=== PATIENT | male | born 1950 | race Caucasian/White ===

== ENCOUNTER 2016-11-08 12:43 | Day surgery (SDC) | payer MEDICARE, MEDICAID ==
[~2016-11-08 12:43] MED LIST: Buffered Lidocaine 0.9% SYRIN* 5 ML/SYR SYRINGE ONE; Dexamethasone IV* 4 MG/ML 1 ML (4 MG) IV SLOW PU ONE; Dexamethasone IV* 4 MG/ML 1 ML (4 MG) ONE; Famotidine IV* 10 MG/ML 2 ML (20 mg) IV ONE; Famotidine IV* 10 MG/ML 2 ML (20 mg) ONE; ceFAZolin 2 GM PREMIX(*) 2 GM/50 ML BAG IVPB ONE
[2016-11-08] MEDS ORDERED: fentaNYL* 50 MCG/ML 2 ML VIAL (100 MCG VIAL) ONE (13:43)
[2016-11-08] MEDS ORDERED: Ketorolac INJ* 30 MG/ML 1 ML VIAL ONE (13:44)
[2016-11-08] MEDS ORDERED: Ondansetron INJ* 2 MG/ML VIAL ONE (13:44)
[2016-11-08] MEDS ORDERED: Propofol* 10 MG/ML 20 ML BTL IV PUSH ONE (13:44)
[2016-11-08] MEDS ORDERED: Midazolam* 1 MG/ML 5 ML VIAL (5 MG) ONE (13:44)
[2016-11-08] MEDS ORDERED: oxyCODONE/Acetamin 5/325 MG* TAB PO PRN (14:05)
[2016-11-08] MEDS ORDERED: Ondansetron INJ* 2 MG/ML VIAL IV PRN (14:05)
[2016-11-08] MEDS ORDERED: Bupivacaine 0.25% W/EPI* 50 ML VIAL ONE (14:10)
[2016-11-08] MEDS ORDERED: Methylene Blue 1% (ANTIDOTE)* 10 MG/ML 1 ML SDV VIAL IVPB ONE (14:18)
[2016-11-08] MEDS ORDERED: Bupivacaine 0.25% EPI 200,000* 30 ML SDV ONE (14:19)
[2016-11-08] MEDS ORDERED: Mineral Oil Sterile, TOPICAL* 25 ML BTL ONE (14:19)
[2016-11-08 16:31] VITALS: BP 127/81
== END 2016-11-08 17:10 | disposition home or self-care (01) ==
LOC: OR 12:43
PROVIDERS: ATTEND Plastic Surgery
DX: D04.4 Carcinoma in situ of skin of scalp and neck (principal); C44.41 Basal cell carcinoma of skin of scalp and neck; F25.9 Schizoaffective disorder, unspecified; E11.22 Type 2 diabetes mellitus with diabetic chronic kidney disease; I12.9 Hypertensive chronic kidney disease with stage 1 through stage 4 chronic kidney disease, or unspecified chronic kidney disease; N18.3 Chronic kidney disease, stage 3 (moderate); Z79.84 Long term (current) use of oral hypoglycemic drugs
CPT/HCPCS: 88305; 88331; 88332; A9270-GY; J0690; J1100; J1885; J2250; J2405; J2704; J3010

== ENCOUNTER 2017-07-16 22:41 | Emergency (ER) | payer MEDICARE, MEDICAID ==
[2017-07-16] MEDS ORDERED: Ondansetron INJ* 2 MG/ML VIAL IV ONE (23:14)
[2017-07-16] MEDS ORDERED: Morphine INJ* 4 MG/ML 1 ML CARPUJECT IV ONE (23:14)
[2017-07-16] MEDS ORDERED: Morphine INJ* 4 MG/ML 1 ML SYRINGE (NEW SYRINGE VERSION) ONE (23:19)
[2017-07-16 23:59] LABS: INR 0.78 (0.77-1.02)
[2017-07-17] LABS: ABS Basophils 0 10^3/ul (0-0.2); ABS Eosinophils 0.3 10^3/ul (0-0.6); ABS Lymphocytes 1.8 10^3/ul (1.0-4.8); ABS Monocytes 0.8 10^3/ul (0-0.8); ABS Neutrophils 3.9 10^3/ul (1.5-7.7); ABS Nucleated RBC 0 10^3/ul; Eosinophil % 3.9 % (0-6); Hematocrit 34 % (42-52); Hemoglobin 11.4 g/dl (14.0-18.0); Lymphocyte % 26.8 % (25-47); Mean Corpuscular HGB Conc 33 g/dl (31-36); Mean Corpuscular Hemoglobin 30 pg (27-31); Mean Corpuscular Volume 91 fL (80-94); Mean Platelet Volume 9 um3 (7.4-10.4); Nucleated Red Blood Cells % 0; Platelet Count 200 10^3/ul (150-450); Red Blood Count 3.78 10^6/ul (4.0-5.4); Red Cell Distribution Width 15 % (10.5-15); White Blood Count 6.9 10^3/ul (3.5-10.8)
[2017-07-17 00:14] LABS: EGFR Non-African American 46.9 (>60)
[2017-07-17] MEDS ORDERED: Pregabalin CAP(*) 50 MG PO ONE (01:03)
[2017-07-17 01:25] VITALS: BP 162/85
--- NOTE | 2017-07-17 07:56 | RAD ---
HISTORY: Bilateral lower extremity pain and edema COMPARISONS: None relevant TECHNIQUE: Multiple transverse and longitudinal ultrasound images were obtained of the bilateral lower extremities from the level of the common femoral vein inferiorly through to the infrapopliteal veins using grayscale, color Doppler, and spectral Doppler imaging with and without compression and with augmentation. FINDINGS: VEINS: The venous system of the bilateral lower extremities is compressible throughout its course, with normal flow on color Doppler imaging and normal response to augmentation on spectral Doppler imaging. SOFT TISSUES: Unremarkable. OTHER FINDINGS: None. IMPRESSION: NO RIGHT LOWER EXTREMITY DEEP VEIN THROMBOSIS. NO LEFT LOWER EXTREMITY DEEP VEIN THROMBOSIS
--- NOTE | 2017-07-19 04:41 | ED ---
Nba Fisher Abhishek, scribed for Shukri Nassar MD on 07/17/17 at 0124 . Lower Extremity - HPI Summary HPI Summary: This patient is a 66 year old M presenting to [facility] with a chief complaint of feet pain since 4 months ago. Pertinent PMHx includes DM type 2. Pt states he has fallen multiple times and that he has no prior incidents of neuropathy apart from this chief complaint. However, pt also reports visiting an orthopedist recently and states that she diagnosed him with neuropathy. The patient rates the pain 8/10 in severity. Symptoms aggravated by palpation. Symptoms alleviated by nothing. Patient reports back pain, edema of lower extremity (bilaterally) and leg pain. Patient denies fever. Pt also states he does not use cane or a walker as well as reporting one leg being shorter and fatter than the other. - History of Current Complaint Chief Complaint: EDExtremityLower Stated Complaint: FEET SWELLING/PAIN Time Seen by Provider: 07/16/17 23:01 Hx Obtained From: Patient Onset/Duration: Still Present Severity Initially: Severe Severity Currently: Severe Pain Intensity: 8 Pain Scale Used: 0-10 Numeric Timing: Constant Associated Signs And Symptoms: Positive: Swelling Aggravating Factor(s): Other - palpation Alleviating Factor(s): Nothing - Allergies/Home Medications Allergies/Adverse Reactions: Allergies Allergy/AdvReac Type Severity Reaction Status Date / Time No Known Allergies Allergy Verified 11/08/16 12:58 PMH/Surg Hx/FS Hx/Imm Hx Endocrine/Hematology History: Reports: Hx Anticoagulant Therapy - aspirin 81mg, Hx Diabetes - DX 1999 TYPE 2 Denies: Hx Thyroid Disease Cardiovascular History: Reports: Hx Hypotension - HX OF X 1, Hx Hypertension Denies: Hx Pacemaker/ICD Respiratory History: Reports: Hx Pulmonary Edema - RLL Denies: Hx Asthma, Hx Chronic Obstructive Pulmonary Disease (COPD) GI History: Denies: Hx Ulcer History: Reports: Hx Chronic Renal Failure Denies: Hx Dialysis, Hx Renal Disease Musculoskeletal History: Denies: Hx Back Problems, Other Musculoskeletal History Sensory History: Reports: Hx Cataracts, Hx Contacts or Glasses - GLASSES, Hx Glaucoma Denies: Hx Hearing Aid Opthamlomology History: Reports: Hx Cataracts, Hx Contacts or Glasses - GLASSES , Hx Glaucoma Neurological History: Reports: Other Neuro Impairments/Disorders - SCHIZO AFFECTIVE DISORDER Denies: Hx Dementia, Hx Seizures Psychiatric History: Reports: Hx Anxiety, Hx Depression, Hx Schizophrenia, Hx Bipolar Disorder, Other Psychiatric Issues/Disorders - HX EXTRAPYRADAL S/S AFTER TAKING GEODON Denies: Hx Substance Abuse - Surgical History Surgery Procedure, Year, and Place: LEFT EYE SURGERY- LAZY EYE 1966 [facility] Anesthesia Reactions: Yes - N/V - Immunization History Date of Influenza Vaccine: 2006 Infectious Disease History: No Infectious Disease History: Denies: Hx Clostridium Difficile, Hx Hepatitis, Hx Human Immunodeficiency Virus (HIV), Hx Shingles, Hx Tuberculosis, Traveled Outside the [place] in Last 30 Days - Family History Known Family History: Positive: Cardiac Disease - PR, Other - Skin Cancer - Social History Alcohol Use: None Substance Use Type: Reports: None Smoking Status (MU): Never Smoked Tobacco Have You Smoked in the Last Year: No Review of Systems Negative: Fever Eyes: Negative ENT: Negative Cardiovascular: Negative Respiratory: Negative Gastrointestinal: Negative Genitourinary: Negative Musculoskeletal: Other - leg pain, back pain Positive: Edema - bilaterally LE Skin: Negative Neurological: Negative Psychological: Normal All Other Systems Reviewed And Are Negative: Yes Physical Exam - Summary Physical Exam Summary: VITAL SIGNS: Reviewed. GENERAL: ~Patient is a well-developed and nourished (MALE) who is lying comfortable in the stretcher. Patient is not in any acute respiratory distress. HEAD AND FACE: No signs of trauma. No ecchymosis, hematomas or skull depressions. No sinus tenderness. EYES: PERRLA, EOMI x 2, No injected conjunctiva, no nystagmus. EARS: Hearing grossly intact. Ear canals and tympanic membranes are within normal limits. MOUTH: Oropharynx within normal limits. NECK: Supple, trachea is midline, no adenopathy, no JVD, no carotid bruit, no c- spine tenderness, neck with full ROM. CHEST: Symmetric, no tenderness at palpation LUNGS: Clear to auscultation bilaterally. No wheezing or crackles. CVS: Regular rate and rhythm, S1 and S2 present, no murmurs or gallops appreciated. ABDOMEN: Soft, non-tender. No signs of distention. No rebound no guarding, and no masses palpated. Bowel sounds are normal. EXTREMITIES: Bilateral lower extremity edema left more than right Tenderness over his both feet. Redness of over the left lower extremity NEURO: Alert and oriented x 3. No acute neurological deficits. Speech is normal and follows commands. SKIN: Dry and warm Triage Information Reviewed: Yes Vital Signs On Initial Exam: Initial Vitals Temp Pulse Resp BP Pulse Ox 98.8 F 105 17 155/81 98 07/16/17 22:42 07/16/17 22:42 07/16/17 22:42 07/16/17 22:42 07/16/17 22:42 Vital Signs Reviewed: Yes Diagnostics - Vital Signs Vital Signs Temp Pulse Resp BP Pulse Ox 07/16/17 23:37 16 07/16/17 22:42 98.8 F 105 17 155/81 98 - Laboratory Lab Results: Lab Results 07/16/17 07/16/17 07/16/17 Range/Units 23:26 23:26 23:26 WBC 6.9 (3.5-10.8) 10^3/ul RBC 3.78 L (4.0-5.4) 10^6/ul Hgb 11.4 L (14.0-18.0) g/dl Hct 34 L (42-52) % MCV 91 (80-94) fL MCH 30 (27-31) pg MCHC 33 (31-36) g/dl RDW 15 (10.5-15) % Plt Count 200 (150-450) 10^3/ul MPV 9 (7.4-10.4) um3 Neut % (Auto) 57.4 (38-83) % Lymph % (Auto) 26.8 (25-47) % [place] % (Auto) 11.5 H (1-9) % Eos % (Auto) 3.9 (0-6) % Baso % (Auto) 0.4 (0-2) % Absolute Neuts (auto) 3.9 (1.5-7.7) 10^3/ul Absolute Lymphs (auto) 1.8 (1.0-4.8) 10^3/ul Absolute Monos (auto) 0.8 (0-0.8) 10^3/ul Absolute Eos (auto) 0.3 (0-0.6) 10^3/ul Absolute Basos (auto) 0 (0-0.2) 10^3/ul Absolute Nucleated RBC 0 10^3/ul Nucleated RBC % 0 INR (Anticoag Therapy) 0.78 (0.77-1.02) APTT 31.0 (26.0-36.3) seconds Sodium 138 (133-145) mmol/L Potassium 3.9 (3.5-5.0) mmol/L Chloride 102 (101-111) mmol/L Carbon Dioxide 29 (22-32) mmol/L Anion Gap 7 (2-11) mmol/L BUN 34 H (6-24) mg/dL Creatinine 1.49 H (0.67-1.17) mg/dL Est GFR ( Amer) 60.3 (>60) Est GFR (Non-Af Amer) 46.9 (>60) BUN/Creatinine Ratio 22.8 H (8-20) Glucose 159 H (70-100) mg/dL Calcium 9.4 (8.6-10.3) mg/dL Total Bilirubin 0.30 (0.2-1.0) mg/dL AST 26 (13-39) U/L ALT 18 (7-52) U/L Alkaline Phosphatase 30 L (34-104) U/L C-Reactive Protein 6.44 H (< 5.00) mg/L Total Protein 7.1 (6.4-8.9) g/dL Albumin 4.3 (3.2-5.2) g/dL Globulin 2.8 (2-4) g/dL Albumin/Globulin Ratio 1.5 (1-3) Result Diagrams: 07/16/17 23:26 07/16/17 23:26 Lab Statement: Any lab studies that have been ordered have been reviewed, and results considered in the medical decision making process. - Ultrasound No standard instances Ultrasound Interpretation Completed By: Radiologist - US lower extremity Venous Doppler reveals no evidence for DVT bilateral lower extremities as per radiology report. ED physician has reviewed this radiology report and agrees. Lower Extremity Course/Dx - Course Course Of Treatment: The pt is a 66 M with a CC of feet pain. The pt reports that the pain has been ongoing since 4 months and that he has PMHx of DM type 2 for 23 years. According to the pt, he visited an orthopedist and states the orthopedist diagnosed him with neuropathy. Upon evaluation and recieving a US venous dopplar of LE, pt will be diagnosed with bilateral feet pain, and diabetic neuropathy. The pt will be discharged home. - Diagnoses Provider Diagnoses: Bilateral foot pain, Diabetic neuropathy Discharge - Discharge Plan Condition: Stable Disposition: HOME Prescriptions: Pregabalin CAP(*) [Lyrica CAP(*)] 50 mg PO BID #30 cap MDD 2 Patient Education Materials: Diabetic Peripheral Neuropathy (ED), Leg Pain (ED) Referrals: Dayo Harkins MD [Primary Care Provider] - (Follow up with PCP within 2 to 3 days.) Additional Instructions: RETURN TO THE EMERGENCY DEPARTMENT FOR CHANGING OR WORSENING SYMPTOMS. The documentation as recorded by the Nba hess Abhishek accurately reflects the service I personally performed and the decisions made by Cesario guevara Abdul, MD.
== END 2017-07-17 01:20 | disposition home or self-care (01) ==
LOC: ED 22:41
DX: M79.672 Pain in left foot (principal); M79.671 Pain in right foot; R60.0 Localized edema; E11.40 Type 2 diabetes mellitus with diabetic neuropathy, unspecified; I95.9 Hypotension, unspecified; E11.22 Type 2 diabetes mellitus with diabetic chronic kidney disease; I12.9 Hypertensive chronic kidney disease with stage 1 through stage 4 chronic kidney disease, or unspecified chronic kidney disease; N18.9 Chronic kidney disease, unspecified; F25.9 Schizoaffective disorder, unspecified; Z79.82 Long term (current) use of aspirin
CPT/HCPCS: 36415; 80053; 85025; 85610; 85730; 86140; 87040; 93970; 96374; 96375; 99283; A9270-GY; J2270; J2405

== ENCOUNTER 2017-07-19 04:39 | Emergency (ER) | payer MEDICARE, MEDICAID ==
[2017-07-19] MEDS ORDERED: Pregabalin CAP(*) 50 MG PO ONE (04:54)
--- NOTE | 2017-07-19 05:37 | ED ---
Meryl Fisher Thomas, scribed for Shukri Nassar MD on 07/19/17 at 0502 . Lower Extremity - HPI Summary HPI Summary: The patient is a 66 year old male presenting with bilateral feet pain for the last four months. PMHx includes DM. I saw him two days ago in the ED, when he had a negative venous Doppler ultrasound and was discharged with Lyrica. However , he reports that he lost his prescription and is still in pain. He has an appointment with his primary care physician today at 11:00. - History of Current Complaint Chief Complaint: EDDizziness Stated Complaint: Feet pain Time Seen by Provider: 07/19/17 04:43 Hx Obtained From: Patient Onset of Pain: Days - months ago Onset/Duration: Still Present Severity Currently: Severe Pain Intensity: 8 Pain Scale Used: 0-10 Numeric Timing: Constant Location: Is Discrete @ - bilateral feet Associated Signs And Symptoms: Positive: Negative. Negative: Fever Aggravating Factor(s): Nothing - Allergies/Home Medications Allergies/Adverse Reactions: Allergies Allergy/AdvReac Type Severity Reaction Status Date / Time No Known Allergies Allergy Verified 11/08/16 12:58 PMH/Surg Hx/FS Hx/Imm Hx Endocrine/Hematology History: Reports: Hx Anticoagulant Therapy - aspirin 81mg, Hx Diabetes - DX 1999 TYPE 2 Denies: Hx Thyroid Disease Cardiovascular History: Reports: Hx Hypotension - HX OF X 1, Hx Hypertension Denies: Hx Pacemaker/ICD Respiratory History: Reports: Hx Pulmonary Edema - RLL Denies: Hx Asthma, Hx Chronic Obstructive Pulmonary Disease (COPD) GI History: Denies: Hx Ulcer History: Reports: Hx Chronic Renal Failure Denies: Hx Dialysis, Hx Renal Disease Musculoskeletal History: Denies: Hx Back Problems, Other Musculoskeletal History Sensory History: Reports: Hx Cataracts, Hx Contacts or Glasses - GLASSES, Hx Glaucoma Denies: Hx Hearing Aid Opthamlomology History: Reports: Hx Cataracts, Hx Contacts or Glasses - GLASSES , Hx Glaucoma Neurological History: Reports: Other Neuro Impairments/Disorders - SCHIZO AFFECTIVE DISORDER Denies: Hx Dementia, Hx Seizures Psychiatric History: Reports: Hx Anxiety, Hx Depression, Hx Schizophrenia, Hx Bipolar Disorder, Other Psychiatric Issues/Disorders - HX EXTRAPYRADAL S/S AFTER TAKING GEODON Denies: Hx Substance Abuse - Surgical History Surgery Procedure, Year, and Place: LEFT EYE SURGERY- [facility] Hx Anesthesia Reactions: Yes - N/V - Immunization History Date of Influenza Vaccine: 2006 Infectious Disease History: No Infectious Disease History: Denies: Hx Clostridium Difficile, Hx Hepatitis, Hx Human Immunodeficiency Virus (HIV), Hx Shingles, Hx Tuberculosis, Traveled Outside the in Last 30 Days - Family History Known Family History: Positive: Other - Patient denies relevant FHx - Social History Alcohol Use: None Substance Use Type: Reports: None Smoking Status (MU): Never Smoked Tobacco Have You Smoked in the Last Year: No Review of Systems Negative: Fever Positive: Other - Bilateral feet pain All Other Systems Reviewed And Are Negative: Yes Physical Exam - Summary Physical Exam Summary: VITAL SIGNS: Reviewed. GENERAL: Patient is a well-developed and nourished MALE who is lying comfortable in the stretcher. Patient is not in any acute respiratory distress. HEAD AND FACE: No signs of trauma. No ecchymosis, hematomas or skull depressions. No sinus tenderness. EYES: PERRLA, EOMI x 2, No injected conjunctiva, no nystagmus. EARS: Hearing grossly intact. Ear canals and tympanic membranes are within normal limits. MOUTH: Oropharynx within normal limits. NECK: Supple, trachea is midline, no adenopathy, no JVD, no carotid bruit, no c- spine tenderness, neck with full ROM. CHEST: Symmetric, no tenderness at palpation LUNGS: Clear to auscultation bilaterally. No wheezing or crackles. CVS: Regular rate and rhythm, S1 and S2 present, no murmurs or gallops appreciated. ABDOMEN: Soft, non-tender. No signs of distention. No rebound no guarding, and no masses palpated. Bowel sounds are normal. EXTREMITIES: He has bilateral lower extremity edema that is old. FROM in all major joints, no cyanosis or clubbing. NEURO: Alert and oriented x 3. No acute neurological deficits. Speech is normal and follows commands. SKIN: Dry and warm Triage Information Reviewed: Yes Vital Signs On Initial Exam: Initial Vitals Temp Pulse Resp BP Pulse Ox 98.4 F 90 20 149/80 98 07/19/17 04:40 07/19/17 04:40 07/19/17 04:40 07/19/17 04:40 07/19/17 04:40 Vital Signs Reviewed: Yes Diagnostics - Vital Signs Vital Signs Temp Pulse Resp BP Pulse Ox 02/14/18 04:40 98.4 F 90 20 149/80 98 - Laboratory Lab Statement: Any lab studies that have been ordered have been reviewed, and results considered in the medical decision making process. Lower Extremity Course/Dx - Course Assessment/Plan: The patient is a 66 year old male presenting with bilateral feet pain for the last four months. PMHx includes DM. I saw him two days ago in the ED, when he had a negative venous Doppler ultrasound and was discharged with Lyrica. However, he reports that he lost his prescription and is still in pain. He has an appointment with his primary care physician today at 11:00. In the ED course the patient was given Lyrica. The patient will be discharged home to follow up at his appointment later today with his primary care provider. - Diagnoses Provider Diagnoses: Diabetic neuropathy Discharge - Discharge Plan Condition: Stable Disposition: HOME Prescriptions: Pregabalin CAP(*) [Lyrica CAP(*)] 50 mg PO BID #10 cap MDD 2 Patient Education Materials: Diabetic Peripheral Neuropathy (ED) Referrals: Dayo Harikns MD [Primary Care Provider] - 07/19/17 Additional Instructions: Follow up at your appointment later today (11:00) with Dr. Harkins. Return to the emergency department for any new or worsening symptoms. The documentation as recorded by the Meryl hess Thomas accurately reflects the service I personally performed and the decisions made by me, Shukri Nassar MD.
[2017-07-19 05:38] VITALS: BP 136/74
== END 2017-07-19 05:37 | disposition home or self-care (01) ==
LOC: ED 04:39
DX: E11.40 Type 2 diabetes mellitus with diabetic neuropathy, unspecified (principal); Z79.82 Long term (current) use of aspirin
CPT/HCPCS: 99282; A9270-GY

== ENCOUNTER 2017-07-25 22:16 | Emergency (ER) | payer MEDICARE, MEDICAID ==
[2017-07-25] MEDS ORDERED: Furosemide TAB* 20 MG PO ONE (22:36)
[2017-07-25] MEDS ORDERED: traMADol TAB* 50 MG PO ONE (22:38)
[2017-07-25 23:31] VITALS: BP 150/78
--- NOTE | 2017-08-01 15:16 | ED ---
Minor Fisher Jennifer, scribed for Og Greenwood MD on 07/25/17 at 2233 . Lower Extremity - HPI Summary HPI Summary: The patient is a 66 year old male who presents to the ED with swollen feet that began a few months ago in April. The patient has a history of Type I Diabetes. He hasnt checked his glucose in one week. He reports that he has fallen a bunch of times in the past few months. The patient additionally complains of trouble breathing because of the pain in his legs, coughing, and weight gain of 13 pounds in the last four months. - History of Current Complaint Stated Complaint: SWOLLN FEET Time Seen by Provider: 07/25/17 22:27 Hx Obtained From: Patient Onset/Duration: Still Present Severity Initially: Moderate Severity Currently: Moderate Timing: Constant Associated Signs And Symptoms: Positive: Other - Trouble breathing, leg pain, weight gain, falling Aggravating Factor(s): Other - Lying down Alleviating Factor(s): Elevation - Allergies/Home Medications Allergies/Adverse Reactions: Allergies Allergy/AdvReac Type Severity Reaction Status Date / Time No Known Allergies Allergy Verified 11/08/16 12:58 PMH/Surg Hx/FS Hx/Imm Hx Endocrine/Hematology History: Reports: Hx Anticoagulant Therapy - aspirin 81mg, Hx Diabetes - DX 1999 TYPE 2 Denies: Hx Thyroid Disease Cardiovascular History: Reports: Hx Hypotension - HX OF X 1, Hx Hypertension Denies: Hx Pacemaker/ICD Respiratory History: Reports: Hx Pulmonary Edema - RLL Denies: Hx Asthma, Hx Chronic Obstructive Pulmonary Disease (COPD) GI History: Denies: Hx Ulcer History: Reports: Hx Chronic Renal Failure Denies: Hx Dialysis, Hx Renal Disease Musculoskeletal History: Denies: Hx Back Problems, Other Musculoskeletal History Sensory History: Reports: Hx Cataracts, Hx Contacts or Glasses - GLASSES, Hx Glaucoma Denies: Hx Hearing Aid Opthamlomology History: Reports: Hx Cataracts, Hx Contacts or Glasses - GLASSES , Hx Glaucoma Neurological History: Reports: Other Neuro Impairments/Disorders - SCHIZO AFFECTIVE DISORDER Denies: Hx Dementia, Hx Seizures Psychiatric History: Reports: Hx Anxiety, Hx Depression, Hx Schizophrenia, Hx Bipolar Disorder, Other Psychiatric Issues/Disorders - HX EXTRAPYRADAL S/S AFTER TAKING GEODON Denies: Hx Substance Abuse - Surgical History Surgery Procedure, Year, and Place: [facility] Reactions: Yes - N/V - Immunization History Date of Influenza Vaccine: 2006 Infectious Disease History: Denies: Hx Clostridium Difficile, Hx Hepatitis, Hx Human Immunodeficiency Virus (HIV), Hx Shingles, Hx Tuberculosis - Family History Known Family History: Positive: Other - Patient denies relevant FHx - Social History Alcohol Use: None Substance Use Type: Reports: None Smoking Status (MU): Never Smoked Tobacco Have You Smoked in the Last Year: No Review of Systems Negative: Fever, Chills Negative: Erythema Negative: Sore Throat Negative: Chest Pain Positive: Other - Trouble breathing. Negative: Shortness Of Breath, Cough Negative: Abdominal Pain, Vomiting, Nausea Negative: dysuria, hematuria Positive: Myalgia - Pain in legs, Edema - Swollen feet Negative: Rash Neurological: Negative - Dizziness All Other Systems Reviewed And Are Negative: Yes Physical Exam - Summary Physical Exam Summary: Constitutional: Well-developed, Well-nourished, Alert. (-) Distressed Skin: Warm, Dry HENT: Normocephalic; Atraumatic Eyes: Conjunctiva normal Neck: Musculoskeletal ROM normal neck. (-) JVD, (-) Stridor, (-) Tracheal deviation Cardio: Rhythm regular, rate normal, Heart sounds normal; Intact distal pulses; The pedal pulses are 2+ and symmetric. Radial pulses are 2+ and symmetric. (-) Murmur. No evidence for Congestive Heart Failure or pulmonary edema. Pulmonary/Chest wall: Effort normal. (-) Respiratory distress, (-) Wheezes, (-) Rales Abd: Soft, (-) Tenderness, (-) Distension, (-) Guarding, (-) Rebound Musculoskeletal: (-) Edema Lymph: (-) Cervical adenopathy Neuro: Alert, Oriented x3 Psych: Mood and affect Normal Triage Information Reviewed: Yes Vital Signs Reviewed: Yes Lower Extremity Course/Dx - Course Assessment/Plan: The patient is a 66 year old male who presents to the ED with swollen feet that began a few months ago in April. The patient has a history of Type I Diabetes. In the ED course the patient was given Lasix and Ultram. His glucose level was 186 mg/dl. There was no evidence of CHF or pulmonary edema. The patient is diagnosed with peripheral edema. The patient is instructed to follow up with Dr. Harkins in 48 hours. He is to return to the ED for shortness of breath, chest pain, or fatigue. - Diagnoses Provider Diagnoses: Peripheral edema Discharge - Discharge Plan Condition: Stable Disposition: HOME Patient Education Materials: Edema (ED) Referrals: Dayo Harkins MD [Primary Care Provider] - 2 Days Additional Instructions: Follow up with your primary care physician, Dr. Harkins, in 48 hours. Return to the ED for shortness of breath, chest pain, or fatigue. The documentation as recorded by the Minor hess Jennifer accurately reflects the service I personally performed and the decisions made by , Og Greenwood MD.
== END 2017-07-25 23:33 | disposition home or self-care (01) ==
LOC: ED 22:16
DX: R60.9 Edema, unspecified (principal)
CPT/HCPCS: 99283; A9270-GY

== ENCOUNTER 2019-05-05 04:14 | Emergency (ER) | payer MEDICAID, MEDICARE ==
--- NOTE | 2019-05-05 04:32 | ED ---
GI/ HPI - HPI Summary HPI Summary: Patient is a 68 y/o diabetic male who presents to [facility] via EMS with complaints of increased frequency and volume of urination. He claims that he urinated a constant stream of urine for 40 straight minutes tonight. He states that he was urinating every two hours before this episode. He states that these urinary issues have been occurring since he was diagnosed with diabetes. Patient states that he feels well currently. He notes some right lower back pain which he attributes to injury from years ago. FMHx of diabetes is noted as well. On triage, pain is rated 8/10. Nothing is noted to aggravate/alleviate Sx. Home medications and allergies are reviewed. - History of Current Complaint Chief Complaint: EDGeneral Time Seen by Provider: 05/05/19 04:21 Stated Complaint: L BACK PAIN PER EMS Hx Obtained From: Patient Onset/Duration: Resolved Timing: Intermittent, Lasting Minutes Severity: Severe Current Severity: Severe Pain Intensity: 8 Location of Pain: Other - right lower back Associated Signs and Symptoms: Positive: Back Pain, Other: - increased frequency of urination Aggravating Factor(s): Nothing Alleviating Factor(s): Nothing - Allergy/Home Medications Allergies/Adverse Reactions: Allergies Allergy/AdvReac Type Severity Reaction Status Date / Time No Known Allergies Allergy Verified 11/08/16 12:58 PMH/Surg Hx/FS Hx/Imm Hx Endocrine/Hematology History: Reports: Hx Anticoagulant Therapy - aspirin 81mg, Hx Diabetes - DX 1999 TYPE 2 Denies: Hx Thyroid Disease Cardiovascular History: Reports: Hx Hypotension - HX OF X 1, Hx Hypertension Denies: Hx Pacemaker/ICD Respiratory History: Reports: Hx Pulmonary Edema - RLL Denies: Hx Asthma, Hx Chronic Obstructive Pulmonary Disease (COPD) GI History: Denies: Hx Ulcer History: Reports: Hx Chronic Renal Failure Denies: Hx Dialysis, Hx Renal Disease Musculoskeletal History: Denies: Hx Back Problems, Other Musculoskeletal History Sensory History: Reports: Hx Cataracts, Hx Contacts or Glasses - GLASSES, Hx Glaucoma Denies: Hx Hearing Aid Opthamlomology History: Reports: Hx Cataracts, Hx Contacts or Glasses - GLASSES , Hx Glaucoma Neurological History: Reports: Other Neuro Impairments/Disorders - SCHIZO AFFECTIVE DISORDER Denies: Hx Dementia, Hx Seizures Psychiatric History: Reports: Hx Anxiety, Hx Depression, Hx Schizophrenia, Hx Bipolar Disorder, Other Psychiatric Issues/Disorders - HX EXTRAPYRADAL S/S AFTER TAKING GEODON Denies: Hx Substance Abuse - Surgical History Surgery Procedure, Year, and Place: LEFT EYE SURGERY- [facility] Anesthesia Reactions: Yes - N/V - Immunization History Date of Influenza Vaccine: 2006 Infectious Disease History: No Infectious Disease History: Denies: Hx Clostridium Difficile, Hx Hepatitis, Hx Human Immunodeficiency Virus (HIV), Hx Shingles, Hx Tuberculosis, Traveled Outside the [place] in Last 30 Days - Family History Known Family History: Positive: Other - Patient denies relevant FHx - Social History Alcohol Use: None Substance Use Type: Reports: None Smoking Status (MU): Never Smoked Tobacco Have You Smoked in the Last Year: No Review of Systems Positive: frequency - increased frequency and volume of urination Musculoskeletal: Other - positive - back pain All Other Systems Reviewed And Are Negative: Yes Physical Exam - Summary Physical Exam Summary: Appearance: Well-appearing, Well-nourished, lying in bed comfortably Skin: Warm, dry, no obvious rash Eyes: sclera anicteric, no conjunctival pallor ENT: mucous membranes moist, pharynx appears normal Neck: Supple, nontender Respiratory: Clear to auscultation, no signs of respiratory distress Cardiovascular: Normal S1, S2. No murmurs. Normal distal pulses in tibial and radial bilaterally. Abdomen: Soft, nontender, normal active bowel sounds present Musculoskeletal: Normal, Strength/ROM Intact Neurological: A&Ox3, awake and alert, mentation is normal, speech is fluent and appropriate Psychiatric: affect is normal, does not appear anxious or depressed Triage Information Reviewed: Yes Vital Signs On Initial Exam: Initial Vitals Temp Pulse Resp BP Pulse Ox 97.9 F 93 20 156/101 99 05/05/19 04:16 05/05/19 04:16 05/05/19 04:16 05/05/19 04:16 05/05/19 04:16 Vital Signs Reviewed: Yes Procedures - Sedation Patient Received Moderate/Deep Sedation with Procedure: No Diagnostics - Vital Signs Vital Signs Temp Pulse Resp BP Pulse Ox 05/05/19 04:16 97.9 F 93 20 156/101 99 - Laboratory Result Diagrams: 05/05/19 04:56 Lab Statement: Any lab studies that have been ordered have been reviewed, and results considered in the medical decision making process. Re-Evaluation - Re-Evaluation First Eval Re-Evaluation Time: 04:55 Comment: Patient voided 150 mL urine, bladder scan showed 0 mL. GIGU Course/Dx - Course Course Of Treatment: Patient is a 68 y/o diabetic male who presents to [facility] via EMS with complaints of increased frequency and volume of urination. He claims that he urinated a constant stream of urine for 40 straight minutes tonight. He states that he was urinating every two hours before this episode. He states that these urinary issues have been occurring since he was diagnosed with diabetes. Patient states that he feels well currently. He notes some right lower back pain which he attributes to injury from years ago. Physical exam is unremarkable. Patient voided 150 mL urine, bladder scan showed 0 mL. UA showed trace ketones and 1+ blood. Bloodwork was obtained. Patient was discharged to home and will follow up with PCP as needed. - Diagnoses Provider Diagnoses: Dysuria Discharge ED - Sign-Out/Discharge Documenting (check all that apply): Patient Departure - discharge - Discharge Plan Condition: Good Disposition: HOME Patient Education Materials: Dysuria (ED) Referrals: Dayo Harkins MD [Primary Care Provider] - If Needed - Attestation Statements Document Initiated by Scribe: Yes Documenting Scribe: SAM VALERO Provider For Whom Mundo is Documenting (Include Credential): OLRANDO KUMAR MD Scribe Attestation: SAM Fisher, scribed for ORLANDO KUMAR MD on 05/05/19 at 0644. Status of Scribe Document: Ready
[2019-05-05 05:07] LABS: ABS Eosinophils 0.3 10^3/ul (0-0.6); ABS Lymphocytes 2.9 10^3/ul (1.0-4.8); ABS Monocytes 0.7 10^3/ul (0-0.8); ABS Neutrophils 2.9 10^3/ul (1.5-7.7); Eosinophil % 3.9 %; Hematocrit 39 % (42-52); Lymphocyte % 42.8 %; Mean Corpuscular HGB Conc 34 g/dL (31-36); Mean Corpuscular Hemoglobin 31 pg (27-31); Mean Corpuscular Volume 91 fL (80-94); Nucleated Red Blood Cells % 0.1; Platelet Count 172 10^3/uL (150-450); Red Blood Count 4.27 10^6 /uL (4.18-5.48); Red Cell Distribution Width 14 % (10-15); White Blood Count 6.8 10^3/uL (3.5-10.8)
[2019-05-05 05:11] LABS: Urine Appearance Clear; Urine Bilirubin Negative (Negative); Urine Blood 1+ (Negative); Urine Color Straw; Urine Glucose Negative (Negative); Urine Ketones Trace (Negative); Urine Nitrite Negative (Negative); Urine Protein Negative (Negative); Urine Urobilinogen Negative (Negative)
[2019-05-05 05:15] LABS: Urine Bacteria Absent (Absent); Urine Red Blood Cell Trace(0-2/hpf) (Absent); Urine White Blood Cell Absent (Absent)
[2019-05-05 07:28] VITALS: BP 180/78
[2019-05-05 08:13] LABS: Albumin 4.5 g/dL (3.2-5.2); Calcium 9.6 mg/dL (8.6-10.3); Potassium 4.3 mmol/L (3.5-5.0); Total Bilirubin 0.6 mg/dL (0.2-1.0)
[2019-05-05 08:19] LABS: Albumin/Globulin Ratio 2.1 (1-3); BUN/Creatinine Ratio 22.4 (8-20); EGFR African American 59.2 (>60); EGFR Non-African American 48.9 (>60); Globulin 2.1 g/dL (2-4); Total Protein 6.6 g/dL (6.4-8.9)
--- OUTSIDE RECORDS SUMMARY | 2019-05-07 15:54 | XMS REPORT | Continuity of Care Document ---
:1950 External Reference #:[id number] Author Name Flavio Duran, OD Address [address] [place] [address] Care Team Providers Name Role Phone Dayo Harkins MD - Internal Care Team Information Property Officer [phone] Medicine Problems Active Problems Provider Date Bilateral primary open angle glaucoma Chidi Frankel M.D. Onset: 05/09/2016 Primary open-angle glaucoma, mild stage Chidi Frankel M.D. Onset: 2015 Nuclear senile cataract Chidi Frankel M.D. Onset: 11/25/2013 Open-angle glaucoma Chidi Frankel M.D. Onset: 08/22/2013 Type 2 diabetes mellitus Chidi Frankel M.D. Onset: 08/22/2013 Social History Type Date Description Comments Sex Unknown ETOH Use Denies alcohol use Tobacco Use Start: Unknown Patient has never smoked Smoking Status Reviewed: 04/03/19 Patient has never smoked Allergies, Adverse Reactions, Alerts Description No Known Drug Allergies Medications Active Medications SIG Qnty Indications Ordering Provider Date Latanoprost 1 drops both 7.5ml Flavio Duran, OD 06/22/2018 0.005% Solution eyes every night Timolol Maleate one drop twice 15ml Flavio Duran, OD 06/20/2018 0.5% Solution a day both eyes Finasteride Unknown 5mg Tablets Estradiol Unknown 0.5mg Tablets Januvia Unknown 25mg Tablets Amlodipine Besylate Unknown 5mg Tablets Onetouch Ultra Blue Test Twice A Unknown Strips Day Docqlace Unknown 100mg Capsules Divalproex Sodium ER Unknown 500mg Tablets ER 24HR Benztropine Mesylate Unknown 0.5mg Tablets Lisinopril-Hydrochloroth Shahana HAIRSTON, iazide Dayo 20-12.5mg Tablets Hydrocortisone Unknown 2.5% Lotion Benzatropine Unknown Norvasc Unknown Tablets Depakote Unknown Tablets DR Ji Unknown Tablets Aspir-81 once per day po Unknown 81mg Tablets Lisinopril Unknown Tablets Actos Unknown Tablets Glipizide Unknown Tablets Abilify Unknown Tablets Immunizations Description No Information Available Vital Signs Date Vital Result Comment 01/01/2019 10:10am Intraocular Pressure Right Eye 18 mmHg Intraocular Pressure Left Eye 19 mmHg 08/23/2018 10:27am Intraocular Pressure Right Eye 18 mmHg Intraocular Pressure Left Eye 19 mmHg Results Description No Information Available Procedures Date Code Description Status 04/03/2019 84319 Visual Field Exam Extended, Unilateral Or Bilateral Completed 04/03/2019 20362 Eye Exam Est Intermediate Completed 01/01/2019 29942 Oct, Optic Nerve Completed 01/01/2019 15929 Eye Exam Est Intermediate Completed Medical Devices Description No Information Available Encounters Description No Information Available Assessments Date Code Description Provider 04/03/2019 H40.1131 Primary open-angle glaucoma, bilateral, mild Flavio Duran, OD stage 04/03/2019 H25.13 Age-related nuclear cataract, bilateral Flavio Duran, OD 01/01/2019 H40.1131 Primary open-angle glaucoma, bilateral, mild Flavio Duran, OD stage Plan of Treatment 04/03/2019 - Flavio Duran, ODH40.1131 Primary open-angle glaucoma, bilateral, mild [id number] Age-related nuclear cataract, bilateralFollow up:3 mos full, sooner PRN Functional Status Description No Information Available Mental Status Description No Information Available Referrals Description No Information Available
--- OUTSIDE RECORDS SUMMARY | 2019-05-07 15:54 | XMS REPORT | Continuity of Care Document ---
:1950 External Reference #:[id number] Author Name Flavio Duran, OD Address [address] [place] [address] Care Team Providers Name Role Phone Dayo Harkins MD - Internal Care Team Information Seed Trucker [phone] Medicine Problems Active Problems Provider Date Bilateral [...] Medications SIG Qnty Indications Ordering Provider Date Combigan one drop twice 15ml Flavio Duran, OD 04/03/2019 0.2-0.5% Solution a day both eyes Latanoprost 1 drops both 7.5ml Flavio Duran, OD 04/03/2019 0.005% Solution eyes every night Januvia Unknown 100mg Tablets Finasteride Unknown 5mg Tablets Estradiol Unknown 0.5mg Tablets Onetouch Ultra Blue Test Twice A Unknown Strips Day Docqlace Unknown 100mg Capsules Divalproex Sodium ER Unknown 500mg Tablets ER 24HR Benztropine Mesylate Unknown 0.5mg Tablets Lisinopril-Hydrochloroth Shahana HAIRSTON, iazide Dayo 20-12.5mg Tablets Hydrocortisone Unknown 2.5% Lotion Benzatropine Unknown Norvasc Unknown Tablets Depakote Unknown Tablets DR Ji Unknown Tablets Aspir-81 once per day po Unknown 81mg Tablets DR Kesslerinopril Unknown Tablets Actos Unknown Tablets Glipizide Unknown Tablets Abilify Unknown Tablets Immunizations Description No Information Available Vital Signs Date Vital Result Comment 04/03/2019 11:01am Intraocular Pressure Right Eye 19 mmHg Intraocular Pressure Left Eye 19 mmHg 01/01/2019 10:10am Intraocular Pressure Right Eye 18 mmHg Intraocular Pressure Left Eye 19 mmHg Results Description No Information Available Procedures Date Code Description Status 04/03/2019 42603 Visual Field Exam Extended, Unilateral Or Bilateral Completed 04/03/2019 64570 Eye Exam Est Intermediate Completed 01/01/2019 62831 Oct, Optic Nerve Completed 01/01/2019 26208 Eye Exam Est Intermediate Completed Medical Devices Description No Information Available Encounters Description No Information Available Assessments Date Code Description Provider 04/03/2019 H40.1131 Primary open-angle glaucoma, bilateral, mild Flavio Duran, OD stage 04/03/2019 H25.13 Age-related nuclear cataract, bilateral Flavio Duran, OD 01/01/2019 H40.1131 Primary open-angle glaucoma, bilateral, mild Flavio Duran, OD stage Plan of Treatment Future Appointment(s):07/04/2019 10:00 am - Flavio Duran, OD at [id number] - Flavio Duran ODH40.1131 Primary open-angle glaucoma, bilateral, mild [id number] Age-related nuclear cataract, bilateralFollow up:3 mos full, sooner PRN Functional Status Description No Information Available Mental Status Description No Information Available Referrals Description No Information Available
--- OUTSIDE RECORDS SUMMARY | 2019-05-07 15:54 | XMS REPORT | Summary of Care ---
:1950 Author Organization [facility] Address [address] [address] Care Team Providers Name Role Phone Dayo Harkins Primary Care Provider Reason for Visit Reason Comments Diabetes Last A1C was 7.4 on 12/12/2018. Labs are pended. 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 1. 2 Brand: 2. Dx:250.02 3. non-Insulin dependentNO 4. Test Blood Glucose 2QAM time(s) A DAY clotrimazole Apply to 1 Tube 3 Active (LOTRIMIN) 1 % affected areas 4 Apply externally of feet twice a Cream day. Hydrocortisone 2.5 APPLY TO 59 mL 2 Active % Apply externally AFFECTED AREA 4 Lotion TWO TIMES DAILY NEEDED FOR RASH Glucose Blood In 1 Strip by In 100 Each 11 Active Vitro Strip Vitro route 6 TWICE DAILY. One Touch Ultra, Dx:E11.9, bid & PRN azelastine [place] 2 Sprays 1 Bottle 4 Active (ASTELIN) 0.1 % in nose TWICE 7 Nasal DAILY. SolutionIndications : Chronic vasomotor rhinitis Blood Glucose 1 Each by Does 1 Device 0 Active Monitor Software not apply route 8 Does not apply DIRECTED. Device Brand: One Touch, Dx: E11.65, test bid and prn pregabalin (LYRICA) Take 1 Cap by 60 Cap 5 Active 50 MG Oral Cap mouth TWICE 8 DAILY. Max Daily Amount: 100 mg. finasteride TAKE ONE TABLET 90 Tab 3 Active (PROSCAR) 5 MG Oral BY MOUTH ONCE 8 Tab DAILY ASPIR-LOW 81 MG TAKE ONE TABLET 100 Tab 5 Active Oral Tab EC BY MOUTH ONCE 9 DAILY DOCQLACE 100 MG TAKE ONE 60 Cap 5 Active Oral Cap CAPSULE BY 9 MOUTH TWO TIMES DAILY simvastatin (ZOCOR) TAKE 1 TABLET 90 Tab 3 Active 40 MG Oral Tab BY MOUTH AT 9 BEDTIME glipiZIDE TAKE ONE TABLET 90 Tab 3 Active (GLUCOTROL XL) 5 MG BY MOUTH ONCE 9 Oral TABLET SR 24 DAILY HR Glucose Blood (ONE 1 Each by In 100 Strip 5 Active TOUCH ULTRA TEST Vitro route TWO 9 STRIPS) In Vitro TIMES DAILY StripIndications: NEEDED Diabetes mellitus (DIABETES). One without touch ultra 2. complication (HCC) Test bid. Dx: E11,9 lurasidone HCl Take 2 Tabs by 60 Tab 5 Active (LATUDA) 40 MG Oral mouth DAILY. 9 Tab divalproex Take 3 Tabs by 90 Tab 0 Active (DEPAKOTE ER) 250 mouth EVERY 9 MG Oral TABLET SR TWENTY-FOUR 24 HR HOURS. sitagliptin Take 1 Tab by 90 Tab 3 Active (JANUVIA) 100 MG mouth DAILY. 9 Oral Tab clonazePAM Take 2 mg by 120 Tab 0 03/26/20 Discontinued (KLONOPIN) 0.5 MG mouth EVERY 1 19 (Provider Oral BEDTIME. Discontinued) TabIndications: Schizoaffective disorder (HCC) divalproex Take 1,500 mg 0 03/26/20 Discontinued (DEPAKOTE ER) 500 by mouth EVERY 2 19 (Provider MG Oral TABLET SR TWENTY-FOUR Discontinued) 24 HRIndications: HOURS. Schizoaffective disorder (HCC) cephalexin (KEFLEX) Take 1 Cap by 21 Cap 0 03/26/20 Discontinued 500 MG Oral Cap mouth THREE 8 19 (Provider TIMES DAILY. Discontinued) DOCQLACE 100 MG TAKE ONE 60 Cap 5 03/26/20 Discontinued Oral Cap CAPSULE BY 8 19 (Provider MOUTH TWO TIMES Discontinued) DAILY amLodipine TAKE 1 TABLET 90 Tab 0 03/26/20 Discontinued (NORVASC) 10 MG BY MOUTH DAILY. 8 19 (Provider Oral PATIENT NEEDS Discontinued) TabIndications: TO MAKE Essential APPOINTMENT FOR hypertension, FUTURE benign REFILLS LYRICA 50 MG Oral TAKE ONE 60 Cap 5 03/26/20 Discontinued Cap CAPSULE BY 9 19 (Provider MOUTH TWO TIMES Discontinued) DAILY MAXIMUM OF TWO CAPSULES DAILY JANUVIA 50 MG Oral TAKE ONE TABLET 90 Tab 3 03/26/20 Discontinued Tab BY MOUTH ONCE 9 19 (Provider DAILY Discontinued) documented as of this encounter (statuses as of 03/26/2019) Active Problems Problem Noted Date Chronic kidney disease, stage III (moderate) 01/27/2011 Overview: Seeing Dr. Ritchie. Last seen 12/09/13. Next apt 03/18. Gastric polyp 04/24/2009 Overview: [facility] 04/13 Schizoaffective disorder 03/27/2007 Mixed hyperlipidemia 03/27/2007 Well controlled type 2 diabetes mellitus with peripheral neuropathy 03/23/2006 Overview: Last eye exam 10/02/[address] Frankel [address]. Correa for foot care. Seen 12/24/13 A1C 6.9% 11/16 Essential hypertension, benign 03/23/2006 documented as of this encounter (statuses as of 03/26/2019) Resolved Problems Problem Noted Date Resolved Date Acute right ankle pain 06/06/2017 03/26/2019 Resides in intermediate [facility] care facility 11/26/2015 07/19/2017 Back pain, lumbosacral 01/13/2015 06/13/2017 Explosive personality disorder 07/07/2006 09/05/2007 Unspecified psychosis 03/23/2006 09/05/2007 documented as of this encounter (statuses as of 03/26/2019) Immunizations Name Administration Dates Next Due Adacel TdaP 10/10/2006 Influenza (IM) Preservative Free 02/17/2017, 03/18/2010, 03/18/2008 Influenza Vaccine 65 Yrs + 03/26/2019 Influenza Vaccine High Dose 04/18/2016, 04/07/2015, 03/18/2014 Influenza Vaccine Whole 03/18/2009, 04/20/2006, 05/25/2005, 04/09/2004 Influenza Virus Vaccine Pres Free 6-35 02/25/2011 Months PNEUMOCOCCAL POLYSACCHARIDE VACCINE 03/18/2014, 05/25/2005 Pneumococcal Conjugate(13 Valent) 04/18/2016 TDAP Vaccine 10/23/2017 ZOSTER (ZOSTAVAX) VACCINE 04/03/2014 documented as of this encounter Social History Tobacco Use Types Packs/Day Years Used Date Never Smoker Smokeless Tobacco: Never Used Alcohol Use Drinks/Week oz/Week Comments No 0 Standard drinks or equivalent 0.0 Sex Assigned at Date Recorded Not on file Job Start Date Occupation Industry Not on file Not on file Not on file Travel History Travel Start Travel End No recent travel history available. documented as of this encounter Last Filed Vital Signs Vital Sign Reading Time Taken Comments Blood Pressure 132/80 03/26/2019 2:19 PM EDT Pulse - - Temperature - - Respiratory Rate - - Oxygen Saturation - - Inhaled Oxygen Concentration - - Weight 68.5 kg (151 lb) 03/26/2019 1:52 PM EDT Height 180.3 cm (5' 11") 03/26/2019 1:52 PM EDT Body Mass Index 21.06 03/26/2019 1:52 PM EDT documented in this encounter Patient Instructions Patient InstructionsDayo Harkins MD - 03/26/2019 1:40 PM EDTBlood pressure is fine no amlodipine needed Increase dose januvia 100 mg once daily Diabetes mellitus blood test today and in 3 months Diabetes mellitus follow up Leonor CAMPO or Lashonda Aguirre NP 3.5 months documented in this encounter Progress Notes Dayo Harkins MD - 03/26/2019 1:40 PM EDT PATIENT: Gurjit Isidro : 1950 DATE OF SERVICE: 03/26/2019 CHIEF COMPLAINT: Chief Complaint Patient presents with Diabetes Last A1C was 7.4 on 12/12/2018. Labs are pended. Subjective HISTORY OF PRESENT ILLNESS: Gurjit Isidro is a 68-y.o. male. HPI Here with sister follow up diabetes mellitus Lab Results Component Value Date GLYCO 7.4 (H) 12/12/2018 no side effects From januvia he is compliant with medications and low carbohydrate diet He had dizzy and lightheadedness from amlodipine and low blood pressure in the systolic 90-100 and so he stopped it No other cardiovascular symptoms Patient Active Problem List Diagnosis Well controlled type 2 diabetes mellitus with peripheral neuropathy (HCC) Essential hypertension, benign Schizoaffective disorder (HCC) Mixed hyperlipidemia Gastric polyp Chronic kidney disease, stage III (moderate) (HCC) Family History Problem Relation Age of Onset Hypertension Mother Diabetes Father Heart Failure Father Diabetes Brother Current Outpatient Medications Medication Sig ASPIR-LOW 81 MG Oral Tab EC TAKE ONE TABLET BY MOUTH ONCE DAILY azelastine (ASTELIN) 0.1 % Nasal Solution [place] 2 Sprays in nose TWICE DAILY. Blood Glucose Monitor Software Does not apply Device 1 Each by Does not apply route DIRECTED. Brand: One Touch, Dx: E11.65, test bid and prn clotrimazole (LOTRIMIN) 1 % Apply externally Cream Apply to affected areas of feet twice a day. divalproex (DEPAKOTE ER) 250 MG Oral TABLET SR 24 HR Take 3 Tabs by mouth EVERY TWENTY-FOUR HOURS. DOCQLACE 100 MG Oral Cap TAKE ONE CAPSULE BY MOUTH TWO TIMES DAILY finasteride (PROSCAR) 5 MG Oral Tab TAKE ONE TABLET BY MOUTH ONCE DAILY glipiZIDE (GLUCOTROL XL) 5 MG Oral TABLET SR 24 HR TAKE ONE TABLET BY MOUTH ONCE DAILY Glucose Blood (ONE TOUCH ULTRA TEST STRIPS) In Vitro Strip 1 Each by In Vitro route TWO TIMESDAILY NEEDED (DIABETES). One touch ultra 2. Test bid. Dx: E11,9 Glucose Blood In Vitro Strip 1 Strip by In Vitro route TWICE DAILY. One Touch Ultra, Dx:E11.9, bid & PRN Hydrocortisone 2.5 % Apply externally Lotion APPLY TO AFFECTED AREA TWO TIMES DAILY NEEDEDFOR RASH Lancets Does not apply Misc 1 Stick TWICE DAILY. 1. Brand: 2. Dx:250.02 3. non-Insulin dependentNO 4. Test Blood Glucose 2QAM time(s) A DAY lurasidone HCl (LATUDA) 40 MG Oral Tab Take 2 Tabs by mouth DAILY. pregabalin (LYRICA) 50 MG Oral Cap Take 1 Cap by mouth TWICE DAILY. Max Daily Amount: 100 mg. simvastatin (ZOCOR) 40 MG Oral Tab TAKE 1 TABLET BY MOUTH AT BEDTIME sitagliptin (JANUVIA) 100 MG Oral Tab Take 1 Tab by mouth DAILY. No current facility-administered medications for this visit. No Known Allergies Social History Socioeconomic History Marital status: Spouse name: Not on file Number of children: Not on file Years of education: Not on file Highest education level: Not on file Occupational History Not on file Social Needs Financial resource strain: Not on file Food insecurity: Worry: Not on file Inability: Not on file Transportation needs: Medical: Not on file Non-medical: Not on file Tobacco Use Smoking status: Never Smoker Smokeless tobacco: Never Used Substance and Sexual Activity Alcohol use: No Alcohol/week: 0.0 standard drinks Drug use: No Sexual activity: Never Lifestyle Physical activity: Days per week: Not on file Minutes per session: Not on file Stress: Not on file Relationships Social connections: Talks on phone: Not on file Gets together: Not on file Attends anabaptism service: Not on file Active member of club or organization: Not on file Attends meetings of clubs or organizations: Not on file Relationship status: Not on file Intimate partner violence: Fear of current or ex partner: Not on file Emotionally abused: Not on file Physically abused: Not on file Forced sexual activity: Not on file Other Topics Concern Back Care Not Asked Bike Helmet Not Asked Blood Transfusions Not Asked Caffeine Concern Not Asked Exercise Yes Comment: walks daily Hobby Hazards Not Asked International Travel Not Asked Service Not Asked Occupational Exposure Not Asked Seat Belt Not Asked Self-Exams Not Asked Sleep Concern Not Asked Special Diet Yes Comment: low carbo Stress Concern Not Asked Weight Concern No Social History Narrative Lives in [place], [place] Not employed-disability due to chronic mental illness Over the last 2 weeks, have you been feeling down, depressed, anxious, or hopeless?: 0 Over the past 2 weeks, have you felt little interest or pleasure in doing things ?: 0 ROS no neuropathy Or eye symptoms Objective PHYSICAL EXAM: VITALS: BP 132/80 | Ht 5' 11" (1.803 m) | Wt 151 lb (68.5 kg) | BMI 21.06 kg /m Body mass index is 21.06 kg/m. Physical Exam S1 and S2 normal, no murmurs, clicks, gallops or rubs. Regular rate and rhythm. Chest is clear; nowheezes or rales. No edema or JVD. Left foot diabetic exam: Visual exam. Foot appears normal without wounds or signs of infection: yes Sensory exam. Patient can feel the monofilament on the foot: yes Pulse exam. A pulse is palpable at either the foot or ankle: yes Right foot diabetic exam: Visual exam. Foot appears normal without wounds or signs of infection: yes Sensory exam. Patient can feel the monofilament on the foot: yes Pulse exam. A pulse is palpable at either the foot or ankle: yes ASSESSMENT / IMPRESSION: ICD-9-CM ICD-10-CM 1. 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 Essential hypertension, benign at goal no meds for now 401.1 I10 3. Mixed hyperlipidemia continue statin 272.2 E78.2 4. Adverse effect of drug, initial encounter hypotension due to amlodipine stay off this E947.9 [id number] Patient Instructions Blood pressure is fine no amlodipine needed Increase dose januvia 100 mg once daily Diabetes mellitus blood test today and in 3 months Diabetes mellitus follow up Leonor CAMPO or Lashonda Aguirre NP 3.5 months Dayo Harkins MD 03/26/2019 17:21 documented in this encounter Plan of Treatment Date Type Specialty Care Team Description 07/02/2019 Lab Internal Medicine 07/16/2019 Office Visit Internal Medicine Dayo Harkins MD [address] [place] [address] [phone] Name Type Priority Associated Diagnoses Date/Time GLYCOHEMOGLOBIN A1C Lab Routine 03/26/2019 2:34 PM EDT LIPID PROFILE Lab Routine 03/26/2019 2:34 PM EDT COMPREHENSIVE METABOLIC Lab Routine 03/26/2019 2:34 PM PANEL EDT Health Maintenance Due Date Last Done Comments MEDICARE ANNUAL WELLNESS 1950 VISIT FALL RISK ASSESSMENT 2013 ZOSTER IMMUNIZATION SERIES 05/29/2014 04/03/2014 (2 of 3) Diabetic Eye Exam 02/22/2018 02/22/2017, 02/03/2016, 02/24/2015 (Previously completed), Additional history exists FOOT EXAM 07/19/2018 07/19/2017, 07/19/2017, 07/19/2017, Additional history exists HEMOGLOBIN A1C 03/14/2019 12/12/2018, 06/12/2018, 01/26/2018, Additional history exists LIPID DISORDER SCREENING 12/13/2019 12/12/2018, 12/11/2018, 06/12/2018, Additional history exists URINE MICROALBUMIN 12/13/2019 12/12/2018, 07/19/2017, 04/18/2016, Additional history exists DEPRESSION SCREENING 03/26/2020 03/26/2019 COLONOSCOPY SCREENING 11/30/2026 11/30/2016, 02/21/2005 PNEUMOCOCCAL 65+YRS Completed 04/18/2016, 03/18/2014, 05/25/2005 INFLUENZA VACCINE Completed 03/26/2019, 02/17/2017, 04/18/2016, Additional history exists HPV IMMUNIZATION SERIES Aged Out No longer eligible based on patient's age to complete this topic MENINGOCOCCAL VACCINE IMM Aged Out No longer eligible based on patient's age to complete this topic documented as of this encounter Goals Goal Patient Goal Associated Recent Patient-Stated? Author Type Problems Progress Blood Pressure Blood Pressure 132/80 No Carla, < 140/90 (03/26/2019 HERMINIO Gallego 2:19 PM EDT) Note: This is an individualized treatment (blood pressure) goal for Gurjit Isidro: Displayed above (on the left) is your goal for blood pressure control. Your most recent blood pressure is also shown above, on the right. You should try to achieve blood pressures that are lower than your goal listed above (on the left). Diabetes < 7.0 Diabetes Well controlled type 7.4 (12/12/2018 1:55 Dayo Carrion 2 diabetes mellitus PM EDTJeferson Haro MD with peripheral neuropathy Note: Diabetes Care Plan According to current 2014 ADA guidelines the patient A1C goal is less than 7. The patient's last A1C was Lab Results Component Value Date GLYCOHEMOGLOBIN A1C 9.2* 11/10/2014 The patient is:above goal . As your provider, it is important that I advise you regarding: your current medications and help you with any challenges you may face taking your medications as directed (ex. instructions, cost, side effects, and interactions). Important lifestyle changes:exercise, diet and glucose monitoring your clinical goals and how you can achieve success:exercise plan, diet management and glucose monitoring medication management: adjusted medications as appropriate patient education/self-management tools provided: Current self-management tools adequate To successfully manage my Diabetes I will: have lab work every six months if my previous A1c was 7 or less. If my results were greater than 7, I will have lab work every three months. My goal is to control my diabetes by keeping A1c below 7.0 take medications every day as prescribed by my healthcare provider and if unable to take them I will discuss with my provider. exercise/walk 30 minutes 7 day(s) per week. If I experience chest pain, chest tightness, or shortness of breath, I will seek medical attention immediately. check feet daily. If sores or irritation are noticed, will seek medical attention. follow a low carbohydrate and low fat diet. My goal is an LDL (bad cholesterol) number less than 100 when I have my routine lab work. check blood sugar as instructed and will call my healthcare provider if the results are consistently below 70 or above 300. I will monitor for symptoms of low blood sugar (feeling faint, dizzy, lig htheaded, jittery, sweaty, or hungry), if symptoms are noticed, I will eat or drink something (glucose tabs, orange juice, candy) to help raise sugar. record my blood sugar results (including dextrose sticks). [facility] is safe and secure way for you to do this in your medical record online. try to obtain an ideal body weight. My recent weight was Weight: 141 lb ( 63.957 kg). My weight loss goal for my next office visit is 140. to prevent kidney problems common to people with diabetes I will complete a yearly Microalbumin to check for protein in urine. I will talk with my healthcare provider about medications to prevent diabetic renal disease. to prevent diabetic retinopathy I will see an eye doctor yearly. A yearly dilated eye exam helps prevent blindness. if currently smoking, will discuss how to quit smoking with my healthcare provider and work towards quitting. Glycohemoglobin A1c < 7.0 Diabetes 7.4 (12/12/2018 1:55 No Lashonda Aguirre FNP PM EDT) Note: This is an individualized treatment (diabetes control, HgbA1C) goal for Gurjit Isidro: Displayed above is your progress towards your HgbA1C goal. Your goal is shown above (on the left); your most recent HgbA1C is shown on the right. Note that lower numbers are better. Keep immunizations current Lifestyle No Lashonda Aguirre FNP Note: This is an individualized lifestyle goal for Gurjit Isidro: Please be sure to keep up-to-date on recommended immunizations. For example, this would include a yearly influenza vaccine. Immunization status can be seen by looking at the Health Maintenance sections of your [facility], Plan of Care, and any After Visit Summaries. Take all prescribed medications as Self-management No Lashonda Aguirre FNP directed Note: This is an individualized self-management goal for Gurjit Isidro: Please take all prescribed medications as directed. 1. Do not skip doses. If you cannot afford your medications, talk with your doctor. 2. Use a pill reminder system such as a pill box if needed. Your pharmacist can help you with this. 3. Contact your Pharmacy 5 days before your medication runs out. If you cannot take your medications for any reasons, talk with your doctor. 4. Please bring all of your medication bottles and inhalers (or a list of all your medications/inhalers) with you to every visit. Potential barriers to meeting all of your care plan goals will continue to be addressed on an ongoing basis. 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
--- OUTSIDE RECORDS SUMMARY | 2019-05-07 15:54 | XMS REPORT | Summary of Care ---
:1950 Author Organization [facility] Address [address] [facility] [place] [address] Care Team Providers Name Role Phone Dayo Harkins Primary Care Provider Reason for Visit Reason Comments Back Pain DOS 07-04-2018, part Encounter Details Date Type Department Care Team Description 04/17/2019 Office Visit [place] [facility] Cesar Aguilar, Nonallopathic lesion of lumbar region (Primary Dx); [address] [facility] Sprain of lumbar [place] [address] [address] [facility] [phone] [place] [address] Allergies No Known Allergiesdocumented as of this encounter (statuses as of 04/17/2019) Medications Medication Sig Dispensed Refills Start Date End Date Status Lancets Does not apply 1 Stick TWICE 100 Each 5 07/13/2011 Active Misc DAILY. 1. Brand: 2. Dx:250.02 3. non-Insulin dependentNO 4. Test Blood Glucose 2QAM time(s) A DAY clotrimazole Apply to affected 1 Tube 3 04/03/2014 Active (LOTRIMIN) 1 % Apply areas of feet externally Cream twice a day. Hydrocortisone 2.5 % APPLY TO AFFECTED 59 mL 2 04/09/2014 Active Apply externally AREA TWO TIMES Lotion DAILY NEEDED FOR RASH Glucose Blood In Vitro 1 Strip by In 100 Each 11 05/11/2016 Active Strip Vitro route TWICE DAILY. One Touch Ultra, Dx:E11.9, bid & PRN azelastine (ASTELIN) Fitzpatrick 2 Sprays in 1 Bottle 4 05/23/2017 Active 0.1 % Nasal nose TWICE DAILY. SolutionIndications: Chronic vasomotor rhinitis Blood Glucose Monitor 1 Each by Does not 1 Device 0 07/21/2017 Active Software Does not apply route apply Device DIRECTED. Brand: One Touch, Dx: E11.65, test bid and prn pregabalin (LYRICA) 50 Take 1 Cap by 60 Cap 5 02/08/2018 Active MG Oral Cap mouth TWICE DAILY. Max Daily Amount: 100 mg. finasteride (PROSCAR) TAKE ONE TABLET BY 90 Tab 3 05/09/2018 Active 5 MG Oral Tab MOUTH ONCE DAILY ASPIR-LOW 81 MG Oral TAKE ONE TABLET BY 100 Tab 5 12/04/2018 Active Tab EC MOUTH ONCE DAILY DOCQLACE 100 MG Oral TAKE ONE CAPSULE 60 Cap 5 12/04/2018 Active Cap BY MOUTH TWO TIMES DAILY simvastatin (ZOCOR) 40 TAKE 1 TABLET BY 90 Tab 3 12/11/2018 Active MG Oral Tab MOUTH AT BEDTIME glipiZIDE (GLUCOTROL TAKE ONE TABLET BY 90 Tab 3 12/17/2018 Active XL) 5 MG Oral TABLET MOUTH ONCE DAILY SR 24 HR Glucose Blood (ONE 1 Each by In Vitro 100 Strip 5 02/01/2019 Active TOUCH ULTRA TEST route TWO TIMES STRIPS) In Vitro DAILY NEEDED StripIndications: (DIABETES). One Diabetes mellitus touch ultra 2. without complication Test bid. Dx: (HCC) E11,9 lurasidone HCl Take 2 Tabs by 60 Tab 5 02/14/2019 Active (LATUDA) 40 MG Oral mouth DAILY. Tab divalproex (DEPAKOTE Take 3 Tabs by 90 Tab 0 03/26/2019 Active ER) 250 MG Oral TABLET mouth EVERY SR 24 HR TWENTY-FOUR HOURS. sitagliptin (JANUVIA) Take 1 Tab by 90 Tab 3 03/26/2019 Active 100 MG Oral Tab mouth DAILY. documented as of this encounter (statuses as of 04/17/2019) Active Problems Problem Noted Date Chronic kidney disease, stage III (moderate) 01/27/2011 Overview: Seeing Dr. Ritchie. Last seen 12/09/13. Next apt 03/18. 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 Correa for foot care. Seen 12/24/13 A1C 6.9% 11/16 Essential hypertension, benign 03/23/2006 documented as of this encounter (statuses as of 04/17/2019) Resolved Problems Problem Noted Date Resolved Date Acute right ankle pain 06/06/2017 03/26/2019 [facility]ides in [facility] facility 11/26/2015 07/19/2017 Back pain, lumbosacral 01/13/2015 06/13/2017 Explosive personality disorder 07/07/2006 09/05/2007 Unspecified psychosis 03/23/2006 09/05/2007 documented as of this encounter (statuses as of 04/17/2019) Immunizations Name Administration Dates Next Due Adacel [...] of this encounter Last Filed Vital Signs Not on filedocumented in this encounter Progress Notes Cesar Aguilar DC - 04/17/2019 2:00 PM EST PATIENT: Gurjit Isidro : 1950 DATE OF SERVICE: 04/17/2019 REFERRING PRACTITIONER: Self PRIMARY CARE PROVIDER: Dayo Harkins Chief Complaint Patient presents with Back Pain DOS 07-04-2018, part HISTORY OF PRESENT ILLNESS: Gurjit Isidro is a 68-y.o. male who presents for a follow-up visit. He reports low back pain. Since last office visit symptoms have been improving. Response to previous treatment session: tolerated well Overall, the symptoms have been improving. Additional comments: Lumbosacral junction stiffness Estimated percentage improved: Exacerbation of the patients condition Analog Pain Scale result: 07/15 NDI score: Oswestry score: Home exercise fulfillment: compliance with the home exercises was reported Current Outpatient Medications Medication Sig ASPIR-LOW 81 MG Oral Tab EC TAKE ONE TABLET BY MOUTH ONCE DAILY azelastine (ASTELIN) 0.1 % Nasal Solution Fitzpatrick 2 Sprays in nose TWICE DAILY. Blood [...] medications for this visit. No Known Allergies PHYSICAL EXAMINATION: There were no vitals filed for this visit. There is no height or weight on file to calculate BMI. Regions of muscle spasm: bilateral thoracolumbar paraspinal Regions of trigger points: none Regions of tenderness: Lumbar paraspinal musculature Intersegmental Motion Evaluation Spinal joint dysfunction/chiropractic subluxation Acute: Lumbar: R-L4/5, L-L4/5, R-L5/S1, L-L5/S1 Posture Seated slumped posture is noted and a faulty sit to stand transition pattern is evidenced. Orthopedics Tests Meeks's test was + for pain in low back pain . Thoracic spine extension reproduced the patient's complaints of lumbosacral junction pain. IMPRESSION: ICD-9-CM ICD-10-CM 1. Nonallopathic lesion of lumbar region 739.3 M99.9 2. Sprain of lumbar region, initial encounter 847.2 S33.5XXA Response to care: Exacerbation of chronic condition Plan: History, Exam, Report of Findings, Manipulate areas of inter-segmental dysfunction as noted inthe section titled intersegmental motion evaluation above , instruct in exercisesfor the purpose of neuromuscular reeducation to improve strength and range of motion. . Manipulation: Spinal level(s): Seated lumbar Follow up: Schedule follow-up here in 6 week(s). Author: Cesar Aguilar DC, 04/17/2019, 13:35 documented in this encounter Plan of Treatment Date Type Specialty Care Team Description 07/02/2019 Lab Internal Medicine 07/16/2019 Office Visit Internal Medicine Dayo Harkins MD [address] [place] [address] [phone] Health Maintenance Due Date Last Done Comments MEDICARE ANNUAL WELLNESS 1950 VISIT FALL RISK ASSESSMENT 2013 ZOSTER IMMUNIZATION SERIES 05/29/2014 04/03/2014 (2 of 3) Diabetic Eye Exam 02/22/2018 02/22/2017, 02/03/2016, 02/24/2015 (Previously completed), Additional history exists FOOT EXAM 07/19/2018 07/19/2017, 07/19/2017, 07/19/2017, Additional history exists HEMOGLOBIN A1C 06/26/2019 03/26/2019, 12/12/2018, 06/12/2018, Additional history exists URINE MICROALBUMIN 12/13/2019 12/12/2018, 07/19/2017, 04/18/2016, Additional history exists DEPRESSION SCREENING 03/26/2020 03/26/2019 LIPID DISORDER SCREENING 03/26/2020 03/26/2019, 12/12/2018, 12/11/2018, Additional history exists COLONOSCOPY SCREENING 11/30/2026 11/30/2016, 02/21/2005 PNEUMOCOCCAL 65+YRS [...] Diabetes < 7.0 Diabetes Well controlled type 7.6 (03/26/2019 2:34 Dayo Carrion 2 diabetes mellitus PM EDT) MD Estrellita with peripheral neuropathy Note: Diabetes Care Plan [...] towards quitting. Glycohemoglobin A1c < 7.0 Diabetes 7.6 (03/26/2019 2:34 No Lashonda Aguirre FNP PM EDT) Note: [...] filedocumented in this encounter Visit Diagnoses Diagnosis Nonallopathic lesion of lumbar region - Primary Nonallopathic lesion of lumbar region, not elsewhere classified Sprain of lumbar region, initial encounter documented in this encounter Insurance Payer Benefit Plan / Subscriber ID Effective Dates Phone Address Type Group MEDICARE MEDICARE PART A & B xxxxxxxxxxx Effective for all Medicare dates (Home) [facility] [phone] 1 (Work) [place] [address] documented as of this encounter
== END 2019-05-05 07:20 | disposition home or self-care (01) ==
LOC: ED 04:14
DX: R30.0 Dysuria (principal); R35.0 Frequency of micturition; M54.5 Low back pain; E11.22 Type 2 diabetes mellitus with diabetic chronic kidney disease; I12.9 Hypertensive chronic kidney disease with stage 1 through stage 4 chronic kidney disease, or unspecified chronic kidney disease; N18.9 Chronic kidney disease, unspecified; Z79.82 Long term (current) use of aspirin
CPT/HCPCS: 36415; 80053; 81003; 81015; 85025; 99282

== ENCOUNTER 2019-05-16 09:29 | Emergency (ER) | payer MEDICARE ==
--- OUTSIDE RECORDS SUMMARY | 2019-05-16 09:58 | XMS REPORT | Summary of Care ---
:1950 Author Organization [facility] Address [address] [place] [address] Care Team Providers Name Role Phone Dayo Harkins Primary Care Provider Reason for Visit Reason Comments Angioedema in both hands, Since approx. January Blood Pressure 168/76 = R arm - 142/72 = L arm Diabetes A1C 7.6 03/26 Urinary Frequency went to [facility] 05/05 rule out kidney stones Encounter Details Date Type Department Care Team Description 05/08/2019 Office Visit [place] [facility] Vince Silverman, Diabetes mellitus without complication (HCC) (Primary Dx); [place] Essential hypertension; [address] Seborrheic keratosis; [place] [address] [place] [address] Boil, neck; [phone] Dysuria; Neuropathy of both feet Allergies No Known Allergiesdocumented as of this encounter (statuses as of 05/08/2019) Medications Medication Sig Dispensed Refills Start End [...] Lotion TWO TIMES DAILY NEEDED FOR RASH azelastine [place] 2 Sprays 1 Bottle 4 Active (ASTELIN) 0.1 % in nose TWICE 7 Nasal DAILY. SolutionIndications : Chronic vasomotor rhinitis Blood Glucose 1 Each by Does 1 Device 0 Active Monitor Software not apply route 8 Does not apply DIRECTED. Device Brand: One Touch, Dx: E11.65, test bid and prn finasteride TAKE ONE TABLET 90 Tab 3 [...] 9 Oral TABLET SR 24 DAILY HR lurasidone HCl Take 2 Tabs by 60 Tab 5 Active (LATUDA) 40 MG Oral mouth DAILY. 9 Tab divalproex Take 3 Tabs by 90 Tab 0 Active (DEPAKOTE ER) 250 mouth EVERY 9 MG Oral TABLET SR TWENTY-FOUR 24 HR HOURS. sitagliptin Take 1 Tab by 90 Tab 3 Active (JANUVIA) 100 MG mouth DAILY. 9 Oral Tab Glucose Blood (ONE 1 Each by In 100 Strip 5 Active TOUCH ULTRA TEST Vitro route TWO 9 STRIPS) In Vitro TIMES DAILY StripIndications: NEEDED Diabetes mellitus (DIABETES). One without touch ultra 2. complication (HCC) Test bid. Dx: E11,9 Glucose Blood In 1 Strip by In 100 Each 11 05/08/20 Discontinued Vitro Strip Vitro route 6 19 TWICE DAILY. One Touch Ultra, Dx:E11.9, bid & PRN pregabalin (LYRICA) Take 1 Cap by 60 Cap 5 05/08/20 Discontinued 50 MG Oral Cap mouth TWICE 8 19 (Patient stopped DAILY. Max the medication) Daily Amount: 100 mg. Glucose Blood (ONE 1 Each by In 100 Strip 5 05/08/20 Discontinued TOUCH ULTRA TEST Vitro route TWO 9 19 STRIPS) In Vitro TIMES DAILY StripIndications: NEEDED Diabetes mellitus (DIABETES). One without touch ultra 2. complication (HCC) Test bid. Dx: E11,9 documented as of this encounter (statuses as of 05/08/2019) Active Problems Problem Noted Date Chronic kidney disease, stage III (moderate) 01/27/2011 Overview: Seeing Dr. Ritchie. Last seen 12/09/13. Next apt 03/18. 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 Correa for foot care. Seen 12/24/13 A1C 6.9% 11/16 Essential hypertension, benign 03/23/2006 documented as of this encounter (statuses as of 05/08/2019) Resolved Problems Problem Noted Date Resolved Date Acute right ankle pain 06/06/2017 03/26/2019 Resides in alf care facility 11/26/2015 07/19/2017 Back pain, lumbosacral 01/13/2015 06/13/2017 Explosive personality disorder 07/07/2006 09/05/2007 Unspecified psychosis 03/23/2006 09/05/2007 documented as of this encounter (statuses as of 05/08/2019) Immunizations Name Administration Dates Next Due Adacel [...] Sign Reading Time Taken Comments Blood Pressure 142/72 05/08/2019 1:13 PM EST Pulse 97 05/08/2019 1:06 PM EST Temperature 36.4 05/08/2019 1:06 PM EST C (97.6 F) Respiratory Rate - - Oxygen Saturation 97% 05/08/2019 1:06 PM EST Inhaled Oxygen Concentration - - Weight 70.3 kg (155 lb) 05/08/2019 1:06 PM EST Height 180.3 cm (5' 11") 05/08/2019 1:06 PM EST Body Mass Index 21.62 05/08/2019 1:06 PM EST documented in this encounter Patient Instructions Patient InstructionsVince Silverman PA - 05/08/2019 1:00 PM EST documented in this encounter Progress Notes Vince Silverman PA - 05/08/2019 1:00 PM EST PATIENT: Gurjit Isidro : 1950 DATE OF SERVICE: 05/08/2019 CHIEF COMPLAINT: Chief Complaint Patient presents with Angioedema in both hands, Since approx. January Blood Pressure 168/76 = R arm - 142/72 = L arm Diabetes A1C 7.6 03/26 Urinary Frequency went to [facility] 05/05 rule out kidney stones Subjective HISTORY OF PRESENT ILLNESS: Gurjit Isidro is a 68-y.o. male. Source of information: Patient Reliability: Somewhat unreliable. Gurjit is a pleasant 68 years old male with a medical history of schizoaffective disorder who presents to the office today for suggested swelling in his hands, blood pressure reading, a diabetic education discussion, and urinary frequency. Swelling: Patient suggests he has been experiencing swelling since January. He noticed the swelling when one ofhis friends stated that "you have angioedema," so he decided to schedule an appointment with us. Since then he has not experienced any swelling, edema, dyspnea, orthopnea, chest pain, or other symptomsthat may be associated with angioedema. Blood pressure: Gurjit does not take his blood pressure regularly, and stopped taking his medication after last visitdue to dizziness. Today he has uncontrolled blood pressure readings. He does not have any red flag symptoms such as dizziness, chest pain, nausea, vomiting, and diarrhea. We also had educational discussion about how to use diet and avoid sodium to reduce blood pressure readings. Diabetes: Patient had a few questions about his diabetes. We spent time discussing how he should take his medications and what diet modifications he can make to improve his blood sugars. Urinary Frequency: He also had a visit on May 05 in the emergency room for dysuria, in which he suggest that he had experienced difficulty urinating and saw a stone in the toilet, but has no complaints today. Lesions: Gurjit pointed out multiple "scabs" on his elbows, as well as a red blister on the back of his neck that has been there for quite some time. He wondered what he could do about these lesions. 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 Blood [...] file Gets together: Not on file Attends yarsani service: Not on file Active member of [...] Concern No Social History Narrative Lives in [place], [place] Not employed-disability due to chronic mental illness REVIEW OF SYSTEMS: Review of Systems Constitutional: Negative for chills, fever, malaise/fatigue and weight loss. Respiratory: Negative for cough, sputum production and shortness of breath. Cardiovascular: Negative for chest pain, palpitations, orthopnea and leg swelling. Gastrointestinal: Negative for diarrhea, heartburn, nausea and vomiting. Genitourinary: Negative for dysuria, hematuria and urgency. Musculoskeletal: Negative for joint pain and myalgias. Neurological: Negative for dizziness, sensory change and headaches. Endo/Heme/Allergies: Negative for polydipsia. Psychiatric/Behavioral: Negative for depression and suicidal ideas. Objective PHYSICAL EXAM: VITALS: BP 142/72 (BP Location: Left arm, Patient Position: Sitting) | Pulse 97 | Temp 97.6 F(36.4 C) (Tympanic) | Ht 5' 11" (1.803 m) | Wt 155 lb (70.3 kg) | SpO2 97% | BMI 21.62 kg/m Body mass index is 21.62 kg/m . Physical Exam Vitals signs reviewed. Constitutional: General: He is not in acute distress. HENT: Head: Normocephalic and atraumatic. Comments: Male pattern baldness noted. Seborrheic keratosis noted on his scalp. Mouth/Throat: Mouth: Mucous membranes are moist. Pharynx: Oropharynx is clear. Eyes: Pupils: Pupils are equal, round, and reactive to light. Cardiovascular: Rate and Rhythm: Normal rate and regular rhythm. Pulses: Dorsalis pedis pulses are 2+ on the right side and 2+ on the left side. Heart sounds: No murmur. No friction rub. No gallop. Pulmonary: Effort: No respiratory distress. Breath sounds: No wheezing, rhonchi or rales. Abdominal: General: Abdomen is flat. Bowel sounds are normal. Palpations: Abdomen is soft. Tenderness: There is no right CVA tenderness or left CVA tenderness. Feet: Right foot: Protective Sensation: 3 sites tested. 3 sites sensed. Left foot: Protective Sensation: 3 sites tested. 3 sites sensed. Skin: General: Skin is warm and dry. Comments: Small abrasion noted on the left elbow with keratized tissue superficial to wound. Necklesion is a 10mm, round, well demarcated raised red lesions that is not painful to the touch. No signs of discharge at site. I see no sign of angioedema or any sort of swelling in the hands. Edema is also not present in the lower extremities bilaterally. Neurological: Mental Status: He is alert and oriented to person, place, and time. Comments: Patient has a fine tremor in both hands bilaterally and moves slowly. However, his coordination is intact in the hands and is able to walk appropriately and functionally. Psychiatric: Comments: Thought content and judgement impaired. Verbal comments do not always make full sense. Assessment and Plan ASSESSMENT / IMPRESSION: ICD-9-CM ICD-10-CM 1. Diabetes mellitus without complication (HCC) 250.00 E11.9 Glucose Blood (ONE TOUCH ULTRA TEST STRIPS) In Vitro Strip 2. Essential hypertension 401.9 I10 3. Seborrheic keratosis 702.19 L82.1 4. Boil, neck 680.1 L02.12 5. Dysuria 788.1 R30.0 I spent 40 minutes with the patient, greater than half of this time in direct face to face counseling regarding the condition and the plan of care. 1. Diabetes control, foot examinations, and importance of medication compliance were discussed today. Patient understood that he should be checking his feet daily and will get his blood work done routinely. Glucose test strips ordered so he can continue to monitor his blood glucose 2. Essential hypertension can be controlled with a rigorous diet. Because patient was unsure of whatmedications he is taking, medication reconciliation should be performed in June. Once medication list is appropriately examined and updated, we can prescribe an appropriate medication for him. He has been thoroughly educated on the importance of a low sodium, low fat diet to adhere to. 3. Dysuria most likely a result of a small renal stone he may have passed. If this recurs, contact us and we will get you in to be seen. 4. Skin lesions all appear to be chronic and of benign origin. You should be performing regular skinexaminations of your body and apply lotion to make sure the skin stays strong. I discontinued his Lyrica because he clearly stated that he had been using it for left leg pain and has not "taken it in weeks." To reduce medication load, I have decided not to refill this medication,in which the patient agreed to and was content with. Author: [place] 05/08/2019 13:29 documented in this encounter Plan of Treatment Date Type Specialty Care Team Description 05/22/2019 Office Visit Neurology Cesar Aguilar, [place] [address] [place] [address] [phone] 07/02/2019 Lab Internal Medicine 07/16/2019 Office Visit Internal Medicine Dayo Harkins MD [address] [place] [address] [phone] Health Maintenance Due Date Last Done Comments MEDICARE ANNUAL WELLNESS 1950 VISIT ZOSTER IMMUNIZATION SERIES 05/29/2014 04/03/2014 (1 of 2) Diabetic Eye Exam 02/22/2018 02/22/2017, 02/03/2016, 02/24/2015 (Previously completed), Additional history exists FOOT EXAM 07/19/2018 07/19/2017, 07/19/2017, 07/19/2017, Additional history exists HEMOGLOBIN A1C 06/26/2019 03/26/2019, 12/12/2018, 06/12/2018, Additional history exists URINE MICROALBUMIN 12/13/2019 12/12/2018, 07/19/2017, 04/18/2016, Additional history exists DEPRESSION SCREENING 03/26/2020 03/26/2019 LIPID DISORDER SCREENING 03/26/2020 03/26/2019, 12/12/2018, 12/11/2018, Additional history exists FALL RISK ASSESSMENT 05/08/2020 05/08/2019, 05/08/2019 Colonoscopy 11/30/2026 11/30/2016, 02/21/2005 PNEUMOCOCCAL 65+YRS Completed 04/18/2016, [...] Type Problems Progress Blood Pressure Blood Pressure 142/72 No Carla, < 140/90 (05/08/2019 HERMINIO Gallego 1:13 PM EST) Note: This is an individualized treatment (blood [...] Diabetes Well controlled type 7.6 (03/26/2019 2:34 No Dayo Harkins 2 diabetes mellitus PM EDT) MD Estrellita [...] my blood sugar results (including dextrose sticks). [place] is safe and secure way for you [...] filedocumented in this encounter Visit Diagnoses Diagnosis Diabetes mellitus without complication (HCC) - Primary Type II or unspecified type diabetes mellitus without mention of complication, not stated as uncontrolled Essential hypertension Unspecified essential hypertension Seborrheic keratosis Other seborrheic keratosis Boil, neck Carbuncle and furuncle of neck Dysuria Neuropathy of both feet Mononeuritis of lower limb, unspecified documented in this encounter Insurance Payer Benefit Plan / Subscriber ID Effective Dates Phone Address Type Group MEDICARE MEDICARE PART A & B xxxxxxxxxxx Effective for all Medicare dates (Home) [facility] [phone] 1 (Work) [place] [address] documented as of this encounter
--- NOTE | 2019-05-16 10:16 | ED ---
Syncope/Near Syncope - HPI Summary HPI Summary: This patient is a 68 year old M with a history of schizoaffective disorder brought by EMS to ED with a chief complaint of near-syncopal episode at 0900 this morning. Patient was he walking to the dentist and got lost for an hour. Patient stated he felt dizzy like he was going to faint out and thought his blood sugar was low. He denies chest pain, shortness of breath, nausea, vomiting , diarrhea, and headaches. Blood sugar is noted to be 135. In the ED room, patient does not feel dizzy. Patient reports he is compliant with his Latuda and Depakote. He also took Clonazepam last night. However, he did not take his diabetes medications as he wanted to go to the dentist first. The patient rates the pain 0/10 in severity. Symptoms aggravated by nothing. Symptoms alleviated by nothing. - History Of Current Complaint Chief Complaint: EDGeneral Time Seen by Provider: 05/16/19 09:53 Hx Obtained From: Patient, EMS Onset/Duration: Sudden Onset, Resolved Activity At Onset: Exertion - Walking to dentist Associated Head Trauma: No Aggravating Factor(s): Nothing Alleviating Factor(s): Nothing Associated Signs And Symptoms: Negative - chest pain, shortness of breath, nausea, vomiting, diarrhea, and headaches, Dizzy - Allergies/Home Medications Allergies/Adverse Reactions: Allergies Allergy/AdvReac Type Severity Reaction Status Date / Time No Known Allergies Allergy Verified 11/08/16 12:58 Home Medications: Home Medications Azelastine 0.1% Nasal (NF) [Astepro 0.1% Nasal (NF)] 2 spray BOTH NARES BID 05/23 [History Confirmed 05/16/19] Clotrimazole 1% CREAM* [Clotrimazole 1%*] 1 applic TOPICAL BID 05/16/19 [ History Confirmed 05/16/19] Hydrocortisone 2.5% CREAM(NF) 1 applic TOPICAL BID PRN 05/16/19 [History Confirmed 05/16/19] PMH/Surg Hx/FS Hx/Imm Hx Endocrine/Hematology History: Reports: Hx Anticoagulant Therapy - aspirin 81mg, Hx Diabetes - DX 1999 TYPE 2 Denies: Hx Thyroid Disease Cardiovascular History: Reports: Hx Hypotension - HX OF X 1, Hx Hypertension Denies: Hx Pacemaker/ICD Respiratory History: Reports: Hx Pulmonary Edema - RLL Denies: Hx Asthma, Hx Chronic Obstructive Pulmonary Disease (COPD) GI History: Denies: Hx Ulcer History: Reports: Hx Chronic Renal Failure Denies: Hx Dialysis, Hx Renal Disease Musculoskeletal History: Denies: Hx Back Problems, Other Musculoskeletal History Sensory History: Reports: Hx Cataracts, Hx Contacts or Glasses - GLASSES, Hx Glaucoma Denies: Hx Hearing Aid Opthamlomology History: Reports: Hx Cataracts, Hx Contacts or Glasses - GLASSES , Hx Glaucoma Neurological History: Reports: Other Neuro Impairments/Disorders - SCHIZO AFFECTIVE DISORDER Denies: Hx Dementia, Hx Seizures Psychiatric History: Reports: Hx Anxiety, Hx Depression, Hx Schizophrenia, Hx Bipolar Disorder, Other Psychiatric Issues/Disorders - HX EXTRAPYRADAL S/S AFTER TAKING GEODON Denies: Hx Substance Abuse - Surgical History Surgery Procedure, Year, and Place: LEFT EYE SURGERY- LAZY EYE [facility] ([facility] Anesthesia Reactions: Yes - N/V - Immunization History Date of Influenza Vaccine: 2006 Infectious Disease History: No Infectious Disease History: Denies: Hx Clostridium Difficile, Hx Hepatitis, Hx Human Immunodeficiency Virus (HIV), Hx Shingles, Hx Tuberculosis, Traveled Outside the in Last 30 Days - Family History Known Family History: Negative: Cardiac Disease, Hypertension - Social History Alcohol Use: None Hx Substance Use: No Substance Use Type: Reports: None Hx Tobacco Use: No Smoking Status (MU): Never Smoked Tobacco Have You Smoked in the Last Year: No Review of Systems Negative: Chest Pain Negative: Shortness Of Breath Negative: Vomiting, Diarrhea, Nausea Neurological: Other - Dizziness Negative: Headache All Other Systems Reviewed And Are Negative: Yes Physical Exam - Summary Physical Exam Summary: Constitutional: Well-developed, Well-nourished, Alert. (-) Distressed Skin: Warm, Dry HENT: Normocephalic; Atraumatic Eyes: Conjunctiva normal Neck: Musculoskeletal ROM normal neck. (-) JVD, (-) Stridor, (-) Tracheal deviation Cardio: Borderline heart rate in the high 90s, heart otherwise sounds normal; Intact distal pulses; The pedal pulses are 2+ and symmetric. Radial pulses are 2 + and symmetric. Pulmonary/Chest wall: Effort normal. (-) Respiratory distress, (-) Wheezes, (-) Rales Abd: Soft, (-) tenderness, (-) Distension, (-) Guarding, (-) Rebound Musculoskeletal: (-) Edema Neuro: Alert, Oriented x3. Visual turcios normal, coordination is normal, no cranial nerve deficits, motor and sensory function are normal throughout. Psych: Mood and affect Normal Triage Information Reviewed: Yes Vital Signs On Initial Exam: Initial Vitals Pulse Pulse Ox 102 97 05/16/19 09:38 05/16/19 09:38 Vital Signs Reviewed: Yes Procedures - Sedation Patient Received Moderate/Deep Sedation with Procedure: No Diagnostics - Vital Signs Vital Signs Temp Pulse Resp BP Pulse Ox 05/16/19 10:00 101 19 96 05/16/19 09:39 98.2 F 100 18 173/116 95 05/16/19 09:38 102 97 - Laboratory Result Diagrams: 05/16/19 10:30 05/16/19 10:30 Lab Statement: Any lab studies that have been ordered have been reviewed, and results considered in the medical decision making process. - Radiology CXR Radiology Interpretation Completed By: Radiologist Summary of Radiographic Findings: No active cardiopulmonary disease is noted. Dr. Dugan has reviewed this radiology report. - EKG 1030 Cardiac Rate: Tachycardia - 103 BPM EKG Rhythm: Sinus Tachycardia Summary of EKG Findings: An EKG at 1030 revealed sinus tachycardia at 103 BPM, minimal right axis deviation, no STEMI. Dr. Dugan has reviewed and interpreted this EKG. Re-Evaluation - Re-Evaluation First Eval Re-Evaluation Time: 12:19 Comment: I will have social science professor come and talk to the patient as I am not sure if he can manage his own medical conditions. Second Eval Re-Evaluation Time: 14:07 Comment: Patient reports feeling much better. Will touch base with social science professor. Course/Dx Course Of Treatment: This patient is a 68 year old M with a history of schizoaffective disorder brought by EMS to ED with a chief complaint of near- syncopal episode at 0900 this morning. An EKG at 1030 revealed sinus tachycardia at 103 BPM, minimal right axis deviation, no STEMI. Dr. Dugan has reviewed and interpreted this EKG. In the ED course, patient received lactated ringers. CXR revealed: No active cardiopulmonary disease is noted. Blood work revealed RBC 4.09, Hgb 12.5, Hct 38, chloride 100, BUN 25, creatinine 1.29, glucose 143, magnesium 1.8. TSH and valproic acid within normal limits. I will have social science professor come and talk to the patient as I am not sure if he can manage his own medical conditions. I gave the patient Amlodipine. Per social science professor, VNS services are reinstated. Nurse is coming tomorrow, who will coordinate with his primary care physician whether or not to continue Amlodipine long-term. Discussed this with patient. Patient understands and agrees with this plan. Patient will be discharged home with dx of dizziness. - Diagnoses Provider Diagnoses: Dizziness Discharge ED - Sign-Out/Discharge Documenting (check all that apply): Patient Departure - Discharge - Discharge Plan Condition: Stable Disposition: HOME Patient Education Materials: Dizziness (ED) Referrals: [facility] [Outside] - 1 Day Dayo Harkins MD [Primary Care Provider] - 2 Days Additional Instructions: Please follow up with your primary care provider in 2-3 days regarding whether to continue your Amlodipine. PLEASE RETURN TO THE ER FOR WORSENING OR CHANGING SYMPTOMS. - Billing Disposition and Condition Condition: STABLE Disposition: Home - Attestation Statements Document Initiated by Mundo: Yes Documenting Scribe: Dayo Montenegro Provider For Whom Mundo is Documenting (Include Credential): Tony Dugan MD Scribe Attestation: I, Dayo Montenegro, scribed for Tony Dugan MD on 05/16/19 at 1858. Scribe Documentation Reviewed: Yes Provider Attestation: The documentation as recorded by the Dayo hess accurately reflects the service I personally performed and the decisions made by me, Tony Dugan MD Status of Scribe Document: Viewed
[2019-05-16] MEDS ORDERED: Lactated Ringers 1000 ML Bag* 1,000 ML IV ONE (10:20)
[2019-05-16 10:36] LABS: ABS Eosinophils 0.2 10^3/ul (0-0.6); ABS Lymphocytes 1.9 10^3/ul (1.0-4.8); ABS Monocytes 0.5 10^3/ul (0-0.8); ABS Neutrophils 3.5 10^3/ul (1.5-7.7); Eosinophil % 2.6 %; Hematocrit 38 % (42-52); Hemoglobin 12.5 g/dL (14.0-18.0); Lymphocyte % 31.1 %; Mean Corpuscular HGB Conc 33 g/dL (31-36); Mean Corpuscular Hemoglobin 31 pg (27-31); Mean Corpuscular Volume 92 fL (80-94); Mean Platelet Volume 8.7 fL (7.4-10.4); Platelet Count 177 10^3/uL (150-450); Red Blood Count 4.09 10^6 /uL (4.18-5.48); Red Cell Distribution Width 15 % (10-15)
[2019-05-16 10:52] LABS: BUN/Creatinine Ratio 19.4 (8-20); Calcium 9.7 mg/dL (8.6-10.3); EGFR African American 66.6 (>60); EGFR Non-African American 55.1 (>60); Magnesium 1.8 mg/dL (1.9-2.7); Potassium 4.7 mmol/L (3.5-5.0)
[2019-05-16 10:54] LABS: Activated Partial Thrombo Time 30.3 seconds (26.0-38.0); INR 0.89 (0.82-1.09)
[2019-05-16 11:13] LABS: Troponin I 0.02 ng/mL (<0.03)
[2019-05-16 11:29] LABS: TSH (Thyroid Stimulating Horm) 2.2 mcIU/mL (0.34-5.60)
[2019-05-16] MEDS ORDERED: amLODIPine TAB* 5 MG PO ONE (12:28)
[2019-05-16 16:37] VITALS: BP 149/92
== END 2019-05-16 15:53 | disposition home or self-care (01) ==
LOC: ED 09:29
DX: R42 Dizziness and giddiness (principal); E11.9 Type 2 diabetes mellitus without complications; I10 Essential (primary) hypertension; F41.9 Anxiety disorder, unspecified; F31.9 Bipolar disorder, unspecified; F25.9 Schizoaffective disorder, unspecified; Z79.82 Long term (current) use of aspirin; Z79.899 Other long term (current) drug therapy
CPT/HCPCS: 36415; 71046; 80048; 80164; 83735; 84443; 84484; 85025; 85610; 85730; 93005; 96360; 96361; 99283; A9270-GY

== ENCOUNTER 2019-06-04 14:56 | Emergency (ER) | payer MEDICARE, MEDICAID ==
--- OUTSIDE RECORDS SUMMARY | 2019-06-04 15:57 | XMS REPORT ---
:1950 Author Organization [facility] Care Team Providers Name Role Phone Unavailable Unavailable Unavailable Problems Condition Condition Condition Status Onset Resolution Last Treating Comments Name Details Category Date Date Treatment Clinician Date Type 2 Type 2 Diagnosis Active 2018-06 Lesvia diabetes diabetes 2- Malnoske mellitus mellitus RN without without complicatio complicatio ns ns Pain frequent Pain Mgmt Active 2018-06 [place] pain 07-24 [place] 09:05: [id number] Respiratory dyspnea Respirator Active 2018-06 [place] present y 07-24 [place] 09:05: [id number] Endo/Philipp anti-coagul Endo/Philipp Active 2018-06 [place] ation 07-24 [place] therapy 09:05: [id number] 00 Endo/Philipp diabetic Endo/Philipp Active 2018-06 [place] foot care 07-24 [place] 09:05: [id number] 00 Sensory impaired Sensory Active 2018-06 [place] hearing 07-24 [place] 09:05: [id number] Nutrition nutritional Nutrition Active 2018-06 [place] restriction 07-24 [place] s 09:05: [id number] 00 Elimination urinary Eliminatio Active 2018-06 [place] incontinenc n 07-24 [place] e 09:05: [id number] 00 Neuro confusion Neuro/Emot Active 2018-06 [place] present ion 07-24 [place] 09:05: [id number] 00 Neuro anxiety Neuro/Emot Active 2018-06 [place] present ion 07-24 [place] 09:05: [id number] 00 Neuro impaired Neuro/Emot Active 2018-06 [place] decision-ma ion 07-24 [place] sophia 09:05: [id number] 00 Neuro psychiatric Neuro/Emot Active 2018-06 [place] problems ion 07-24 [place] 09:05: [id number] 00 Neuro memory Neuro/Emot Active 2018-06 [place] deficit ion 07-24 [place] needing 09:05: [id number] supervision 00 Activity ADL Activity Active 2018-06 [place] assistance 07-24 [place] required 09:05: [id number] 00 Activity self-care Activity Active 2018-06 [place] deficit 07-24 [place] 09:05: [id number] 00 Safety structural Safety Active 2018-06 [place] barriers 07-24 [place] present 09:05: [id number] 00 Safety knowledge/s Safety Active 2018-06 [place] kill 07-24 [place] deficit: pt 09:05: [id number] 00 Safety fall risk Safety Active 2018-06 [place] factor 07-24 [place] present 09:05: [id number] 00 Safety risk for Safety Active 2018-06 [place] hospitaliza 07-24 [place] tion 09:05: [id number] 00 Medication oral med Meds Active 2018-06 [place] assistance 07-24 [place] required 09:05: [id number] 00 Medication knowledge/s Meds Active 2018-06 [place] nation 07-24 [place] deficit: pt 09:05: [id number] 00 Medication potential Meds Active 2018-06 [place] clinically 07-24 [place] significant 09:05: [id number] medication 00 issue Musculoskel transfer Musculoske Active 2018-06 [place] etal assistance letal 07-24 [place] required 09:05: [id number] 00 Allergies, Adverse Reactions, Alerts Allergy Allergy Status Severity Reaction(s) Onset Inactive Treating Comments Name Type Date Date Clinician Unknown None Active Unknown None Unknown No Known Allergies For This Patient Medications Ordered Filled Start Stop Current Ordering Indication Dosage Frequency Signature Comments Components Medication Medication Date Date Medication? Clinician (SIG) Name Name azelastine azelastine 2018-06 Yes [place] Unknown Unknown 0.15 % 0.15 % 07-24 Dayo HAIRSTON (205.5 mcg) (205.5 mcg) nasal spray nasal spray Lotrimin Lotrimin 2018-06 Yes [place] Unknown Unknown Ultra 1 % Ultra 1 % 07-24 Dayo HAIRSTON topical topical cream cream hydrocortis hydrocortis 2018-06 Yes [place] Unknown Unknown one 2.5 % one 2.5 % 07-24 Dayo HAIRSTON topical topical cream cream amLODIPine amLODIPine 2018-06 Yes [place] Unknown Unknown 10 mg 10 mg 07-24 Dayo HAIRSTON tablet tablet Aspirin Low Aspirin Low 2018-06 Yes [place] Unknown Unknown Dose 81 mg Dose 81 mg 07-24 Dayo HAIRSTON tablet,venice tablet,venice yed release yed release Colace 100 Colace 100 2018-06 Yes [place] Unknown Unknown mg capsule mg capsule 07-24 Dayo HAIRSTON finasteride finasteride 2018-06 Yes [place] Unknown Unknown 5 mg tablet 5 mg tablet 07-24 Dayo HAIRSTON glipiZIDE glipiZIDE 2018-06 Yes [place] Unknown Unknown ER 5 mg ER 5 mg 07-24 Dayo HAIRSTON tablet, tablet, extended extended release 24 release 24 hr hr Januvia 50 Januvia 50 No [place] 1 tab Unknown mg tablet mg tablet Dayo HAIRSTON Lyrica 50 Lyrica 50 No [place] 1 cap Unknown mg capsule mg capsule Dayo HAIRSTON simvastatin simvastatin 2018-06 Yes [place] Unknown Unknown 40 mg 40 mg 07-24 Dayo HAIRSTON tablet tablet Depakote ER Depakote ER No Emani 3 tabs Unknown 500 mg 500 mg MDMaycol tablet,exte tablet,exte nded nded release release Latuda 80 Latuda 80 2018-06 Yes [place] Unknown Unknown mg tablet mg tablet 07-24 Dayo HAIRSTON latanoprost latanoprost No Duran Unknown Unknown 0.005 % eye 0.005 % eye O.D.,Alan drops drops w timolol 0.5 timolol 0.5 No [place] Unknown Unknown % eye drops % eye drops Dayo HAIRSTON Depakote Depakote 2018-06 Yes [place] Unknown Unknown 250 mg 250 mg 07-24 Dayo HAIRSTON tablet,venice tablet,venice yed release yed release Januvia 100 Januvia 100 2018-06 Yes [place] Unknown Unknown mg tablet mg tablet 07-24 Dayo HAIRSTON Acetaminoph Acetaminoph 2018-06 Yes [place] Unknown Unknown en Pain en Pain 07-24 Dayo HAIRSTON Relief 500 Relief 500 mg tablet mg tablet clonazePAM clonazePAM 2018-06 Yes [place] Unknown Unknown 0.5 mg 0.5 mg 07-24 Dayo HAIRSTON tablet tablet Vital Signs Vital Name Observation Time Observation Value Comments SYSTOLIC mm[Hg] 2019-05-28 18:09:31 128 mm[Hg] mm[Hg] Method: Sit SYSTOLIC mm[Hg] 2019-05-23 18:09:26 118 mm[Hg] mm[Hg] Method: Stand DIASTOLIC mm[Hg] 2019-05-28 18:09:31 82 mm[Hg] mm[Hg] Method: Sit DIASTOLIC mm[Hg] 2019-05-23 18:09:26 70 mm[Hg] mm[Hg] Method: Stand PULSE 2019-05-28 18:09:31 94 /min /min RESP RATE 2019-05-28 18:09:31 16 /min /min TEMP 2019-05-28 18:09:31 98.6 [degF] Procedures This patient has no known procedures. Results This patient has no known results.
--- OUTSIDE RECORDS SUMMARY | 2019-06-04 15:57 | XMS REPORT | Summary of Care ---
:1950 Author Organization [facility] Address [address] [facility] [place] [address] Care Team Providers Name Role Phone Dayo Harkins Primary Care Provider Reason for Visit Reason Comments Back Pain DOS 07-04-2018, part Encounter Details Date Type Department Care Team Description 05/22/2019 Office Visit [facility] Cesar Aguilar, Nonallopathic lesion of lumbar region (Primary Dx); [address] [facility] Sprain of lumbar [place], [place] [address] [address] [facility] [phone] [place] [address] Allergies No Known Allergiesdocumented as of this encounter (statuses as of 05/22/2019) Medications Medication Sig Dispensed Refills Start Date End Date Status Lancets Does not 1 Stick TWICE 100 Each 5 07/13/2011 Active apply Misc DAILY. 1. Brand: 2. Dx:250.02 3. non-Insulin dependentNO 4. Test Blood Glucose 2QAM time(s) A DAY clotrimazole Apply to affected 1 Tube 3 04/03/2014 Active (LOTRIMIN) 1 % Apply areas of feet externally Cream twice a day. Hydrocortisone 2.5 % APPLY TO AFFECTED 59 mL 2 04/09/2014 Active Apply externally AREA TWO TIMES Lotion DAILY NEEDED FOR RASH azelastine (ASTELIN) [place] 2 Sprays in 1 Bottle 4 05/23/2017 Active 0.1 % Nasal nose TWICE DAILY. SolutionIndications: Chronic vasomotor rhinitis Blood Glucose Monitor 1 Each by Does not 1 Device 0 07/21/2017 Active Software Does not apply route apply Device DIRECTED. Brand: One Touch, Dx: E11.65, test bid and prn finasteride (PROSCAR) TAKE ONE TABLET BY 90 Tab 3 05/09/2018 Active 5 MG Oral Tab MOUTH ONCE DAILY ASPIR-LOW 81 MG Oral TAKE ONE TABLET BY 100 Tab 5 12/04/2018 Active Tab EC MOUTH ONCE DAILY DOCQLACE 100 MG Oral TAKE ONE CAPSULE 60 Cap 5 12/04/2018 Active Cap BY MOUTH TWO TIMES DAILY simvastatin (ZOCOR) TAKE 1 TABLET BY 90 Tab 3 12/11/2018 Active 40 MG Oral Tab MOUTH AT BEDTIME glipiZIDE (GLUCOTROL TAKE ONE TABLET BY 90 Tab 3 12/17/2018 Active XL) 5 MG Oral TABLET MOUTH ONCE DAILY SR 24 HR lurasidone HCl Take 2 Tabs by 60 Tab 5 02/14/2019 Active (LATUDA) 40 MG Oral mouth DAILY. Tab sitagliptin (JANUVIA) Take 1 Tab by 90 Tab 3 03/26/2019 Active 100 MG Oral Tab mouth DAILY. amLodipine (NORVASC) Take 1 Tab by 30 Tab 5 05/17/2019 05/16/2020 Active 10 MG Oral Tab mouth DAILY. divalproex (DEPAKOTE Take 2 Tabs by 60 Tab 4 05/17/2019 Active ER) 250 MG Oral mouth EVERY TABLET SR 24 HR TWENTY-FOUR HOURS. ONE TOUCH ULTRA TEST TEST TWICE A DAY 100 Strip 5 05/22/2019 Active STRIPS In Vitro NEEDED StripIndications: Diabetes mellitus without complication (HCC) Glucose Blood (ONE 1 Each by In Vitro 100 Strip 5 05/20/2019 Active TOUCH ULTRA TEST route TWO TIMES STRIPS) In Vitro DAILY NEEDED StripIndications: (DIABETES). One Diabetes mellitus touch ultra 2. without complication Test bid. Dx: (HCC) E11,9 LYRICA 50 MG Oral Cap TAKE ONE CAPSULE 60 Cap 5 05/20/2019 Active BY MOUTH TWO TIMES DAILY MAXIMUM OF TWO CAPSULES DAILY documented as of this encounter (statuses as of 05/22/2019) Active Problems Problem Noted Date Chronic kidney disease, stage III (moderate) 01/27/2011 Overview: Seeing Dr. Ritchie. Last seen 12/09/13. Next apt 03/18. Gastric polyp 04/24/2009 Overview: [facility] 04/13 Schizoaffective disorder 03/27/2007 Mixed hyperlipidemia 03/27/2007 Well controlled type 2 diabetes mellitus with peripheral neuropathy 03/23/2006 Overview: Last eye exam 10/02/[address] Frank[address] Correa for foot care. 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 11/26/2015 07/19/2017 Back pain, lumbosacral 01/13/2015 06/13/2017 Explosive personality disorder 07/07/2006 09/05/2007 Unspecified psychosis 03/23/2006 09/05/2007 documented as of this encounter (statuses as of 05/22/2019) Immunizations Name Administration Dates Next Due Adacel [...] encounter Progress Notes Cesar Aguilar DC - 05/22/2019 1:00 PM EST PATIENT: Gurjit Isidro : 1950 DATE OF SERVICE: 05/22/2019 REFERRING PRACTITIONER: Cesar Aguilar PRIMARY CARE PROVIDER: Dayo Harkins Chief Complaint Patient presents with Back Pain DOS 07-04-2018, part HISTORY OF PRESENT ILLNESS: Gurjit Isidro is a 68-y.o. male who presents for a follow-up visit. He reports low back pain. Since last office visit symptoms have been controlled. Response to previous treatment session: tolerated well Overall, the symptoms have been controlled. Additional comments: Exacerbation of the patients condition, missed bus stop walked for an hour, hypothermia Estimated percentage improved: Exacerbation of the patients condition Analog Pain Scale result: 08/12 NDI score: Oswestry score: Home exercise fulfillment: compliance with the home exercises was reported Current Outpatient Medications Medication Sig amLodipine (NORVASC) 10 MG Oral Tab Take 1 Tab by mouth DAILY. ASPIR-LOW 81 MG Oral Tab EC TAKE [...] MG Oral TABLET SR 24 HR Take 2 Tabs by mouth EVERY TWENTY-FOUR HOURS. DOCQLACE [...] touch ultra 2. Test bid. Dx: E11,9 Hydrocortisone 2.5 % Apply externally Lotion APPLY TO AFFECTED AREA TWO TIMES DAILY NEEDEDFOR RASH Lancets Does not apply Misc 1 Stick TWICE DAILY. 1. Brand: 2. Dx:250.02 3. non-Insulin dependentNO 4. Test Blood Glucose 2QAM time(s) A DAY lurasidone HCl (LATUDA) 40 MG Oral Tab Take 2 Tabs by mouth DAILY. LYRICA 50 MG Oral Cap TAKE ONE CAPSULE BY MOUTH TWO TIMES DAILY MAXIMUM OF TWO CAPSULES DAILY ONE TOUCH ULTRA TEST STRIPS In Vitro Strip TEST TWICE A DAY NEEDED simvastatin (ZOCOR) 40 MG Oral Tab TAKE [...] none Regions of tenderness: Lumbar paraspinal musculature , thoracic paraspinal musculature Intersegmental Motion Evaluation Spinal joint dysfunction/chiropractic subluxation Acute: Thoracic: R-T10/11, L-T10/11, R-T11/12, L-T11/12 Lumbar: R-L4/5, L-L4/5, R-L5/S1, L-L5/S1 Posture Seated slumped posture is noted and a faulty sit to stand transition pattern is evidenced. Orthopedics Tests Meeks's test was + for pain in lumbar paraspinal musculature . Thoracic spine extension reproduced the patient's complaints of thoracolumbar junction . IMPRESSION: ICD-9-CM ICD-10-CM 1. Nonallopathic lesion of [...] motion. . Manipulation: Spinal level(s): Seated lumbar , thoracolumbar junction Follow up: Schedule follow-up here in 6 week(s). Author: Cesar Aguilar DC, 05/22/2019, 12:53 documented in this encounter Plan of Treatment Date Type Specialty Care Team Description 05/31/2019 Office Visit Internal Medicine Vince Silverman, PA [address] [place] [address] [phone] 06/20/2019 Office Visit Endocrinology Monique Garcia, RICHARD [address] [place] [address] [phone] 07/02/2019 Lab Internal Medicine 07/16/2019 Office Visit Internal Medicine Dayo Harkins MD [address] [place] [address] [phone] Health Maintenance Due Date Last Done Comments [...] 05/08/2020 05/08/2019, 05/08/2019 Colonoscopy 11/30/2026 11/30/2016, 02/21/2005 DTaP/Tdap/Td Vaccines (2 - 10/24/2027 10/23/2017 Tdap) PNEUMOCOCCAL 65+YRS Completed 04/18/2016, 03/18/2014, 05/25/2005 INFLUENZA VACCINE Completed 03/26/2019, 02/17/2017, 04/18/2016, Additional history exists HEPATITIS A IMMUNIZATION Aged Out No longer eligible SERIES based on patient's age to complete this topic HPV IMMUNIZATION SERIES Aged Out No longer eligible based on patient's age to complete this topic MENINGOCOCCAL VACCINE IMM Aged Out No longer eligible based on patient's age to complete this topic documented as of this encounter Goals Goal Patient Goal Associated Recent Patient-Stated? Author Type Problems Progress Blood Pressure Blood Pressure 150/84 No Carla, < 140/90 (05/17/2019 Lashonda, POSTDOCTORAL RESEARCH FELLOW 10:39 AM EST) Note: This is an individualized treatment [...] my blood sugar results (including dextrose sticks). [facility] is safe and secure way for you [...] Diagnoses Diagnosis Nonallopathic lesion of lumbar region Nonallopathic lesion of lumbar region, not elsewhere classified Sprain of lumbar region, initial encounter documented in this encounter Insurance Payer Benefit Plan / Subscriber ID Effective Dates Phone Address Type Group MEDICARE MEDICARE PART A & B xxxxxxxxxxx Effective for all Medicare dates (Home) [facility] [phone] 1 ([place]) [place] [address] documented as of this encounter
--- OUTSIDE RECORDS SUMMARY | 2019-06-04 15:57 | XMS REPORT ---
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 2- [place] mellitus mellitus RN without without complicatio complicatio ns ns Pain frequent Pain Mgmt Active 2018-06 [place] pain 07-24 [place] 09:05: [id number] Respiratory dyspnea Respirator Active 2018-06 [place] present y 07-24 [place] 09:05: [id number] 00 Endo/Philipp anti-coagul Endo/Philipp Active 2018-06 [place] ation 07-24 [place] therapy 09:05: [id number] 00 Endo/Philipp diabetic Endo/Philipp Active 2018-06 [place] foot care 07-24 [place] 09:05: [id number] 00 Sensory impaired Sensory Active 2018-06 [place] hearing 07-24 [place] 09:05: [id number] 00 Nutrition nutritional Nutrition Active 2018-06 [place] restriction 07-24 [place] s 09:05: [id number] 00 Elimination urinary Eliminatio Active 2018-06 [place] incontinenc n 07-24 [place] e 09:05: [id number] 00 Neuro confusion Neuro/Emot Active 2018-06 [place] present ion 07-24 [place] 09:05: [id number] 00 Neuro anxiety Neuro/Emot Active 2018-06 [place] present ion 07-24 [place] 09:05: [id number] 00 Neuro impaired Neuro/Emot Active 2018-06 [place] decision-ma ion 07-24 [place] sophia 09:05: [id number] 00 Neuro psychiatric Neuro/Emot Active 2018-06 [place] problems ion 07-24 [place] 09:05: [id number] 00 Neuro memory Neuro/Emot Active 2018-06 [place] deficit ion 07-24 [place] needing 09:05: [id number] supervision 00 Activity ADL Activity Active 2018-06 [place] assistance 07-24 [place] required 09:05: [id number] 00 Activity self-care Activity Active 2018-06 [place] deficit 07-24 [place] 09:05: [id number] 00 Safety structural Safety Active 2018-06 [place] barriers 07-24 [place] present 09:05: [id number] 00 Safety knowledge/s Safety Active 2018-06 [place] kill 07-24 [place] deficit: pt 09:05: [id number] 00 Safety fall risk Safety Active 2018-06 [place] factor 07-24 [place] present 09:05: [id number] 00 Safety risk for Safety Active 2018-06 [place] hospitaliza 07-24 [place] tion 09:05: [id number] 00 Medication oral med Meds Active 2018-06 [place] assistance 07-24 [place] required 09:05: [id number] 00 Medication knowledge/s Meds Active 2018-06 [place] nation 07-24 [place] deficit: pt 09:05: [id number] 00 Medication potential Meds Active 2018-06 [place] clinically 07-24 [place] significant 09:05: [id number] medication 00 issue Musculoskel transfer Musculoske Active 2018-06 [place] etal assistance letal 07-24 [place] required 09:05: [id number] 00 Allergies, Adverse Reactions, Alerts Allergy Allergy Status Severity Reaction(s) Onset Inactive Treating Comments Name Type Date Date Clinician Unknown None Active Unknown None Unknown No Known Allergies For This Patient Medications Ordered Filled Start Stop Current Ordering Indication Dosage Frequency Signature Comments Components Medication Medication Date Date Medication? Clinician (SIG) Name Name azelastine azelastine 2018-06 Yes [place] Unknown Unknown 0.15 % 0.15 % 07-24 Dayo HAIRSTON (205.5 mcg) (205.5 mcg) nasal spray nasal spray Lotrimin Lotrimin 2018-06 Yes [place] Unknown Unknown Ultra 1 % Ultra 1 % 07-24 Dayo HAIRSTON topical topical cream cream hydrocortis hydrocortis 2018-06 Yes [place] Unknown Unknown one 2.5 % one 2.5 % 07-24 Dayo HAIRSTON topical topical cream cream amLODIPine amLODIPine 2018-06 Yes [place] Unknown Unknown 10 mg 10 mg 07-24 Dayo HAIRSTON tablet tablet Aspirin Low Aspirin Low 2018-06 Yes [place] Unknown Unknown Dose 81 mg Dose 81 mg 07-24 Dayo HAIRSTON tablet,venice tablet,venice yed release yed release Colace 100 Colace 100 2018-06 Yes [place] Unknown Unknown mg capsule mg capsule 07-24 Dayo HAIRSTON finasteride finasteride 2018-06 Yes [place] Unknown Unknown 5 mg tablet 5 mg tablet 07-24 Dayo HAIRSTON glipiZIDE glipiZIDE 2018-06 Yes [place] Unknown Unknown ER 5 mg ER 5 mg 07-24 Dayo HAIRSTON tablet, tablet, extended extended release 24 release 24 hr hr Januvia 50 Januvia 50 No [place] 1 tab Unknown mg tablet mg tablet Dayo HAIRSTON Lyrica 50 Lyrica 50 No [place] 1 cap Unknown mg capsule mg capsule Dayo HAIRSTON simvastatin simvastatin 2018-06 Yes [place] Unknown Unknown 40 mg 40 mg 07-24 Dayo HAIRSTON tablet tablet Depakote ER Depakote ER No [place] 3 tabs Unknown 500 mg 500 mg MDMaycol tablet,exte tablet,exte nded nded release release Latuda 80 Latuda 80 2018-06 Yes [place] Unknown Unknown mg tablet mg tablet 07-24 Dayo HAIRSTON latanoprost latanoprost No [place] Unknown Unknown 0.005 % eye 0.005 % eye O.D.,Alan drops drops w timolol 0.5 timolol 0.5 No [place] Unknown Unknown % eye drops % eye drops Dayo HAIRSTON Depakote Depakote 2018-06 Yes [place] Unknown Unknown 250 mg 250 mg 07-24 Dayo HAIRSTON tablet,venice tablet,venice yed release yed release Januvia 100 Januvia 100 2018-06 Yes [place] Unknown Unknown mg tablet mg tablet 07-24 Dayo HAIRSTON Acetaminoph Acetaminoph 2018-06 Yes [place] Unknown Unknown en Pain en Pain 07-24 Dayo HAIRSTON Relief 500 Relief 500 mg tablet mg tablet clonazePAM clonazePAM 2018-06 Yes [place] Unknown Unknown 0.5 mg 0.5 mg 07-24 Dayo HAIRSTON tablet tablet Vital Signs Vital Name Observation Time Observation Value Comments SYSTOLIC mm[Hg] 2019-05-23 18:09:26 120 mm[Hg] mm[Hg] Method: Sit SYSTOLIC mm[Hg] 2019-05-23 18:09:26 118 mm[Hg] mm[Hg] Method: Stand DIASTOLIC mm[Hg] 2019-05-23 18:09:26 68 mm[Hg] mm[Hg] Method: Sit DIASTOLIC mm[Hg] 2019-05-23 18:09:26 70 mm[Hg] mm[Hg] Method: Stand PULSE 2019-05-23 18:09:26 86 /min /min RESP RATE 2019-05-23 18:09:26 14 /min /min TEMP 2019-05-23 18:09:26 98.2 [degF] Procedures This patient has no known procedures. Results This patient has no known results.
--- OUTSIDE RECORDS SUMMARY | 2019-06-04 15:57 | XMS REPORT ---
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 2- [place] mellitus mellitus RN without without complicatio complicatio ns ns Pain frequent Pain Mgmt Active 2018-06 [place] pain 07-24 [place] 09:05: [id number] 00 Respiratory dyspnea Respirator Active 2018-06 [place] present y 07-24 [place] 09:05: [id number] 00 Endo/Philipp anti-coagul Endo/Philipp Active 2018-06 [place] ation 07-24 [place] therapy 09:05: [id number] 00 Endo/Philipp diabetic Endo/Philipp Active 2018-06 [place] foot care 07-24 [place] 09:05: [id number] 00 Sensory impaired Sensory Active 2018-06 [place] hearing 07-24 [place] 09:05: [id number] 00 Nutrition nutritional Nutrition Active 2018-06 [place] restriction 07-24 [place] s 09:05: [id number] 00 Elimination urinary Eliminatio Active 2018-06 [place] incontinenc n 07-24 [place] e 09:05: [id number] 00 Neuro confusion Neuro/Emot Active 2018-06 [place] present ion 07-24 [place] 09:05: [id number] 00 Neuro anxiety Neuro/Emot Active 2018-06 [place] present ion 07-24 [place] 09:05: [id number] 00 Neuro impaired Neuro/Emot Active 2018-06 [place] decision-ma ion 07-24 [place] sophia 09:05: [id number] 00 Neuro psychiatric Neuro/Emot Active 2018-06 [place] problems ion 07-24 [place] 09:05: [id number] 00 Neuro memory Neuro/Emot Active 2018-06 [place] deficit ion 07-24 [place] needing 09:05: [id number] supervision 00 Activity ADL Activity Active 2018-06 [place] assistance 07-24 [place] required 09:05: [id number] 00 Activity self-care Activity Active 2018-06 [place] deficit 07-24 [place] 09:05: [id number] 00 Safety structural Safety Active 2018-06 [place] barriers 07-24 [place] present 09:05: [id number] 00 Safety knowledge/s Safety Active 2018-06 [place] kill 07-24 [place] deficit: pt 09:05: [id number] 00 Safety fall risk Safety Active 2018-06 [place] factor 07-24 [place] present 09:05: [id number] 00 Safety risk for Safety Active 2018-06 [place] hospitaliza 07-24 [place] tion 09:05: [id number] 00 Medication oral med Meds Active 2018-06 [place] assistance 07-24 [place] required 09:05: [id number] 00 Medication knowledge/s Meds Active 2018-06 [place] nation 07-24 [place] deficit: pt 09:05: [id number] 00 Medication potential Meds Active 2018-06 [place] clinically 07-24 [place] significant 09:05: [id number] medication 00 issue Musculoskel transfer Musculoske Active 2018-06 [place] etal assistance letal 07-24 [place] required 09:05: [id number] 00 Allergies, Adverse Reactions, Alerts Allergy Allergy Status Severity Reaction(s) Onset Inactive Treating Comments Name Type Date Date Clinician Unknown None Active Unknown None Unknown No Known Allergies For This Patient Medications Ordered Filled Start Stop Current Ordering Indication Dosage Frequency Signature Comments Components Medication Medication Date Date Medication? Clinician (SIG) Name Name azelastine azelastine 2018-06 Yes [place] Unknown Unknown 0.15 % 0.15 % 07-24 Dayo HAIRSTON (205.5 mcg) (205.5 mcg) nasal spray nasal spray Lotrimin Lotrimin 2018-06 Yes [place] Unknown Unknown Ultra 1 % Ultra 1 % 07-24 Dayo HAIRSTON topical topical cream cream hydrocortis hydrocortis 2018-06 Yes [place] Unknown Unknown one 2.5 % one 2.5 % 07-24 Dayo HAIRSTON topical topical cream cream amLODIPine amLODIPine 2018-06 Yes [place] Unknown Unknown 10 mg 10 mg 07-24 Dayo HAIRSTON tablet tablet Aspirin Low Aspirin Low 2018-06 Yes [place] Unknown Unknown Dose 81 mg Dose 81 mg 07-24 Dayo HAIRSTON tablet,venice tablet,venice yed release yed release Colace 100 Colace 100 2018-06 Yes [place] Unknown Unknown mg capsule mg capsule 07-24 Dayo HAIRSTON finasteride finasteride 2018-06 Yes [place] Unknown Unknown 5 mg tablet 5 mg tablet 07-24 Dayo HAIRSTON glipiZIDE glipiZIDE 2018-06 Yes [place] Unknown Unknown ER 5 mg ER 5 mg 07-24 Dayo HAIRSTON tablet, tablet, extended extended release 24 release 24 hr hr Januvia 50 Januvia 50 No [place] 1 tab Unknown mg tablet mg tablet Dayo HAIRSTON Lyrica 50 Lyrica 50 No [place] 1 cap Unknown mg capsule mg capsule Dayo HAIRSTON simvastatin simvastatin 2018-06 Yes [place] Unknown Unknown 40 mg 40 mg 07-24 Dayo HAIRSTON tablet tablet Depakote ER Depakote ER No [place] 3 tabs Unknown 500 mg 500 mg MDMaycol tablet,exte tablet,exte nded nded release release Latuda 80 Latuda 80 2018-06 Yes [place] Unknown Unknown mg tablet mg tablet 07-24 Dayo HAIRSTON latanoprost latanoprost No [place] Unknown Unknown 0.005 % eye 0.005 % eye O.D.,Alan drops drops w timolol 0.5 timolol 0.5 No [place] Unknown Unknown % eye drops % eye drops Dayo HAIRSTON Depakote Depakote 2018-06 Yes [place] Unknown Unknown 250 mg 250 mg 07-24 Dayo HAIRSTON tablet,venice tablet,venice yed release yed release Januvia 100 Januvia 100 2018-06 Yes [place] Unknown Unknown mg tablet mg tablet 07-24 Dayo HAIRSTON Acetaminoph Acetaminoph 2018-06 Yes [place] Unknown Unknown en Pain en Pain 07-24 Dayo HAIRSTON Relief 500 Relief 500 mg tablet mg tablet clonazePAM clonazePAM 2018-06 Yes [place] Unknown Unknown 0.5 mg 0.5 mg 07-24 Dayo HAIRSTON tablet tablet Lyrica 50 Lyrica 50 2018-06 Yes [place] Unknown Unknown mg capsule mg capsule 08-01 Dayo HAIRSTON Vital Signs Vital Name Observation Time Observation [...]
--- OUTSIDE RECORDS SUMMARY | 2019-06-04 15:57 | XMS REPORT ---
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 Lesvia diabetes diabetes 2- Malnos[place] mellitus mellitus RN without without complicatio complicatio ns ns Pain frequent Pain Mgmt Active 2018-06 [place] pain 07-24 [place] 09:05: [id number] 00 Respiratory dyspnea Respirator Active 2018-06 [place] present y 07-24 [place] 09:05: [id number] 00 Endo/Philipp anti-coagul Endo/Philipp Active 2018-06 [place] ation 07-24 [place] therapy 09:05: [id number] 00 Endo/Philipp diabetic Endo/Philipp Active 2018-06 [place] foot care 07-24 [place] 09:05: [id number] 00 Sensory impaired Sensory Active 2018-06 [place] hearing 07-24 [place] 09:05: [id number] 00 Nutrition nutritional Nutrition Active 2018-06 [place] restriction 07-24 [place] s 09:05: [id number] 00 Elimination urinary Eliminatio Active 2018-06 [place] incontinenc n 07-24 [place] e 09:05: [id number] 00 Neuro confusion Neuro/Emot Active 2018-06 [place] present ion 07-24 [place] 09:05: [id number] 00 Neuro anxiety Neuro/Emot Active 2018-06 [place] present ion 07-24 [place] 09:05: [id number] 00 Neuro impaired Neuro/Emot Active 2018-06 [place] decision-ma ion 07-24 [place] sophia 09:05: [id number] 00 Neuro psychiatric Neuro/Emot Active 2018-06 [place] problems ion 07-24 [place] 09:05: [id number] 00 Neuro memory Neuro/Emot Active 2018-06 [place] deficit ion 07-24 [place] needing 09:05: [id number] supervision 00 Activity ADL Activity Active 2018-06 [place] assistance 07-24 [place] required 09:05: [id number] 00 Activity self-care Activity Active 2018-06 [place] deficit 07-24 [place] 09:05: [id number] 00 Safety structural Safety Active 2018-06 [place] barriers 07-24 [place] present 09:05: [id number] 00 Safety knowledge/s Safety Active 2018-06 [place] kill 07-24 [place] deficit: pt 09:05: [id number] 00 Safety fall risk Safety Active 2018-06 [place] factor 07-24 [place] present 09:05: [id number] 00 Safety risk for Safety Active 2018-06 [place] hospitaliza 07-24 [place] tion 09:05: [id number] 00 Medication oral med Meds Active 2018-06 [place] assistance 07-24 [place] required 09:05: [id number] 00 Medication knowledge/s Meds Active 2018-06 [place] nation 07-24 [place] deficit: pt 09:05: [id number] 00 Medication potential Meds Active 2018-06 [place] clinically 07-24 [place] significant 09:05: [id number] medication 00 issue Musculoskel transfer Musculoske Active 2018-06 [place] etal assistance letal 07-24 [place] required 09:05: [id number] 00 Allergies, Adverse Reactions, Alerts Allergy Allergy Status Severity Reaction(s) Onset Inactive Treating Comments Name Type Date Date Clinician Unknown None Active Unknown None Unknown No Known Allergies For This Patient Medications Ordered Filled Start Stop Current Ordering Indication Dosage Frequency Signature Comments Components Medication Medication Date Date Medication? Clinician (SIG) Name Name azelastine azelastine 2018-06 Yes [place] Unknown Unknown 0.15 % 0.15 % 07-24 Dayo HAIRSTON (205.5 mcg) (205.5 mcg) nasal spray nasal spray Lotrimin Lotrimin 2018-06 Yes [place] Unknown Unknown Ultra 1 % Ultra 1 % 07-24 Dayo HAIRSTON topical topical cream cream hydrocortis hydrocortis 2018-06 Yes [place] Unknown Unknown one 2.5 % one 2.5 % 07-24 Dayo HAIRSTON topical topical cream cream amLODIPine amLODIPine 2018-06 Yes [place] Unknown Unknown 10 mg 10 mg 07-24 Dayo HAIRSTON tablet tablet Aspirin Low Aspirin Low 2018-06 Yes [place] Unknown Unknown Dose 81 mg Dose 81 mg 07-24 Dayo HAIRSTON tablet,venice tablet,venice yed release yed release Colace 100 Colace 100 2018-06 Yes [place] Unknown Unknown mg capsule mg capsule 07-24 Dayo HAIRSTON finasteride finasteride 2018-06 Yes [place] Unknown Unknown 5 mg tablet 5 mg tablet 07-24 Dayo HAIRSTON glipiZIDE glipiZIDE 2018-06 Yes [place] Unknown Unknown ER 5 mg ER 5 mg 07-24 Dayo HAIRSTON tablet, tablet, extended extended release 24 release 24 hr hr Januvia 50 Januvia 50 No [place] 1 tab Unknown mg tablet mg tablet Dayo HAIRSTON Lyrica 50 Lyrica 50 No [place] 1 cap Unknown mg capsule mg capsule Dayo HAIRSTON simvastatin simvastatin 2018-06 Yes [place] Unknown Unknown 40 mg 40 mg 07-24 Dayo HAIRSTON tablet tablet Depakote ER Depakote ER No [place] 3 tabs Unknown 500 mg 500 mg MDMaycol tablet,exte tablet,exte nded nded release release Latuda 80 Latuda 80 2018-06 Yes [place] Unknown Unknown mg tablet mg tablet 07-24 Dayo HAIRSTON latanoprost latanoprost No [place] Unknown Unknown 0.005 % eye 0.005 % eye O.D.,Alan drops drops w timolol 0.5 timolol 0.5 No [place] Unknown Unknown % eye drops % eye drops Dayo HAIRSTON Depakote Depakote 2018-06 Yes [place] Unknown Unknown 250 mg 250 mg 07-24 Dayo HAIRSTON tablet,venice tablet,venice yed release yed release Januvia 100 Januvia 100 2018-06 Yes [place] Unknown Unknown mg tablet mg tablet 07-24 Dayo HAIRSTON Acetaminoph Acetaminoph 2018-06 Yes [place] Unknown Unknown en Pain en Pain 07-24 Dayo HAIRSTON Relief 500 Relief 500 mg tablet mg tablet clonazePAM clonazePAM 2018-06 Yes [place] Unknown Unknown 0.5 mg 0.5 mg 07-24 [...]
--- OUTSIDE RECORDS SUMMARY | 2019-06-04 15:57 | XMS REPORT ---
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 2- [place] mellitus mellitus RN without without complicatio complicatio ns ns Pain frequent Pain Mgmt Active 2018-06 [place] pain 07-24 [place] 09:05: [id number] 00 Respiratory dyspnea Respirator Active 2018-06 [place] present y 07-24 [place] 09:05: [id number] 00 Endo/Philipp anti-coagul Endo/Philipp Active 2018-06 [place] ation 07-24 [place] therapy 09:05: [id number] 00 Endo/Philipp diabetic Endo/Philipp Active 2018-06 [place] foot care 07-24 [place] 09:05: [id number] 00 Sensory impaired Sensory Active 2018-06 [place] hearing 07-24 [place] 09:05: [id number] 00 Nutrition nutritional Nutrition Active 2018-06 [place] restriction 07-24 [place] s 09:05: [id number] 00 Elimination urinary Eliminatio Active 2018-06 [place] incontinenc n 07-24 [place] e 09:05: [id number] 00 Neuro confusion Neuro/Emot Active 2018-06 [place] present ion 07-24 [place] 09:05: [id number] 00 Neuro anxiety Neuro/Emot Active 2018-06 [place] present ion 07-24 [place] 09:05: [id number] 00 Neuro impaired Neuro/Emot Active 2018-06 [place] decision-ma ion 07-24 [place] sophia 09:05: [id number] 00 Neuro psychiatric Neuro/Emot Active 2018-06 [place] problems ion 07-24 [place] 09:05: [id number] 00 Neuro memory Neuro/Emot Active 2018-06 [place] deficit ion 07-24 [place] needing 09:05: [id number] supervision 00 Activity ADL Activity Active 2018-06 [place] assistance 07-24 [place] required 09:05: [id number] 00 Activity self-care Activity Active 2018-06 [place] deficit 07-24 [place] 09:05: [id number] 00 Safety structural Safety Active 2018-06 [place] barriers 07-24 [place] present 09:05: [id number] 00 Safety knowledge/s Safety Active 2018-06 [place] kill 07-24 [place] deficit: pt 09:05: [id number] 00 Safety fall risk Safety Active 2018-06 [place] factor 07-24 [place] present 09:05: [id number] 00 Safety risk for Safety Active 2018-06 [place] hospitaliza 07-24 [place] tion 09:05: [id number] 00 Medication oral med Meds Active 2018-06 [place] assistance 07-24 [place] required 09:05: [id number] 00 Medication knowledge/s Meds Active 2018-06 [place] nation 07-24 [place] deficit: pt 09:05: [id number] 00 Medication potential Meds Active 2018-06 [place] clinically 07-24 [place] significant 09:05: [id number] medication 00 issue Musculoskel transfer Musculoske Active 2018-06 [place] etal assistance letal 07-24 [place] required 09:05: [id number] 00 Allergies, Adverse Reactions, Alerts Allergy Allergy Status Severity Reaction(s) Onset Inactive Treating Comments Name Type Date Date Clinician Unknown None Active Unknown None Unknown No Known Allergies For This Patient Medications Ordered Filled Start Stop Current Ordering Indication Dosage Frequency Signature Comments Components Medication Medication Date Date Medication? Clinician (SIG) Name Name azelastine azelastine 2018-06 Yes [place] Unknown Unknown 0.15 % 0.15 % 07-24 Dayo HAIRSTON (205.5 mcg) (205.5 mcg) nasal spray nasal spray Lotrimin Lotrimin 2018-06 Yes [place] Unknown Unknown Ultra 1 % Ultra 1 % 07-24 Dayo HAIRSTON topical topical cream cream hydrocortis hydrocortis 2018-06 Yes [place] Unknown Unknown one 2.5 % one 2.5 % 07-24 Dayo HAIRSTON topical topical cream cream amLODIPine amLODIPine 2018-06 Yes [place] Unknown Unknown 10 mg 10 mg 07-24 Dayo HAIRSTON tablet tablet Aspirin Low Aspirin Low 2018-06 Yes [place] Unknown Unknown Dose 81 mg Dose 81 mg 07-24 Dayo HAIRSTON tablet,venice tablet,venice yed release yed release Colace 100 Colace 100 2018-06 Yes [place] Unknown Unknown mg capsule mg capsule 07-24 Dayo HAIRSTON finasteride finasteride 2018-06 Yes [place] Unknown Unknown 5 mg tablet 5 mg tablet 07-24 Dayo HAIRSTON glipiZIDE glipiZIDE 2018-06 Yes [place] Unknown Unknown ER 5 mg ER 5 mg 07-24 Dayo HAIRSTON tablet, tablet, extended extended release 24 release 24 hr hr Januvia 50 Januvia 50 No [place] 1 tab Unknown mg tablet mg tablet Dayo HAIRSTON Lyrica 50 Lyrica 50 No [place] 1 cap Unknown mg capsule mg capsule Dayo HAIRSTON simvastatin simvastatin 2018-06 Yes [place] Unknown Unknown 40 mg 40 mg 07-24 Dayo HAIRSTON tablet tablet Depakote ER Depakote ER No [place] 3 tabs Unknown 500 mg 500 mg MDMaycol tablet,exte tablet,exte nded nded release release Latuda 80 Latuda 80 2018-06 Yes [place] Unknown Unknown mg tablet mg tablet 07-24 Dayo HAIRSTON latanoprost latanoprost No [place] Unknown Unknown 0.005 % eye 0.005 % eye O.D.,Alan drops drops w timolol 0.5 timolol 0.5 No [place] Unknown Unknown % eye drops % eye drops Dayo HAIRSTON Depakote Depakote 2018-06 Yes [place] Unknown Unknown 250 mg 250 mg 07-24 Dayo HAIRSTON tablet,venice tablet,venice yed release yed release Januvia 100 Januvia 100 2018-06 Yes [place] Unknown Unknown mg tablet mg tablet 07-24 Dayo HAIRSTON Acetaminoph Acetaminoph 2018-06 Yes [place] Unknown Unknown en Pain en Pain 07-24 Dayo HAIRSTON Relief 500 Relief 500 mg tablet mg tablet clonazePAM clonazePAM 2018-06 Yes [place] Unknown Unknown 0.5 mg 0.5 mg 07-24 [...]
--- OUTSIDE RECORDS SUMMARY | 2019-06-04 15:57 | XMS REPORT | Summary of Care ---
:1950 Author Organization [facility] Address [address] [address] Care Team Providers Name Role Phone Dayo Harkins Primary Care Provider Reason for Visit Reason Comments Blood Pressure 150/89 Fall fell on 05/29/2019 Diabetes A1C 7.6 03/26/2019 Encounter Details Date Type Department Care Team Description 05/31/2019 Office Visit [facility] Vince Silverman, Essential hypertension Medicine PA (Primary Dx) [address] [place] [address] [place] [address] [phone] Allergies No Known Allergiesdocumented as of this encounter (statuses as of 05/31/2019) Medications Medication Sig Dispensed Refills Start Date [...] Lotion DAILY NEEDED FOR RASH azelastine (ASTELIN) [place] 2 Sprays in 1 Bottle 4 05/23/2017 Active 0.1 % Nasal nose TWICE DAILY. SolutionIndications: Chronic vasomotor rhinitis Blood Glucose Monitor 1 Each by Does not 1 Device 0 07/21/2017 Active Software Does not apply route apply Device DIRECTED. Brand: One Touch, Dx: E11.65, test bid and prn ASPIR-LOW 81 MG Oral TAKE ONE TABLET [...] TIMES DAILY MAXIMUM OF TWO CAPSULES DAILY finasteride (PROSCAR) TAKE ONE TABLET BY 90 Tab 3 05/24/2019 Active 5 MG Oral Tab MOUTH ONCE DAILY documented as of this encounter (statuses as of 05/31/2019) Active Problems Problem Noted Date Chronic kidney disease, stage III (moderate) 01/27/2011 Overview: Seeing Dr. Ritchie. Last seen 12/09/13. Next apt 03/18. 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 Frankel [address]. Correa for foot care. 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 11/26/2015 07/19/2017 Back pain, lumbosacral 01/13/2015 06/13/2017 Explosive personality disorder 07/07/2006 09/05/2007 Unspecified psychosis 03/23/2006 09/05/2007 documented as of this encounter (statuses as of 05/31/2019) Immunizations Name Administration Dates Next Due Adacel [...] Sign Reading Time Taken Comments Blood Pressure 132/88 05/31/2019 1:38 PM EST Pulse 67 05/31/2019 1:08 PM EST Temperature 37 05/31/2019 1:08 PM EST C (98.6 F) Respiratory Rate - - Oxygen Saturation 93% 05/31/2019 1:08 PM EST Inhaled Oxygen Concentration - - Weight 69.9 kg (154 lb) 05/31/2019 1:08 PM EST Height 180.3 cm (5' 11") 05/31/2019 1:08 PM EST Body Mass Index 21.48 05/31/2019 1:08 PM EST documented in this encounter Progress Notes Vince Silverman PA - 05/31/2019 1:00 PM EST PATIENT: Gurjit Isidro : 1950 DATE OF SERVICE: 05/31/2019 Subjective SUBJECTIVE: Gurjit Isidro is a 68-y.o. male with hypertension. He indicates that he is feeling well and denies any symptoms referable to his elevated blood pressure. Specifically denies chest pain, palpitation, orthopnea. Current medication regimen is as listed below. Cardiovascular risk factors: diabetes mellitus, male gender, hypertension, age Use of agents associated with hypertension: none History of renal disease: present History of flank trauma: Negative He also had a recent fall without hitting his head after tripping on the floor. He states that he landed on the left side of his body without any injury to the knee, hip, or shoulder. He does not complain of any pain today. He denies chest pain, palpitations, nausea, vomiting, and diarrhea, dizziness or headache. Past Medical History: Diagnosis Date Anemia DIABETES MELLITUS TYPE II-UNCOMPL 03/23/2006 EXPLOSIVE PERSONALITY 07/07/2006 HYPERTENSION NOS 03/23/2006 Other and unspecified hyperlipidemia 03/27/2007 PSYCHOSIS NOS 03/23/2006 Schizoaffective disorder (HCC) 03/27/2007 Family History Problem Relation Age of Onset Hypertension Mother Diabetes Father Heart Failure Father Diabetes Brother Current Outpatient Medications Medication Sig amLodipine (NORVASC) 10 MG Oral Tab Take 1 Tab by mouth DAILY. ASPIR-LOW 81 MG Oral Tab EC TAKE ONE TABLET BY MOUTH ONCE DAILY azelastine (ASTELIN) 0.1 % Nasal Solution [place] 2 Sprays in nose TWICE DAILY. Blood [...] Financial resource strain: Not on file Food insecurity Worry: Not on file Inability: Not on file Transportation needs Medical: Not on file Non-medical: Not on file Tobacco Use Smoking status: Never Smoker Smokeless tobacco: Never Used Substance and Sexual Activity Alcohol use: No Alcohol/week: 0.0 standard drinks Drug use: No Sexual activity: Never Lifestyle Physical activity Days per week: Not on file Minutes per session: Not on file Stress: Not on file Relationships Social connections Talks on phone: Not on file Gets together: Not on file Attends evangelical service: Not on file Active member of club or organization: Not on file Attends meetings of clubs or organizations: Not on file Relationship status: Not on file Intimate partner violence Fear of current or ex partner: Not [...] Concern No Social History Narrative Lives in [place], [place] Not employed-disability due to chronic mental illness REVIEW OF SYSTEMS: Review of Systems Constitutional: Negative for chills, fever and weight loss. HENT: Negative for tinnitus. Eyes: Negative for blurred vision and double vision. Respiratory: Negative for cough, shortness of breath and wheezing. Cardiovascular: Negative for chest pain, palpitations, orthopnea and leg swelling. Gastrointestinal: Negative for diarrhea, heartburn, nausea and vomiting. Genitourinary: Negative for flank pain and hematuria. Musculoskeletal: Negative for joint pain and myalgias. Neurological: Negative for dizziness, speech change, seizures, loss of consciousness and headaches. Objective OBJECTIVE: BP 132/88 (BP Location: Right arm, Patient Position: Sitting) | Pulse 67 | Temp 98.6 F (37 C) (Tympanic) | Ht 5' 11" (1.803 m) | Wt 154 lb (69.9 kg) | SpO2 93% | BMI 21.48 kg/m GENERAL: alert, cooperative, no distress. EYES: conjunctivae/corneas clear. Pupils equal, round, reactive to light. NECK: nontender. LUNG: clear to auscultation bilaterally. HEART: regular rate and rhythm, S1, S2 normal, no murmur, click, rub or gallop. ABDOMEN: soft, non-tender. Bowel sounds normal. No masses, no organomegaly. EXTREMITIES: extremities normal, atraumatic, no cyanosis or edema. PULSES: +2 in the pedal pulses bilaterally. SKIN: Warm and dry. No hyperpigmentation, vitiligo, or suspicious lesions. NEUROLOGICAL: normal without focal findings. Assessment and Plan: ICD-9-CM ICD-10-CM 1. Essential hypertension 401.9 I10 Continue current treatment plan. Come in next month to have your blood work completed for our followup on your diabetes mellitus type 2. If you have any questions or concerns please feel free to contact us or schedule an appointment. Author: ALBER Grover 05/31/2019 13:38 documented in this encounter Plan of Treatment Date Type Specialty Care Team Description 06/20/2019 Office Visit Endocrinology Monique Garcia, RICHARD [address] [address] 07/02/2019 Lab Internal Medicine 07/03/2019 Office Visit Neurology Cesar Aguilar DC [address] [address] 07/16/2019 Office Visit Internal Medicine Dayo Harkins MD [address] [place] [address] [phone] Health Maintenance Due Date Last Done Comments [...] Type Problems Progress Blood Pressure Blood Pressure 132/88 No Carla, < 140/90 (05/31/2019 HERMINIO Gallego 1:38 PM EST) Note: This is an individualized [...] my blood sugar results (including dextrose sticks). [facility]ac[facility] is safe and secure way for you [...] filedocumented in this encounter Visit Diagnoses Diagnosis Essential hypertension Unspecified essential hypertension documented in this encounter Insurance Payer Benefit Plan / Subscriber ID Effective Dates Phone Address Type Group MEDICARE MEDICARE PART A & B xxxxxxxxxxx Effective for all Medicare dates (Home) [facility] [phone] 1 ([place]) [place] [address] documented as of this encounter
--- OUTSIDE RECORDS SUMMARY | 2019-06-04 15:57 | XMS REPORT ---
:1950 Author Organization [facility] Care Team Providers Name Role Phone Unavailable Unavailable Unavailable Problems Condition Condition Condition Status Onset Resolution Last Treating Comments Name Details Category Date Date Treatment Clinician Date Type 2 Type 2 Diagnosis Active 2018- Lesvia diabetes diabetes 2-13 Mal[place] mellitus mellitus RN without without complicatio complicatio ns ns Allergies, Adverse Reactions, Alerts Allergy Allergy Status Severity Reaction(s) Onset Inactive Treating Comments Name Type Date Date Clinician Unknown None Active Unknown None Unknown No Known Allergies For This Patient Medications Ordered Filled Start Stop Current Ordering Indication Dosage Frequency Signature Comments Components Medication Medication Date Date Medication? Clinician (SIG) Name Name No Known No Known No None None None Medications Medications For This For This Patient Patient Procedures This patient has no known procedures. Results This patient has no known results.
--- OUTSIDE RECORDS SUMMARY | 2019-06-04 15:57 | XMS REPORT ---
:1950 Author Organization [facility] Care Team Providers Name Role Phone Unavailable Unavailable Unavailable Problems Condition Condition Condition Status Onset Resolution Last Treating Comments Name Details Category Date Date Treatment Clinician Date Type 2 Type 2 Diagnosis Active 2018-06 Lesvia diabetes diabetes 2- [place] mellitus mellitus RN without without complicatio complicatio ns ns Pain frequent Pain Mgmt Active 2018-06 [place] pain 07-24 [place] 09:05: [id number] Respiratory dyspnea Respirator Active 2018-06 [place] present y 07-24 [place] 09:05: [id number] 00 Endo/Philipp anti-coagul Endo/Philipp Active 2018-06 [place] ation 07-24 [place] therapy 09:05: [id number] 00 Endo/Philipp diabetic Endo/Philipp Active 2018-06 [place] foot care 07-24 [place] 09:05: [id number] 00 Sensory impaired Sensory Active 2018-06 [place] hearing 07-24 [place] 09:05: [id number] Nutrition nutritional Nutrition Active 2018-06 [place] restriction 07-24 [place] s 09:05: [id number] 00 Elimination urinary Eliminatio Active 2018-06 [place] incontinenc n 07-24 [place] e 09:05: [id number] 00 Neuro confusion Neuro/Emot Active 2018-06 [place] present ion 07-24 [place] 09:05: [id number] 00 Neuro anxiety Neuro/Emot Active 2018-06 [place] present ion 07-24 [place] 09:05: [id number] 00 Neuro impaired Neuro/Emot Active 2018-06 [place] decision-ma ion 07-24 [place] sophia 09:05: [id number] 00 Neuro psychiatric Neuro/Emot Active 2018-06 [place] problems ion 07-24 [place] 09:05: [id number] 00 Neuro memory Neuro/Emot Active 2018-06 [place] deficit ion 07-24 [place] needing 09:05: [id number] supervision 00 Activity ADL Activity Active 2018-06 [place] assistance 07-24 [place] required 09:05: [id number] 00 Activity self-care Activity Active 2018-06 [place] deficit 07-24 [place] 09:05: [id number] 00 Safety structural Safety Active 2018-06 [place] barriers 07-24 [place] present 09:05: [id number] 00 Safety knowledge/s Safety Active 2018-06 [place] kill 07-24 [place] deficit: pt 09:05: [id number] 00 Safety fall risk Safety Active 2018-06 [place] factor 07-24 [place] present 09:05: [id number] 00 Safety risk for Safety Active 2018-06 [place] hospitaliza 07-24 [place] tion 09:05: [id number] 00 Medication oral med Meds Active 2018-06 [place] assistance 07-24 [place] required 09:05: [id number] 00 Medication knowledge/s Meds Active 2018-06 [place] nation 07-24 [place] deficit: pt 09:05: [id number] 00 Medication potential Meds Active 2018-06 [place] clinically 07-24 [place] significant 09:05: [id number] medication 00 issue Musculoskel transfer Musculoske Active 2018-06 [place] etal assistance letal 07-24 [place] required 09:05: [id number] 00 Allergies, Adverse Reactions, Alerts Allergy Allergy Status Severity Reaction(s) Onset Inactive Treating Comments Name Type Date Date Clinician Unknown None Active Unknown None Unknown No Known Allergies For This Patient Medications Ordered Filled Start Stop Current Ordering Indication Dosage Frequency Signature Comments Components Medication Medication Date Date Medication? Clinician (SIG) Name Name azelastine azelastine 2018-06 Yes [place] Unknown Unknown 0.15 % 0.15 % 07-24 Dayo HAIRSTON (205.5 mcg) (205.5 mcg) nasal spray nasal spray Lotrimin Lotrimin 2018-06 Yes [place] Unknown Unknown Ultra 1 % Ultra 1 % 07-24 Dayo HAIRSTON topical topical cream cream hydrocortis hydrocortis 2018-06 Yes [place] Unknown Unknown one 2.5 % one 2.5 % 07-24 Dayo HAIRSTON topical topical cream cream amLODIPine amLODIPine 2018-06 Yes [place] Unknown Unknown 10 mg 10 mg 07-24 Dayo HAIRSTON tablet tablet Aspirin Low Aspirin Low 2018-06 Yes [place] Unknown Unknown Dose 81 mg Dose 81 mg 07-24 Dayo HAIRSTON tablet,venice tablet,venice yed release yed release Colace 100 Colace 100 2018-06 Yes [place] Unknown Unknown mg capsule mg capsule 07-24 Dayo HAIRSTON finasteride finasteride 2018-06 Yes [place] Unknown Unknown 5 mg tablet 5 mg tablet 07-24 Dayo HAIRSTON glipiZIDE glipiZIDE 2018-06 Yes [place] Unknown Unknown ER 5 mg ER 5 mg 07-24 Dayo HAIRSTON tablet, tablet, extended extended release 24 release 24 hr hr Januvia 50 Januvia 50 No [place] 1 tab Unknown mg tablet mg tablet Dayo HAIRSTON Lyrica 50 Lyrica 50 No [place] 1 cap Unknown mg capsule mg capsule Dayo HAIRSTON simvastatin simvastatin 2018-06 Yes [place] Unknown Unknown 40 mg 40 mg 07-24 Dayo HAIRSTON tablet tablet Depakote ER Depakote ER No [place] 3 tabs Unknown 500 mg 500 mg MDMaycol tablet,exte tablet,exte nded nded release release Latuda 80 Latuda 80 2018-06 Yes [place] Unknown Unknown mg tablet mg tablet 07-24 Dayo HAIRSTON latanoprost latanoprost No [place] Unknown Unknown 0.005 % eye 0.005 % eye O.D.,Alan drops drops w timolol 0.5 timolol 0.5 No [place] Unknown Unknown % eye drops % eye drops Dayo HAIRSTON Depakote Depakote 2018-06 Yes [place] Unknown Unknown 250 mg 250 mg 07-24 Dayo HAIRSTON tablet,venice tablet,venice yed release yed release Januvia 100 Januvia 100 2018-06 Yes [place] Unknown Unknown mg tablet mg tablet 07-24 Dayo HAIRSTON Acetaminoph Acetaminoph 2018-06 Yes [place] Unknown Unknown en Pain en Pain 07-24 Dayo HAIRSTON Relief 500 Relief 500 mg tablet mg tablet clonazePAM clonazePAM 2018-06 Yes [place] Unknown Unknown 0.5 mg 0.5 mg 07-24 [...]
--- OUTSIDE RECORDS SUMMARY | 2019-06-04 15:57 | XMS REPORT ---
:1950 Author Organization [facility] Care Team Providers Name Role Phone Unavailable Unavailable Unavailable Problems Condition Condition Condition Status Onset Resolution Last Treating Comments Name Details Category Date Date Treatment Clinician Date Type 2 Type 2 Diagnosis Active 2018-06 Lesvia diabetes diabetes 2- Malnoske mellitus mellitus RN without without complicatio complicatio ns ns Pain frequent Pain Mgmt Active 2018-06 [place] pain 07-24 [place] 09:05: [id number] Respiratory dyspnea Respirator Active 2018-06 [place] present y 07-24 [place] 09:05: [id number] 00 Endo/Philipp anti-coagul Endo/Philipp Active 2018-06 [place] ation 07-24 [place] therapy 09:05: [id number] 00 Endo/Philipp diabetic Endo/Philipp Active 2018-06 [place] foot care 07-24 [place] 09:05: [id number] 00 Sensory impaired Sensory Active 2018-06 [place] hearing 07-24 [place] 09:05: [id number] 00 Nutrition nutritional Nutrition Active 2018-06 [place] restriction 07-24 [place] s 09:05: [id number] 00 Elimination urinary Eliminatio Active 2018-06 [place] incontinenc n 07-24 [place] e 09:05: [id number] 00 Neuro confusion Neuro/Emot Active 2018-06 [place] present ion 07-24 [place] 09:05: [id number] 00 Neuro anxiety Neuro/Emot Active 2018-06 [place] present ion 07-24 [place] 09:05: [id number] 00 Neuro impaired Neuro/Emot Active 2018-06 [place] decision-ma ion 07-24 [place] sophia 09:05: [id number] 00 Neuro psychiatric Neuro/Emot Active 2018-06 [place] problems ion 07-24 [place] 09:05: [id number] 00 Neuro memory Neuro/Emot Active 2018-06 [place] deficit ion 07-24 [place] needing 09:05: [id number] supervision 00 Activity ADL Activity Active 2018-06 [place] assistance 07-24 [place] required 09:05: [id number] 00 Activity self-care Activity Active 2018-06 [place] deficit 07-24 [place] 09:05: [id number] 00 Safety structural Safety Active 2018-06 [place] barriers 07-24 [place] present 09:05: [id number] 00 Safety knowledge/s Safety Active 2018-06 [place] kill 07-24 [place] deficit: pt 09:05: [id number] 00 Safety fall risk Safety Active 2018-06 [place] factor 07-24 [place] present 09:05: [id number] 00 Safety risk for Safety Active 2018-06 [place] hospitaliza 07-24 [place] tion 09:05: [id number] 00 Medication oral med Meds Active 2018-06 [place] assistance 07-24 [place] required 09:05: [id number] 00 Medication knowledge/s Meds Active 2018-06 [place] nation 07-24 [place] deficit: pt 09:05: [id number] 00 Medication potential Meds Active 2018-06 [place] clinically 07-24 [place] significant 09:05: [id number] medication 00 issue Musculoskel transfer Musculoske Active 2018-06 [place] etal assistance letal 07-24 [place] required 09:05: [id number] 00 Allergies, Adverse Reactions, Alerts Allergy Allergy Status Severity Reaction(s) Onset Inactive Treating Comments Name Type Date Date Clinician Unknown None Active Unknown None Unknown No Known Allergies For This Patient Medications Ordered Filled Start Stop Current Ordering Indication Dosage Frequency Signature Comments Components Medication Medication Date Date Medication? Clinician (SIG) Name Name azelastine azelastine 2018-06 Yes [place] Unknown Unknown 0.15 % 0.15 % 07-24 Dayo HAIRSTON (205.5 mcg) (205.5 mcg) nasal spray nasal spray Lotrimin Lotrimin 2018-06 Yes [place] Unknown Unknown Ultra 1 % Ultra 1 % 07-24 Dayo HAIRSTON topical topical cream cream hydrocortis hydrocortis 2018-06 Yes [place] Unknown Unknown one 2.5 % one 2.5 % 07-24 Dayo HAIRSTON topical topical cream cream amLODIPine amLODIPine 2018-06 Yes [place] Unknown Unknown 10 mg 10 mg 07-24 Dayo HAIRSTON tablet tablet Aspirin Low Aspirin Low 2018-06 Yes [place] Unknown Unknown Dose 81 mg Dose 81 mg 07-24 Dayo HAIRSTON tablet,venice tablet,venice yed release yed release Colace 100 Colace 100 2018-06 Yes [place] Unknown Unknown mg capsule mg capsule 07-24 Dayo HAIRSTON finasteride finasteride 2018-06 Yes [place] Unknown Unknown 5 mg tablet 5 mg tablet 07-24 Dayo HAIRSTON glipiZIDE glipiZIDE 2018-06 Yes [place] Unknown Unknown ER 5 mg ER 5 mg 07-24 Dayo HAIRSTON tablet, tablet, extended extended release 24 release 24 hr hr Januvia 50 Januvia 50 No [place] 1 tab Unknown mg tablet mg tablet Dayo HAIRSTON Lyrica 50 Lyrica 50 No [place] 1 cap Unknown mg capsule mg capsule Dayo HAIRSTON simvastatin simvastatin 2018-06 Yes [place] Unknown Unknown 40 mg 40 mg 07-24 Dayo HAIRSTON tablet tablet Depakote ER Depakote ER No [place] 3 tabs Unknown 500 mg 500 mg MDMaycol tablet,exte tablet,exte nded nded release release Latuda 80 Latuda 80 2018-06 Yes [place] Unknown Unknown mg tablet mg tablet 07-24 Dayo HAIRSTON latanoprost latanoprost No [place] Unknown Unknown 0.005 % eye 0.005 % eye O.D.,Alan drops drops w timolol 0.5 timolol 0.5 No [place] Unknown Unknown % eye drops % eye drops Dayo HAIRSTON Depakote Depakote 2018-06 Yes [place] Unknown Unknown 250 mg 250 mg 07-24 Dayo HAIRSTON tablet,venice tablet,venice yed release yed release Januvia 100 Januvia 100 2018-06 Yes [place] Unknown Unknown mg tablet mg tablet 07-24 aDyo HAIRSTON Acetaminoph Acetaminoph 2018-06 Yes [place] Unknown Unknown en Pain en Pain 07-24 Dayo HAIRSTON Relief 500 Relief 500 mg tablet mg tablet clonazePAM clonazePAM 2018-06 Yes [place] Unknown Unknown 0.5 mg 0.5 mg 07-24 Dayo HAIRSTON tablet tablet Lyrica 50 Lyrica 50 2018-06 Yes [place] Unknown Unknown mg capsule mg capsule 08-01 [...]
--- OUTSIDE RECORDS SUMMARY | 2019-06-04 15:57 | XMS REPORT ---
:1950 Author Organization [facility] Care Team Providers Name Role Phone Unavailable Unavailable Unavailable Problems Condition Condition Condition Status Onset Resolution Last Treating Comments Name Details Category Date Date Treatment Clinician Date Type 2 Type 2 Diagnosis Active 2018-06 Lesvia diabetes diabetes 2- Malnoske mellitus mellitus RN without without complicatio complicatio ns ns Pain frequent Pain Mgmt Active 2018-06 [place] pain 07-24 [place] 09:05: [id number] Respiratory dyspnea Respirator Active 2018-06 [place] present y 07-24 [place] 09:05: [id number] Endo/Philipp anti-coagul Endo/Philipp Active 2018-06 [place] ation 07-24 [place] therapy 09:05: [id number] 00 Endo/Philipp diabetic Endo/Philipp Active 2018-06 [place] foot care 07-24 [place] 09:05: [id number] 00 Sensory impaired Sensory Active 2018-06 [place] hearing 07-24 [place] 09:05: [id number] 00 Nutrition nutritional Nutrition Active 2018-06 [place] restriction 07-24 [place] s 09:05: [id number] 00 Elimination urinary Eliminatio Active 2018-06 [place] incontinenc n 07-24 [place] e 09:05: [id number] 00 Neuro confusion Neuro/Emot Active 2018-06 [place] present ion 07-24 [place] 09:05: [id number] 00 Neuro anxiety Neuro/Emot Active 2018-06 [place] present ion 07-24 [place] 09:05: [id number] Neuro impaired Neuro/Emot Active 2018-06 [place] decision-ma ion 07-24 [place] sophia 09:05: [id number] 00 Neuro psychiatric Neuro/Emot Active 2018-06 [place] problems ion 07-24 [place] 09:05: [id number] 00 Neuro memory Neuro/Emot Active 2018-06 [place] deficit ion 07-24 [place] needing 09:05: [id number] supervision 00 Activity ADL Activity Active 2018-06 [place] assistance 07-24 [place] required 09:05: [id number] 00 Activity self-care Activity Active 2018-06 [place] deficit 07-24 [place] 09:05: [id number] 00 Safety structural Safety Active 2018-06 [place] barriers 07-24 [place] present 09:05: [id number] 00 Safety knowledge/s Safety Active 2018-06 [place] kill 07-24 [place] deficit: pt 09:05: [id number] 00 Safety fall risk Safety Active 2018-06 [place] factor 07-24 [place] present 09:05: [id number] 00 Safety risk for Safety Active 2018-06 [place] hospitaliza 07-24 [place] tion 09:05: [id number] 00 Medication oral med Meds Active 2018-06 [place] assistance 07-24 [place] required 09:05: [id number] 00 Medication knowledge/s Meds Active 2018-06 [place] nation 07-24 [place] deficit: pt 09:05: [id number] 00 Medication potential Meds Active 2018-06 [place] clinically 07-24 [place] significant 09:05: [id number] medication 00 issue Musculoskel transfer Musculoske Active 2018-06 [place] etal assistance letal 07-24 [place] required 09:05: [id number] 00 Allergies, Adverse Reactions, Alerts Allergy Allergy Status Severity Reaction(s) Onset Inactive Treating Comments Name Type Date Date Clinician Unknown None Active Unknown None Unknown No Known Allergies For This Patient Medications Ordered Filled Start Stop Current Ordering Indication Dosage Frequency Signature Comments Components Medication Medication Date Date Medication? Clinician (SIG) Name Name azelastine azelastine 2018-06 Yes Grand Unknown Unknown 0.15 % 0.15 % 07-24 Dayo HAIRSTON (205.5 mcg) (205.5 mcg) nasal spray nasal spray Lotrimin Lotrimin 2018-06 Yes Grand Unknown Unknown Ultra 1 % Ultra 1 % 07-24 Dayo HAIRSTON topical topical cream cream hydrocortis hydrocortis 2018-06 Yes Grand Unknown Unknown one 2.5 % one 2.5 % 07-24 Dayo HAIRSTON topical topical cream cream amLODIPine amLODIPine 2018-06 Yes Grand Unknown Unknown 10 mg 10 mg 07-24 Dayo HAIRSTON tablet tablet Aspirin Low Aspirin Low 2018-06 Yes Grand Unknown Unknown Dose 81 mg Dose 81 mg 07-24 Dayo HAIRSTON tablet,venice tablet,venice yed release yed release Colace 100 Colace 100 2018-06 Yes Grand Unknown Unknown mg capsule mg capsule 07-24 Dayo HAIRSTON finasteride finasteride 2018-06 Yes Grand Unknown Unknown 5 mg tablet 5 mg tablet 07-24 Dayo HAIRSTON glipiZIDE glipiZIDE 2018-06 Yes Grand Unknown Unknown ER 5 mg ER 5 mg 07-24 Dayo HAIRSTON tablet, tablet, extended extended release 24 release 24 hr hr Januvia 50 Januvia 50 No Grand 1 tab Unknown mg tablet mg tablet Dayo HAIRSTON Lyrica 50 Lyrica 50 No Grand 1 cap Unknown mg capsule mg capsule Dayo HAIRSTON simvastatin simvastatin 2018-06 Yes Grand Unknown Unknown 40 mg 40 mg 07-24 Dayo HAIRSTON tablet tablet Depakote ER Depakote ER No Emani 3 tabs Unknown 500 mg 500 mg MDMaycol tablet,exte tablet,exte nded nded release release Latuda 80 Latuda 80 2018-06 Yes Grand Unknown Unknown mg tablet mg tablet 07-24 Dayo HAIRSTON latanoprost latanoprost No Duran Unknown Unknown 0.005 % eye 0.005 % eye O.D.,Alan drops drops w timolol 0.5 timolol 0.5 No Grand Unknown Unknown % eye drops % eye drops Dayo HAIRSTON Depakote Depakote 2018-06 Yes Grand Unknown Unknown 250 mg 250 mg 07-24 Dayo HAIRSTON tablet,venice tablet,venice yed release yed release Januvia 100 Januvia 100 2018-06 Yes Grand Unknown Unknown mg tablet mg tablet 07-24 Dayo HAIRSTON Acetaminoph Acetaminoph 2018-06 Yes Grand Unknown Unknown en Pain en Pain 07-24 Dayo HAIRSTON Relief 500 Relief 500 mg tablet mg tablet clonazePAM clonazePAM 2018-06 Yes Grand Unknown Unknown 0.5 mg 0.5 mg 07-24 [...]
--- OUTSIDE RECORDS SUMMARY | 2019-06-04 15:57 | XMS REPORT ---
:1950 Author Organization [facility] Care Team Providers Name Role Phone Unavailable Unavailable Unavailable Problems This patient has no known problems. Allergies, Adverse Reactions, Alerts Allergy Allergy Status [...]
--- OUTSIDE RECORDS SUMMARY | 2019-06-04 15:57 | XMS REPORT ---
:1950 Author Organization [facility] Care Team Providers Name Role Phone Unavailable Unavailable Unavailable Problems Condition Condition Condition Status Onset Resolution Last Treating Comments Name Details Category Date Date Treatment Clinician Date Type 2 Type 2 Diagnosis Active 2018-06 Lesvia diabetes diabetes 2- Malnoske mellitus mellitus RN without without complicatio complicatio ns ns Pain frequent Pain Mgmt Active 2018-06 [place] pain 07-24 [place] 09:05: [id number] Respiratory dyspnea Respirator Active 2018-06 [place] present y 07-24 [place] 09:05: [id number] 00 Endo/Philipp anti-coagul Endo/Philipp Active 2018-06 [place] ation 07-24 [place] therapy 09:05: [id number] 00 Endo/Philipp diabetic Endo/Philipp Active 2018-06 [place] foot care 07-24 [place] 09:05: [id number] 00 Sensory impaired Sensory Active 2018-06 [place] hearing 07-24 [place] 09:05: [id number] 00 Nutrition nutritional Nutrition Active 2018-06 [place] restriction 07-24 [place] s 09:05: [id number] 00 Elimination urinary Eliminatio Active 2018-06 [place] incontinenc n 07-24 [place] e 09:05: [id number] 00 Neuro confusion Neuro/Emot Active 2018-06 [place] present ion 07-24 [place] 09:05: [id number] 00 Neuro anxiety Neuro/Emot Active 2018-06 [place] present ion 07-24 [place] 09:05: [id number] 00 Neuro impaired Neuro/Emot Active 2018-06 [place] decision-ma ion 07-24 [place] sophia 09:05: [id number] 00 Neuro psychiatric Neuro/Emot Active 2018-06 [place] problems ion 07-24 [place] 09:05: [id number] 00 Neuro memory Neuro/Emot Active 2018-06 [place] deficit ion 07-24 [place] needing 09:05: [id number] supervision 00 Activity ADL Activity Active 2018-06 [place] assistance 07-24 [place] required 09:05: [id number] 00 Activity self-care Activity Active 2018-06 [place] deficit 07-24 [place] 09:05: [id number] 00 Safety structural Safety Active 2018-06 [place] barriers 07-24 [place] present 09:05: [id number] 00 Safety knowledge/s Safety Active 2018-06 [place] kill 07-24 [place] deficit: pt 09:05: [id number] 00 Safety fall risk Safety Active 2018-06 [place] factor 07-24 [place] present 09:05: [id number] 00 Safety risk for Safety Active 2018-06 [place] hospitaliza 07-24 [place] tion 09:05: [id number] 00 Medication oral med Meds Active 2018-06 [place] assistance 07-24 [place] required 09:05: [id number] 00 Medication knowledge/s Meds Active 2018-06 [place] nation 07-24 [place] deficit: pt 09:05: [id number] 00 Medication potential Meds Active 2018-06 [place] clinically 07-24 [place] significant 09:05: [id number] medication 00 issue Musculoskel transfer Musculoske Active 2018-06 [place] etal assistance letal 07-24 [place] required 09:05: [id number] 00 Allergies, Adverse Reactions, Alerts Allergy Allergy Status Severity Reaction(s) Onset Inactive Treating Comments Name Type Date Date Clinician Unknown None Active Unknown None Unknown No Known Allergies For This Patient Medications Ordered Filled Start Stop Current Ordering Indication Dosage Frequency Signature Comments Components Medication Medication Date Date Medication? Clinician (SIG) Name Name azelastine azelastine 2018-06 Yes [place] Unknown Unknown 0.15 % 0.15 % 07-24 Dayo HAIRSTON (205.5 mcg) (205.5 mcg) nasal spray nasal spray Lotrimin Lotrimin 2018-06 Yes [place] Unknown Unknown Ultra 1 % Ultra 1 % 07-24 Dayo HAIRSTON topical topical cream cream hydrocortis hydrocortis 2018-06 Yes [place] Unknown Unknown one 2.5 % one 2.5 % 07-24 Dayo HAIRSTON topical topical cream cream amLODIPine amLODIPine 2018-06 Yes [place] Unknown Unknown 10 mg 10 mg 07-24 Dayo HAIRSOTN tablet tablet Aspirin Low Aspirin Low 2018-06 Yes [place] Unknown Unknown Dose 81 mg Dose 81 mg 07-24 Dayo HAIRSTON tablet,venice tablet,venice yed release yed release Colace 100 Colace 100 2018-06 Yes [place] Unknown Unknown mg capsule mg capsule 07-24 Dayo HAIRSTON finasteride finasteride 2018-06 Yes [place] Unknown Unknown 5 mg tablet 5 mg tablet 07-24 Dayo HAIRSTON glipiZIDE glipiZIDE 2018-06 Yes [place] Unknown Unknown ER 5 mg ER 5 mg 07-24 Dayo HAIRSTON tablet, tablet, extended extended release 24 release 24 hr hr Januvia 50 Januvia 50 No [place] 1 tab Unknown mg tablet mg tablet Dayo HAIRSTON Lyrica 50 Lyrica 50 No [place] 1 cap Unknown mg capsule mg capsule Dayo HAIRSTON simvastatin simvastatin 2018-06 Yes [place] Unknown Unknown 40 mg 40 mg 07-24 Dayo HAIRSTON tablet tablet Depakote ER Depakote ER No Emani 3 tabs Unknown 500 mg 500 mg MDMaycol tablet,exte tablet,exte nded nded release release Latuda 80 Latuda 80 2018-06 Yes [place] Unknown Unknown mg tablet mg tablet 07-24 Dayo HAIRSTON latanoprost latanoprost No Duran Unknown Unknown 0.005 % eye 0.005 % eye O.D.,Alan drops drops w timolol 0.5 timolol 0.5 No [place] Unknown Unknown % eye drops % eye drops Dayo HAIRSTON Depakote Depakote 2018-06 Yes [place] Unknown Unknown 250 mg 250 mg 07-24 Dayo HAIRSTON tablet,venice tablet,venice yed release yed release Januvia 100 Januvia 100 2018-06 Yes [place] Unknown Unknown mg tablet mg tablet 07-24 Dayo HAIRSTON Acetaminoph Acetaminoph 2018-06 Yes [place] Unknown Unknown en Pain en Pain 07-24 Dayo HAIRSTON Relief 500 Relief 500 mg tablet mg tablet clonazePAM clonazePAM 2018-06 Yes [place] Unknown Unknown 0.5 mg 0.5 mg 07-24 [...]
--- OUTSIDE RECORDS SUMMARY | 2019-06-04 15:57 | XMS REPORT | Summary of Care ---
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 (HCC) (Primary Dx); Scarlett Haro MD Essential hypertension, benign; [address] Schizoaffective disorder, unspecified type (HCC); [place] [address] [place] [address] Mixed hyperlipidemia; [phone] Transient alteration of awareness; [phone] Pre-syncope (Fax) Allergies No Known Allergiesdocumented as of this encounter (statuses as of 05/17/2019) Medications Medication Sig Dispensed Refills Start End [...] TWO TIMES DAILY NEEDED FOR RASH azelastine [place] 2 Sprays 1 Bottle 4 Active (ASTELIN) [...] 40 MG Oral mouth DAILY. 9 Tab sitagliptin Take 1 Tab by 90 Tab 3 Active (JANUVIA) 100 MG mouth DAILY. 9 Oral Tab Glucose Blood (ONE 1 Each by In 100 Strip 5 Active TOUCH ULTRA TEST Vitro route TWO 9 STRIPS) In Vitro TIMES DAILY StripIndications: NEEDED Diabetes mellitus (DIABETES). One without touch ultra 2. complication (HCC) Test bid. Dx: E11,9 amLodipine Take 1 Tab by 30 Tab 5 05/16/20 Active (NORVASC) 10 MG mouth DAILY. 9 20 Oral Tab divalproex Take 2 Tabs by 60 Tab 4 Active (DEPAKOTE ER) 250 mouth EVERY 9 MG Oral TABLET SR TWENTY-FOUR 24 HR HOURS. divalproex Take 3 Tabs by 90 Tab 0 05/17/20 Discontinued (DEPAKOTE ER) 250 mouth EVERY 9 19 (Dose MG Oral TABLET SR TWENTY-FOUR Adjustment) 24 HR HOURS. amLodipine EVERY MORNING 0 05/17/20 Discontinued (NORVASC) 5 MG Oral 3 19 (Provider Tab Discontinued) documented as of this encounter (statuses as of 05/17/2019) Active Problems Problem Noted Date Chronic kidney disease, stage III (moderate) 01/27/2011 Overview: Seeing Dr. Ritchie. Last seen 12/09/13. Next apt 03/18. Gastric polyp 04/24/2009 Overview: [facility] 04/13 Schizoaffective disorder 03/27/2007 Mixed hyperlipidemia 03/27/2007 Well controlled type 2 diabetes mellitus with peripheral neuropathy 03/23/2006 Overview: Last eye exam 10/02/[address] Frank[address] Correa for foot care. Seen 12/24/13 A1C 6.9% 11/16 Essential hypertension, benign 03/23/2006 documented as of this encounter (statuses as of 05/17/2019) Resolved Problems Problem Noted Date Resolved Date Acute right ankle pain 06/06/2017 03/26/2019 [facility]ides in [facility] 11/26/2015 07/19/2017 Back pain, lumbosacral 01/13/2015 06/13/2017 Explosive personality disorder 07/07/2006 09/05/2007 Unspecified psychosis 03/23/2006 09/05/2007 documented as of this encounter (statuses as of 05/17/2019) Immunizations Name Administration Dates Next Due Adacel [...] Sign Reading Time Taken Comments Blood Pressure 150/84 05/17/2019 10:39 AM EST Pulse 102 05/17/2019 10:39 AM EST Temperature - - Respiratory Rate - - Oxygen Saturation 98% 05/17/2019 10:39 AM EST Inhaled Oxygen Concentration - - Weight 69.5 kg (153 lb 3.2 oz) 05/17/2019 10:39 AM EST Height 180.3 cm (5' 11") 05/17/2019 10:39 AM EST Body Mass Index 21.37 05/17/2019 10:39 AM EST documented in this encounter Patient Instructions Patient InstructionsDayo Harkins MD - 05/17/2019 11:00 AM ESTReduce depakote 2 per day Use higher dose amlodipine 10 mg in am for hypertension continue current medications Eat three times daily Do finger stick any time you feel dizzy or lightheaded Follow up Blayne CAMPO 1-2 weeks hypertension documented in this encounter Progress Notes Dayo Harkins MD - 05/17/2019 11:00 AM EST PATIENT: Gurjit Isidro : 1950 DATE OF SERVICE: 05/17/2019 CHIEF COMPLAINT: Chief Complaint Patient presents with Follow Up follow from ED visit -1 day ago on 05/17/2019 , patient reports no dizziness within the last 24 hrs Subjective HISTORY OF PRESENT ILLNESS: Gurjit Isidro is a 68-y.o. male. HPI Follow up to transient spell of getting lost yesterday and then pre syncope he was taken to emergency room and noted to have blood pressure 170/115 he had normal ecg chest x-ray and blood work His telemetry in emergency room was normal No new psych medication changes he denies alcohol abuse yesterday no drug use He lives in [place] and lives semi independently he knows al of his medications and does finger sticktesting at home about twice daily Most denies denies hypoglycemia other than this am when it was 95and he ate some carbohydrates to get it up No cardiovascular or focal neuro symptoms His depakote dose had been increased from 1000 mg daily to [address] Joaquin 2 month ago and his mood is unchanged he uses it for mood stabilizer He has diabetes mellitus but denies hypoglycemia and his glucose in ER was 135 He eats three times daily And compliant with diabetes mellitus medications and low carbohydrate diet Lab Results Component Value Date GLYCO 7.6 (H) 03/26/2019 Patient Active Problem List Diagnosis Well controlled type 2 diabetes mellitus with peripheral neuropathy (HCC) Essential hypertension, benign Schizoaffective disorder (HCC) Mixed hyperlipidemia Gastric polyp Chronic kidney disease, stage III (moderate) ([facility]) Family History Problem Relation Age of Onset Hypertension Mother Diabetes Father Heart Failure Father Diabetes Brother Current Outpatient Medications Medication Sig amLodipine (NORVASC) 10 MG Oral Tab Take 1 Tab by mouth DAILY. ASPIR-LOW 81 MG Oral Tab EC TAKE ONE TABLET BY MOUTH ONCE DAILY azelastine (ASTELIN) 0.1 % Nasal Solution [place] 2 Sprays in nose TWICE DAILY. Blood [...] Tab Take 2 Tabs by mouth DAILY. simvastatin (ZOCOR) 40 MG Oral Tab TAKE [...] file Gets together: Not on file Attends jehovah's witness service: Not on file Active member of [...] Concern No Social History Narrative Lives in [place], [place] Not employed-disability due to chronic mental illness REVIEW OF SYSTEMS: ROS no new eye symptoms no cardiovascular or pulmonary symptoms no gastro- intestinal symptoms Objective PHYSICAL EXAM: VITALS: BP (!) 150/84 (BP Location: Left arm, Patient Position: Sitting) | Pulse 102 | Ht 5' 11" (1.803 m) | Wt 153 lb 3.2 oz (69.5 kg) | SpO2 98% | BMI 21.37 kg/m Body mass index is 21.37 kg/m. Physical Exam repeat blood pressure left upper extremity 148/93 S1 and S2 normal, no murmurs, clicks, gallops or rubs. Regular rate and rhythm. Chest is clear; no wheezes or rales. No edema or JVD. Cranial nerves are normal. Fundi are normal with sharp disc margins, no papilledema, hemorrhages or exudates noted. FRANKY. EOM's intact. Neck supple. No cranial or carotid bruits. Good carotid upstroke. DTR's, motor power and sensation normal and symmetric. Babinski sign absent. Mental status normal. Gait and station normal. Cerebellar function is normal. Left foot diabetic exam: Visual exam. Foot [...] at either the foot or ankle: yes I spent 40 minutes with the patient, greater than half of this time in direct face to face counseling regarding the condition and the plan of care. ASSESSMENT / IMPRESSION: ICD-9-CM ICD-10-CM 1. Well controlled type 2 diabetes mellitus with peripheral neuropathy (HCC) spell yesterday was nothypoglycemia finger stick twice daily And do not skip meals continue current medications 250.60 E11.42 357.2 2. Essential hypertension, benign 401.1 I10 3. Schizoaffective disorder, unspecified type (HCC) reduce dose depakote 500 mg once daily continue latuda and follow up Dr Joaquin [facility] 295.70 F25.9 4. Mixed hyperlipidemia continue statin 272.2 E78.2 5. Transient alteration of awareness unclear cause 780.02 R40.4 6. Pre-syncope possibly related to elevated blood pressure increase amlodipine 10 mg daily and follow up closely here 780.2 R55 Patient Instructions Reduce depakote 2 per day Use higher dose amlodipine 10 mg in am for hypertension continue current medications Follow up Blayne CAMPO 1-2 weeks hypertension Dayo Harkins MD 05/17/2019 11:27 documented in this encounter Plan of Treatment Date Type Specialty Care Team Description 05/22/2019 Office Visit Neurology Cesar Aguilar DC [address] [address] [phone] 05/31/2019 Office Visit Internal Medicine Vince Silverman PA [address] [place] [address] [phone] 06/20/2019 Office Visit Endocrinology Monique Garcia, RICHARD [address] [address] 07/02/2019 Lab Internal Medicine 07/16/2019 Office Visit Internal Medicine Dayo Harkins MD [address] [place] [address] [phone] Health Maintenance Due Date Last Done Comments [...] Problems Progress Blood Pressure Blood Pressure 150/84 Deepika Aguirre < 140/90 (05/17/2019 HERMINIO Gallego 10:39 AM EST) Note: This is an [...] 2 diabetes mellitus with peripheral neuropathy (HCC) Type II or unspecified type diabetes mellitus with neurological manifestations , not stated as uncontrolled Essential hypertension, benign Schizoaffective disorder, unspecified type (HCC) Mixed hyperlipidemia Transient alteration of awareness Pre-syncope Syncope and collapse documented in this encounter Insurance Payer Benefit Plan / Subscriber ID Effective Dates Phone Address Type Group MEDICARE MEDICARE PART A & B xxxxxxxxxxx Effective for all Medicare dates (Home) [facility] [phone] 1 (Work) [place] [address] documented as of this encounter
[2019-06-04] MEDS ORDERED: Acetaminophen TAB* 325 MG PO ONE (16:38)
[2019-06-04 17:50] VITALS: BP 143/87
--- NOTE | 2019-06-27 06:27 | ED ---
Back Pain - HPI Summary HPI Summary: This patient is a 68-year-old male with a history of chronic back pain presenting to the ED with new acute on chronic back pain since his fall on . Patient denies any numbness or tingling in the bilateral lower extremities. Denies any urinary symptoms. No bladder or bowel dysfunction. Continues to ambulate, however with pain to the low back. He states after his fall, he has continued to have worsening low back pain, this is been intermittent. It improves with ibuprofen and heat. He states it improves temporarily in the pain returns within 3-4 hours. He states he has degenerative disc disease, but no previous fractures of the spine. No previous surgeries. Pain is rated as 7/10 currently, nonradiating. - History of Current Complaint Chief Complaint: EDBackInjuryPain Stated Complaint: BACK PAIN PER EMS Time Seen by Provider: 06/04/19 15:35 Hx Obtained From: Patient Onset/Duration: Sudden Onset Onset/Duration: Started Hours Ago Timing: Constant Back Pain Location: Is Discrete @ - low back pain Severity Initially: Moderate Severity Currently: Moderate Pain Intensity: 3 Pain Scale Used: 0-10 Numeric Character: Aching Aggravating Symptom(s): Movement, Lifting, Bending Alleviating Symptom(s): Rest, Position Associated Signs And Symptoms: Positive: Negative. Negative: Redness, Bruising , Weakness, Numbness, Tingling, Abdominal Pain, Bladder Incontinence, Bowel Incontinence, Weight Loss, Pain with Weight Bearing - Risk Factors AAA Risk Factors: Negative TAD Risk Factors: Negative Cauda Equina Risk Factors: Negative Epidural Abscess Risk Factors: Negative - Allergies/Home Medications Allergies/Adverse Reactions: Allergies Allergy/AdvReac Type Severity Reaction Status Date / Time No Known Allergies Allergy Verified 06/16/19 12:10 PMH/Surg Hx/FS Hx/Imm Hx Previously Healthy: Yes Endocrine/Hematology History: Reports: Hx Anticoagulant Therapy - aspirin 81mg, Hx Diabetes - DX 2000 TYPE 2 Denies: Hx Thyroid Disease Cardiovascular History: Reports: Hx Hypotension - HX OF X 1, Hx Hypertension Denies: Hx Pacemaker/ICD Respiratory History: Reports: Hx Pulmonary Edema - RLL Denies: Hx Asthma, Hx Chronic Obstructive Pulmonary Disease (COPD) GI History: Denies: Hx Ulcer History: Reports: Hx Chronic Renal Failure Denies: Hx Dialysis, Hx Renal Disease Musculoskeletal History: Denies: Hx Back Problems, Other Musculoskeletal History Sensory History: Reports: Hx Cataracts, Hx Contacts or Glasses - GLASSES, Hx Glaucoma Denies: Hx Hearing Aid Opthamlomology History: Reports: Hx Cataracts, Hx Contacts or Glasses - GLASSES , Hx Glaucoma Neurological History: Reports: Other Neuro Impairments/Disorders - SCHIZO AFFECTIVE DISORDER Denies: Hx Dementia, Hx Seizures Psychiatric History: Reports: Hx Anxiety, Hx Depression, Hx Schizophrenia, Hx Bipolar Disorder, Other Psychiatric Issues/Disorders - HX EXTRAPYRADAL S/S AFTER TAKING GEODON Denies: Hx Substance Abuse - Surgical History Surgery Procedure, Year, and Place: LEFT EYE SURGERY- LAZY EYE 1966 [facility] Hx Anesthesia Reactions: Yes - N/V - Immunization History Date of Influenza Vaccine: 2006 Hx Pertussis Vaccination: No Immunizations Up to Date: Yes Infectious Disease History: No Infectious Disease History: Denies: Hx Clostridium Difficile, Hx Hepatitis, Hx Human Immunodeficiency Virus (HIV), Hx Shingles, Hx Tuberculosis, Traveled Outside the [place] in Last 30 Days - Family History Known Family History: Negative: Cardiac Disease, Hypertension - Social History Occupation: Unemployed Lives: Alone Alcohol Use: None Hx Substance Use: No Substance Use Type: Reports: None Hx Tobacco Use: No Smoking Status (MU): Never Smoked Tobacco Have You Smoked in the Last Year: No Review of Systems Negative: Fever, Chills, Fatigue, Skin Diaphoresis Negative: Shortness Of Breath, Cough Negative: Abdominal Pain, Vomiting, Diarrhea, Nausea Genitourinary: Negative Positive: no symptoms reported, see HPI Positive: Arthralgia - low back pain - nonradiating. Negative: Myalgia Skin: Negative All Other Systems Reviewed And Are Negative: Yes Physical Exam Triage Information Reviewed: Yes Vital Signs On Initial Exam: Initial Vitals Temp Pulse Resp BP Pulse Ox 97.6 F 93 18 133/79 97 06/04/19 15:12 06/04/19 15:12 06/04/19 15:12 06/04/19 15:12 06/04/19 15:12 Vital Signs Reviewed: Yes Appearance: Positive: Well-Appearing, Well-Nourished Skin: Positive: Warm, Skin Color Reflects Adequate Perfusion Head/Face: Positive: Normal Head/Face Inspection Eyes: Positive: CHIQUIS, Conjunctiva Clear Neck: Positive: Supple, Nontender, No Lymphadenopathy Respiratory/Lung Sounds: Positive: Clear to Auscultation, Breath Sounds Present Cardiovascular: Positive: RRR, Pulses are Symmetrical in both Upper and Lower Extremities Musculoskeletal: Positive: Pain @ - low back pain on palpation, no stepoff noted Neurological: Positive: Sensory/Motor Intact, Alert, Oriented to Person Place, Time, Speech Normal Psychiatric: Positive: Affect/Mood Appropriate Procedures - Sedation Patient Received Moderate/Deep Sedation with Procedure: No Diagnostics - Vital Signs Vital Signs Temp Pulse Resp BP Pulse Ox 06/04/19 17:49 96.8 F 87 18 143/87 96 06/04/19 15:12 97.6 F 93 18 133/79 97 - Laboratory Lab Statement: Any lab studies that have been ordered have been reviewed, and results considered in the medical decision making process. Back Pain Course/Dx - Course Course Of Treatment: Physical examination, patient appears well. He is complaining of a 7/10 back pain. He is endorsing back pain to the lower spine without radiation. No CVA tenderness bilaterally. No bladder or bowel dysfunction. Denies any gross hematuria or other urinary symptoms. He denies any numbness or tingling. Patient is able to flex and extend without discomfort on exam. He does have pain with rotation of the hips. No foot drop noted. No signs of trauma noted. No step-off. Patient does have pain directly over L4/L5 on deep palpation. Tylenol with good effect. CT lumbar spine obtained: Degenerative disc disease and facet osteoarthritis most prominent at L4-L5 and L5-S1 levels. There is moderate to severe spinal canal narrowing at the L4-L5 level and at the L5-S1 level there is a disc bulge most prominent posteriorly and laterally toward the right causing compression of the right S1 nerve root in the lateral recess. Discussed findings with the patient. I have advised to follow up with PCP and possibly he will need further imaging. He declines pain medications at this time and states he will continue to take Tylenol and ibuprofen and will follow up with PCP. - Diagnoses Differential Diagnosis/HQI/PQRI: Positive: Strain, Sprain Provider Diagnoses: Compression of lumbar nerve root, Back pain, Fall Discharge ED - Sign-Out/Discharge Documenting (check all that apply): Patient Departure - Discharge Plan Condition: Stable Disposition: HOME Patient Education Materials: Lumbar Spinal Stenosis (ED) Referrals: Dayo Harkins MD [Primary Care Provider] - Additional Instructions: Please follow up with your PCP regarding your chronic back pain - Billing Disposition and Condition Condition: STABLE Disposition: Home
== END 2019-06-04 17:49 | disposition home or self-care (01) ==
LOC: ED 14:56
DX: G54.8 Other nerve root and plexus disorders (principal); M54.9 Dorsalgia, unspecified; W19.XXXA Unspecified fall, initial encounter; Y92.9 Unspecified place or not applicable; E11.22 Type 2 diabetes mellitus with diabetic chronic kidney disease; I12.9 Hypertensive chronic kidney disease with stage 1 through stage 4 chronic kidney disease, or unspecified chronic kidney disease; N18.9 Chronic kidney disease, unspecified; F41.9 Anxiety disorder, unspecified; F20.9 Schizophrenia, unspecified; F31.9 Bipolar disorder, unspecified; Z79.82 Long term (current) use of aspirin
CPT/HCPCS: 72131; 99282; A9270-GY

== ENCOUNTER 2019-06-16 11:56 | Emergency (ER) | payer MEDICARE, MEDICAID ==
--- NOTE | 2019-06-16 12:04 | ED ---
Head Injury - HPI Summary HPI Summary: Pt is a 68 y/o M presenting to the ED brought in by EMS for a head injury. Pt fell this morning trying to get up out of his chair to get some food, and hit his head on a refrigerator. He reports headache, neck pain, shoulder pain, and chronic back pain. Also notes bruising on L upper arm. Denies anticoagulant use , LOC, CP, SOB, and abd pain. - History Of Current Complaint Stated Complaint: FALL PER EMS Time Seen by Provider: 06/16/19 11:58 Hx Obtained From: Patient, EMS Mechanism Of Injury: Fall From A Standing Position Onset/Duration: Started Hours Ago, Still Present Onset of Pain: Immediate, Hours Location of Head Injury: Parietal Location: Diffuse Associated Signs And Symptoms: Neck Pain, Bruising, Headache - Allergies/Home Medications Allergies/Adverse Reactions: Allergies Allergy/AdvReac Type Severity Reaction Status Date / Time No Known Allergies Allergy Verified 06/16/19 12:10 PMH/Surg Hx/FS Hx/Imm Hx Previously Healthy: Yes Endocrine/Hematology History: Reports: Hx Anticoagulant Therapy - aspirin 81mg, Hx Diabetes - DX 1999 TYPE 2 Denies: Hx Thyroid Disease Cardiovascular History: Reports: Hx Hypotension - HX OF X 1, Hx Hypertension Denies: Hx Congestive Heart Failure, Hx Pacemaker/ICD Respiratory History: Reports: Hx Pulmonary Edema - RLL Denies: Hx Asthma, Hx Chronic Obstructive Pulmonary Disease (COPD) GI History: Denies: Hx Ulcer History: Reports: Hx Chronic Renal Failure Denies: Hx Dialysis, Hx Renal Disease Musculoskeletal History: Denies: Hx Back Problems, Other Musculoskeletal History Sensory History: Reports: Hx Cataracts, Hx Contacts or Glasses - GLASSES, Hx Glaucoma Denies: Hx Hearing Aid Opthamlomology History: Reports: Hx Cataracts, Hx Contacts or Glasses - GLASSES , Hx Glaucoma Neurological History: Reports: Other Neuro Impairments/Disorders - SCHIZO AFFECTIVE DISORDER Denies: Hx Dementia, Hx Seizures Psychiatric History: Reports: Hx Anxiety, Hx Depression, Hx Schizophrenia, Hx Bipolar Disorder, Other Psychiatric Issues/Disorders - HX EXTRAPYRADAL S/S AFTER TAKING GEODON Denies: Hx Substance Abuse - Surgical History Surgery Procedure, Year, and Place: LEFT EYE SURGERY- LAZY EYE 1966 [facility] Hx Anesthesia Reactions: Yes - N/V - Immunization History Date of Influenza Vaccine: 2006 Infectious Disease History: Denies: Hx Clostridium Difficile, Hx Hepatitis, Hx Human Immunodeficiency Virus (HIV), Hx Shingles, Hx Tuberculosis - Family History Known Family History: Negative: Cardiac Disease, Hypertension - Social History Lives: Alone Alcohol Use: None Hx Substance Use: No Substance Use Type: Reports: None Hx Tobacco Use: No Smoking Status (MU): Never Smoked Tobacco Have You Smoked in the Last Year: No Review of Systems Negative: Chest Pain Negative: Shortness Of Breath Negative: Abdominal Pain Positive: Arthralgia - shoulder pain, Myalgia - neck pain, back pain Positive: Bruising Positive: Headache All Other Systems Reviewed And Are Negative: Yes Physical Exam - Summary Physical Exam Summary: Constitutional: Well-developed, Well-nourished, Alert. (-) Distressed Skin: Warm, Dry HENT: Normocephalic; Atraumatic. No gross hematoma/abrasion/laceration. Eyes: Conjunctiva normal Neck: Musculoskeletal ROM normal neck. No tenderness to palpation over cervical spine. Reported pain with movement. (-) JVD, (-) Stridor, (-) Tracheal deviation Cardio: Rhythm regular, rate normal, Heart sounds normal; Intact distal pulses; The pedal pulses are 2+ and symmetric. Radial pulses are 2+ and symmetric. (-) Murmur Pulmonary/Chest wall: Effort normal. (-) Respiratory distress, (-) Wheezes, (-) Rales Abd: Soft, (-) tenderness, (-) Distension, (-) Guarding, (-) Rebound Musculoskeletal: (-) Edema. Low back tenderness. No gross extremity deformities. Lymph: (-) Cervical adenopathy Neuro: Alert, Oriented x3 Psych: Mood and affect Normal Triage Information Reviewed: Yes Vital Signs Reviewed: Yes - [place] Coma Scale Best Eye Response: 4 - Spontaneous Best Motor Response: 6 - Obeys Commands Best Verbal Response: 5 - Oriented Coma Scale Total: 15 Procedures - Sedation Patient Received Moderate/Deep Sedation with Procedure: No Diagnostics - Laboratory Result Diagrams: 06/16/19 12:19 06/16/19 12:19 Lab Statement: Any lab studies that have been ordered have been reviewed, and results considered in the medical decision making process. - Radiology L-spine XR Radiology Interpretation Completed By: Radiologist Summary of Radiographic Findings: Negative for fracture. Chronic degenerative spondylosis and facet joint osteoarthritis. ED physician has reviewed this report. - CT Brain CT CT Interpretation Completed By: Radiologist Summary of CT Findings: No evidence for traumatic injury or acute intracranial process evident. Negative exam. ED physician has reviewed this report. CT C-spine CT Interpretation Completed By: Radiologist Summary of CT Findings: 1. No CT evidence for traumatic cervical spine injury. 2. Multilevel advanced degenerative spondylosis and facet joint osteoarthritis. ED physician has reviewed this report. Head Injury Course/Dx Course Of Treatment: Pt is a 68 y/o M presenting to the ED brought in by EMS for a head injury when he fell at his residence. He reports headache, neck pain , shoulder pain, and chronic back pain. Also notes bruise on L upper arm. He denies anticoagulant use, LOC, CP, SOB, and abd pain. Pt lives alone. Hx DM. Denies hx of CHF. On exam, pt's head has no obvious hematoma/abrasion/ laceration, neck has no tenderness to palpation but pt reports pain with movement, and he has some low back tenderness without any gross extremity deformities. CT C-spine shows: 1. No CT evidence for traumatic cervical spine injury. 2. Multilevel advanced degenerative spondylosis and facet joint osteoarthritis. Brain CT shows: No evidence for traumatic injury or acute intracranial process evident. Negative exam. L-spine XR shows: Negative for fracture. Chronic degenerative spondylosis and facet joint osteoarthritis. Dx includes fall, head injury, low back strain. - Diagnoses Provider Diagnoses: Fall, Head injury, Low back strain Discharge ED - Sign-Out/Discharge Documenting (check all that apply): Patient Departure - Discharge Plan Condition: Stable Disposition: HOME Patient Education Materials: Fall Prevention for Older Adults (ED), Head Injury (ED), Low Back Strain (ED) Referrals: Dayo Harkins MD [Primary Care Provider] - Additional Instructions: Please follow up with your primary care provider within the next 1-3 days. Return to the emergency department with any new or worsening symptoms. - Attestation Statements Document Initiated by Mundo: Yes Documenting Scribe: Ingrid Valverde Provider For Whom Mundo is Documenting (Include Credential): DO. Tamie Marlowibmirna Attestation: Ingrid Fisher scribed for Byron Kim DO. on 06/16/19 at 1443. Status of Scribe Document: Ready
[2019-06-16 12:29] LABS: ABS Eosinophils 0.1 10^3/ul (0-0.6); ABS Lymphocytes 1.5 10^3/ul (1.0-4.8); ABS Monocytes 0.7 10^3/ul (0-0.8); ABS Neutrophils 3.2 10^3/ul (1.5-7.7); Eosinophil % 1.5 %; Hematocrit 33 % (42-52); Hemoglobin 10.9 g/dL (14.0-18.0); Mean Corpuscular HGB Conc 33 g/dL (31-36); Mean Corpuscular Hemoglobin 31 pg (27-31); Mean Corpuscular Volume 91 fL (80-94); Mean Platelet Volume 8.2 fL (7.4-10.4); Nucleated Red Blood Cells % 0.1; Platelet Count 257 10^3/uL (150-450); Red Blood Count 3.58 10^6 /uL (4.18-5.48); Red Cell Distribution Width 15 % (10-15); White Blood Count 5.5 10^3/uL (3.5-10.8)
[2019-06-16 12:44] LABS: Albumin/Globulin Ratio 1.7 (1-3); BUN/Creatinine Ratio 19.5 (8-20); Calcium 9.5 mg/dL (8.6-10.3); EGFR African American 67.2 (>60); EGFR Non-African American 55.6 (>60); Globulin 2.4 g/dL (2-4); Total Bilirubin 0.4 mg/dL (0.2-1.0); Total Protein 6.4 g/dL (6.4-8.9)
[2019-06-16 13:57] LABS: Hepatitis C Antibody Negative (Negative)
[2019-06-16 14:57] VITALS: BP 154/93
== END 2019-06-16 14:56 | disposition home or self-care (01) ==
LOC: ED 11:56
DX: S09.90XA Unspecified injury of head, initial encounter (principal); S39.012A Strain of muscle, fascia and tendon of lower back, initial encounter; W22.09XA Striking against other stationary object, initial encounter; Y92.000 Kitchen of unspecified non-institutional (private) residence as the place of occurrence of the external cause; Z79.82 Long term (current) use of aspirin; E11.22 Type 2 diabetes mellitus with diabetic chronic kidney disease; I12.9 Hypertensive chronic kidney disease with stage 1 through stage 4 chronic kidney disease, or unspecified chronic kidney disease; N18.9 Chronic kidney disease, unspecified; F25.9 Schizoaffective disorder, unspecified; F31.9 Bipolar disorder, unspecified; F41.9 Anxiety disorder, unspecified
CPT/HCPCS: 36415; 70450; 72100; 72125; 80053; 83880; 85025; 86803; 99282

== ENCOUNTER 2019-07-21 12:44 | Emergency (ER) | payer MEDICARE, MEDICAID ==
--- NOTE | 2019-07-21 13:18 | ED ---
Complex/Multi-Sys Presentation - HPI Summary HPI Summary: Pt. is a 68 y.o male who presents to the ER with complaints of frequent falls and worsening neck pain. Pt. seen in ED about two weeks ago for similar sxs. Pt. notes chronic neck pain that is becoming worse since recent falls. Pt. lives in an apt. by self. Pt. states he is getting set up with a home health nurse tomorrow. Pt. is not anticoagulated. Pt. denies recent illness, fever, cough, cp, sob, abd. pain, urinary sxs. Pt. notes he uses a cane and walker at home. Sxs are moderate in severity. Moving neck makes sxs worse. Nothing improves sxs. - History Of Current Complaint Chief Complaint: EDFall Time Seen by Provider: 07/21/19 12:47 Hx Obtained From: Patient - Allergies/Home Medications Allergies/Adverse Reactions: Allergies Allergy/AdvReac Type Severity Reaction Status Date / Time No Known Allergies Allergy Verified 06/16/19 12:10 PMH/Surg Hx/FS Hx/Imm Hx Previously Healthy: Yes Endocrine/Hematology History: Reports: Hx Anticoagulant Therapy - aspirin 81mg, Hx Diabetes - DX 1999 TYPE 2 Denies: Hx Thyroid Disease Cardiovascular History: Reports: Hx Hypotension - HX OF X 1, Hx Hypertension Denies: Hx Congestive Heart Failure, Hx Pacemaker/ICD Respiratory History: Reports: Hx Pulmonary Edema - RLL Denies: Hx Asthma, Hx Chronic Obstructive Pulmonary Disease (COPD) GI History: Denies: Hx Ulcer History: Reports: Hx Chronic Renal Failure Denies: Hx Dialysis, Hx Renal Disease Musculoskeletal History: Denies: Hx Back Problems, Other Musculoskeletal History Sensory History: Reports: Hx Cataracts, Hx Contacts or Glasses - GLASSES, Hx Glaucoma Denies: Hx Hearing Aid Opthamlomology History: Reports: Hx Cataracts, Hx Contacts or Glasses - GLASSES , Hx Glaucoma Neurological History: Reports: Other Neuro Impairments/Disorders - SCHIZO AFFECTIVE DISORDER Denies: Hx Dementia, Hx Seizures Psychiatric History: Reports: Hx Anxiety, Hx Depression, Hx Schizophrenia, Hx Bipolar Disorder, Other Psychiatric Issues/Disorders - HX EXTRAPYRADAL S/S AFTER TAKING GEODON Denies: Hx Substance Abuse - Surgical History Surgery Procedure, Year, and Place: LEFT EYE SURGERY- LAZY EYE 1966 [facility] Hx Anesthesia Reactions: Yes - N/V - Immunization History Date of Influenza Vaccine: 2006 Infectious Disease History: No Infectious Disease History: Denies: Hx Clostridium Difficile, Hx Hepatitis, Hx Human Immunodeficiency Virus (HIV), Hx Shingles, Hx Tuberculosis, Traveled Outside the [place] in Last 30 Days - Family History Known Family History: Positive: Non-Contributory Negative: Cardiac Disease, Hypertension - Social History Occupation: Retired Lives: Alone Alcohol Use: None Hx Substance Use: No Substance Use Type: Reports: None Hx Tobacco Use: No Smoking Status (MU): Never Smoked Tobacco Have You Smoked in the Last Year: No Review of Systems - ROS Summary Review of Systems Summary: Aspirin EC TAB* [Aspirin Low Dose EC*] 81 mg PO QAM 11/30/12 [History Confirmed 07/05/19] Divalproex ER TAB(*) [Depakote ER TAB(*)] 750 mg PO Q24H 11/30/12 [History Confirmed 07/05/19] glipiZIDE TAB* [Glucotrol TAB*] 5 mg PO DAILY 11/30/12 [History Confirmed ] Docusate CAP* [Colace Cap*] 100 mg PO BID 03/13/14 [History Confirmed 07/05/19] Lurasidone(*) [Latuda (NF)] 80 mg PO DAILY 03/13/14 [History Confirmed 07/05/19] Finasteride [Proscar] 5 mg PO QAM 11/04/16 [History Confirmed 07/05/19] Simvastatin (NF) [Zocor (NF)] 40 mg PO BEDTIME 11/04/16 [History Confirmed 07/05] Sitagliptin (NF) [Januvia (NF)] 100 mg PO DAILY 11/04/16 [History Confirmed ] Azelastine 0.1% Nasal (NF) [Astepro 0.1% Nasal (NF)] 2 spray BOTH NARES BID 05/23 [History Confirmed 07/05/19] Clotrimazole 1% CREAM* [Clotrimazole 1%*] 1 applic TOPICAL BID 05/16/19 [ History Confirmed 07/05/19] Hydrocortisone 2.5% CREAM(NF) 1 applic TOPICAL BID PRN 05/16/19 [History Confirmed 07/05/19] Hydrochlorothiazide TAB* [Hydrodiuril TAB*] 25 mg PO DAILY 07/05/19 [History Confirmed 07/05/19] Losartan TAB* [Cozaar TAB*] 50 mg PO DAILY 07/05/19 [History Confirmed 07/05/19] Pregabalin 50 mg CAP (*) [Lyrica 50 mg CAP (*)] 50 mg PO BID 07/05/19 [History Confirmed 07/05/19] clonazePAM TAB(*) [KlonoPIN TAB(*)] 0.5 mg PO BEDTIME 07/05/19 [History Confirmed 07/05/19] Constitutional: Negative Negative: Fever ENT: Negative Cardiovascular: Negative Negative: Chest Pain Respiratory: Negative Negative: Shortness Of Breath, Cough Gastrointestinal: Negative Genitourinary: Negative Positive: Other - neck pain Skin: Negative Neurological/Mental Status: Negative All Other Systems Reviewed And Are Negative: Yes Physical Exam Triage Information Reviewed: Yes Vital Signs On Initial Exam: Initial Vitals Temp Pulse Resp BP Pulse Ox 97.4 F 88 16 122/62 99 07/21/19 12:46 07/21/19 12:46 07/21/19 12:46 07/21/19 12:46 07/21/19 12:46 Vital Signs Reviewed: Yes Appearance: Positive: Well-Appearing - Pt. lying in bed in NAD. Head is noted to be leaning towards the right and down. Answers questions appropriately. Skin: Positive: Warm, Dry Head/Face: Positive: Normal Head/Face Inspection Eyes: Positive: Normal, EOMI, CHIQUIS Neck: Positive: Supple, Other: - Tenderness over right lateral neck. Respiratory/Lung Sounds: Positive: Clear to Auscultation, Breath Sounds Present Cardiovascular: Positive: Normal, RRR Musculoskeletal: Positive: Normal, Strength/ROM Intact Neurological: Positive: Normal, Alert, Oriented to Person Place, Time, CN Intact II-III Psychiatric: Positive: Affect/Mood Appropriate Procedures - Sedation Patient Received Moderate/Deep Sedation with Procedure: No Diagnostics - Vital Signs Vital Signs Temp Pulse Resp BP Pulse Ox 07/21/19 12:46 97.4 F 88 16 122/62 99 - Laboratory Result Diagrams: 07/21/19 13:23 07/21/19 13:23 Lab Statement: Any lab studies that have been ordered have been reviewed, and results considered in the medical decision making process. Complex Multi-Symp Course/Dx Course Of Treatment: Pt. with c/o on going falls and neck pain. Afebrile with stable VS. Given worsening neck pain and recent falls, will obtain ct to r/o fx. Basic labs and u/a obtained as well. CT cervical spine shows DDD without acute findings per radiology. Labs show chronic anemia and CKD without significant change. U/A negative for infection. Pt. ambulatory to the restroom with walker without difficulty. Pt. notes home health nurse is coming to his apt. tomorrow. Pt. comfortable with dc home. Tylenol for pain as directed. To f.u with pcp in 2-3 days and return to er if sxs change worsen. - Diagnoses Provider Diagnoses: Neck pain, Frequent falls Discharge ED - Sign-Out/Discharge Documenting (check all that apply): Patient Departure - Discharge Plan Condition: Good Disposition: HOME Patient Education Materials: Neck Pain (ED) Referrals: Dayo Harkins MD [Primary Care Provider] - Additional Instructions: Please call your PCP tomorrow for a close follow up appointment Use your walker at home Tylenol as directed for pain Return to ER if symptoms change or worsen - Billing Disposition and Condition Condition: GOOD Disposition: Home - Attestation Statements Provider Attestation: I was available for consult. This patient was seen by the SAY. The patient was not presented to, seen by, or examined by me. -Ignacio
[2019-07-21 13:30] LABS: ABS Eosinophils 0.1 10^3/ul (0-0.6); ABS Lymphocytes 1.7 10^3/ul (1.0-4.8); ABS Monocytes 0.5 10^3/ul (0-0.8); ABS Neutrophils 4.4 10^3/ul (1.5-7.7); Hematocrit 32 % (42-52); Hemoglobin 10.7 g/dL (14.0-18.0); Lymphocyte % 25.2 %; Mean Corpuscular HGB Conc 33 g/dL (31-36); Mean Corpuscular Hemoglobin 30 pg (27-31); Mean Corpuscular Volume 91 fL (80-94); Nucleated Red Blood Cells % 0.1; Platelet Count 189 10^3/uL (150-450); Red Blood Count 3.56 10^6 /uL (4.18-5.48); Red Cell Distribution Width 14 % (10-15); White Blood Count 6.6 10^3/uL (3.5-10.8)
--- OUTSIDE RECORDS SUMMARY | 2019-07-21 13:36 | XMS REPORT ---
:1950 Author Organization [facility] Care Team Providers Name Role Phone Unavailable Unavailable Unavailable Problems Condition Condition Condition Status Onset Resolution Last Treating Comments Name Details Category Date Date Treatment Clinician Date Type 2 Type 2 Diagnosis Active 2018-06 Lesvia diabetes diabetes 2-13 [place] mellitus mellitus RN without without complicatio complicatio ns ns Pain frequent Pain Mgmt Resolve 2018-062019-07-08 [place] pain d 07-24 09:38:00 Haylee 09:05: [id number] 00 Respiratory dyspnea Respirator Resolve 2018-062019-07-08 [place] present y d 07-24 09:38:00 Haylee 09:05: [id number] 00 Endo/Philipp anti-coagul Endo/Philipp Resolve 2018-062019-06-24 [place] ation d 07-24 13:06:00 Haylee therapy 09:05: [id number] 00 Endo/Philipp diabetic Endo/Philipp Resolve 2018-062019-06-24 [place] foot care d 07-24 13:06:00 Haylee 09:05: [id number] 00 Sensory impaired Sensory Active 2018-06 [place] hearing 07-24 [place] 09:05: [id number] 00 Nutrition nutritional Nutrition Resolve 2018-062019-06-24 [place] restriction d 07-24 13:06:00 Haylee s 09:05: [id number] 00 Elimination urinary Eliminatio Resolve 2018-062019-06-24 [place] incontinenc n d 07-24 13:06:00 Haylee e 09:05: [id number] 00 Neuro confusion Neuro/Emot Active 2018-06 [place] present ion 07-24 [place] 09:05: [id number] 00 Neuro anxiety Neuro/Emot Active 2018-06 [place] present ion 07-24 [place] 09:05: [id number] 00 Neuro impaired Neuro/Emot Active 2018-06 [place] decision-ma ion 2-19 [place] sophia 09:05: [id number] 00 Neuro psychiatric Neuro/Emot Active 2018-06 [place] problems ion 07-24 [place] 09:05: [id number] 00 Neuro memory Neuro/Emot Active 2018-06 [place] deficit ion 07-24 [place] needing 09:05: [id number] supervision 00 Activity ADL Activity Active 2018-06 [place] assistance 07-24 [place] required 09:05: [id number] 00 Activity self-care Activity Active 2018-06 [place] deficit 07-24 [place] 09:05: [id number] 00 Safety structural Safety Active 2018-06 [place] barriers 07-24 [place] present 09:05: [id number] 00 Safety knowledge/s Safety Active 2018-06 [place] kill 07-24 [place] deficit: pt 09:05: [id number] 00 Safety fall risk Safety Active 2018-06 [place] factor 07-24 [place] present 09:05: [id number] 00 Safety risk for Safety Active 2018-06 [place] hospitaliza 07-24 [place] tion 09:05: [id number] 00 Medication oral med Meds Active 2018-06 [place] assistance 07-24 [place] required 09:05: [id number] 00 Medication knowledge/s Meds Active 2018-06 [place] kill 07-24 [place] deficit: pt 09:05: [id number] 00 Medication potential Meds Active 2018-06 [place] clinically 07-24 [place] significant 09:05: [id number] medication 00 issue Musculoskel transfer Musculoske Active 2018-06 [place] etal assistance letal 07-24 [place] required 09:05: [id number] 00 Cardio edema Cardiovasc Resolve 2019-07-08 Lesvia ular d 06-24 09:38:00 [place] 13:06: RN 00 Elimination urinary Eliminatio Resolve 2019-07-08 Hannah sommer n d 07-01 09:38:00 [place] [facility] 08:[facility] [id number] Safety can be left Safety Active Lesvia alone for 07-08 [place] only short 09:38: RN periods 00 Cardio edema Cardiovasc Active Lesvia ular - [place] 11:00: RN 00 Allergies, Adverse Reactions, Alerts Allergy Allergy Status Severity Reaction(s) Onset Inactive Treating Comments Name Type Date Date Clinician Unknown None Active Unknown None Unknown No Known Allergies For This Patient Medications Ordered Filled Start Stop Current Ordering Indication Dosage Frequency Signature Comments Components Medication Medication Date Date Medication? Clinician (SIG) Name Name azelastine azelastine 2018-06 Yes [place] Unknown Unknown 0.15 % 0.15 % 07-24 Dayo HAIRSTON (205.5 mcg) (205.5 mcg) nasal spray nasal spray Lotrimin Lotrimin 2018-06 Yes [place] Unknown Unknown Ultra 1 % Ultra 1 % 07-24 Dayo HAIRSTON topical topical cream cream hydrocortis hydrocortis 2018-06 Yes [place] Unknown Unknown one 2.5 % one 2.5 % 07-24 Dayo HAIRSTON topical topical cream cream amLODIPine amLODIPine 2018-06 Yes [place] Unknown Unknown 10 mg 10 mg 07-24 Dayo HAIRSTON tablet tablet Aspirin Low Aspirin Low 2018-06 Yes [place] Unknown Unknown Dose 81 mg Dose 81 mg 07-24 Dayo HAIRSTON tablet,venice tablet,venice yed release yed release Colace 100 Colace 100 2018-06 Yes [place] Unknown Unknown mg capsule mg capsule 07-24 Dayo HAIRSTON finasteride finasteride 2018-06 Yes [place] Unknown Unknown 5 mg tablet 5 mg tablet 07-24 Dayo HAIRSTON glipiZIDE glipiZIDE 2018-06 Yes [place] Unknown Unknown ER 5 mg ER 5 mg 07-24 Dayo HAIRSTON tablet, tablet, extended extended release 24 release 24 hr hr Januvia 50 Januvia 50 No [place] 1 tab Unknown mg tablet mg tablet Dayo HAIRSTON Lyrica 50 Lyrica 50 No [place] 1 cap Unknown mg capsule mg capsule Dayo HAIRSTON simvastatin simvastatin 2018-06 Yes [place] Unknown Unknown 40 mg 40 mg 07-24 Dayo HAIRSTON tablet tablet Depakote ER Depakote ER No [place] 3 tabs Unknown 500 mg 500 mg MDMaycol tablet,exte tablet,exte nded nded release release Latuda 80 Latuda 80 2018-06 Yes [place] Unknown Unknown mg tablet mg tablet 07-24 Dayo HAIRSTON latanoprost latanoprost No [place] Unknown Unknown 0.005 % eye 0.005 % eye O.D.,Alan drops drops w timolol 0.5 timolol 0.5 No [place] Unknown Unknown % eye drops % eye drops ,Dayo Depakote Depakote 2018-06 2020- Yes [place] Unknown Unknown 250 mg 250 mg 07-24 ,Dayo tablet,venice tablet,venice yed release yed release Junuvia 100 Junuvia 100 2018-06 Yes [place] Unknown Unknown mg tablet mg tablet 07-24 ,Dayo Acetaminoph Acetaminoph 2018-06 Yes [place] Unknown Unknown en Pain en Pain 07-24 ,Dayo Relief 500 Relief 500 mg tablet mg tablet clonazePAM clonazePAM 2018-06- Yes [place] Unknown Unknown 0.5 mg 0.5 mg 07-24 ,Dayo tablet tablet Lyrica 50 Lyrica 50 2018-06 Yes [place] Unknown Unknown mg capsule mg capsule 08-01 ,Dayo clonazePAM clonazePAM Yes [place] Unknown Unknown 0.5 mg 0.5 mg 06-17 ,Maycol tablet tablet losartan 50 losartan 50 Yes [place] Unknown Unknown mg tablet mg tablet 06-24 ,Dayo hydroCHLORO hydroCHLORO Yes [place] Unknown Unknown thiazide 25 thiazide 25 - MD,Dayo mg tablet mg tablet Depakote Depakote Yes [place] Unknown Unknown 250 mg 250 mg - ,Dayo tablet,venice tablet,venice yed release yed release atorvastati atorvastati Yes [place] Unknown Unknown n 20 mg n 20 mg - MD,Dayo tablet tablet Vital Signs Vital Name Observation Time Observation Value Comments SYSTOLIC mm[Hg] 2019-07-18 18:10:22 128 mm[Hg] mm[Hg] Method: Sit SYSTOLIC mm[Hg] 2019-07-18 18:10:22 128 mm[Hg] mm[Hg] Method: Stand DIASTOLIC mm[Hg] 2019-07-18 18:10:22 74 mm[Hg] mm[Hg] Method: Sit DIASTOLIC mm[Hg] 2019-07-18 18:10:22 74 mm[Hg] mm[Hg] Method: Stand PULSE 2019-07-18 18:10:22 93 /min /min RESP RATE 2019-07-18 18:10:22 16 /min /min TEMP 2019-07-18 18:10:22 98.7 [degF] Procedures This patient has no known procedures. Results This patient has no known results.
--- OUTSIDE RECORDS SUMMARY | 2019-07-21 13:36 | XMS REPORT ---
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 2-13 [place] mellitus mellitus RN without without complicatio complicatio ns ns Pain frequent Pain Mgmt Resolve 2018-062019-07-08 [place] pain d 07-24 09:38:00 Haylee 09:05: [id number] 00 Respiratory dyspnea Respirator Resolve 2018-062019-07-08 [place] present y d 07-24 09:38:00 Haylee 09:05: [id number] 00 Endo/Philipp anti-coagul Endo/Philipp Resolve 2018-062019-06-24 [place] ation d 07-24 13:06:00 Haylee therapy 09:05: [id number] 00 Endo/Philipp diabetic Endo/Philipp Resolve 2018-062019-06-24 [place] foot care d 07-24 13:06:00 Haylee 09:05: [id number] 00 Sensory impaired Sensory Active 2018-06 [place] hearing 07-24 [place] 09:05: [id number] 00 Nutrition nutritional Nutrition Resolve 2018-062019-06-24 [place] restriction d 07-24 13:06:00 Haylee s 09:05: [id number] 00 Elimination urinary Eliminatio Resolve 2018-062019-06-24 [place] incontinenc n d 07-24 13:06:00 Haylee e 09:05: [id number] 00 Neuro confusion Neuro/Emot Active 2018-06 [place] present ion 07-24 [place] 09:05: [id number] 00 Neuro anxiety Neuro/Emot Active 2018-06 [place] present ion 07-24 [place] 09:05: [id number] 00 Neuro impaired Neuro/Emot Active 2018-06 [place] decision-ma ion 2-19 [place] sophia 09:05: [id number] 00 Neuro psychiatric Neuro/Emot Active 2018-06 [place] problems ion 07-24 [place] 09:05: [id number] 00 Neuro memory Neuro/Emot Active 2018-06 [place] deficit ion 07-24 [place] needing 09:05: [id number] supervision 00 Activity ADL Activity Active 2018-06 [place] assistance 07-24 [place] required 09:05: [id number] 00 Activity self-care Activity Active 2018-06 [place] deficit 07-24 [place] 09:05: [id number] 00 Safety structural Safety Active 2018-06 [place] barriers 07-24 [place] present 09:05: [id number] 00 Safety knowledge/s Safety Active 2018-06 [place] kill 07-24 [place] deficit: pt 09:05: [id number] 00 Safety fall risk Safety Active 2018-06 [place] factor 07-24 [place] present 09:05: [id number] 00 Safety risk for Safety Active 2018-06 [place] hospitaliza 07-24 [place] tion 09:05: [id number] 00 Medication oral med Meds Active 2018-06 [place] assistance 07-24 [place] required 09:05: [id number] 00 Medication knowledge/s Meds Active 2018-06 [place] kill 07-24 [place] deficit: pt 09:05: [id number] 00 Medication potential Meds Active 2018-06 [place] clinically 07-24 [place] significant 09:05: [id number] medication 00 issue Musculoskel transfer Musculoske Active 2018-06 [place] etal assistance letal 07-24 [place] required 09:05: [id number] 00 Cardio edema Cardiovasc Resolve 2019-07-08 Lesvia ular d - 09:38:00 [place] 13:06: RN 00 Elimination urinary Eliminatio Resolve 2019-07-08 Hannah barriosenc n d 07-01 09:38:00 [place] e 08:[facility] [id number] Safety can be left Safety Active Lesvia alone for 07-08 [place] only short 09:38: RN periods 00 Allergies, Adverse Reactions, Alerts Allergy Allergy Status Severity Reaction(s) Onset Inactive Treating Comments Name Type Date Date Clinician Unknown None Active Unknown None Unknown No Known Allergies For This Patient Medications Ordered Filled Start Stop Current Ordering Indication Dosage Frequency Signature Comments Components Medication Medication Date Date Medication? Clinician (SIG) Name Name azelastine azelastine 2018-06 Yes [place] Unknown Unknown 0.15 % 0.15 % 07-24 Dayo HAIRSTON (205.5 mcg) (205.5 mcg) nasal spray nasal spray Lotrimin Lotrimin 2018-06 Yes [place] Unknown Unknown Ultra 1 % Ultra 1 % 07-24 Dayo HAIRSTON topical topical cream cream hydrocortis hydrocortis 2018-06 Yes [place] Unknown Unknown one 2.5 % one 2.5 % 07-24 Dayo HAIRSTON topical topical cream cream amLODIPine amLODIPine 2018-06 Yes [place] Unknown Unknown 10 mg 10 mg 07-24 Dayo [place] tablet tablet Aspirin Low Aspirin Low 2018-06 Yes [place] Unknown Unknown Dose 81 mg Dose 81 mg 07-24 Dayo HAIRSTON tablet,venice tablet,venice yed release yed release Colace 100 Colace 100 2018-06 Yes [place] Unknown Unknown mg capsule mg capsule 07-24 Dayo HAIRSTON finasteride finasteride 2018-06 Yes [place] Unknown Unknown 5 mg tablet 5 mg tablet 07-24 Dayo HAIRSTON glipiZIDE glipiZIDE 2018-06 Yes [place] Unknown Unknown ER 5 mg ER 5 mg 07-24 Dayo HAIRSTON tablet, tablet, extended extended release 24 release 24 hr hr Januvia 50 Januvia 50 No [place] 1 tab Unknown mg tablet mg tablet Dayo HAIRSTON Lyrica 50 Lyrica 50 No [place] 1 cap Unknown mg capsule mg capsule Dayo HAIRSTON simvastatin simvastatin 2018-06 Yes [place] Unknown Unknown 40 mg 40 mg 07-24 Dayo HAIRSTON tablet tablet Depakote ER Depakote ER No [place] 3 tabs Unknown 500 mg 500 mg MDMaycol tablet,exte tablet,exte nded nded release release Latuda 80 Latuda 80 2018-06 Yes [place] Unknown Unknown mg tablet mg tablet 07-24 Dayo HAIRSTON latanoprost latanoprost No [place] Unknown Unknown 0.005 % eye 0.005 % eye O.D.,Alan drops drops w timolol 0.5 timolol 0.5 No [place] Unknown Unknown % eye drops % eye drops Dayo HAIRSTON Depakote Depakote 2018-06- Yes [place] Unknown Unknown 250 mg 250 mg 07-24 MD,Dayo tablet,venice tablet,venice yed release yed release Januvia 100 Januvia 100 2018-06 Yes [place] Unknown Unknown mg tablet mg tablet 07-24 MD,Dayo Acetaminoph Acetaminoph 2018-06 Yes [place] Unknown Unknown en Pain en Pain 07-24 ,Dayo Relief 500 Relief 500 mg tablet mg tablet clonazePAM clonazePAM 2018-06- Yes [place] Unknown Unknown 0.5 mg 0.5 mg 07-24 ,Dayo tablet tablet Lyrica 50 Lyrica 50 2018-06 Yes [place] Unknown Unknown mg capsule mg capsule 08-01 ,Dayo clonazePAM clonazePAM Yes [place] Unknown Unknown 0.5 mg 0.5 mg 06-17 MD,Maycol tablet tablet losartan 50 losartan 50 Yes [place] Unknown Unknown mg tablet mg tablet 06-24 ,Dayo hydroCHLORO hydroCHLORO Yes [place] Unknown Unknown thiazide 25 thiazide 25 06-24 MD,Dayo mg tablet mg tablet Depakote Depakote Yes [place] Unknown Unknown 250 mg 250 mg 06-24 MD,Dayo tablet,venice tablet,venice yed release yed release atorvastati atorvastati Yes [place] Unknown Unknown n 20 mg n 20 mg 06-24 MD,Dayo tablet tablet Vital Signs Vital Name Observation Time Observation Value Comments SYSTOLIC mm[Hg] 2019-07-17 18:10:21 130 mm[Hg] mm[Hg] Method: Sit SYSTOLIC mm[Hg] 2019-05-23 18:09:26 118 mm[Hg] mm[Hg] Method: Stand DIASTOLIC mm[Hg] 2019-07-17 18:10:21 76 mm[Hg] mm[Hg] Method: Sit DIASTOLIC mm[Hg] 2019-05-23 18:09:26 70 mm[Hg] mm[Hg] Method: Stand PULSE 2019-07-17 18:10:21 88 /min /min RESP RATE 2019-07-17 18:10:21 16 /min /min TEMP 2019-07-17 18:10:21 97.9 [degF] Procedures This patient has no known procedures. Results This patient has no known results.
--- OUTSIDE RECORDS SUMMARY | 2019-07-21 13:36 | XMS REPORT ---
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 2-13 [place] mellitus mellitus RN without without complicatio complicatio ns ns Pain frequent Pain Mgmt Resolve 2018-062019-07-08 [place] pain d 07-24 09:38:00 Haylee 09:05: [id number] 00 Respiratory dyspnea Respirator Resolve 2018-062019-07-08 [place] present y d 07-24 09:38:00 [place]lee 09:05: [id number] 00 Endo/Philipp anti-coagul Endo/Philipp Resolve 2018-062019-06-24 [place] ation d 07-24 13:06:00 Haylee therapy 09:05: [id number] 00 Endo/Philipp diabetic Endo/Philipp Resolve 2018-062019-06-24 [place] foot care d 07-24 13:06:00 [place]lee 09:05: [id number] 00 Sensory impaired Sensory Active 2018-06 [place] hearing 07-24 [place] 09:05: [id number] 00 Nutrition nutritional Nutrition Resolve 2018-062019-06-24 [place] restriction d 07-24 13:06:00 Haylee s 09:05: [id number] 00 Elimination urinary Eliminatio Resolve 2018-062019-06-24 [place] incontinenc n d 07-24 13:06:00 Haylee e 09:05: [id number] 00 Neuro confusion Neuro/Emot Active 2018-06 [place] present ion 07-24 [place] 09:05: [id number] 00 Neuro anxiety Neuro/Emot Active 2018-06 [place] present ion 07-24 [place] 09:05: [id number] 00 Neuro impaired Neuro/Emot Active 2018-06 [place] decision-ma ion 2-19 [place] sophia 09:05: [id number] 00 Neuro psychiatric Neuro/Emot Active 2018-06 [place] problems ion 07-24 [place] 09:05: [id number] 00 Neuro memory Neuro/Emot Active 2018-06 [place] deficit ion 07-24 [place] needing 09:05: [id number] supervision 00 Activity ADL Activity Active 2018-06 [place] assistance 07-24 [place] required 09:05: [id number] 00 Activity self-care Activity Active 2018-06 [place] deficit 07-24 [place] 09:05: [id number] 00 Safety structural Safety Active 2018-06 [place] barriers 07-24 [place] present 09:05: [id number] 00 Safety knowledge/s Safety Active 2018-06 [place] kill 07-24 [place] deficit: pt 09:05: [id number] 00 Safety fall risk Safety Active 2018-06 [place] factor 07-24 [place] present 09:05: [id number] 00 Safety risk for Safety Active 2018-06 [place] hospitaliza 07-24 [place] tion 09:05: [id number] 00 Medication oral med Meds Active 2018-06 [place] assistance 07-24 [place] required 09:05: [id number] 00 Medication knowledge/s Meds Active 2018-06 [place] kill 07-24 [place] deficit: pt 09:05: [id number] 00 Medication potential Meds Active 2018-06 [place] clinically 07-24 [place] significant 09:05: [id number] medication 00 issue Musculoskel transfer Musculoske Active 2018-06 [place] etal assistance letal 07-24 [place] required 09:05: [id number] 00 Cardio edema Cardiovasc Resolve 2019-07-08 Lesvia ular d - 09:38:00 [place] 13:06: RN 00 Elimination urinary Eliminatio Resolve 2019-07-08 Hannah barriosenc n d 07-01 09:38:00 [place] [facility] 08:[facility] [id number] Safety can be left Safety Active Lesvia [...] (SIG) Name Name azelastine azelastine 2018-06 Yes [place] Unknown Unknown 0.15 % 0.15 % 07-24 Dayo HAIRSTON (205.5 mcg) (205.5 mcg) nasal spray nasal spray Lotrimin Lotrimin 2018-06 Yes [place] Unknown Unknown Ultra 1 % Ultra 1 % 07-24 Dayo HAIRSTON topical topical cream cream hydrocortis hydrocortis 2018-06 Yes [place] Unknown Unknown one 2.5 % one 2.5 % 07-24 Dayo HAIRSTON topical topical cream cream amLODIPine amLODIPine 2018-06 Yes [place] Unknown Unknown 10 mg 10 mg 07-24 Dayo HAIRSTON tablet tablet Aspirin Low Aspirin Low 2018-06 Yes [place] Unknown Unknown Dose 81 mg Dose 81 mg 07-24 Dayo HAIRSTON tablet,venice tablet,venice yed release yed release Colace 100 Colace 100 2018-06 Yes [place] Unknown Unknown mg capsule mg capsule 07-24 Dayo HAIRSTON finasteride finasteride 2018-06 Yes [place] Unknown Unknown 5 mg tablet 5 mg tablet 07-24 Dayo HAIRSTON glipiZIDE glipiZIDE 2018-06 Yes [place] Unknown Unknown ER 5 mg ER 5 mg 07-24 Dayo HAIRSTON tablet, tablet, extended extended release 24 release 24 hr hr Januvia 50 Januvia 50 No [place] 1 tab Unknown mg tablet mg tablet Dayo HAIRSTON Lyrica 50 Lyrica 50 No [place] 1 cap Unknown mg capsule mg capsule Dayo HAIRSTON simvastatin simvastatin 2018-06 Yes [place] Unknown Unknown 40 mg 40 mg 07-24 Dayo HAIRSTON tablet tablet Depakote ER Depakote ER No [place] 3 tabs Unknown 500 mg 500 mg MDMaycol tablet,exte tablet,exte nded nded release release Latuda 80 Latuda 80 2018-06 Yes [place] Unknown Unknown mg tablet mg tablet 07-24 Dayo HAIRSTON latanoprost latanoprost No [place] Unknown Unknown 0.005 % eye 0.005 % eye O.D.,Alan drops drops w timolol 0.5 timolol 0.5 No [place] Unknown Unknown % eye drops % eye drops Dayo HAIRSTON Depakote Depakote 2018-06- Yes [place] Unknown Unknown 250 mg 250 mg 07-24 MD,Dayo tablet,venice tablet,venice yed release yed release Januvia 100 Januvia 100 2018-06 Yes [place] Unknown Unknown mg tablet mg tablet 07-24 MD,Dayo Acetaminoph Acetaminoph 2018-06 Yes [place] Unknown Unknown en Pain en Pain 07-24 ,Dayo Relief 500 Relief 500 mg tablet mg tablet clonazePAM clonazePAM 2018-06- Yes [place] Unknown Unknown 0.5 mg 0.5 mg 07-24 ,Dayo tablet tablet Lyrica 50 Lyrica 50 2018-06 Yes [place] Unknown Unknown mg capsule mg capsule 08-01 ,Dayo clonazePAM clonazePAM Yes [place] Unknown Unknown 0.5 mg 0.5 mg 06-17 MD,Maycol tablet tablet losartan 50 losartan 50 Yes [place] Unknown Unknown mg tablet mg tablet 06-24 ,Dayo hydroCHLORO hydroCHLORO Yes [place] Unknown Unknown thiazide 25 thiazide 25 06-24 MD,Dayo mg tablet mg tablet Depakote Depakote Yes [place] Unknown Unknown 250 mg 250 mg 06-24 MD,Dayo tablet,venice tablet,venice yed release yed release atorvastati atorvastati Yes [place] Unknown Unknown n 20 mg n 20 mg 06-24 MD,Dayo tablet tablet Vital Signs Vital Name Observation Time Observation Value Comments SYSTOLIC mm[Hg] 2019-07-08 18:10:12 124 mm[Hg] mm[Hg] Method: Sit SYSTOLIC mm[Hg] 2019-05-23 18:09:26 118 mm[Hg] mm[Hg] Method: Stand DIASTOLIC mm[Hg] 2019-07-08 18:10:12 76 mm[Hg] mm[Hg] Method: Sit DIASTOLIC mm[Hg] 2019-05-23 18:09:26 70 mm[Hg] mm[Hg] Method: Stand PULSE 2019-07-08 18:10:12 85 /min /min RESP RATE 2019-07-08 18:10:12 16 /min /min TEMP 2019-07-08 18:10:12 97.4 [degF] Procedures This patient has no known procedures. Results This patient has no known results.
--- OUTSIDE RECORDS SUMMARY | 2019-07-21 13:36 | XMS REPORT ---
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 2-13 [place] mellitus mellitus RN without without complicatio complicatio ns ns Pain frequent Pain Mgmt Resolve 2018-062019-07-08 [place] pain d 07-24 09:38:00 Haylee 09:05: [id number] 00 Respiratory dyspnea Respirator Resolve 2018-062019-07-08 [place] present y d 07-24 09:38:00 Haylee 09:05: [id number] 00 Endo/Philipp anti-coagul Endo/Philipp Resolve 2018-062019-06-24 [place] ation d 07-24 13:06:00 Haylee therapy 09:05: [id number] 00 Endo/Philipp diabetic Endo/Philipp Resolve 2018-062019-06-24 [place] foot care d 07-24 13:06:00 Haylee 09:05: [id number] 00 Sensory impaired Sensory Active 2018-06 [place] hearing 07-24 [place] 09:05: [id number] 00 Nutrition nutritional Nutrition Resolve 2018-062019-06-24 [place] restriction d 07-24 13:06:00 Haylee s 09:05: [id number] 00 Elimination urinary Eliminatio Resolve 2018-062019-06-24 [place] incontinenc n d 07-24 13:06:00 Haylee e 09:05: [id number] 00 Neuro confusion Neuro/Emot Active 2018-06 [place] present ion - [place] 09:05: [id number] 00 Neuro anxiety Neuro/Emot Active 2018-06 [place] present ion 07-24 [place] 09:05: [id number] 00 Neuro impaired Neuro/Emot Active 2018-06 [place] decision-ma ion 2-19 [place] sophia 09:05: [id number] 00 Neuro psychiatric Neuro/Emot Active 2018-06 [place] problems ion 07-24 [place] 09:05: [id number] 00 Neuro memory Neuro/Emot Active 2018-06 [place] deficit ion 07-24 [place] needing 09:05: [id number] supervision 00 Activity ADL Activity Active 2018-06 [place] assistance 07-24 [place] required 09:05: [id number] 00 Activity self-care Activity Active 2018-06 [place] deficit 07-24 [place] 09:05: [id number] 00 Safety structural Safety Active 2018-06 [place] barriers 07-24 [place] present 09:05: [id number] 00 Safety knowledge/s Safety Active 2018-06 [place] kill 07-24 [place] deficit: pt 09:05: [id number] 00 Safety fall risk Safety Active 2018-06 [place] factor 07-24 [place] present 09:05: [id number] 00 Safety risk for Safety Active 2018-06 [place] hospitaliza 07-24 [place] tion 09:05: [id number] 00 Medication oral med Meds Active 2018-06 [place] assistance 07-24 [place] required 09:05: [id number] 00 Medication knowledge/s Meds Active 2018-06 [place] kill 07-24 [place] deficit: pt 09:05: [id number] 00 Medication potential Meds Active 2018-06 [place] clinically 07-24 [place] significant 09:05: [id number] medication 00 issue Musculoskel transfer Musculoske Active 2018-06 [place] etal assistance letal 07-24 [place] required 09:05: [id number] 00 Cardio edema Cardiovasc Resolve 2019-2019-07-08 Lesvia ular d - 09:38:00 [place] 13:06: RN 00 Elimination urinary Eliminatio Resolve 2019-2019-07-08 Hannah sommer n d 07-01 09:38:00 [place] e 08:30: [facility] 00 [id number] Safety can be left Safety Active Lesvia alone for 07-08 [place] only short 09:38: RN periods 00 Cardio edema Cardiovasc Active Lesvia ular - [place] 11:00: RN 00 Safety knowledge/s Safety Active Lesvia kill 07-18 [place] deficit: cg 11:00: RN 00 Allergies, Adverse Reactions, Alerts Allergy Allergy Status Severity Reaction(s) Onset Inactive Treating Comments Name Type Date Date Clinician Unknown None Active Unknown None Unknown No Known Allergies For This Patient Medications Ordered Filled Start Stop Current Ordering Indication Dosage Frequency Signature Comments Components Medication Medication Date Date Medication? Clinician (SIG) Name Name azelastine azelastine 2018-06 Yes [place] Unknown Unknown 0.15 % 0.15 % 07-24 Dayo HAIRSTON (205.5 mcg) (205.5 mcg) nasal spray nasal spray Lotrimin Lotrimin 2018-06 Yes [place] Unknown Unknown Ultra 1 % Ultra 1 % 07-24 Dayo HAIRSTON topical topical cream cream hydrocortis hydrocortis 2018-06- Yes [place] Unknown Unknown one 2.5 % one 2.5 % 07-24 Dayo HAIRSTON topical topical cream cream amLODIPine amLODIPine 2018-06- Yes [place] Unknown Unknown 10 mg 10 mg 07-24 Dayo HAIRSTON tablet tablet Aspirin Low Aspirin Low 2018-06- Yes [place] Unknown Unknown Dose 81 mg Dose 81 mg 07-24 Dayo HAIRSTON tablet,venice tablet,venice yed release yed release Colace 100 Colace 100 2018-06 Yes [place] Unknown Unknown mg capsule mg capsule 07-24 Dayo HAIRSTON finasteride finasteride 2018-06 Yes [place] Unknown Unknown 5 mg tablet 5 mg tablet 07-24 Dayo HAIRSTON glipiZIDE glipiZIDE 2018-06- Yes [place] Unknown Unknown ER 5 mg ER 5 mg 07-24 Dayo HAIRSTON tablet, tablet, extended extended release 24 release 24 hr hr Januvia 50 Januvia 50 No [place] 1 tab Unknown mg tablet mg tablet Dayo HAIRSTON Lyrica 50 Lyrica 50 No [place] 1 cap Unknown mg capsule mg capsule Dayo HAIRSTON simvastatin simvastatin 2018-06- Yes [place] Unknown Unknown 40 mg 40 mg 07-24 Dayo HAIRSTON tablet tablet Depakote ER Depakote ER No [place] 3 tabs Unknown 500 mg 500 mg ,Maycol tablet,exte tablet,exte nded nded release release Latuda 80 Latuda 80 2018-06 Yes [place] Unknown Unknown mg tablet mg tablet 07-24 Dayo HAIRSTON latanoprost latanoprost No [place] Unknown Unknown 0.005 % eye 0.005 % eye O.D.,Alan drops drops w timolol 0.5 timolol 0.5 No [place] Unknown Unknown % eye drops % eye drops Dayo HAIRSTON Depakote Depakote 2018-06- Yes [place] Unknown Unknown 250 mg 250 mg 07-24 Dayo HAIRSTON tablet,venice tablet,venice yed release yed release Januvia 100 Januvia 100 2018-06 Yes [place] Unknown Unknown mg tablet mg tablet 07-24 Dayo HAIRSTON Acetaminoph Acetaminoph 2018-06 Yes [place] Unknown Unknown en Pain en Pain 07-24 Dayo HAIRSTON Relief 500 Relief 500 mg tablet mg tablet clonazePAM clonazePAM 2018-06- Yes [place] Unknown Unknown 0.5 mg 0.5 mg 07-24 Dayo HAIRSTON tablet tablet Lyrica 50 Lyrica 50 2018-06 Yes [place] Unknown Unknown mg capsule mg capsule 08-01 Dayo HAIRSTON clonazePAM clonazePAM Yes [place] Unknown Unknown 0.5 mg 0.5 mg 06-17 MDMaycol tablet tablet losartan 50 losartan 50 Yes [place] Unknown Unknown mg tablet mg tablet 06-24 Dayo HAIRSTON hydroCHLORO hydroCHLORO Yes [place] Unknown Unknown thiazide 25 thiazide 25 06-24 Dayo HAIRSTON mg tablet mg tablet Depakote Depakote Yes [place] Unknown Unknown 250 mg 250 mg 06-24 Dayo HAIRSTON tablet,venice tablet,venice yed release yed release atorvastati atorvastati 2019- Yes [place] Unknown Unknown n 20 mg n 20 mg 06-24 ,Dayo tablet tablet glipiZIDE glipiZIDE Yes [place] Unknown Unknown ER 2.5 mg ER 2.5 mg 07-18 ,Dayo tablet, tablet, extended extended release 24 release 24 hr hr atorvastati atorvastati Yes [place] Unknown Unknown n 20 mg n 20 mg 07-18 ,Dayo tablet tablet Vital Signs Vital Name Observation [...]
--- OUTSIDE RECORDS SUMMARY | 2019-07-21 13:36 | XMS REPORT ---
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 2-13 [place] mellitus mellitus RN without without complicatio complicatio ns ns Pain frequent Pain Mgmt Resolve 2018-062019-07-08 [place] pain d 07-24 09:38:00 Haylee 09:05: [id number] 00 Respiratory dyspnea Respirator Resolve 2018-062019-07-08 [place] present y d 07-24 09:38:00 Haylee 09:05: [id number] 00 Endo/Philipp anti-coagul Endo/Philipp Resolve 2018-062019-06-24 [place] ation d 07-24 13:06:00 Haylee therapy 09:05: [id number] 00 Endo/Philipp diabetic Endo/Philipp Resolve 2018-062019-06-24 [place] foot care d 07-24 13:06:00 Haylee 09:05: [id number] 00 Sensory impaired Sensory Active 2018-06 [place] hearing 07-24 [place] 09:05: [id number] 00 Nutrition nutritional Nutrition Resolve 2018-062019-06-24 [place] restriction d 07-24 13:06:00 Haylee s 09:05: [id number] 00 Elimination urinary Eliminatio Resolve 2018-062019-06-24 [place] incontinenc n d 07-24 13:06:00 Haylee e 09:05: [id number] 00 Neuro confusion Neuro/Emot Active 2018-06 [place] present ion 07-24 [place] 09:05: [id number] 00 Neuro anxiety Neuro/Emot Active 2018-06 [place] present ion 07-24 [place] 09:05: [id number] 00 Neuro impaired Neuro/Emot Active 2018-06 [place] decision-ma ion 2-19 [place] sophia 09:05: [id number] 00 Neuro psychiatric Neuro/Emot Active 2018-06 [place] problems ion 07-24 [place] 09:05: [id number] 00 Neuro memory Neuro/Emot Active 2018-06 [place] deficit ion 07-24 [place] needing 09:05: [id number] supervision 00 Activity ADL Activity Active 2018-06 [place] assistance 07-24 [place] required 09:05: [id number] 00 Activity self-care Activity Active 2018-06 [place] deficit 07-24 [place] 09:05: [id number] 00 Safety structural Safety Active 2018-06 [place] barriers 07-24 [place] present 09:05: [id number] 00 Safety knowledge/s Safety Active 2018-06 [place] kill 07-24 [place] deficit: pt 09:05: [id number] 00 Safety fall risk Safety Active 2018-06 [place] factor 07-24 [place] present 09:05: [id number] 00 Safety risk for Safety Active 2018-06 [place] hospitaliza 07-24 [place] tion 09:05: [id number] 00 Medication oral med Meds Active 2018-06 [place] assistance 07-24 [place] required 09:05: [id number] 00 Medication knowledge/s Meds Active 2018-06 [place] kill 07-24 [place] deficit: pt 09:05: [id number] 00 Medication potential Meds Active 2018-06 [place] clinically 07-24 [place] significant 09:05: [id number] medication 00 issue Musculoskel transfer Musculoske Active 2018-06 [place] etal assistance letal 07-24 [place] required 09:05: [id number] 00 Cardio edema Cardiovasc Resolve 2019-2019-07-08 Lesvia ular d - 09:38:00 [place] 13:06: RN 00 Elimination urinary Eliminatio Resolve 2019-2019-07-08 Hannah sommer n d 07-01 09:38:00 [place] [facility] 08:[facility] [id number] Safety can be left Safety Active Lesvia [...] (SIG) Name Name azelastine azelastine 2018-06 Yes [place] Unknown Unknown 0.15 % 0.15 % 07-24 Dayo HAIRSTON (205.5 mcg) (205.5 mcg) nasal spray nasal spray Lotrimin Lotrimin 2018-06 Yes [place] Unknown Unknown Ultra 1 % Ultra 1 % 07-24 Dayo HAIRSTON topical topical cream cream hydrocortis hydrocortis 2018-06- Yes [place] Unknown Unknown one 2.5 % one 2.5 % 07-24 Dayo HAIRSTON topical topical cream cream amLODIPine amLODIPine 2018-06- Yes [place] Unknown Unknown 10 mg 10 mg 07-24 Dayo HAIRSTON tablet tablet Aspirin Low Aspirin Low 2018-06- Yes [place] Unknown Unknown Dose 81 mg Dose 81 mg 07-24 Dayo HAIRSTON tablet,venice tablet,venice yed release yed release Colace 100 Colace 100 2018-06 Yes [place] Unknown Unknown mg capsule mg capsule 07-24 Dayo HAIRSTON finasteride finasteride 2018-06 Yes [place] Unknown Unknown 5 mg tablet 5 mg tablet 07-24 Dayo HAIRSTON glipiZIDE glipiZIDE 2018-06- Yes [place] Unknown Unknown ER 5 mg ER 5 mg 07-24 Dayo HAIRSTON tablet, tablet, extended extended release 24 release 24 hr hr Januvia 50 Januvia 50 No [place] 1 tab Unknown mg tablet mg tablet Dayo HAIRSTON Lyrica 50 Lyrica 50 No [place] 1 cap Unknown mg capsule mg capsule Dayo HAIRSTON simvastatin simvastatin 2018-06- Yes [place] Unknown Unknown 40 mg 40 mg 07-24 Dayo HAIRSTON tablet tablet Depakote ER Depakote ER No [place] 3 tabs Unknown 500 mg 500 mg ,Maycol tablet,exte tablet,exte nded nded release release Latuda 80 Latuda 80 2018-06 Yes [place] Unknown Unknown mg tablet mg tablet 07-24 Dayo HAIRSTON latanoprost latanoprost No [place] Unknown Unknown 0.005 % eye 0.005 % eye O.D.,Alan drops drops w timolol 0.5 timolol 0.5 No [place] Unknown Unknown % eye drops % eye drops Dayo HAIRSTON Depakote Depakote 2018-06- Yes [place] Unknown Unknown 250 mg 250 mg 07-24 Dayo HAIRSTON tablet,venice tablet,venice yed release yed release Januvia 100 Januvia 100 2018-06 Yes [place] Unknown Unknown mg tablet mg tablet 07-24 Dayo HAIRSTON Acetaminoph Acetaminoph 2018-06 Yes [place] Unknown Unknown en Pain en Pain 07-24 Dayo HAIRSTON Relief 500 Relief 500 mg tablet mg tablet clonazePAM clonazePAM 2018-06- Yes [place] Unknown Unknown 0.5 mg 0.5 mg 07-24 Dayo HAIRSTON tablet tablet Lyrica 50 Lyrica 50 2018-06 Yes [place] Unknown Unknown mg capsule mg capsule 08-01 Dayo HAIRSTON clonazePAM clonazePAM Yes [place] Unknown Unknown 0.5 mg 0.5 mg 06-17 MDMaycol tablet tablet losartan 50 losartan 50 Yes [place] Unknown Unknown mg tablet mg tablet 06-24 Dayo HAIRSTON hydroCHLORO hydroCHLORO Yes [place] Unknown Unknown thiazide 25 thiazide 25 06-24 Dayo HAIRSTON mg tablet mg tablet Depakote Depakote Yes [place] Unknown Unknown 250 mg 250 mg 06-24 Dayo HAIRSTON tablet,venice tablet,venice yed release yed release atorvastati atorvastati 2019- Yes [place] Unknown Unknown n 20 mg n 20 mg 06-24 ,Dayo tablet tablet glipiZIDE glipiZIDE Yes [place] Unknown Unknown ER 2.5 mg ER 2.5 mg 07-18 ,Dayo tablet, tablet, extended extended release 24 release 24 hr hr atorvastati atorvastati Yes [place] Unknown Unknown n 20 mg n 20 [...]
--- OUTSIDE RECORDS SUMMARY | 2019-07-21 13:37 | XMS REPORT ---
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 2-13 [place] mellitus mellitus RN without without complicatio complicatio ns ns Pain frequent Pain Mgmt Resolve 2018-062019-07-08 [place] pain d 07-24 09:38:00 Haylee 09:05: [id number] 00 Respiratory dyspnea Respirator Resolve 2018-062019-07-08 [place] present y d 07-24 09:38:00 Haylee 09:05: [id number] 00 Endo/Philipp anti-coagul Endo/Philipp Resolve 2018-062019-06-24 [place] ation d 07-24 13:06:00 Haylee therapy 09:05: [id number] 00 Endo/Philipp diabetic Endo/Philipp Resolve 2018-062019-06-24 [place] foot care d 07-24 13:06:00 Haylee 09:05: [id number] 00 Sensory impaired Sensory Active 2018-06 [place] hearing 07-24 [place] 09:05: [id number] 00 Nutrition nutritional Nutrition Resolve 2018-062019-06-24 [place] restriction d 07-24 13:06:00 Haylee s 09:05: [id number] 00 Elimination urinary Eliminatio Resolve 2018-062019-06-24 [place] incontinenc n d 07-24 13:06:00 Haylee e 09:05: [id number] 00 Neuro confusion Neuro/Emot Active 2018-06 [place] present ion 07-24 [place] 09:05: [id number] 00 Neuro anxiety Neuro/Emot Active 2018-06 [place] present ion 07-24 [place] 09:05: [id number] 00 Neuro impaired Neuro/Emot Active 2018-06 [place] decision-ma ion 2-19 [place] sophia 09:05: [id number] 00 Neuro psychiatric Neuro/Emot Active 2018-06 [place] problems ion 07-24 [place] 09:05: [id number] 00 Neuro memory Neuro/Emot Active 2018-06 [place] deficit ion 07-24 [place] needing 09:05: [id number] supervision 00 Activity ADL Activity Active 2018-06 [place] assistance 07-24 [place] required 09:05: [id number] 00 Activity self-care Activity Active 2018-06 [place] deficit 07-24 [place] 09:05: [id number] 00 Safety structural Safety Active 2018-06 [place] barriers 07-24 [place] present 09:05: [id number] 00 Safety knowledge/s Safety Active 2018-06 [place] kill 07-24 [place] deficit: pt 09:05: [id number] 00 Safety fall risk Safety Active 2018-06 [place] factor 07-24 [place] present 09:05: [id number] 00 Safety risk for Safety Active 2018-06 [place] hospitaliza 07-24 [place] tion 09:05: [id number] 00 Medication oral med Meds Active 2018-06 [place] assistance 07-24 [place] required 09:05: [id number] 00 Medication knowledge/s Meds Active 2018-06 [place] kill 07-24 [place] deficit: pt 09:05: [id number] 00 Medication potential Meds Active 2018-06 [place] clinically 07-24 [place] significant 09:05: [id number] medication 00 issue Musculoskel transfer Musculoske Active 2018-06 [place] etal assistance letal 07-24 [place] required 09:05: [id number] 00 Cardio edema Cardiovasc Resolve 2019-07-08 Lesvia ular d - 09:38:00 [place] 13:06: RN 00 Elimination urinary Eliminatio Resolve 2019-07-08 Hannah barriosenc n d 07-01 09:38:00 [place] [facility] 08[facility] [id number] Safety can be left Safety Active Lesvia [...] (SIG) Name Name azelastine azelastine 2018-06 Yes [place] Unknown Unknown 0.15 % 0.15 % 07-24 Dayo HAIRSTON (205.5 mcg) (205.5 mcg) nasal spray nasal spray Lotrimin Lotrimin 2018-06 Yes [place] Unknown Unknown Ultra 1 % Ultra 1 % 07-24 Dayo HAIRSTON topical topical cream cream hydrocortis hydrocortis 2018-06 Yes [place] Unknown Unknown one 2.5 % one 2.5 % 07-24 Dayo HAIRSTON topical topical cream cream amLODIPine amLODIPine 2018-06 Yes [place] Unknown Unknown 10 mg 10 mg 07-24 Dayo HAIRSTON tablet tablet Aspirin Low Aspirin Low 2018-06 Yes [place] Unknown Unknown Dose 81 mg Dose 81 mg 07-24 Dayo HAIRSTON tablet,venice tablet,venice yed release yed release Colace 100 Colace 100 2018-06 Yes [place] Unknown Unknown mg capsule mg capsule 07-24 Dayo HAIRSTON finasteride finasteride 2018-06 Yes [place] Unknown Unknown 5 mg tablet 5 mg tablet 07-24 Dayo HAIRSTON glipiZIDE glipiZIDE 2018-06 Yes [place] Unknown Unknown ER 5 mg ER 5 mg 07-24 Dayo HAIRSTON tablet, tablet, extended extended release 24 release 24 hr hr Januvia 50 Januvia 50 No [place] 1 tab Unknown mg tablet mg tablet Dayo HAIRSTON Lyrica 50 Lyrica 50 No [place] 1 cap Unknown mg capsule mg capsule Dayo HAIRSTON simvastatin simvastatin 2018-06 Yes [place] Unknown Unknown 40 mg 40 mg 07-24 Dayo HAIRSTON tablet tablet Depakote ER Depakote ER No [place] 3 tabs Unknown 500 mg 500 mg MDMaycol tablet,exte tablet,exte nded nded release release Latuda 80 Latuda 80 2018-06 Yes [place] Unknown Unknown mg tablet mg tablet 07-24 Dayo HAIRSTON latanoprost latanoprost No [place] Unknown Unknown 0.005 % eye 0.005 % eye O.D.,Alan drops drops w timolol 0.5 timolol 0.5 No [place] Unknown Unknown % eye drops % eye drops Dayo HAIRSTON Depakote Depakote 2018-06- Yes [place] Unknown Unknown 250 mg 250 mg 07-24 MD,Dayo tablet,venice tablet,venice yed release yed release Januvia 100 Januvia 100 2018-06 Yes [place] Unknown Unknown mg tablet mg tablet 07-24 MD,Dayo Acetaminoph Acetaminoph 2018-06 Yes [place] Unknown Unknown en Pain en Pain 07-24 ,Dayo Relief 500 Relief 500 mg tablet mg tablet clonazePAM clonazePAM 2018-06- Yes [place] Unknown Unknown 0.5 mg 0.5 mg 07-24 ,Dayo tablet tablet Lyrica 50 Lyrica 50 2018-06 Yes [place] Unknown Unknown mg capsule mg capsule 08-01 ,Dayo clonazePAM clonazePAM Yes [place] Unknown Unknown 0.5 mg 0.5 mg 06-17 MD,Maycol tablet tablet losartan 50 losartan 50 Yes [place] Unknown Unknown mg tablet mg tablet 06-24 ,Dayo hydroCHLORO hydroCHLORO Yes [place] Unknown Unknown thiazide 25 thiazide 25 06-24 MD,Dayo mg tablet mg tablet Depakote Depakote Yes [place] Unknown Unknown 250 mg 250 mg 06-24 MD,Dayo tablet,venice tablet,venice yed release yed release atorvastati atorvastati Yes [place] Unknown Unknown n 20 mg n 20 [...]
--- OUTSIDE RECORDS SUMMARY | 2019-07-21 13:37 | XMS REPORT ---
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 2-13 [place] mellitus mellitus RN without without complicatio complicatio ns ns Pain frequent Pain Mgmt Resolve 2018-062019-07-08 [place] pain d 07-24 09:38:00 Haylee 09:05: [id number] Respiratory dyspnea Respirator Resolve 2018-062019-07-08 [place] present y d 07-24 09:38:00 Haylee 09:05: [id number] 00 Endo/Philipp anti-coagul Endo/Philipp Resolve 2018-062019-06-24 [place] ation d 07-24 13:06:00 Haylee therapy 09:05: [id number] 00 Endo/Philipp diabetic Endo/Philipp Resolve 2018-062019-06-24 [place] foot care d 07-24 13:06:00 Haylee 09:05: [id number] 00 Sensory impaired Sensory Active 2018-06 [place] hearing 07-24 [place] 09:05: [id number] Nutrition nutritional Nutrition Resolve 2018-062019-06-24 [place] restriction d 07-24 13:06:00 Haylee s 09:05: [id number] 00 Elimination urinary Eliminatio Resolve 2018-062019-06-24 [place] incontinenc n d 07-24 13:06:00 Haylee e 09:05: [id number] 00 Neuro confusion Neuro/Emot Active 2018-06 [place] present ion 07-24 [place] 09:05: [id number] 00 Neuro anxiety Neuro/Emot Active 2018-06 [place] present ion 07-24 [place] 09:05: [id number] 00 Neuro impaired Neuro/Emot Active 2018-06 [place] decision-ma ion 2-19 [place] sophia 09:05: [id number] 00 Neuro psychiatric Neuro/Emot Active 2018-06 [place] problems ion 07-24 [place] 09:05: [id number] 00 Neuro memory Neuro/Emot Active 2018-06 [place] deficit ion 07-24 [place] needing 09:05: [id number] supervision 00 Activity ADL Activity Active 2018-06 [place] assistance 07-24 [place] required 09:05: [id number] 00 Activity self-care Activity Active 2018-06 [place] deficit 07-24 [place] 09:05: [id number] 00 Safety structural Safety Active 2018-06 [place] barriers 07-24 [place] present 09:05: [id number] 00 Safety knowledge/s Safety Active 2018-06 [place] kill 07-24 [place] deficit: pt 09:05: [id number] 00 Safety fall risk Safety Active 2018-06 [place] factor 07-24 [place] present 09:05: [id number] Safety risk for Safety Active 2018-06 [place] hospitaliza 07-24 [place] tion 09:05: [id number] 00 Medication oral med Meds Active 2018-06 [place] assistance 07-24 [place] required 09:05: [id number] 00 Medication knowledge/s Meds Active 2018-06 [place] kill 07-24 [place] deficit: pt 09:05: [id number] 00 Medication potential Meds Active 2018-06 [place] clinically 07-24 [place] significant 09:05: [id number] medication 00 issue Musculoskel transfer Musculoske Active 2018-06 [place] etal assistance letal 07-24 [place] required 09:05: [id number] 00 Cardio edema Cardiovasc Resolve 2019-07-08 Lesvia ular d - 09:38:00 [place] 13:06: RN 00 Elimination urinary Eliminatio Resolve 2019-07-08 Hannah barriosenc n d 07-01 09:38:00 [place] e 08:30[facility] [id number] Safety can be left Safety Active Lesvia [...] (SIG) Name Name azelastine azelastine 2018-[address] [place] Unknown Unknown 0.15 % 0.15 % 07-24 Dayo HAIRSTON (205.5 mcg) (205.5 mcg) nasal spray nasal spray Lotrimin Lotrimin 2018-[address] [place] Unknown Unknown Ultra 1 % Ultra 1 % 07-24 [place] HAIRSTON topical topical cream cream hydrocortis hydrocortis 2018-[address] [place] Unknown Unknown one 2.5 % one 2.5 % 07-24 Day[place] HAIRSTON topical topical cream cream amLODIPine amLODIPine 2018-[address] [place] Unknown Unknown 10 mg 10 mg 07-24 Day[place] HAIRSTON tablet tablet Aspirin Low Aspirin Low 2018-[address] Unknown Unknown Dose 81 mg Dose 81 mg 07-24 Dayo HAIRSTON tablet,venice tablet,venice yed release yed release Colace 100 Colace 100 2018-[address] [place] Unknown Unknown mg capsule mg capsule 07-24 Day[place] HAIRSTON finasteride finasteride 2018-[address] Unknown Unknown 5 mg tablet 5 mg tablet 07-24 Day[place] HAIRSTON glipiZIDE glipiZIDE 2018-[address] Unknown Unknown ER 5 mg ER 5 mg 07-24 Dayo HAIRSTON tablet, tablet, extended extended release 24 release 24 hr hr Januvia [address] [place] 1 tab Unknown mg tablet mg tablet Dayo HAIRSTON Lyrica [address] [place] 1 cap Unknown mg capsule mg capsule Dayo HAIRSTON simvastatin simvastatin 2018-[address] Unknown Unknown 40 mg 40 mg 07-24 Dayo HAIRSTON tablet tablet Depakote ER Depakote ER No [place] 3 tabs Unknown 500 mg 500 mg MDMaycol tablet,exte tablet,exte nded nded release release Latuda 80 Latuda 80 2018-[address] [place] Unknown Unknown mg tablet mg tablet 07-24 Dayo HAIRSTON latanoprost latanoprost No [place] Unknown Unknown 0.005 % eye 0.005 % eye O.D.,Alan drops drops w timolol 0.[address] Unknown Unknown % eye drops % eye drops Dayo HAIRSTON Depakote Depakote 2018-06- Yes [place] Unknown Unknown 250 mg 250 mg 07-24 MD,Dayo tablet,venice tablet,venice yed release yed release Januvia 100 Januvia [address] Unknown Unknown mg tablet mg tablet 07-24 MD,Dayo Acetaminoph Acetaminoph 2018-[address] Unknown Unknown en Pain en Pain 07-24 ,[place] Relief 500 Relief 500 mg tablet mg tablet clonazePAM clonazePAM 2018-06- Yes [place] Unknown Unknown 0.5 mg 0.5 mg 07-24 ,Dayo tablet tablet Lyrica 50 Lyrica 50 2018-[address] [place] Unknown Unknown mg capsule mg capsule 08-01 ,[place] clonazePAM clonazePAM Yes [place] Unknown Unknown 0.5 mg 0.5 mg 06-17 MD,Maycol tablet tablet losartan [address] Unknown Unknown mg tablet mg tablet 06-24 ,[place] hydroCHLORO hydroCHLORO Yes [place] Unknown Unknown thiazide 25 thiazide 25 06-24 MD,Dayo mg tablet mg tablet Depakote Depakote Yes [place] Unknown Unknown 250 mg 250 mg 06-24 MD,Dayo tablet,venice tablet,venice yed release yed release atorvastati atorvastati Yes [place] Unknown Unknown n 20 mg n 20 [...]
--- OUTSIDE RECORDS SUMMARY | 2019-07-21 13:37 | XMS REPORT ---
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 2-13 [place] mellitus mellitus RN without without complicatio complicatio ns ns Pain frequent Pain Mgmt Resolve 2018-062019-07-08 [place] pain d 07-24 09:38:00 [place] 09:05: [id number] 00 Respiratory dyspnea Respirator Resolve 2018-062019-07-08 [place] present y d 07-24 09:38:00 [place] 09:05: [id number] 00 Endo/Philipp anti-coagul Endo/Philipp Resolve 2018-062019-06-24 [place] ation d 07-24 13:06:00 Haylee therapy 09:05: [id number] 00 Endo/Philipp diabetic Endo/Philipp Resolve 2018-062019-06-24 [place] foot care d 07-24 13:06:00 [place] 09:05: [id number] 00 Sensory impaired Sensory Active 2018-06 [place] hearing 07-24 [place] 09:05: [id number] 00 Nutrition nutritional Nutrition Resolve 2018-062019-06-24 [place] restriction d 07-24 13:06:00 Haylee s 09:05: [id number] 00 Elimination urinary Eliminatio Resolve 2018-062019-06-24 [place] incontinenc n d 07-24 13:06:00 Haylee e 09:05: [id number] 00 Neuro confusion Neuro/Emot Active 2018-06 [place] present ion 07-24 [place] 09:05: [id number] 00 Neuro anxiety Neuro/Emot Active 2018-06 [place] present ion 07-24 [place] 09:05: [id number] 00 Neuro impaired Neuro/Emot Active 2018-06 [place] decision-ma ion 2-19 [place] sophia 09:05: [id number] 00 Neuro psychiatric Neuro/Emot Active 2018-06 [place] problems ion 07-24 [place] 09:05: [id number] 00 Neuro memory Neuro/Emot Active 2018-06 [place] deficit ion 07-24 [place] needing 09:05: [id number] supervision 00 Activity ADL Activity Active 2018-06 [place] assistance 07-24 [place] required 09:05: [id number] 00 Activity self-care Activity Active 2018-06 [place] deficit 07-24 [place] 09:05: [id number] 00 Safety structural Safety Active 2018-06 [place] barriers 07-24 [place] present 09:05: [id number] 00 Safety knowledge/s Safety Active 2018-06 [place] kill 07-24 [place] deficit: pt 09:05: [id number] 00 Safety fall risk Safety Active 2018-06 [place] factor 07-24 [place] present 09:05: [id number] 00 Safety risk for Safety Active 2018-06 [place] hospitaliza 07-24 [place] tion 09:05: [id number] 00 Medication oral med Meds Active 2018-06 [place] assistance 07-24 [place] required 09:05: [id number] 00 Medication knowledge/s Meds Active 2018-06 [place] kill 07-24 [place] deficit: pt 09:05: [id number] 00 Medication potential Meds Active 2018-06 [place] clinically 07-24 [place] significant 09:05: [id number] medication 00 issue Musculoskel transfer Musculoske Active 2018-06 [place] etal assistance letal 07-24 [place] required 09:05: [id number] 00 Cardio edema Cardiovasc Resolve 2019-07-08 Lesvia ular d - 09:38:00 [place] 13:06: RN 00 Elimination urinary Eliminatio Resolve 2019-07-08 Hannah barriosenc n d 07-01 09:38:00 [place] [facility] 08:[facility] [id number] Safety can be left Safety Active Lesvia [...] (SIG) Name Name azelastine azelastine 2018-06 Yes [place] Unknown Unknown 0.15 % 0.15 % 07-24 Dayo HAIRSTON (205.5 mcg) (205.5 mcg) nasal spray nasal spray Lotrimin Lotrimin 2018-06 Yes [place] Unknown Unknown Ultra 1 % Ultra 1 % 07-24 [place] HAIRSTON topical topical cream cream hydrocortis hydrocortis 2018-06 Yes [place] Unknown Unknown one 2.5 % one 2.5 % 07-24 Day[place] HAIRSTON topical topical cream cream amLODIPine amLODIPine 2018-06 Yes [place] Unknown Unknown 10 mg 10 mg 07-24 Dayo HAIRSTON tablet tablet Aspirin Low Aspirin Low 2018-06 Yes [place] Unknown Unknown Dose 81 mg Dose 81 mg 07-24 Dayo HAIRSTON tablet,venice tablet,venice yed release yed release Colace 100 Colace 100 2018-06 Yes [place] Unknown Unknown mg capsule mg capsule 07-24 [place] HAIRSTON finasteride finasteride 2018-06 Yes [place] Unknown Unknown 5 mg tablet 5 mg tablet 07-24 Dayo HAIRSTON glipiZIDE glipiZIDE 2018-06 Yes [place] Unknown Unknown ER 5 mg ER 5 mg 07-24 Dayo HAIRSTON tablet, tablet, extended extended release 24 release 24 hr hr Januvia 50 Januvia 50 No [place] 1 tab Unknown mg tablet mg tablet Dayo HAIRSTON Lyrica 50 Lyrica 50 No [place] 1 cap Unknown mg capsule mg capsule Dayo HAIRSTON simvastatin simvastatin 2018-06 Yes [place] Unknown Unknown 40 mg 40 mg 07-24 Dayo HAIRSTON tablet tablet Depakote ER Depakote ER No [place] 3 tabs Unknown 500 mg 500 mg MDMaycol tablet,exte tablet,exte nded nded release release Latuda 80 Latuda 80 2018-06 Yes [place] Unknown Unknown mg tablet mg tablet 07-24 Dayo HAIRSTON latanoprost latanoprost No [place] Unknown Unknown 0.005 % eye 0.005 % eye O.D.,Alan drops drops w timolol 0.5 timolol 0.5 No [place] Unknown Unknown % eye drops % eye drops Dayo HAIRSTON Depakote Depakote 2018-06- Yes [place] Unknown Unknown 250 mg 250 mg 07-24 MD,Dayo tablet,venice tablet,venice yed release yed release Januvia 100 Januvia 100 2018-06 Yes [place] Unknown Unknown mg tablet mg tablet 07-24 MD,Dayo Acetaminoph Acetaminoph 2018-06 Yes [place] Unknown Unknown en Pain en Pain 07-24 ,[place] Relief 500 Relief 500 mg tablet mg tablet clonazePAM clonazePAM 2018-06- Yes [place] Unknown Unknown 0.5 mg 0.5 mg 07-24 ,[place] tablet tablet Lyrica 50 Lyrica 50 2018-06 Yes [place] Unknown Unknown mg capsule mg capsule 08-01 ,[place] clonazePAM clonazePAM Yes [place] Unknown Unknown 0.5 mg 0.5 mg 06-17 MD,Maycol tablet tablet losartan 50 losartan 50 Yes [place] Unknown Unknown mg tablet mg tablet 06-24 ,[place] hydroCHLORO hydroCHLORO Yes [place] Unknown Unknown thiazide 25 thiazide 25 06-24 MD,Dayo mg tablet mg tablet Depakote Depakote Yes [place] Unknown Unknown 250 mg 250 mg 06-24 MD,Dayo tablet,venice tablet,venice yed release yed release atorvastati atorvastati Yes [place] Unknown Unknown n 20 mg n 20 [...]
--- OUTSIDE RECORDS SUMMARY | 2019-07-21 13:37 | XMS REPORT ---
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 2-13 [place] mellitus mellitus RN without without complicatio complicatio ns ns Pain frequent Pain Mgmt Active 2018-06 [place] pain 07-24 [place] 09:05: [id number] Respiratory dyspnea Respirator Active 2018-06 [place] present y 07-24 [place] 09:05: [id number] 00 Endo/Philipp anti-coagul Endo/Philipp Resolve 2018-062019-06-24 [place] ation d 07-24 13:06:00 [place] therapy 09:05: [id number] 00 Endo/Philipp diabetic Endo/Philipp Resolve 2018-062019-06-24 [place] foot care d 07-24 13:06:00 [place] 09:05: [id number] 00 Sensory impaired Sensory Active 2018-06 [place] hearing 07-24 [place] 09:05: [id number] 00 Nutrition nutritional Nutrition Resolve 2018-062019-06-24 [place] restriction d 07-24 13:06:00 Haylee s 09:05: [id number] 00 Elimination urinary Eliminatio Resolve 2018-062019-06-24 [place] incontinenc n d 07-24 13:06:00 Haylee e 09:05: [id number] 00 Neuro confusion Neuro/Emot Active 2018-06 [place] present ion 07-24 [place] 09:05: [id number] 00 Neuro anxiety Neuro/Emot Active 2018-06 [place] present ion 07-24 [place] 09:05: [id number] 00 Neuro impaired Neuro/Emot Active 2018-06 [place] decision-ma ion 07-24 [place] cortes 09:05: [id number] 00 Neuro psychiatric Neuro/Emot Active 2018-06 [place] problems ion 07-24 [place] 09:05: [id number] 00 Neuro memory Neuro/Emot Active 2018-06 [place] deficit ion 07-24 [place] needing 09:05: [id number] supervision 00 Activity ADL Activity Active 2018-06 [place] assistance 07-24 [place] required 09:05: [id number] 00 Activity self-care Activity Active 2018-06 [place] deficit 07-24 [place] 09:05: [id number] 00 Safety structural Safety Active 2018-06 [place] barriers 07-24 [place] present 09:05: [id number] 00 Safety knowledge/s Safety Active 2018-06 [place] kill 07-24 [place] deficit: pt 09:05: [id number] 00 Safety fall risk Safety Active 2018-06 [place] factor 07-24 [place] present 09:05: [id number] 00 Safety risk for Safety Active 2018-06 [place] hospitaliza 07-24 [place] tion 09:05: [id number] 00 Medication oral med Meds Active 2018-06 [place] assistance 07-24 [place] required 09:05: [id number] 00 Medication knowledge/s Meds Active 2018-06 [place] kill 07-24 [place] deficit: pt 09:05: [id number] 00 Medication potential Meds Active 2018-06 [place] clinically 07-24 [place] significant 09:05: [id number] medication 00 issue Musculoskel transfer Musculoske Active 2018-06 [place] etal assistance letal 07-24 [place] required 09:05: [id number] 00 Cardio edema Cardiovasc Active Lesvia ular 20 [place] 13:06: RN 00 Elimination urinary Eliminatio Active Hannah incontinenc n 07-01 [place] e 08:30: [facility] 00 [id number] Allergies, Adverse Reactions, Alerts Allergy Allergy Status Severity Reaction(s) Onset Inactive Treating Comments Name Type Date Date Clinician Unknown None Active Unknown None Unknown No Known Allergies For This Patient Medications Ordered Filled Start Stop Current Ordering Indication Dosage Frequency Signature Comments Components Medication Medication Date Date Medication? Clinician (SIG) Name Name azelastine azelastine 2018-06 Yes [place] Unknown Unknown 0.15 % 0.15 % 07-24 Dayo HAIRSTON (205.5 mcg) (205.5 mcg) nasal spray nasal spray Lotrimin Lotrimin 2018-06 Yes [place] Unknown Unknown Ultra 1 % Ultra 1 % 07-24 Day[place] HAIRSTON topical topical cream cream hydrocortis hydrocortis 2018-06 Yes [place] Unknown Unknown one 2.5 % one 2.5 % 07-24 Dayo HAIRSTON topical topical cream cream amLODIPine amLODIPine 2018-06- Yes [place] Unknown Unknown 10 mg 10 mg 07-24 Dayo HAIRSTON tablet tablet Aspirin Low Aspirin Low 2018-06 Yes [place] Unknown Unknown Dose 81 mg Dose 81 mg 07-24 Dayo HAIRSTON tablet,venice tablet,venice yed release yed release Colace 100 Colace 100 2018-06 Yes [place] Unknown Unknown mg capsule mg capsule 07-24 Dayo HAIRSTON finasteride finasteride 2018-06 Yes [place] Unknown Unknown 5 mg tablet 5 mg tablet 07-24 Dayo HAIRSTON glipiZIDE glipiZIDE 2018-06 Yes [place] Unknown Unknown ER 5 mg ER 5 mg 07-24 [place] HAIRSTON tablet, tablet, extended extended release 24 release 24 hr hr Januvia 50 Januvia 50 No [place] 1 tab Unknown mg tablet mg tablet Dayo HAIRSTON Lyrica 50 Lyrica 50 No [place] 1 cap Unknown mg capsule mg capsule Dayo HAIRSTON simvastatin simvastatin 2018-06 Yes [place] Unknown Unknown 40 mg 40 mg 07-24 Dayo HAIRSTON tablet tablet Depakote ER Depakote ER No [place] 3 tabs Unknown 500 mg 500 mg ,Maycol tablet,exte tablet,exte nded nded release release Latuda 80 Latuda 80 2018-06 Yes [place] Unknown Unknown mg tablet mg tablet 07-24 Dayo HAIRSTON latanoprost latanoprost No [place] Unknown Unknown 0.005 % eye 0.005 % eye O.D.,Alan drops drops w timolol 0.5 timolol 0.5 No [place] Unknown Unknown % eye drops % eye drops Dayo HAIRSTON Depakote Depakote 2018-06- Yes [place] Unknown Unknown 250 mg 250 mg 07-24 Dayo HAIRSTON tablet,venice tablet,venice yed release yed release Januvia 100 Januvia 100 2018-06 Yes [place] Unknown Unknown mg tablet mg tablet 07-24 Dayo HAIRSTON Acetaminoph Acetaminoph 2018-06 Yes [place] Unknown Unknown en Pain en Pain 07-24 ,[place] Relief 500 Relief 500 mg tablet mg tablet clonazePAM clonazePAM 2018-06- [place] Unknown Unknown 0.5 mg 0.5 mg 07-24 ,[place]o tablet tablet Lyrica 50 Lyrica 50 2018-06 Yes [place] Unknown Unknown mg capsule mg capsule 08-01 MD,Dayo clonazePAM clonazePAM Yes [place] Unknown Unknown 0.5 mg 0.5 mg 06-17 MD,Maycol tablet tablet losartan 50 losartan 50 Yes [place] Unknown Unknown mg tablet mg tablet 06-24 MD,Dayo hydroCHLORO hydroCHLORO Yes [place] Unknown Unknown thiazide 25 thiazide 25 06-24 MD,Dayo mg tablet mg tablet Depakote Depakote Yes [place] Unknown Unknown 250 mg 250 mg 06-24 MD,Dayo tablet,venice tablet,venice yed release yed release atorvastati atorvastati Yes [place] Unknown Unknown n 20 mg n 20 mg 06-24 MD,Dayo tablet tablet Vital Signs Vital Name Observation Time Observation Value Comments SYSTOLIC mm[Hg] 2019-07-01 18:10:05 132 mm[Hg] mm[Hg] Method: Sit SYSTOLIC mm[Hg] 2019-05-23 18:09:26 118 mm[Hg] mm[Hg] Method: Stand DIASTOLIC mm[Hg] 2019-07-01 18:10:05 68 mm[Hg] mm[Hg] Method: Sit DIASTOLIC mm[Hg] 2019-05-23 18:09:26 70 mm[Hg] mm[Hg] Method: Stand PULSE 2019-07-01 18:10:05 86 /min /min RESP RATE 2019-07-01 18:10:05 16 /min /min TEMP 2019-07-01 18:10:05 98.2 [degF] Procedures This patient has no known procedures. Results This patient has no known results.
--- OUTSIDE RECORDS SUMMARY | 2019-07-21 13:37 | XMS REPORT ---
:1950 Author Organization [facility] Care Team Providers Name Role Phone Unavailable Unavailable Unavailable Problems Condition Condition Condition Status Onset Resolution Last Treating Comments Name Details Category Date Date Treatment Clinician Date Type 2 Type 2 Diagnosis Active 2018-06 Lesvia diabetes diabetes 2-13 Malnoske mellitus mellitus RN without without complicatio complicatio ns ns Pain frequent Pain Mgmt Active 2018-06 Trinidad pain 07-24 Scammon 09:05: [id number] Respiratory dyspnea Respirator Active 2018-06 Trinidad present y 07-24 Scammon 09:05: [id number] 00 Endo/Philipp anti-coagul Endo/Philipp Resolve 2018-062019-06-24 Trinidad ation d 07-24 13:06:00 Scammon therapy 09:05: [id number] 00 Endo/Philipp diabetic Endo/Philipp Resolve 2018-062019-06-24 Trinidad foot care d 07-24 13:06:00 Haylee 09:05: [id number] 00 Sensory impaired Sensory Active 2018-06 Trinidad hearing 07-24 Scammon 09:05: [id number] 00 Nutrition nutritional Nutrition Resolve 2018-062019-06-24 Trinidad restriction d 07-24 13:06:00 Haylee s 09:05: [id number] 00 Elimination urinary Eliminatio Resolve 2018-062019-06-24 Trinidad incontinenc n d 07-24 13:06:00 Haylee e 09:05: [id number] 00 Neuro confusion Neuro/Emot Active 2018-06 Trinidad present ion 07-24 Scammon 09:05: [id number] 00 Neuro anxiety Neuro/Emot Active 2018-06 Trinidad present ion 07-24 Scammon 09:05: [id number] 00 Neuro impaired Neuro/Emot Active 2018-06 [place] decision-ma ion 07-24 Haylee cortes 09:05: [id number] 00 Neuro psychiatric Neuro/Emot Active 2018-06 Trinidad problems ion 07-24 Scammon 09:05: [id number] 00 Neuro memory Neuro/Emot Active 2018-06 Trinidad deficit ion 07-24 Scammon needing 09:05: [id number] supervision 00 Activity ADL Activity Active 2018-06 Trinidad assistance 07-24 Scammon required 09:05: [id number] 00 Activity self-care Activity Active 2018-06 Trinidad deficit 07-24 Scammon 09:05: [id number] 00 Safety structural Safety Active 2018-06 Trinidad barriers 07-24 Scammon present 09:05: [id number] 00 Safety knowledge/s Safety Active 2018-06 Trinidad kill 07-24 Scammon deficit: pt 09:05: [id number] 00 Safety fall risk Safety Active 2018-06 Trinidad factor 07-24 Scammon present 09:05: [id number] 00 Safety risk for Safety Active 2018-06 Trinidad hospitaliza 07-24 Scammon tion 09:05: [id number] 00 Medication oral med Meds Active 2018-06 Trinidad assistance 07-24 Scammon required 09:05: [id number] 00 Medication knowledge/s Meds Active 2018-06 Trinidad kill 07-24 Scammon deficit: pt 09:05: [id number] 00 Medication potential Meds Active 2018-06 Trinidad clinically 07-24 Scammon significant 09:05: [id number] medication 00 issue Musculoskel transfer Musculoske Active 2018-06 Trinidad etal assistance letal 07-24 Scammon required 09:05: [id number] 00 Cardio edema Cardiovasc Active Lesvia ular 20 Malnoske 13:06: RN 00 Elimination urinary Eliminatio Active Hannah incontinenc n 07-01 Cayden e 08:30: [facility] 00 [id number] Allergies, Adverse Reactions, Alerts Allergy Allergy Status Severity Reaction(s) Onset Inactive Treating Comments Name Type Date Date Clinician Unknown None Active Unknown None Unknown No Known Allergies For This Patient Medications Ordered Filled Start Stop Current Ordering Indication Dosage Frequency Signature Comments Components Medication Medication Date Date Medication? Clinician (SIG) Name Name azelastine azelastine 2018-06 Yes Rhea Unknown Unknown 0.15 % 0.15 % 07-24 Dayo HAIRSTON (205.5 mcg) (205.5 mcg) nasal spray nasal spray Lotrimin Lotrimin 2018-06 Yes Rhea Unknown Unknown Ultra 1 % Ultra 1 % 07-24 Dayo HAIRSTON topical topical cream cream hydrocortis hydrocortis 2018-06 Yes Rhea Unknown Unknown one 2.5 % one 2.5 % 07-24 Dayo HAIRSTON topical topical cream cream amLODIPine amLODIPine 2018-06- Yes Rhea Unknown Unknown 10 mg 10 mg 07-24 Dayo HAIRTSON tablet tablet Aspirin Low Aspirin Low 2018-06 Yes Rhea Unknown Unknown Dose 81 mg Dose 81 mg 07-24 Dayo HAIRSTON tablet,venice tablet,venice yed release yed release Colace 100 Colace 100 2018-06 Yes Rhea Unknown Unknown mg capsule mg capsule 07-24 Dayo HAIRSTON finasteride finasteride 2018-06 Yes Rhea Unknown Unknown 5 mg tablet 5 mg tablet 07-24 Dayo HAIRSTON glipiZIDE glipiZIDE 2018-06 Yes Rhea Unknown Unknown ER 5 mg ER 5 mg 07-24 Dayo HAIRSTON tablet, tablet, extended extended release 24 release 24 hr hr Januvia 50 Januvia 50 No Rhea 1 tab Unknown mg tablet mg tablet Dayo HAIRSTON Lyrica 50 Lyrica 50 No Rhea 1 cap Unknown mg capsule mg capsule Dayo HAIRSTON simvastatin simvastatin 2018-06 Yes Rhea Unknown Unknown 40 mg 40 mg 07-24 Dayo HAIRSTON tablet tablet Depakote ER Depakote ER No Emani 3 tabs Unknown 500 mg 500 mg ,Maycol tablet,exte tablet,exte nded nded release release Latuda 80 Latuda 80 2018-06 Yes Rhea Unknown Unknown mg tablet mg tablet 07-24 Dayo HAIRSTON latanoprost latanoprost No Duran Unknown Unknown 0.005 % eye 0.005 % eye O.D.,Alan drops drops w timolol 0.5 timolol 0.5 No Rhea Unknown Unknown % eye drops % eye drops Dayo HAIRSTON Depakote Depakote 2018-06- Yes Rhea Unknown Unknown 250 mg 250 mg 07-24 Dayo HAIRSTON tablet,venice tablet,venice yed release yed release Januvia 100 Januvia 100 2018-06 Yes Rhea Unknown Unknown mg tablet mg tablet 07-24 Dayo HAIRSTON Acetaminoph Acetaminoph 2018-06 Yes Rhea Unknown Unknown en Pain en Pain 07-24 ,Dayo Relief 500 Relief 500 mg tablet mg tablet clonazePAM clonazePAM 2018-06- Yes Rhea Unknown Unknown 0.5 mg 0.5 mg 07-24 ,Dayo tablet tablet Lyrica 50 Lyrica 50 2018-06 Yes Rhea Unknown Unknown mg capsule mg capsule 08-01 MD,Dayo clonazePAM clonazePAM Yes Emani Unknown Unknown 0.5 mg 0.5 mg 06-17 MD,Maycol tablet tablet losartan 50 losartan 50 Yes Rhea Unknown Unknown mg tablet mg tablet 06-24 MD,Dayo hydroCHLORO hydroCHLORO Yes Rhea Unknown Unknown thiazide 25 thiazide 25 06-24 MD,Dayo mg tablet mg tablet Depakote Depakote Yes Rhea Unknown Unknown 250 mg 250 mg 06-24 MD,Dayo tablet,venice tablet,venice yed release yed release atorvastati atorvastati Yes Rhea Unknown Unknown n 20 mg n 20 [...]
--- OUTSIDE RECORDS SUMMARY | 2019-07-21 13:37 | XMS REPORT | Summary of Care ---
:1950 Author Organization [facility] Address [address] [address] Care Team Providers Name Role Phone Dayo Harkins Primary Care Provider Reason for Visit Reason Comments Diabetes Last A1C was 7.5 on 06/21/2019. Form Completion Form completion for mchenry. 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 1. 12 Brand: 2. Dx:250.02 3. non-Insulin dependentNO 4. Test Blood Glucose 2QAM time(s) A DAY azelastine (ASTELIN) [place] 2 Sprays 1 Bottle 4 05/23/20 Active 0.1 % Nasal in nose TWICE 17 SolutionIndications: DAILY. Chronic vasomotor rhinitis Blood Glucose Monitor 1 Each by Does 1 Device 0 07/21/19 Active Software Does not apply not apply 18 Device route DIRECTED. Brand: One Touch, Dx: E11.65, test bid and prn lurasidone HCl (LATUDA) Take 2 Tabs by 60 Tab 5 02/15/20 Active 40 MG Oral Tab mouth DAILY. 19 sitagliptin (JANUVIA) Take 1 Tab by 90 Tab 3 03/26/20 Active 100 MG Oral Tab mouth DAILY. 19 ONE TOUCH ULTRA TEST TEST TWICE A 100 Strip 5 05/22/20 Active STRIPS In Vitro DAY NEEDED 19 StripIndications: Diabetes mellitus without complication (HCC) Glucose Blood (ONE 1 Each by In 100 Strip 5 05/20/20 Active TOUCH ULTRA TEST Vitro route 19 STRIPS) In Vitro TWO TIMES StripIndications: DAILY Diabetes mellitus NEEDED without complication (DIABETES). (HCC) One touch ultra 2. Test bid. Dx: E11,9 LYRICA 50 MG Oral Cap TAKE ONE 60 Cap 5 05/20/20 Active CAPSULE BY 19 MOUTH TWO TIMES DAILY MAXIMUM OF TWO CAPSULES DAILY finasteride (PROSCAR) 5 TAKE ONE 90 Tab 3 05/24/20 Active MG Oral Tab TABLET BY 19 MOUTH ONCE DAILY DOCQLACE 100 MG Oral TAKE ONE 60 Cap 5 06/06/19 Active Cap CAPSULE BY 20 MOUTH TWO TIMES DAILY divalproex (DEPAKOTE Take 3 Tabs by 90 Tab 4 06/21/19 Active ER) 250 MG Oral TABLET mouth EVERY 20 SR 24 HR BEDTIME. glipiZIDE (GLIPIZIDE Take 3 Tabs by 270 Tab 2 06/21/19 Active XL) 2.5 MG Oral TABLET mouth DAILY. 20 SR 24 HR E11.65 losartan (COZAAR) 50 MG Take 1 Tab by 90 Tab 3 06/21/19 Active Oral Tab mouth DAILY. 20 hydrochlorothiazide Take 1 Tab by 90 Tab 5 06/21/19 Active (HCTZ, ORETIC) 25 MG mouth DAILY. 20 021 Oral Tab atorvastatin (LIPITOR) Take 1 Tab by 90 Tab 5 07/16/19 Active 40 MG Oral Tab mouth DAILY. 20 clotrimazole (LOTRIMIN) Apply to 1 Tube 3 04/03/20 Discontinued 1 % Apply externally affected areas 14 020 (Duplicate Cream of feet twice Order) a day. Hydrocortisone 2.5 % APPLY TO 59 mL 2 04/09/20 Discontinued Apply externally Lotion AFFECTED AREA 14 020 (Provider TWO TIMES Discontinued) DAILY NEEDED FOR RASH ASPIR-LOW 81 MG Oral TAKE ONE 100 Tab 5 12/05/19 Discontinued Tab EC TABLET BY 19 020 (Provider MOUTH ONCE Discontinued) DAILY atorvastatin (LIPITOR) Take 1 Tab by 90 Tab 3 06/13/19 Discontinued 20 MG Oral Tab mouth DAILY. 20 020 (Provider Discontinued) clonazePAM (KLONOPIN) Take 1 Tab by 30 Tab 0 06/21/19 Discontinued 0.5 MG Oral Tab mouth EVERY 20 020 (Duplicate BEDTIME. Max Order) Daily Amount: 0.5 mg. documented as of this encounter (statuses as of 07/16/2019) Active Problems Problem Noted Date Gastric polyp 04/24/2009 Overview: [facility] 04/13 Schizoaffective disorder 03/27/2007 Mixed hyperlipidemia 03/27/2007 Well controlled type 2 diabetes mellitus with peripheral neuropathy 03/23/2006 Overview: Last eye exam 10/02/[address] Frankel [address] Correa for foot care. Seen 12/24/13 A1C 6.9% 11/16 Essential hypertension, benign 03/23/2006 documented as of this encounter (statuses as of 07/16/2019) Resolved Problems Problem Noted Date Resolved Date Acute right ankle pain 06/06/2017 03/26/2019 Resides in alf care facility 11/26/2015 07/19/2017 Back pain, lumbosacral 01/13/2015 06/13/2017 Chronic kidney disease, stage III (moderate) 01/27/2011 07/16/2019 Overview: Seeing Dr. Ritchie. Last seen 12/09/13. Next apt 03/18. Explosive personality disorder 07/07/2006 09/05/2007 Unspecified psychosis 03/23/2006 09/05/2007 documented as of this encounter (statuses as of 07/16/2019) Immunizations Name Administration Dates Next Due Adacel [...] Sign Reading Time Taken Comments Blood Pressure 124/76 07/16/2019 1:05 PM EST Pulse 70 07/16/2019 1:05 PM EST Temperature - - Respiratory Rate - - Oxygen Saturation 98% 07/16/2019 1:05 PM EST Inhaled Oxygen Concentration - - Weight 66.7 kg (147 lb) 07/16/2019 1:05 PM EST Height 180.3 cm (5' 11") 07/16/2019 1:05 PM EST Body Mass Index 20.5 07/16/2019 1:05 PM EST documented in this encounter Patient Instructions Patient InstructionsDayo Harkins MD - 07/16/2019 1:40 PM ESTMOLST form filled out Diabetes mellitus blood work in September continue current medications Tb skin test today [place] form filled out Follow up Dr Joaquin at [facility] for depakote Raise dose atorvastatin 40 mg once daily to lower cholesterol documented in this encounter Progress Notes Dayo Harkins MD - 07/16/2019 1:40 PM EST PATIENT: Gurjit Isidro : 1950 DATE OF SERVICE: 07/16/2019 CHIEF COMPLAINT: Chief Complaint Patient presents with Diabetes Last A1C was 7.5 on 06/21/2019. Form Completion Form completion for [place]. Subjective HISTORY OF PRESENT ILLNESS: Gurjit Isidro is a 68-y.o. male. HPI Here for follow up to diabetes mellitus and cholesterol Lab Results Component Value Date GLYCO 7.5 (H) 06/21/2019 Lab Results Component Value Date CHOL 167 06/21/2019 TRIG 95 06/21/2019 HDL 47 06/21/2019 LDL 101 (H) 06/21/2019 LDLHDLRATIO 2.1 06/21/2019 CHOLHDLRATIO 3.6 06/21/2019 His ankle edema is now gone off the amlodipine he is compliant with hydrochlorothiazide and angiotensin receptor dennis once daily BP Readings from Last 3 Encounters: 07/16/19 124/76 06/21/19 (!) 160/100 06/20/19 122/82 He needs paperwork sent in for move to [facility] he needs purified protein derivative Patient Active Problem List Diagnosis Well controlled type 2 diabetes mellitus with peripheral neuropathy (HCC) Essential hypertension, benign Schizoaffective disorder (HCC) Mixed hyperlipidemia Gastric polyp Family History Problem Relation Age of Onset Hypertension Mother Diabetes Father Heart Failure Father Diabetes Brother Current Outpatient Medications Medication Sig atorvastatin (LIPITOR) 40 MG Oral Tab Take 1 Tab by mouth DAILY. azelastine (ASTELIN) 0.1 % Nasal Solution [place] 2 Sprays in nose TWICE DAILY. Blood Glucose Monitor Software Does not apply Device 1 Each by Does not apply route DIRECTED. Brand: One Touch, Dx: E11.65, test bid and prn divalproex (DEPAKOTE ER) 250 MG Oral TABLET SR 24 HR Take 3 Tabs by mouth EVERY BEDTIME. DOCQLACE 100 MG Oral Cap TAKE ONE CAPSULE BY MOUTH TWO TIMES DAILY finasteride (PROSCAR) 5 MG Oral Tab TAKE ONE TABLET BY MOUTH ONCE DAILY glipiZIDE (GLIPIZIDE XL) 2.5 MG Oral TABLET SR 24 HR Take 3 Tabs by mouth DAILY. E11.65 Glucose Blood (ONE TOUCH ULTRA TEST STRIPS) In Vitro Strip 1 Each by In Vitro route TWO TIMESDAILY NEEDED (DIABETES). One touch ultra 2. Test bid. Dx: E11,9 hydrochlorothiazide (HCTZ, ORETIC) 25 MG Oral Tab Take 1 Tab by mouth DAILY. Lancets Does not apply Misc 1 Stick TWICE DAILY. 1. Brand: 2. Dx:250.02 3. non-Insulin dependentNO 4. Test Blood Glucose 2QAM time(s) A DAY losartan (COZAAR) 50 MG Oral Tab Take 1 Tab by mouth DAILY. lurasidone HCl (LATUDA) 40 MG Oral Tab Take 2 Tabs by mouth DAILY. LYRICA 50 MG Oral Cap TAKE ONE CAPSULE BY MOUTH TWO TIMES DAILY MAXIMUM OF TWO CAPSULES DAILY ONE TOUCH ULTRA TEST STRIPS In Vitro Strip TEST TWICE A DAY NEEDED sitagliptin (JANUVIA) 100 MG Oral Tab Take [...] file Gets together: Not on file Attends yazdanism service: Not on file Active member of [...] Concern No Social History Narrative Lives in [place], [place] Not employed-disability due to chronic mental illness ROS no cardiovascular or gastro-intestinal symptoms Objective PHYSICAL EXAM: VITALS: BP 124/76 | Pulse 70 | Ht 5' 11" (1.803 m) | Wt 147 lb (66.7 kg) | SpO2 98% | BMI 20.50 kg/m Body mass index is 20.5 kg/m. Physical Exam S1 and S2 normal, [...] 2 diabetes mellitus with peripheral neuropathy (HCC) continue current medications he can stop aspirin not needed 250.60 E11.42 357.2 2. Essential hypertension, benign at goal continue current medications 401.1 I10 3. Mixed hyperlipidemia goal ldl 70 increase atorvastatin 40 mg 272.2 E78.2 4. Other schizoaffective disorders (HCC) 295.70 F25.8 5. advance care planning I spent an additional 30minutes with the patient, greater than half of this in direct face to face counseling addressing the current condition and the plan of care. MOLST form for DNR and DNI filled out signed by me and patient and copy made for the chart Patient Instructions MOLST form filled out Diabetes mellitus blood work in September continue current medications Tb skin test today [place] form filled out Follow up Dr Joaquin at [facility] for depakote Raise dose atorvastatin 40 mg once daily to lower cholesterol Dayo Harkins MD 07/16/2019 13:53 documented in this encounter Plan of Treatment Date Type Specialty Care Team Description 07/18/2019 Nurse/Clinical Support Internal Medicine 07/24/2019 Office Visit Neurology Cesar Aguilar DC [address] [address] [phone] 10/21/2019 Office Visit Endocrinology Monique Garcia NP [address] [address] Health Maintenance Due Date Last Done Comments MEDICARE ANNUAL WELLNESS 1950 VISIT ZOSTER IMMUNIZATION SERIES 05/29/2014 04/03/2014 (1 of 2) Diabetic Eye Exam 02/22/2018 02/22/2017, 02/03/2016, 02/24/2015 (Previously completed), Additional history exists HEMOGLOBIN A1C 09/20/2019 06/21/2019, 03/26/2019, 12/12/2018, Additional history exists DEPRESSION SCREENING 03/26/2020 03/26/2019 FALL RISK ASSESSMENT 05/08/2020 05/08/2019, 05/08/2019 FOOT EXAM 06/20/2020 06/20/2019, 06/20/2019, 06/20/2019, Additional history exists LIPID DISORDER SCREENING 06/21/2020 06/21/2019, 06/13/2019, 03/26/2019, Additional history exists Colonoscopy 11/30/2026 11/30/2016, 02/21/2005 DTaP/Tdap/Td Vaccines (2 [...] Type Problems Progress Blood Pressure Blood Pressure 124/76 No Carla, < 140/90 (07/16/2019 HERMINIO Gallego 1:05 PM EST) Note: This is an individualized treatment (blood pressure) goal for Gurjit Isidro: Displayed above (on the left) is your goal for blood pressure control. Your most recent blood pressure is also shown above, on the right. You should try to achieve blood pressures that are lower than your goal listed above (on the left). Diabetes < 7.0 Diabetes Well controlled type 7.5 (06/21/2019 11:46 Dayo Carrion 2 diabetes mellitus AM EST) MD Estrellita with peripheral neuropathy Note: Diabetes [...] my blood sugar results (including dextrose sticks). [email or web address] is safe and secure way for you [...] towards quitting. Glycohemoglobin A1c < 7.0 Diabetes 7.5 (06/21/2019 11:46 No Lashonda Aguirre FNP AM EST) Note: This is an individualized treatment (diabetes control, HgbA1C) goal for Gurjit Isidro: Displayed above is your progress towards your HgbA1C goal. Your goal is shown above (on the left); your most recent HgbA1C is shown on the right. Note that lower numbers are better. Keep immunizations current Lifestyle No Lashonda Aguirre FNP Note: This is an individualized lifestyle goal for Gurjit sIidro: Please be sure to keep up-to-date on [...] as uncontrolled Essential hypertension, benign Mixed hyperlipidemia Other schizoaffective disorders (HCC) Advance care planning Other specified counseling documented in this encounter Insurance Payer Benefit Plan / Subscriber ID Effective Dates Phone Address Type Group MEDICARE MEDICARE PART A & B xxxxxxxxxxx Effective for all Medicare dates (Home) [facility] [phone] 1 ([place]) [place] [address] documented as of this encounter Advance Directives Code Status Date Activated Date Inactivated Comments DNR/DNI 07/16/2019 1:57 PM Does the patient have decision making capacity? Yes Order was discussed with: Patient I discussed all options and patient/surrogate requested and agreed to: DNR/ DNI
--- OUTSIDE RECORDS SUMMARY | 2019-07-21 13:37 | XMS REPORT ---
:1950 Author Organization [facility] Care Team Providers Name Role Phone Unavailable Unavailable Unavailable Problems Condition Condition Condition Status Onset Resolution Last Treating Comments Name Details Category Date Date Treatment Clinician Date Type 2 Type 2 Diagnosis Active 2018-06 Lesvia diabetes diabetes 2-13 [place] mellitus mellitus RN without without complicatio complicatio ns ns Pain frequent Pain Mgmt Resolve 2018-062019-07-08 [place] pain d 07-24 09:38:00 Haylee 09:05: [id number] Respiratory dyspnea Respirator Resolve 2018-062019-07-08 [place] present y d 07-24 09:38:00 Haylee 09:05: [id number] 00 Endo/Philipp anti-coagul Endo/Philipp Resolve 2018-062019-06-24 [place] ation d 07-24 13:06:00 Haylee therapy 09:05: [id number] 00 Endo/Philipp diabetic Endo/Philipp Resolve 2018-062019-06-24 [place] foot care d 07-24 13:06:00 Haylee 09:05: [id number] Sensory impaired Sensory Active 2018-06 [place] hearing 07-24 [place] 09:05: [id number] Nutrition nutritional Nutrition Resolve 2018-062019-06-24 [place] restriction d 07-24 13:06:00 Haylee s 09:05: [id number] 00 Elimination urinary Eliminatio Resolve 2018-062019-06-24 [place] incontinenc n d 07-24 13:06:00 Haylee e 09:05: [id number] 00 Neuro confusion Neuro/Emot Active 2018-06 [place] present ion 07-24 [place] 09:05: [id number] 00 Neuro anxiety Neuro/Emot Active 2018-06 [place] present ion 07-24 [place] 09:05: [id number] 00 Neuro impaired Neuro/Emot Active 2018-06 [place] decision-ma ion 2-19 [place] sophia 09:05: [id number] 00 Neuro psychiatric Neuro/Emot Active 2018-06 [place] problems ion 07-24 [place] 09:05: [id number] 00 Neuro memory Neuro/Emot Active 2018-06 [place] deficit ion 07-24 [place] needing 09:05: [id number] supervision 00 Activity ADL Activity Active 2018-06 [place] assistance 07-24 [place] required 09:05: [id number] 00 Activity self-care Activity Active 2018-06 [place] deficit 07-24 [place] 09:05: [id number] 00 Safety structural Safety Active 2018-06 [place] barriers 07-24 [place] present 09:05: [id number] Safety knowledge/s Safety Active 2018-06 [place] kill 07-24 [place] deficit: pt 09:05: [id number] 00 Safety fall risk Safety Active 2018-06 [place] factor 07-24 [place] present 09:05: [id number] 00 Safety risk for Safety Active 2018-06 [place] hospitaliza 07-24 [place] tion 09:05: [id number] 00 Medication oral med Meds Active 2018-06 [place] assistance 07-24 [place] required 09:05: [id number] Medication knowledge/s Meds Active 2018-06 [place] kill 07-24 [place] deficit: pt 09:05: [id number] 00 Medication potential Meds Active 2018-06 [place] clinically 07-24 [place] significant 09:05: [id number] medication 00 issue Musculoskel transfer Musculoske Active 2018-06 [place] etal assistance letal 07-24 [place] required 09:05: [id number] 00 Cardio edema Cardiovasc Resolve 2019-07-08 Lesvia ular d - 09:38:00 [place] 13:06: RN 00 Elimination urinary Eliminatio Resolve 2019-07-08 Hannah barriosenc n d 07-01 09:38:00 [place] e 08:30[facility] [id number] Safety can be left Safety Active Lesvia [...] (SIG) Name Name azelastine azelastine 2018-06 Yes [place] Unknown Unknown 0.15 % 0.15 % 07-24 Dayo HAIRSTON (205.5 mcg) (205.5 mcg) nasal spray nasal spray Lotrimin Lotrimin 2018-06 Yes [place] Unknown Unknown Ultra 1 % Ultra 1 % 07-24 Dayo HAIRSTON topical topical cream cream hydrocortis hydrocortis 2018-06 Yes [place] Unknown Unknown one 2.5 % one 2.5 % 07-24 Dayo HAIRSTON topical topical cream cream amLODIPine amLODIPine 2018-06 Yes [place] Unknown Unknown 10 mg 10 mg 07-24 Dayo HAIRSTON tablet tablet Aspirin Low Aspirin Low 2018-06 Yes [place] Unknown Unknown Dose 81 mg Dose 81 mg 07-24 Dayo HAIRSTON tablet,venice tablet,venice yed release yed release Colace 100 Colace 100 2018-06 Yes [place] Unknown Unknown mg capsule mg capsule 07-24 Dayo HAIRSTON finasteride finasteride 2018-06 Yes [place] Unknown Unknown 5 mg tablet 5 mg tablet 07-24 Dayo HAIRSTON glipiZIDE glipiZIDE 2018-06 Yes [place] Unknown Unknown ER 5 mg ER 5 mg 07-24 Dayo HAIRSTON tablet, tablet, extended extended release 24 release 24 hr hr Januvia 50 Januvia 50 No [place] 1 tab Unknown mg tablet mg tablet Dayo HAIRSTON Lyrica 50 Lyrica 50 No [place] 1 cap Unknown mg capsule mg capsule Dayo HAIRSTON simvastatin simvastatin 2018-06 Yes [place] Unknown Unknown 40 mg 40 mg 07-24 Dayo HAIRSTON tablet tablet Depakote ER Depakote ER No [place] 3 tabs Unknown 500 mg 500 mg MDMaycol tablet,exte tablet,exte nded nded release release Latuda 80 Latuda 80 2018-06 Yes [place] Unknown Unknown mg tablet mg tablet 07-24 Dayo HAIRSTON latanoprost latanoprost No [place] Unknown Unknown 0.005 % eye 0.005 % eye O.D.,Alan drops drops w timolol 0.5 timolol 0.5 No [place] Unknown Unknown % eye drops % eye drops Dayo HAIRSTON Depakote Depakote 2018-06- Yes [place] Unknown Unknown 250 mg 250 mg 07-24 MD,Dayo tablet,venice tablet,venice yed release yed release Januvia 100 Januvia 100 2018-06 Yes [place] Unknown Unknown mg tablet mg tablet 07-24 MD,Dayo Acetaminoph Acetaminoph 2018-06 Yes [place] Unknown Unknown en Pain en Pain 07-24 ,Dayo Relief 500 Relief 500 mg tablet mg tablet clonazePAM clonazePAM 2018-06- Yes [place] Unknown Unknown 0.5 mg 0.5 mg 07-24 ,Dayo tablet tablet Lyrica 50 Lyrica 50 2018-06 Yes [place] Unknown Unknown mg capsule mg capsule 08-01 ,Dayo clonazePAM clonazePAM Yes [place] Unknown Unknown 0.5 mg 0.5 mg 06-17 MD,Maycol tablet tablet losartan 50 losartan 50 Yes [place] Unknown Unknown mg tablet mg tablet 06-24 ,Dayo hydroCHLORO hydroCHLORO Yes [place] Unknown Unknown thiazide 25 thiazide 25 06-24 MD,Dayo mg tablet mg tablet Depakote Depakote Yes [place] Unknown Unknown 250 mg 250 mg 06-24 MD,Dayo tablet,venice tablet,venice yed release yed release atorvastati atorvastati Yes [place] Unknown Unknown n 20 mg n 20 [...]
--- OUTSIDE RECORDS SUMMARY | 2019-07-21 13:37 | XMS REPORT ---
:1950 Author Organization [facility] Care Team Providers Name Role Phone Unavailable Unavailable Unavailable Problems Condition Condition Condition Status Onset Resolution Last Treating Comments Name Details Category Date Date Treatment Clinician Date Type 2 Type 2 Diagnosis Active 2018-06 Lesvia diabetes diabetes 2-13 [place] mellitus mellitus RN without without complicatio complicatio ns ns Pain frequent Pain Mgmt Active 2018-06 [place] pain 07-24 [place] 09:05: [id number] Respiratory dyspnea Respirator Active 2018-06 [place] present y 07-24 [place] 09:05: [id number] 00 Endo/Philipp anti-coagul Endo/Philipp Resolve 2018-062019-06-24 [place] ation d 07-24 13:06:00 [place] therapy 09:05: [id number] 00 Endo/Philipp diabetic Endo/Philipp Resolve 2018-062019-06-24 [place] foot care d 07-24 13:06:00 Haylee 09:05: [id number] 00 Sensory impaired Sensory Active 2018-06 [place] hearing 07-24 [place] 09:05: [id number] 00 Nutrition nutritional Nutrition Resolve 2018-062019-06-24 [place] restriction d 07-24 13:06:00 Haylee s 09:05: [id number] 00 Elimination urinary Eliminatio Resolve 2018-062019-06-24 [place] incontinenc n d 07-24 13:06:00 Haylee e 09:05: [id number] 00 Neuro confusion Neuro/Emot Active 2018-06 [place] present ion 07-24 [place] 09:05: [id number] 00 Neuro anxiety Neuro/Emot Active 2018-06 [place] present ion 07-24 [place] 09:05: [id number] 00 Neuro impaired Neuro/Emot Active 2018-06 [place] decision-ma ion 07-24 Haylee cortes 09:05: [id number] 00 Neuro psychiatric Neuro/Emot Active 2018-06 [place] problems ion 07-24 [place] 09:05: [id number] 00 Neuro memory Neuro/Emot Active 2018-06 [place] deficit ion 07-24 [place] needing 09:05: [id number] supervision 00 Activity ADL Activity Active 2018-06 [place] assistance 07-24 [place] required 09:05: [id number] 00 Activity self-care Activity Active 2018-06 [place] deficit 07-24 [place] 09:05: [id number] 00 Safety structural Safety Active 2018-06 [place] barriers 07-24 [place] present 09:05: [id number] 00 Safety knowledge/s Safety Active 2018-06 [place] kill 07-24 [place] deficit: pt 09:05: [id number] 00 Safety fall risk Safety Active 2018-06 [place] factor 07-24 [place] present 09:05: [id number] 00 Safety risk for Safety Active 2018-06 [place] hospitaliza 07-24 [place] tion 09:05: [id number] 00 Medication oral med Meds Active 2018-06 [place] assistance 07-24 [place] required 09:05: [id number] 00 Medication knowledge/s Meds Active 2018-06 [place] kill 07-24 [place] deficit: pt 09:05: [id number] 00 Medication potential Meds Active 2018-06 [place] clinically 07-24 [place] significant 09:05: [id number] medication 00 issue Musculoskel transfer Musculoske Active 2018-06 [place] etal assistance letal 07-24 [place] required 09:05: [id number] 00 Cardio edema Cardiovasc Active Lesvia ular 20 [place] 13:06: RN 00 Elimination urinary Eliminatio Active Hannah incontinenc n 07-01 [place] e 08:30: [facility] 00 [id number] Allergies, Adverse Reactions, Alerts Allergy Allergy Status Severity Reaction(s) Onset Inactive Treating Comments Name Type Date Date Clinician Unknown None Active Unknown None Unknown No Known Allergies For This Patient Medications Ordered Filled Start Stop Current Ordering Indication Dosage Frequency Signature Comments Components Medication Medication Date Date Medication? Clinician (SIG) Name Name azelastine azelastine 2018-06 Yes [place] Unknown Unknown 0.15 % 0.15 % 07-24 Dayo HAIRSTON (205.5 mcg) (205.5 mcg) nasal spray nasal spray Lotrimin Lotrimin 2018-06 Yes [place] Unknown Unknown Ultra 1 % Ultra 1 % 07-24 Dayo HAIRSTON topical topical cream cream hydrocortis hydrocortis 2018-06 Yes [place] Unknown Unknown one 2.5 % one 2.5 % 07-24 Dayo HAIRSTON topical topical cream cream amLODIPine amLODIPine 2018-06- Yes [place] Unknown Unknown 10 mg 10 mg 07-24 Dayo HAIRSTON tablet tablet Aspirin Low Aspirin Low 2018-06 Yes [place] Unknown Unknown Dose 81 mg Dose 81 mg 07-24 Dayo HAIRSTON tablet,venice tablet,venice yed release yed release Colace 100 Colace 100 2018-06 Yes [place] Unknown Unknown mg capsule mg capsule 07-24 Dayo HAIRSTON finasteride finasteride 2018-06 Yes [place] Unknown Unknown 5 mg tablet 5 mg tablet 07-24 Dayo HAIRSTON glipiZIDE glipiZIDE 2018-06 Yes [place] Unknown Unknown ER 5 mg ER 5 mg 07-24 Dayo HAIRSTON tablet, tablet, extended extended release 24 release 24 hr hr Januvia 50 Januvia 50 No [place] 1 tab Unknown mg tablet mg tablet Dayo HAIRSTON Lyrica 50 Lyrica 50 No [place] 1 cap Unknown mg capsule mg capsule Dayo HAIRSTON simvastatin simvastatin 2018-06 Yes [place] Unknown Unknown 40 mg 40 mg 07-24 Dayo HAIRSTON tablet tablet Depakote ER Depakote ER No [place] 3 tabs Unknown 500 mg 500 mg ,Maycol tablet,exte tablet,exte nded nded release release Latuda 80 Latuda 80 2018-06 Yes [place] Unknown Unknown mg tablet mg tablet 07-24 Dayo HAIRSTON latanoprost latanoprost No [place] Unknown Unknown 0.005 % eye 0.005 % eye O.D.,Alan drops drops w timolol 0.5 timolol 0.5 No [place] Unknown Unknown % eye drops % eye drops Dayo HAIRSTON Depakote Depakote 2018-06- Yes [place] Unknown Unknown 250 mg 250 mg 07-24 Dayo HAIRSTON tablet,venice tablet,venice yed release yed release Januvia 100 Januvia 100 2018-06 Yes [place] Unknown Unknown mg tablet mg tablet 07-24 Dayo HAIRSTON Acetaminoph Acetaminoph 2018-06 Yes [place] Unknown Unknown en Pain en Pain 07-24 ,Dayo Relief 500 Relief 500 mg tablet mg tablet clonazePAM clonazePAM 2018-06- Yes [place] Unknown Unknown 0.5 mg 0.5 mg 07-24 ,Dayo tablet tablet Lyrica 50 Lyrica 50 2018-06 Yes [place] Unknown Unknown mg capsule mg capsule 08-01 MD,Dayo clonazePAM clonazePAM Yes [place] Unknown Unknown 0.5 mg 0.5 mg 06-17 MD,Maycol tablet tablet losartan 50 losartan 50 Yes [place] Unknown Unknown mg tablet mg tablet 06-24 MD,Dayo hydroCHLORO hydroCHLORO Yes [place] Unknown Unknown thiazide 25 thiazide 25 06-24 MD,Dayo mg tablet mg tablet Depakote Depakote Yes [place] Unknown Unknown 250 mg 250 mg 06-24 MD,Dayo tablet,venice tablet,venice yed release yed release atorvastati atorvastati Yes [place] Unknown Unknown n 20 mg n 20 [...]
--- OUTSIDE RECORDS SUMMARY | 2019-07-21 13:37 | XMS REPORT | Summary of Care ---
:1950 Author Organization [facility] Address [address] [facility] [place] [address] Care Team Providers Name Role Phone Dayo Harkins Primary Care Provider Reason for Visit Reason Comments Back Pain DOS 07-03-2019 PART Encounter Details Date Type Department Care Team Description 07/10/2019 Office Visit [place] [facility] Cesar Aguilar, Nonallopathic lesion of lumbar region (Primary Dx); [address] [facility] Sprain of lumbar region, initial encounter [address] [phone] [place] [address] [phone] Allergies No Known Allergiesdocumented as of this encounter (statuses as of 07/10/2019) Medications Medication Sig Dispensed Refills Start Date End Date Status Lancets Does not apply 1 Stick TWICE 100 Each 5 07/13/2011 Active Misc DAILY. 1. Brand: 2. Dx:250.02 3. non-Insulin dependentNO 4. Test Blood Glucose 2QAM time(s) A DAY clotrimazole (LOTRIMIN) 1 Apply to 1 Tube 3 04/03/2014 Active % Apply externally Cream affected areas of feet twice a day. Hydrocortisone 2.5 % APPLY TO 59 mL 2 04/09/2014 Active Apply externally Lotion AFFECTED AREA TWO TIMES DAILY NEEDED FOR RASH azelastine (ASTELIN) 0.1 [place] 2 Sprays 1 Bottle 4 05/23/2017 Active % Nasal in nose TWICE SolutionIndications: DAILY. Chronic vasomotor rhinitis Blood Glucose Monitor 1 Each by Does 1 Device 0 07/21/2017 Active Software Does not apply not apply route Device DIRECTED. Brand: One Touch, Dx: E11.65, test bid and prn ASPIR-LOW 81 MG Oral Tab TAKE ONE TABLET 100 Tab 5 12/04/2018 Active EC BY MOUTH ONCE DAILY lurasidone HCl (LATUDA) Take 2 Tabs by 60 Tab 5 02/14/2019 Active 40 MG Oral Tab mouth DAILY. sitagliptin (JANUVIA) 100 Take 1 Tab by 90 Tab 3 03/26/2019 Active MG Oral Tab mouth DAILY. ONE TOUCH ULTRA TEST TEST TWICE A DAY 100 Strip 5 05/22/2019 Active STRIPS In Vitro NEEDED StripIndications: Diabetes mellitus without complication (HCC) Glucose Blood (ONE TOUCH 1 Each by In 100 Strip 5 05/20/2019 Active ULTRA TEST STRIPS) In Vitro route TWO Vitro StripIndications: TIMES DAILY Diabetes mellitus without NEEDED complication (HCC) (DIABETES). One touch ultra 2. Test bid. Dx: E11,9 LYRICA 50 MG Oral Cap TAKE ONE CAPSULE 60 Cap 5 05/20/2019 Active BY MOUTH TWO TIMES DAILY MAXIMUM OF TWO CAPSULES DAILY finasteride (PROSCAR) 5 TAKE ONE TABLET 90 Tab 3 05/24/2019 Active MG Oral Tab BY MOUTH ONCE DAILY DOCQLACE 100 MG Oral Cap TAKE ONE CAPSULE 60 Cap 5 06/06/2019 Active BY MOUTH TWO TIMES DAILY atorvastatin (LIPITOR) 20 Take 1 Tab by 90 Tab 3 06/13/2019 Active MG Oral Tab mouth DAILY. divalproex (DEPAKOTE ER) Take 3 Tabs by 90 Tab 4 06/21/2019 Active 250 MG Oral TABLET SR 24 mouth EVERY HR BEDTIME. clonazePAM (KLONOPIN) 0.5 Take 1 Tab by 30 Tab 0 06/21/2019 Active MG Oral Tab mouth EVERY BEDTIME. Max Daily Amount: 0.5 mg. glipiZIDE (GLIPIZIDE XL) Take 3 Tabs by 270 Tab 2 06/21/2019 Active 2.5 MG Oral TABLET SR 24 mouth DAILY. HR E11.65 losartan (COZAAR) 50 MG Take 1 Tab by 90 Tab 3 06/21/2019 Active Oral Tab mouth DAILY. hydrochlorothiazide Take 1 Tab by 90 Tab 5 06/21/2019 Active (HCTZ, ORETIC) 25 MG Oral mouth DAILY. 1 Tab documented as of this encounter (statuses as of 07/10/2019) Active Problems Problem Noted Date Chronic kidney disease, stage III (moderate) 01/27/2011 Overview: Seeing Dr. Ritchie. Last seen 12/09/13. Next apt 03/18. 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 Frankel [address]. Correa for foot care. Seen 12/24/13 A1C 6.9% 11/16 Essential hypertension, benign 03/23/2006 documented as of this encounter (statuses as of 07/10/2019) Resolved Problems Problem Noted Date Resolved Date Acute right ankle pain 06/06/2017 03/26/2019 [facility] 11/26/2015 07/19/2017 Back pain, lumbosacral 01/13/2015 06/13/2017 Explosive personality disorder 07/07/2006 09/05/2007 Unspecified psychosis 03/23/2006 09/05/2007 documented as of this encounter (statuses as of 07/10/2019) Immunizations Name Administration Dates Next Due Adacel [...] encounter Progress Notes Cesar Aguilar DC - 07/10/2019 3:30 PM EST PATIENT: Gurjit Isidro : 1950 DATE OF SERVICE: 07/10/2019 REFERRING PRACTITIONER: Cesar Aguilar PRIMARY CARE PROVIDER: Dayo Harkins Chief Complaint Patient presents with Back Pain DOS 07-03-2019 PART HISTORY OF PRESENT ILLNESS: Gurjit Isidro is a 68-y.o. male who presents for a follow-up visit. He reports mid back pain and low back pain. Since last office visit symptoms have been improving. Response to previous treatment session: tolerated well Overall, the symptoms have been improving. Additional comments: Less antalgic, was over medicated fell at home Estimated percentage improved: 50% Analog Pain Scale result: 07/15 NDI score: Oswestry score: Home exercise fulfillment: compliance with the home exercises was reported Current Outpatient Medications Medication Sig ASPIR-LOW 81 MG Oral Tab EC TAKE ONE TABLET BY MOUTH ONCE DAILY atorvastatin (LIPITOR) 20 MG Oral Tab Take 1 Tab by mouth DAILY. azelastine (ASTELIN) 0.1 % Nasal Solution [place] 2 Sprays in nose TWICE DAILY. Blood Glucose Monitor Software Does not apply Device 1 Each by Does not apply route DIRECTED. Brand: One Touch, Dx: E11.65, test bid and prn clonazePAM (KLONOPIN) 0.5 MG Oral Tab Take 1 Tab by mouth EVERY BEDTIME. Max Daily Amount: 0.5 mg. clotrimazole (LOTRIMIN) 1 % Apply externally Cream [...] Tab Take 1 Tab by mouth DAILY. Hydrocortisone 2.5 % Apply externally Lotion APPLY [...] Evaluation Spinal joint dysfunction/chiropractic subluxation Acute: Lumbar: R-L3/4, L-L3/4, R-L4/5, L-L4/5, R-L5/S1, L-L5/S1 Posture Seated slumped [...] initial encounter 847.2 S33.5XXA Response to care: Progressing as anticipated Plan: History, Exam, Report of Findings, Manipulate areas of inter-segmental dysfunction as noted inthe section titled intersegmental motion evaluation above , instruct in exercisesfor the purpose of neuromuscular reeducation to improve strength and range of motion. . Manipulation: Spinal level(s): Spinal joint dysfunction/chiropractic subluxation Acute: Lumbar: R-L3/4, L-L3/4, R-L4/5, L-L4/5, R-L5/S1, L-L5/S1 Follow up: Schedule follow-up here in 2 week(s). Author: Cesar Aguilar DC, 07/10/2019, 13:29 documented in this encounter Plan of Treatment Date Type Specialty Care Team Description 07/16/2019 Office Visit Internal Medicine Dayo Harkins MD [address] [place] [address] [phone] 10/21/2019 Office Visit Endocrinology Monique Garcia, RICHARD [address] [place] [address] [phone] Health Maintenance Due Date Last Done Comments [...] Type Problems Progress Blood Pressure Blood Pressure 160/100 No Carla, < 140/90 (06/21/2019 HERMINIO Gallego 10:55 AM EST) Note: This is an individualized [...] Diabetes Well controlled type 7.5 (06/21/2019 11:46 No Dayo Harkins 2 diabetes mellitus AM EST) MD Estrellita [...] xxxxxxxxxxx Effective for all Medicare dates (Home) [facility] [phone] 1 ([place]) [place] [address] documented as of this encounter
[2019-07-21 13:41] LABS: Albumin 4.3 g/dL (3.2-5.2); Calcium 9.6 mg/dL (8.6-10.3); Potassium 4.1 mmol/L (3.5-5.0); Total Bilirubin 0.4 mg/dL (0.2-1.0)
[2019-07-21 13:47] LABS: Albumin/Globulin Ratio 1.7 (1-3); BUN/Creatinine Ratio 23.6 (8-20); EGFR African American 56.9 (>60); Globulin 2.5 g/dL (2-4); Total Protein 6.8 g/dL (6.4-8.9)
[2019-07-21 14:34] LABS: Urine Appearance Clear; Urine Bilirubin Negative (Negative); Urine Blood Negative (Negative); Urine Color Yellow; Urine Glucose Negative (Negative); Urine Ketones Negative (Negative); Urine Nitrite Negative (Negative); Urine Protein Negative (Negative); Urine Specific Gravity 1.013 (1.010-1.030); Urine Urobilinogen Negative (Negative)
[2019-07-21 16:28] VITALS: BP 117/67
== END 2019-07-21 16:27 | disposition home or self-care (01) ==
LOC: ED 12:44
DX: M54.2 Cervicalgia (principal); Z91.81 History of falling; Z79.01 Long term (current) use of anticoagulants; I10 Essential (primary) hypertension; E11.9 Type 2 diabetes mellitus without complications; F17.210 Nicotine dependence, cigarettes, uncomplicated; F31.9 Bipolar disorder, unspecified
CPT/HCPCS: 36415; 72125; 80053; 81003; 85025; 99282

== ENCOUNTER 2019-07-25 16:14 | Inpatient (IN) | payer MEDICARE, MEDICAID ==
--- NOTE | 2019-07-25 16:41 | ED ---
Psychiatric Complaint - HPI Summary HPI Summary: 68 year old M patient who prefers to be addressed using female pronouns presenting to [facility] with a chief complaint of an inability to care for herself. The patient reports a slight cough, pain in her neck since 5 years ago, and feeling unsafe at home. The patient rates the pain 0/10 in severity. Symptoms aggravated by nothing. Symptoms alleviated by nothing. EMS was reportedly called to the patient's residence 3 times secondary to dizziness. Patient denies any falls today but reports falling approximately 30 times since 2018. Patient also denies nausea, vomiting, or diarrhea. The patient states that her goal for coming into the emergency department today is to "be fully accepted as [facility]." Patient also describes a confrontation with another individual recently and wants admission to the hospital for 3 days after which time she will be evaluated by a nurse for admission to [place]. Patient states that she was taken off of Depakote 1 week ago. She reports a history of bed bugs 3 years ago. The patient is normally ambulatory with no assistance. The patient denies any alcohol or cigarette use. Medication list reviewed. Allergy list reviewed. Home Medications Medication Instructions Recorded Confirmed Type Aspirin EC TAB* [Aspirin Low Dose 81 mg PO QAM 11/30/12 07/05/19 History EC*] Divalproex ER TAB(*) [Depakote ER 750 mg PO Q24H 11/30/12 07/05/19 History TAB(*)] glipiZIDE TAB* [Glucotrol TAB*] 5 mg PO DAILY 11/30/12 07/05/19 History Docusate CAP* [Colace Cap*] 100 mg PO BID 03/13/14 07/05/19 History Lurasidone(*) [Latuda (NF)] 80 mg PO DAILY 03/13/14 07/05/19 History Finasteride [Proscar] 5 mg PO QAM 11/04/16 07/05/19 History Simvastatin (NF) [Zocor (NF)] 40 mg PO BEDTIME 11/04/16 07/05/19 History Sitagliptin (NF) [Januvia (NF)] 100 mg PO DAILY 11/04/16 07/05/19 History Azelastine 0.1% Nasal (NF) 2 spray BOTH NARES BID 05/16/19 07/05/19 History [Astepro 0.1% Nasal (NF)] Clotrimazole 1% CREAM* 1 applic TOPICAL BID 05/16/19 07/05/19 History [Clotrimazole 1%*] Hydrocortisone 2.5% CREAM(NF) 1 applic TOPICAL BID PRN 05/16/19 07/05/19 History Hydrochlorothiazide TAB* 25 mg PO DAILY 07/05/19 07/05/19 History [Hydrodiuril TAB*] Losartan TAB* [Cozaar TAB*] 50 mg PO DAILY 07/05/19 07/05/19 History Pregabalin 50 mg CAP (*) [Lyrica 50 mg PO BID 07/05/19 07/05/19 History 50 mg CAP (*)] clonazePAM TAB(*) [KlonoPIN TAB(*)] 0.5 mg PO BEDTIME 07/05/19 07/05/19 History - History Of Current Complaint Chief Complaint: EDPsychosocial Time Seen by Provider: 07/25/19 16:17 Hx Obtained From: Patient Onset/Duration: Still Present Timing: Constant Severity Currently: None Character: Fearful Aggravating Factor(s): Nothing Alleviating Factor(s): Nothing - Risk Factor(s) Completed Suicide Risk Factors: Male, Age Greater Than 60 - Allergies/Home Medications Allergies/Adverse Reactions: Allergies Allergy/AdvReac Type Severity Reaction Status Date / Time No Known Allergies Allergy Verified 07/25/19 16:27 Home Medications: Home Medications Aspirin EC TAB* [Aspirin Low Dose EC*] 81 mg PO QAM 11/30/12 [History Confirmed 07/25/19] glipiZIDE TAB* [Glucotrol TAB*] 5 mg PO DAILY 11/30/12 [History Confirmed ] Docusate CAP* [Colace Cap*] 100 mg PO BID 03/13/14 [History Confirmed 07/25/19] Lurasidone(*) [Latuda (NF)] 80 mg PO DAILY 03/13/14 [History Confirmed 07/25/19] Finasteride [Proscar] 5 mg PO QAM 11/04/16 [History Confirmed 07/25/19] Sitagliptin (NF) [Januvia (NF)] 100 mg PO DAILY 11/04/16 [History Confirmed ] Azelastine 0.1% Nasal (NF) [Astepro 0.1% Nasal (NF)] 2 spray BOTH NARES BID 05/23 [History Confirmed 07/25/19] Clotrimazole 1% CREAM* [Clotrimazole 1%*] 1 applic TOPICAL BID 05/16/19 [ History Confirmed 07/25/19] Hydrocortisone 2.5% CREAM(NF) 1 applic TOPICAL BID PRN 05/16/19 [History Confirmed 07/25/19] Hydrochlorothiazide TAB* [Hydrodiuril TAB*] 25 mg PO DAILY 07/05/19 [History Confirmed 07/25/19] Losartan TAB* [Cozaar TAB*] 50 mg PO DAILY 07/05/19 [History Confirmed 07/25/19] Pregabalin 50 mg CAP (*) [Lyrica 50 mg CAP (*)] 50 mg PO BID 07/05/19 [History Confirmed 07/25/19] clonazePAM TAB(*) [KlonoPIN TAB(*)] 0.5 mg PO BEDTIME 07/05/19 [History Confirmed 07/25/19] Atorvastatin* [Lipitor*] 40 mg PO DAILY 07/25/19 [History Confirmed 07/25/19] PMH/Surg Hx/FS Hx/Imm Hx Endocrine/Hematology History: Reports: Hx Anticoagulant Therapy - aspirin 81mg, Hx Diabetes - DX 1999 TYPE 2 Denies: Hx Thyroid Disease Cardiovascular History: Reports: Hx Hypotension - HX OF X 1, Hx Hypertension Denies: Hx Congestive Heart Failure, Hx Pacemaker/ICD Respiratory History: Reports: Hx Pulmonary Edema - RLL Denies: Hx Asthma, Hx Chronic Obstructive Pulmonary Disease (COPD) GI History: Denies: Hx Ulcer History: Reports: Hx Chronic Renal Failure Denies: Hx Dialysis, Hx Renal Disease Musculoskeletal History: Denies: Hx Back Problems, Other Musculoskeletal History Sensory History: Reports: Hx Cataracts, Hx Contacts or Glasses - GLASSES, Hx Glaucoma Denies: Hx Hearing Aid Opthamlomology History: Reports: Hx Cataracts, Hx Contacts or Glasses - GLASSES , Hx Glaucoma Neurological History: Reports: Other Neuro Impairments/Disorders - SCHIZO AFFECTIVE DISORDER Denies: Hx Dementia, Hx Seizures Psychiatric History: Reports: Hx Anxiety, Hx Depression, Hx Schizophrenia, Hx Bipolar Disorder, Other Psychiatric Issues/Disorders - HX EXTRAPYRADAL S/S AFTER TAKING GEODON Denies: Hx Substance Abuse - Surgical History Surgery Procedure, Year, and Place: [facility] Reactions: Yes - N/V - Immunization History Date of Influenza Vaccine: 2006 Infectious Disease History: No Infectious Disease History: Denies: Hx Clostridium Difficile, Hx Hepatitis, Hx Human Immunodeficiency Virus (HIV), Hx Shingles, Hx Tuberculosis, Traveled Outside the in Last 30 Days - Family History Known Family History: Negative: Cardiac Disease, Hypertension - Social History Alcohol Use: None Hx Substance Use: No Substance Use Type: Reports: None Hx Tobacco Use: No Smoking Status (MU): Never Smoked Tobacco Have You Smoked in the Last Year: No Review of Systems Positive: Cough Negative: Vomiting, Diarrhea, Nausea Positive: Other - Neck pain Neurological/Mental Status: Other - Dizziness Positive: Other - Feels unsafe at home All Other Systems Reviewed And Are Negative: Yes Physical Exam - Summary Physical Exam Summary: Constitutional: Well-developed, Well-nourished, Alert. (-) Distressed; drooling frequently. Skin: Warm, Dry HENT: Normocephalic; Atraumatic Eyes: Conjunctiva normal Neck: Musculoskeletal neck held in a deformed position to the right. (-) JVD, (- ) Stridor, (-) Tracheal deviation Cardio: Rhythm regular, rate normal, Heart sounds normal; Intact distal pulses; Radial pulses are 2+ and symmetric. (-) Murmur Pulmonary/Chest wall: Effort normal. (-) Respiratory distress, (-) Wheezes, (-) Rales Abd: Soft, (-) tenderness, (-) Distension, (-) Guarding, (-) Rebound Musculoskeletal: (-) Edema Lymph: (-) Cervical adenopathy Neuro: Alert, Oriented x3 Psych: Mood and affect Normal Triage Information Reviewed: Yes Vital Signs On Initial Exam: Initial Vitals Temp Pulse Resp BP Pulse Ox 97.7 F 88 16 158/106 99 07/25/19 16:18 07/25/19 16:18 07/25/19 16:18 07/25/19 16:18 07/25/19 16:18 Vital Signs Reviewed: Yes Procedures - Sedation Patient Received Moderate/Deep Sedation with Procedure: No Diagnostics - Vital Signs Vital Signs Temp Pulse Resp BP Pulse Ox 07/25/19 16:18 97.7 F 88 16 158/106 99 - Laboratory Result Diagrams: 07/25/19 17:42 07/25/19 17:42 Lab Statement: Any lab studies that have been ordered have been reviewed, and results considered in the medical decision making process. - Radiology Chest x-ray Radiology Interpretation Completed By: Radiologist Summary of Radiographic Findings: No acute cardiopulmonary process by radiograph. ED physician has reviewed this report. Re-Evaluation - Re-Evaluation 17:02 Re-Evaluation Time: 17:02 Comment: children's service worker consult to be obtained. Patient to be admitted Course/Dx - Course Course Of Treatment: Patient is here with inability to take care of himself. Patient called [facility] 3 times a day to help get his clothes on. Patient has no complaints upon arrival and is hard to obtain a history from. Patient had no acute changes. children's service worker was called and the recommended admission to the hospital for placement to [place] which he is [place] in the process of getting placed in. - Differential Dx/Clinical Impression Provider Diagnosis: Schizoaffective disorder - Physician Notifications Discussed Care Of Patient With: Andres Blackmon Time Discussed With Above Provider: 17:18 Instructed by Provider To: Other - Patient's case was discussed with Dr. Blackmon, Dr. Blackmon accepts for admission. Discharge ED - Sign-Out/Discharge Documenting (check all that apply): Patient Departure - Discharge Plan Condition: Stable Disposition: ADMITTED TO [facility] - Billing Disposition and Condition Condition: STABLE Disposition: Admitted to [facility] - Attestation Statements Document Initiated by Scribe: Yes Documenting Scribe: Vangie Jaimes Provider For Whom Mundo is Documenting (Include Credential): Kameron Kwon MD Scribe Attestation: Vangie Fisher, scribed for Kameron Kwon MD on at [id number]. Scribe Documentation Reviewed: Yes Provider Attestation: The documentation as recorded by the Vangie hess accurately reflects the service I personally performed and the decisions made by me, Kameron Kwon MD Status of Scribe Document: Viewed
--- OUTSIDE RECORDS SUMMARY | 2019-07-25 17:35 | XMS REPORT ---
:1950 Author Organization [facility] Care Team Providers Name Role Phone Unavailable Unavailable Unavailable Problems Condition Condition Condition Status Onset Resolution Last Treating Comments Name Details Category Date Date Treatment Clinician Date Type 2 Type 2 Diagnosis Active 2018-06 Lesvia diabetes diabetes 2-13 Malnoske mellitus mellitus RN without without complicatio complicatio ns ns Pain frequent Pain Mgmt Resolve 2018-062019-07-08 [place] pain d 07-24 09:38:00 Haylee 09:05: [id number] 00 Respiratory dyspnea Respirator Resolve 2018-062019-07-08 [place] present y d 07-24 09:38:00 Haylee 09:05: [id number] 00 Endo/Philipp anti-coagul Endo/Philipp Resolve 2018-062019-06-24 [place] ation d 07-24 13:06:00 Haylee therapy 09:05: [id number] 00 Endo/Philipp diabetic Endo/Philipp Resolve 2018-062019-06-24 [place] foot care d 07-24 13:06:00 Haylee 09:05: [id number] 00 Sensory impaired Sensory Active 2018-06 [place] hearing 07-24 Rangely 09:05: [id number] 00 Nutrition nutritional Nutrition Resolve 2018-062019-06-24 [place] restriction d 07-24 13:06:00 Haylee s 09:05: [id number] 00 Elimination urinary Eliminatio Resolve 2018-062019-06-24 [place] incontinenc n d 07-24 13:06:00 Haylee e 09:05: [id number] 00 Neuro confusion Neuro/Emot Active 2018-06 [place] present ion 07-24 Rangely 09:05: [id number] 00 Neuro anxiety Neuro/Emot Active 2018-06 [place] present ion 07-24 Rangely 09:05: [id number] 00 Neuro impaired Neuro/Emot Active 2018-06 [place] decision-ma ion 2-19 Rangely sophia 09:05: [id number] 00 Neuro psychiatric Neuro/Emot Active 2018-06 [place] problems ion 07-24 Rangely 09:05: [id number] 00 Neuro memory Neuro/Emot Active 2018-06 [place] deficit ion 07-24 Rangely needing 09:05: [id number] supervision 00 Activity ADL Activity Active 2018-06 [place] assistance 07-24 Rangely required 09:05: [id number] 00 Activity self-care Activity Active 2018-06 [place] deficit 07-24 Rangely 09:05: [id number] 00 Safety structural Safety Active 2018-06 [place] barriers 07-24 Rangely present 09:05: [id number] 00 Safety knowledge/s Safety Active 2018-06 [place] kill 07-24 Rangely deficit: pt 09:05: [id number] 00 Safety fall risk Safety Active 2018-06 [place] factor 07-24 Rangely present 09:05: [id number] 00 Safety risk for Safety Active 2018-06 [place] hospitaliza 07-24 Rangely tion 09:05: [id number] 00 Medication oral med Meds Active 2018-06 [place] assistance 07-24 Rangely required 09:05: [id number] 00 Medication knowledge/s Meds Active 2018-06 [place] kill 07-24 [place] deficit: pt 09:05: [id number] 00 Medication potential Meds Active 2018-06 [place] clinically 07-24 Rang[place] significant 09:05: [id number] medication 00 issue Musculoskel transfer Musculoske Active 2018-06 [place] etal assistance letal 07-24 Rangely required 09:05: [id number] 00 Cardio edema Cardiovasc Resolve 2019-2019-07-08 Lesvia ular d - 09:38:00 [place] 13:06: RN 00 Elimination urinary Eliminatio Resolve 2019-2019-07-08 Hannah sommer n d 07-01 09:38:00 [place] [id number] Safety can be left Safety Active Lesvia [...] (SIG) Name Name azelastine azelastine 2018-06 Yes [place] Unknown Unknown 0.15 % 0.15 % 07-24 Dayo HAIRSTON (205.5 mcg) (205.5 mcg) nasal spray nasal spray Lotrimin Lotrimin 2018-06 Yes [place] Unknown Unknown Ultra 1 % Ultra 1 % 07-24 Dayo HAIRSTON topical topical cream cream hydrocortis hydrocortis 2018-06- Yes [place] Unknown Unknown one 2.5 % one 2.5 % 07-24 Dayo HAIRSTON topical topical cream cream amLODIPine amLODIPine 2018-06- Yes [place] Unknown Unknown 10 mg 10 mg 07-24 Dayo HAIRSTON tablet tablet Aspirin Low Aspirin Low 2018-06- Yes [place] Unknown Unknown Dose 81 mg Dose 81 mg 07-24 Dayo HAIRSTON tablet,venice tablet,venice yed release yed release Colace 100 Colace 100 2018-06 Yes [place] Unknown Unknown mg capsule mg capsule 07-24 Dayo HAIRSTON finasteride finasteride 2018-06 Yes [place] Unknown Unknown 5 mg tablet 5 mg tablet 07-24 Dayo HAIRSTON glipiZIDE glipiZIDE 2018-06- Yes [place] Unknown Unknown ER 5 mg ER 5 mg 07-24 Dayo HAIRSTON tablet, tablet, extended extended release 24 release 24 hr hr Januvia 50 Januvia 50 No [place] 1 tab Unknown mg tablet mg tablet Dayo HAIRSTON Lyrica 50 Lyrica 50 No [place] 1 cap Unknown mg capsule mg capsule Dayo HAIRSTON simvastatin simvastatin 2018-06- Yes [place] Unknown Unknown 40 mg 40 mg 07-24 Dayo HAIRSTON tablet tablet Depakote ER Depakote ER No [place] 3 tabs Unknown 500 mg 500 mg ,Maycol tablet,exte tablet,exte nded nded release release Latuda 80 Latuda 80 2018-06 Yes [place] Unknown Unknown mg tablet mg tablet 07-24 Dayo HAIRSTON latanoprost latanoprost No [place] Unknown Unknown 0.005 % eye 0.005 % eye O.D.,Alan drops drops w timolol 0.5 timolol 0.5 No [place] Unknown Unknown % eye drops % eye drops Dayo HAIRSTON Depakote Depakote 2018-06- Yes [place] Unknown Unknown 250 mg 250 mg 07-24 Dayo HAIRSTON tablet,venice tablet,venice yed release yed release Januvia 100 Januvia 100 2018-06 Yes [place] Unknown Unknown mg tablet mg tablet 07-24 Dayo HAIRSTON Acetaminoph Acetaminoph 2018-06 Yes [place] Unknown Unknown en Pain en Pain 07-24 Dayo HAIRSTON Relief 500 Relief 500 mg tablet mg tablet clonazePAM clonazePAM 2018-06- Yes [place] Unknown Unknown 0.5 mg 0.5 mg 07-24 Dayo HAIRSTON tablet tablet Lyrica 50 Lyrica 50 2018-06 Yes [place] Unknown Unknown mg capsule mg capsule 08-01 Dayo HAIRSTON clonazePAM clonazePAM Yes [place] Unknown Unknown 0.5 mg 0.5 mg 06-17 MDMaycol tablet tablet losartan 50 losartan 50 Yes [place] Unknown Unknown mg tablet mg tablet 06-24 Dayo HAIRSTON hydroCHLORO hydroCHLORO Yes [place] Unknown Unknown thiazide 25 thiazide 25 06-24 Dayo HAIRSTON mg tablet mg tablet Depakote Depakote Yes [place] Unknown Unknown 250 mg 250 mg 06-24 Dayo HAIRSTON tablet,venice tablet,venice yed release yed release atorvastati atorvastati 2019- Yes [place] Unknown Unknown n 20 mg n 20 mg 06-24 ,Dayo tablet tablet glipiZIDE glipiZIDE Yes [place] Unknown Unknown ER 2.5 mg ER 2.5 mg 07-18 ,Dayo tablet, tablet, extended extended release 24 release 24 hr hr atorvastati atorvastati Yes [place] Unknown Unknown n 20 mg n 20 [...]
--- OUTSIDE RECORDS SUMMARY | 2019-07-25 17:35 | XMS REPORT | Summary of Care ---
:1950 Author Organization [facility] Address [address] [facility] [place] [address] Care Team Providers Name Role Phone Dayo Harkins Primary Care Provider Reason for Visit Reason Comments Neck Pain DOS 07-03-2019, part Encounter Details Date Type Department Care Team Description 07/24/2019 Office Visit [facility] Cesar Aguilar, Cervical segment dysfunction (Primary Dx); [address] [facility] Cervical [place], [place] [address] [facility] [phone] [place] [address] [phone] Allergies No Known Allergiesdocumented as of this encounter (statuses as of 07/24/2019) Medications Medication Sig Dispensed Refills Start Date End Date Status Lancets Does not apply 1 Stick TWICE 100 Each 5 07/13/2011 Active Misc DAILY. 1. Brand: 2. Dx:250.02 3. non-Insulin dependentNO 4. Test Blood Glucose 2QAM time(s) A DAY azelastine (ASTELIN) 0.1 [place] 2 Sprays 1 Bottle 4 05/23/2017 Active [...] 06/06/2019 Active BY MOUTH TWO TIMES DAILY divalproex (DEPAKOTE ER) Take 3 Tabs by 90 Tab 4 06/21/2019 Active 250 MG Oral TABLET SR 24 mouth EVERY HR BEDTIME. glipiZIDE (GLIPIZIDE XL) Take 3 Tabs by 270 Tab 2 06/21/2019 Active 2.5 MG Oral TABLET SR 24 mouth DAILY. HR E11.65 losartan (COZAAR) 50 MG Take 1 Tab by 90 Tab 3 06/21/2019 Active Oral Tab mouth DAILY. hydrochlorothiazide Take 1 Tab by 90 Tab 5 06/21/2019 Active (HCTZ, ORETIC) 25 MG Oral mouth DAILY. 1 Tab atorvastatin (LIPITOR) 40 Take 1 Tab by 90 Tab 5 07/16/2019 Active MG Oral Tab mouth DAILY. documented as of this encounter (statuses as of 07/24/2019) Active Problems Problem Noted Date Gastric polyp 04/24/2009 Overview: [facility] 04/13 Schizoaffective disorder 03/27/2007 Mixed hyperlipidemia 03/27/2007 Well controlled type 2 diabetes mellitus with peripheral neuropathy 03/23/2006 Overview: Last eye exam 10/02/[address] Frankel [address] Correa for foot care. Seen 12/24/13 A1C 6.9% 11/16 Essential hypertension, benign 03/23/2006 documented as of this encounter (statuses as of 07/24/2019) Resolved Problems Problem Noted Date Resolved Date Acute right ankle pain 06/06/2017 03/26/2019 Resides in long term care social worker care facility 11/26/2015 07/19/2017 Back pain, lumbosacral 01/13/2015 06/13/2017 Chronic kidney disease, stage III (moderate) 01/27/2011 07/16/2019 Overview: Seeing Dr. Ritchie. Last seen 12/09/13. Next apt 03/18. Explosive personality disorder 07/07/2006 09/05/2007 Unspecified psychosis 03/23/2006 09/05/2007 documented as of this encounter (statuses as of 07/24/2019) Immunizations Name Administration Dates Next Due Adacel [...] Assigned at Date Recorded Not on file documented as of this encounter Last Filed Vital Signs Not on filedocumented in this encounter Progress Notes Cesar Aguilar DC - 07/24/2019 2:15 PM EST PATIENT: Gurjit Isidro : 1950 DATE OF SERVICE: 07/24/2019 REFERRING PRACTITIONER: Dayo Harkins PRIMARY CARE PROVIDER: Dayo Harkins Chief Complaint Patient presents with ? Neck Pain DOS 07-03-2019, part HISTORY OF PRESENT ILLNESS: Gurjit Isidro is a 68-y.o. male who presents for a follow-up visit. He reports neck pain and upper back pain. Since last office visit symptoms have been gradually improving. Response to previous treatment session: tolerated well Overall, the symptoms have been gradually improving. Additional comments: Residual neck pain Estimated percentage improved: 70% Analog Pain Scale result: 07/15 NDI score: Oswestry score: Home exercise fulfillment: compliance with the home exercises was reported Current Outpatient Medications Medication Sig ? atorvastatin (LIPITOR) 40 MG Oral Tab Take 1 Tab by mouth DAILY. ? azelastine (ASTELIN) 0.1 % Nasal Solution Bellevue 2 Sprays in nose TWICE DAILY. ? Blood Glucose Monitor Software Does not apply Device 1 Each by Does not apply route DIRECTED. Brand: One Touch, Dx: E11.65, test bid and prn ? divalproex (DEPAKOTE ER) 250 MG Oral TABLET SR 24 HR Take 3 Tabs by mouth EVERY BEDTIME. ? DOCQLACE 100 MG Oral Cap TAKE ONE CAPSULE BY MOUTH TWO TIMES DAILY ? finasteride (PROSCAR) 5 MG Oral Tab TAKE ONE TABLET BY MOUTH ONCE DAILY ? glipiZIDE (GLIPIZIDE XL) 2.5 MG Oral TABLET SR 24 HR Take 3 Tabs by mouth DAILY. E11.65 ? Glucose Blood (ONE TOUCH ULTRA TEST STRIPS) In Vitro Strip 1 Each by In Vitro route TWO TIMES DAILY NEEDED (DIABETES). One touch ultra 2. Test bid. Dx: E11,9 ? hydrochlorothiazide (HCTZ, ORETIC) 25 MG Oral Tab Take 1 Tab by mouth DAILY. ? Lancets Does not apply Misc 1 Stick TWICE DAILY. 1. Brand: 2. Dx:250.02 3. non-Insulin dependentNO 4. Test Blood Glucose 2QAM time(s) A DAY ? losartan (COZAAR) 50 MG Oral Tab Take 1 Tab by mouth DAILY. ? lurasidone HCl (LATUDA) 40 MG Oral Tab Take 2 Tabs by mouth DAILY. ? LYRICA 50 MG Oral Cap TAKE ONE CAPSULE BY MOUTH TWO TIMES DAILY MAXIMUM OF TWO CAPSULES DAILY ? ONE TOUCH ULTRA TEST STRIPS In Vitro Strip TEST TWICE A DAY NEEDED ? sitagliptin (JANUVIA) 100 MG Oral Tab Take 1 Tab by mouth DAILY. No current facility-administered medications for this visit. No Known Allergies PHYSICAL EXAMINATION: There were no vitals filed for this visit. There is no height or weight on file to calculate BMI. Regions of muscle spasm: bilateral cervical paraspinal Regions of trigger points: none Regions of tenderness: Cervical paraspinal musculature, thoracic paraspinal musculature Intersegmental Motion Evaluation Spinal joint dysfunction/chiropractic subluxation Acute: Cervical: R-C5/6, L-C5/6, R-C6/7, L-C6/7 Thoracic: R-T1/2, L-T1/2, R-T2/3, L-T2/3 Posture Forward head carriage and rounded shoulder posture noted, and the shoulders are internally rotated. Orthopedics Tests Palpation of the musculature in the cervical spine and sub occipital region was positive for pain and reproduced the patient's complaints neck pain . Cervical compression testing was negative for upper extremity symptoms using compression with combined extension, lateral bending and rotation. Thoracic spine extension reproduced the patient's complaints of cervical thoracic junction pain. IMPRESSION: ICD-9-CM ICD-10-CM 1. Cervical segment dysfunction 739.1 M99.01 2. Cervical strain, initial encounter 847.0 S16.1XXA Response to care: Progressing as anticipated Plan: History, Exam, Report of Findings, Manipulate areas of inter-segmental dysfunction as noted inthe section titled intersegmental motion evaluation above , instruct in exercises for the purpose of neuromuscular reeducation to improve strength and range of motion. Manipulation: Spinal level(s): Spinal joint dysfunction/chiropractic subluxation Acute: Cervical: R-C5/6, L-C5/6, R-C6/7, L-C6/7 Thoracic: R-T1/2, L-T1/2, R-T2/3, L-T2/3 Follow up: Schedule follow-up here in 2 week(s). Author: Cesar Aguilar DC, 07/24/2019, 14:14 documented in this encounter Plan of Treatment Date Type Specialty Care Team Description 10/21/2019 Office Visit Endocrinology Monique Garcia NP [...] 06/20/2019, Additional history exists LIPID DISORDER SCREENING 07/16/2020 07/16/2019, 06/21/2019, 03/26/2019, Additional history exists Colonoscopy 11/30/2026 11/30/2016, [...] my blood sugar results (including dextrose sticks). [facility] is safe and secure way for you [...] filedocumented in this encounter Visit Diagnoses Diagnosis Cervical segment dysfunction Nonallopathic lesion of cervical region, not elsewhere classified Cervical strain, initial encounter documented in this encounter Insurance Payer Benefit Plan / Subscriber ID Effective Dates Phone Address Type Group MEDICARE MEDICARE PART A [id number] Effective for all Medicare & B dates MEDICAID [facility] [id number] 2019-Present Medicaid [place] MEDICA[place] (Home) [facility] [phone] 1 (Work) [place] [address] documented as of this encounter Advance Directives Type Date Recorded 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 ORDERS FOR LIFE-SUSTAINING TREATMENT Code Status Date Activated Date Inactivated Comments DNR/DNI 07/16/2019 1:57 PM Does the patient have decision making capacity? Yes Order was discussed with: Patient I discussed all options and patient/surrogate requested and agreed to: DNR/ DNI
--- OUTSIDE RECORDS SUMMARY | 2019-07-25 17:35 | XMS REPORT ---
:1950 Author Organization [facility] Care Team Providers Name Role Phone Unavailable Unavailable Unavailable Problems Condition Condition Condition Status Onset Resolution Last Treating Comments Name Details Category Date Date Treatment Clinician Date Type 2 Type 2 Diagnosis Active 2018-06 Lesvia diabetes diabetes 2-13 [place] mellitus mellitus RN without without complicatio complicatio ns ns Pain frequent Pain Mgmt Resolve 2018-062019-07-08 [place] pain d 07-24 09:38:00 Haylee 09:05: [id number] 00 Respiratory dyspnea Respirator Resolve 2018-062019-07-08 [place] present y d 07-24 09:38:00 Haylee 09:05: [id number] Endo/Philipp anti-coagul Endo/Philipp Resolve 2018-062019-06-24 [place] ation d 07-24 13:06:00 Haylee therapy 09:05: [id number] 00 Endo/Philipp diabetic Endo/Philipp Resolve 2018-062019-06-24 [place] foot care d 07-24 13:06:00 Haylee 09:05: [id number] 00 Sensory impaired Sensory Active 2018-06 [place] hearing 07-24 [place] 09:05: [id number] Nutrition nutritional Nutrition Resolve 2018-062019-06-24 [place] restriction d 07-24 13:06:00 Haylee s 09:05: [id number] 00 Elimination urinary Eliminatio Resolve 2018-062019-06-24 [place] incontinenc n d 07-24 13:06:00 Haylee e 09:05: [id number] 00 Neuro confusion Neuro/Emot Active 2018-06 [place] present ion 07-24 [place] 09:05: [id number] Neuro anxiety Neuro/Emot Active 2018-06 [place] present ion 07-24 [place] 09:05: [id number] 00 Neuro impaired Neuro/Emot Active 2018-06 [place] decision-ma ion 2-19 [place] sophia 09:05: [id number] 00 Neuro psychiatric Neuro/Emot Active 2018-06 [place] problems ion 07-24 [place] 09:05: [id number] 00 Neuro memory Neuro/Emot Active 2018-06 [place] deficit ion 07-24 [place] needing 09:05: [id number] supervision 00 Activity ADL Activity Active 2018-06 [place] assistance 07-24 [place] required 09:05: [id number] Activity self-care Activity Active 2018-06 [place] deficit 07-24 [place] 09:05: [id number] 00 Safety structural Safety Active 2018-06 [place] barriers 07-24 [place] present 09:05: [id number] Safety knowledge/s Safety Active 2018-06 [place] kill 07-24 [place] deficit: pt 09:05: [id number] 00 Safety fall risk Safety Active 2018-06 [place] factor 07-24 [place] present 09:05: [id number] Safety risk for Safety Active 2018-06 [place] hospitaliza 07-24 [place] tion 09:05: [id number] 00 Medication oral med Meds Active 2018-06 [place] assistance 07-24 [place] required 09:05: [id number] Medication knowledge/s Meds Active 2018-06 [place] kill 07-24 [place] deficit: pt 09:05: [id number] 00 Medication potential Meds Active 2018-06 [place] clinically 07-24 [place] significant 09:05: [id number] medication 00 issue Musculoskel transfer Musculoske Active 2018-06 [place] etal assistance letal 07-24 [place] required 09:05: [id number] 00 Cardio edema Cardiovasc Resolve 2019-2019-07-08 Lesvia ular d - 09:38:00 [place] 13:06: RN 00 Elimination urinary Eliminatio Resolve 2019-2019-07-08 Hannah sommer n d 07-01 09:38:00 [place] e 08:30: [facility] 00 [id number] Safety can be left Safety Active Lesvia [...] (SIG) Name Name azelastine azelastine 2018-06 Yes [facility] Unknown Unknown 0.15 % 0.15 % 07-24 Dayo HAIRSTON (205.5 mcg) (205.5 mcg) nasal spray nasal spray Lotrimin Lotrimin 2018-06 Yes [facility] Unknown Unknown Ultra 1 % Ultra 1 % 07-24 Dayo HAIRSTON topical topical cream cream hydrocortis hydrocortis 2018-06- Yes [facility] Unknown Unknown one 2.5 % one 2.5 % 07-24 Dayo HAIRSTON topical topical cream cream amLODIPine amLODIPine 2018-06- Yes [facility] Unknown Unknown 10 mg 10 mg 07-24 Dayo HAIRSTON tablet tablet Aspirin Low Aspirin Low 2018-06- Yes [facility] Unknown Unknown Dose 81 mg Dose 81 mg 07-24 Dayo HAIRSTON tablet,venice tablet,venice yed release yed release Colace 100 Colace 100 2018-06 Yes [facility] Unknown Unknown mg capsule mg capsule 07-24 Dayo HAIRSTON finasteride finasteride 2018-06 Yes [facility] Unknown Unknown 5 mg tablet 5 mg tablet 07-24 Dayo HAIRSTON glipiZIDE glipiZIDE 2018-06- Yes [facility] Unknown Unknown ER 5 mg ER 5 mg 07-24 Dayo HAIRSTON tablet, tablet, extended extended release 24 release 24 hr hr Januvia 50 Januvia 50 No [facility] 1 tab Unknown mg tablet mg tablet Dayo HAIRSTON Lyrica 50 Lyrica 50 No [facility] 1 cap Unknown mg capsule mg capsule Dayo HAIRSTON simvastatin simvastatin 2018-06- Yes [facility] Unknown Unknown 40 mg 40 mg 07-24 Dayo HAIRSTON tablet tablet Depakote ER Depakote ER No Emani 3 tabs Unknown 500 mg 500 mg ,Maycol tablet,exte tablet,exte nded nded release release Latuda 80 Latuda 80 2018-06 Yes [facility] Unknown Unknown mg tablet mg tablet 07-24 Dayo HAIRSTON latanoprost latanoprost No [place]an Unknown Unknown 0.005 % eye 0.005 % eye O.D.,Alan drops drops w timolol 0.5 timolol 0.5 No [facility] Unknown Unknown % eye drops % eye drops Dayo HAIRSTON Depakote Depakote 2018-06- Yes [facility] Unknown Unknown 250 mg 250 mg 07-24 Dayo HAIRSTON tablet,venice tablet,venice yed release yed release Januvia 100 Januvia 100 2018-06 Yes [facility] Unknown Unknown mg tablet mg tablet 07-24 Dayo HAIRSTON Acetaminoph Acetaminoph 2018-06 Yes [facility] Unknown Unknown en Pain en Pain 07-24 [facility] HAIRSTON Relief 500 Relief 500 mg tablet mg tablet clonazePAM clonazePAM 2018-06- Yes [facility] Unknown Unknown 0.5 mg 0.5 mg 07-24 Dayo HAIRSTON tablet tablet Lyrica 50 Lyrica 50 2018-06 Yes [facility] Unknown Unknown mg capsule mg capsule 08-01 Dayo HAIRSTON clonazePAM clonazePAM Yes [facility] Unknown Unknown 0.5 mg 0.5 mg 06-17 MDMaycol tablet tablet losartan 50 losartan 50 Yes [facility] Unknown Unknown mg tablet mg tablet 06-24 Dayo HAIRSTON hydroCHLORO hydroCHLORO Yes [facility] Unknown Unknown thiazide 25 thiazide 25 06-24 [facility] HAIRSTON mg tablet mg tablet Depakote Depakote Yes [facility] Unknown Unknown 250 mg 250 mg 06-24 Dayo HAIRSTON tablet,venice tablet,venice yed release yed release atorvastati atorvastati 2019- Yes [facility] Unknown Unknown n 20 mg n 20 mg 06-24 ,Dayo tablet tablet glipiZIDE glipiZIDE Yes [facility] Unknown Unknown ER 2.5 mg ER 2.5 mg 07-18 ,Dayo tablet, tablet, extended extended release 24 release 24 hr hr atorvastati atorvastati Yes [facility] Unknown Unknown n 20 mg n 20 [...]
[2019-07-25 17:49] LABS: ABS Eosinophils 0.1 10^3/ul (0-0.6); ABS Lymphocytes 2.3 10^3/ul (1.0-4.8); ABS Monocytes 0.5 10^3/ul (0-0.8); ABS Neutrophils 2.5 10^3/ul (1.5-7.7); Eosinophil % 1.5 %; Hematocrit 31 % (42-52); Hemoglobin 10.4 g/dL (14.0-18.0); Lymphocyte % 42.9 %; Mean Corpuscular HGB Conc 34 g/dL (31-36); Mean Corpuscular Hemoglobin 30 pg (27-31); Mean Corpuscular Volume 90 fL (80-94); Nucleated Red Blood Cells % 0.1; Platelet Count 164 10^3/uL (150-450); Red Blood Count 3.43 10^6 /uL (4.18-5.48); Red Cell Distribution Width 14 % (10-15); White Blood Count 5.5 10^3/uL (3.5-10.8)
[2019-07-25] MEDS ORDERED: Dextrose 50% Syringe 50 ML* 25 GM/50 ML SYRINGE IV PUSH PRN (17:54)
[2019-07-25 18:07] LABS: Albumin 4.2 g/dL (3.2-5.2); Albumin/Globulin Ratio 1.9 (1-3); EGFR African American 66.6 (>60); EGFR Non-African American 55.1 (>60); Globulin 2.2 g/dL (2-4); Potassium 3.8 mmol/L (3.5-5.0); Total Bilirubin 0.3 mg/dL (0.2-1.0); Total Protein 6.4 g/dL (6.4-8.9)
--- NOTE | 2019-07-25 20:26 | HP ---
CC: Dr. Dayo Harkins * HISTORY AND PHYSICAL: DATE OF ADMISSION: 07/25/19 PRIMARY CARE PROVIDER: Dr. Dayo Harkins. ATTENDING PHYSICIAN: Dr. Andres Blackmon.* (DICTATED BY RADHA BRADSHAW NP) CHIEF COMPLAINT: Inability to care for self. HISTORY OF PRESENT ILLNESS: Ms. Isidro is a 68-year-old fxal-ik-zjbrnd transgender who prefers to be called Harriet and prefers female pronoun, who has a past medical history of diabetes, hypertension, schizoaffective disorder, CKD stage 3, hyperlipidemia, and BPH and comes into the emergency room today as she states she is unable to care for herself at home. The patient reports a gradual decline and notes that she has fallen approximately 20 times since . She has been working to secure a room at [facility], but she reports that there is some difficulty as her certificate may be misplaced , but the process has been started. The patient reports that when she falls there is no loss of consciousness. She just reports an unsteady gait and says that this unsteady gait leads to falls. She denies fever, chest pain, edema, shortness of breath, nausea, vomiting, diarrhea, abdominal pain, hematuria, dysuria, or focal deficits. Due to the patient's inability to care for herself , the hospitalist service was asked to evaluate for admission. The patient cannot provide an accurate list of medications, though does note that she was taken off Depakote approximately [address] Harkins. PAST MEDICAL HISTORY: 1. Diabetes mellitus type 2. 2. Schizoaffective disorder. 3. Hypertension. 4. CKD, stage 3. 5. Hyperlipidemia. 6. BPH. PAST SURGICAL HISTORY: 1. Left eye strabismus correction in childhood. HOME MEDICATIONS: 1. Aspirin 81 mg p.o. daily. 2. Atorvastatin 40 mg p.o. daily. 3. Astepro 2 sprays both nares b.i.d. 4. Klonopin 0.5 mg p.o. at bedtime. 5. Clotrimazole 1 application topically b.i.d. 6. Docusate 100 mg p.o. b.i.d. 7. Finasteride 5 mg p.o. daily. 8. Glipizide 5 mg p.o. daily. 9. Hydrochlorothiazide 25 mg p.o. daily. 10. Hydrocortisone 2.5% one application topically b.i.d. p.r.n. rash. 11. Losartan 50 mg p.o. daily. 12. Latuda 80 mg p.o. daily. 13. Lyrica 50 mg p.o. b.i.d. 14. Sitagliptin 100 mg p.o. daily. ALLERGIES: No known drug allergies. FAMILY HISTORY: The patient's mother had a history of diabetes and coronary artery disease. Father had a history of melanoma. SOCIAL HISTORY: The patient denies any tobacco, alcohol, or recreational drug use. She lives at home alone. Her sister, Rubi Pope, will be her surrogate decision maker in the event she is unable to make her own decisions. REVIEW OF SYSTEMS: An 11-point review of systems was performed and all the pertinent positive and negative findings are in the HPI. All other systems are negative. PHYSICAL EXAMINATION GENERAL: Ms. Isidro is a well-developed, well-nourished male to female, lying in bed, in no acute distress. She appears her stated age. VITAL SIGNS: Temp 97.7, heart rate 78, respiratory rate 16, oxygen saturation 98% on room air, blood pressure 126/85. HEENT: Head is atraumatic, normocephalic. Visual turcios are grossly intact. Extraocular movements intact. Oral mucous membranes moist. NECK: Thyroid not palpable. No lymphadenopathy. RESPIRATORY: Symmetrical chest expansion. Lungs clear to auscultation throughout. No rhonchi, wheezes, or rubs. CARDIOVASCULAR: Regular rate and rhythm. S1, S2 present. No murmurs, rubs, or gallops. No JVD. ABDOMEN: Soft, nontender to palpation. Bowel sounds normoactive throughout. EXTREMITIES: Skin dry and flaking to bilateral lower extremities with mild nonpitting edema bilaterally. NEURO: Awake, alert, and oriented x4. No focal neurological deficits. SKIN: There are multiple abrasions to the left anterior vasques. Skin otherwise appears intact to my observation. DIAGNOSTIC STUDIES/LAB DATA: WBC 5.5, RBC 3.43, hemoglobin 10.4, hematocrit 31 , platelets 164. CMP pending. Chest x-ray pending official read, though to my read shows no active cardiopulmonary disease. ASSESSMENT AND PLAN: Ms. Isidro is a 68-year-old male to female transgender individual with past medical history of diabetes, hypertension, schizoaffective disorder, chronic kidney disease, and hyperlipidemia, who presents to the emergency room today as she is unable to care for herself at home. The patient will be admitted retirement for: 1. Inability to care for herself. The patient does live home alone and has shown a gradual decline and inability to care for herself over the last few months. She does have a pending application to [employer], though it sounds as though there is some obstacle such as they lost certificate. I have placed a social work consult and Social Work is already aware of this admission. I do not think that the patient's falls are necessarily concerning at this point. I think it is likely secondary to deconditioning and she would benefit from a physical therapy evaluation, which I have ordered. 2. Diabetes. There is no blood glucose data at this time, so pending those results I will make further changes to medications, but at this time I will continue home glipizide and Januvia and I have ordered sliding scale lispro. 3. Schizoaffective disorder. The patient was taken off Depakote approximately 1 week ago. I will continue clonazepam and Latuda. 4. Hypertension. The patient is normotensive at this time. Continue hydrochlorothiazide and losartan. 5. Chronic kidney disease, stage 3. Creatinine is pending at this time, though there are no obvious acute concerns. 6. Benign prostatic hypertrophy. Continue finasteride. 7. Hyperlipidemia. Continue atorvastatin. 8. DVT prophylaxis: According to the DVT Risk Assessment, the patient scores a 2, putting her at moderate risk. I have ordered Lovenox. 9. Code status: The patient will be a full code. This case has been reviewed with my attending, Dr. Blackmon, who is in agreement with the plan of care. TIME SPENT: Approximately 50 minutes was spent on this admission, greater than half of that time spent [id number] with the patient obtaining my history, performing my physical exam, and reviewing the plan of care. RADHA BRADSHAW, BRAZING MACHINE OPERATOR HELPER [id number]/[facility] #: [id number] [place]
[2019-07-25] MEDS: Enoxaparin(*) 30 MG/0.3 ML SYR SUBCUT SCH (21:26)
[2019-07-25] MEDS: Pregabalin 50 mg CAP (*) PO SCH (21:26)
[2019-07-25] MEDS: Docusate CAP* 100 MG PO SCH ×2 (21:26→21:28)
[2019-07-25] MEDS: clonazePAM TAB(*) 0.5 MG PO SCH (21:26)
[2019-07-25] MEDS: Clotrimazole 1% CREAM* 30 GM TOPICAL SCH (21:27)
[2019-07-26] MEDS ORDERED: Acetaminophen TAB* 325 MG PO PRN (07:28)
[2019-07-26] MEDS: Insulin LISPRO* 1 UNITS UNIT SUBCUT SCH ×3 (08:48→16:59)
[2019-07-26] MEDS: Docusate CAP* 100 MG PO SCH ×2 (08:50→19:41)
[2019-07-26] MEDS: Atorvastatin* 40 MG TAB PO SCH (08:50)
[2019-07-26] MEDS: glipiZIDE TAB.XL* 5 MG PO SCH (08:50)
[2019-07-26] MEDS: Aspirin EC TAB* 81 MG TAB.EC PO SCH (08:50)
[2019-07-26] MEDS: Finasteride TAB* 5 MG PO SCH (08:51)
[2019-07-26] MEDS: CMCS:SitaGLIPtin (NF) 100 MG TAB PO SCH (08:51)
[2019-07-26] MEDS: Lurasidone(*) 80 MG TAB PO SCH (08:51)
[2019-07-26] MEDS: Clotrimazole 1% CREAM* 30 GM TOPICAL SCH ×2 (08:52→19:43)
[2019-07-26] MEDS: Pregabalin 50 mg CAP (*) PO SCH ×2 (08:52→19:41)
[2019-07-26] MEDS ORDERED: Losartan TAB* 25 MG PO SCH (09:00)
[2019-07-26] MEDS ORDERED: Hydrochlorothiazide TAB* 25 MG PO SCH (09:00)
[2019-07-26] MEDS ORDERED: NS 0.9% 1000 ML** 1,000 ML IV ONE (11:04)
--- NOTE | 2019-07-26 13:13 | PN ---
Hospitalist Progress Note Date of Service: 07/26/19 Nursing called this morning re hypotension, SBP 70s confirmed manually. Patient reported dizziness and fatigue at that time. Not hypoglycemic. Ordered NS blous x1L. BP now WNL. Losartan and HCTZ discontinued.
[2019-07-26] MEDS: Enoxaparin(*) 30 MG/0.3 ML SYR SUBCUT SCH (17:29)
[2019-07-26] MEDS: clonazePAM TAB(*) 0.5 MG PO SCH (19:42)
[2019-07-27] MEDS: Docusate CAP* 100 MG PO SCH ×2 (08:43→21:44)
[2019-07-27] MEDS: Atorvastatin* 40 MG TAB PO SCH (08:43)
[2019-07-27] MEDS: Pregabalin 50 mg CAP (*) PO SCH ×2 (08:43→21:43)
[2019-07-27] MEDS: CMCS:SitaGLIPtin (NF) 100 MG TAB PO SCH (08:43)
[2019-07-27] MEDS: Clotrimazole 1% CREAM* 30 GM TOPICAL SCH ×2 (08:43→21:44)
[2019-07-27] MEDS: Finasteride TAB* 5 MG PO SCH (08:43)
[2019-07-27] MEDS: glipiZIDE TAB.XL* 5 MG PO SCH (08:43)
[2019-07-27] MEDS: Lurasidone(*) 80 MG TAB PO SCH (08:43)
[2019-07-27] MEDS: Aspirin EC TAB* 81 MG TAB.EC PO SCH (08:44)
[2019-07-27] MEDS: Insulin LISPRO* 1 UNITS UNIT SUBCUT SCH ×3 (08:44→17:43)
[2019-07-27] MEDS: Enoxaparin(*) 30 MG/0.3 ML SYR SUBCUT SCH (17:44)
[2019-07-27] MEDS ORDERED: Ondansetron INJ* 2 MG/ML VIAL IV PRN (21:09)
[2019-07-27] MEDS: clonazePAM TAB(*) 0.5 MG PO SCH (21:43)
[2019-07-28] MEDS: Atorvastatin* 40 MG TAB PO SCH (08:55)
[2019-07-28] MEDS: Docusate CAP* 100 MG PO SCH ×2 (08:55→21:19)
[2019-07-28] MEDS: CMCS:SitaGLIPtin (NF) 100 MG TAB PO SCH (08:55)
[2019-07-28] MEDS: Pregabalin 50 mg CAP (*) PO SCH ×2 (08:55→21:19)
[2019-07-28] MEDS: Finasteride TAB* 5 MG PO SCH (08:55)
[2019-07-28] MEDS: Insulin LISPRO* 1 UNITS UNIT SUBCUT SCH ×3 (08:56→17:39)
[2019-07-28] MEDS: glipiZIDE TAB.XL* 5 MG PO SCH (08:56)
[2019-07-28] MEDS: Aspirin EC TAB* 81 MG TAB.EC PO SCH (08:56)
[2019-07-28] MEDS: Lurasidone(*) 80 MG TAB PO SCH (08:56)
[2019-07-28] MEDS: Clotrimazole 1% CREAM* 30 GM TOPICAL SCH ×2 (09:47→21:19)
[2019-07-28] MEDS: Enoxaparin(*) 30 MG/0.3 ML SYR SUBCUT SCH (17:38)
[2019-07-28] MEDS: clonazePAM TAB(*) 0.5 MG PO SCH (21:18)
[2019-07-28] MEDS ORDERED: Senna TAB 8.6 mg* TAB PO PRN (23:30)
[2019-07-29 00:48] LABS: Urine Appearance Clear; Urine Bilirubin Negative (Negative); Urine Blood Negative (Negative); Urine Color Colorless; Urine Glucose Negative (Negative); Urine Ketones Negative (Negative); Urine Nitrite Negative (Negative); Urine Protein Negative (Negative); Urine Specific Gravity 1.004 (1.010-1.030); Urine Urobilinogen Negative (Negative)
[2019-07-29 02:02] LABS: Albumin 4.2 g/dL (3.2-5.2); Albumin/Globulin Ratio 1.8 (1-3); BUN/Creatinine Ratio 25.9 (8-20); Calcium 9.6 mg/dL (8.6-10.3); EGFR African American 52.7 (>60); EGFR Non-African American 43.6 (>60); Globulin 2.3 g/dL (2-4); Potassium 4.9 mmol/L (3.5-5.0); Total Bilirubin 0.2 mg/dL (0.2-1.0); Total Protein 6.5 g/dL (6.4-8.9)
[2019-07-29 02:22] LABS: ABS Eosinophils 0.1 10^3/ul (0-0.6); ABS Lymphocytes 2.1 10^3/ul (1.0-4.8); ABS Monocytes 0.6 10^3/ul (0-0.8); ABS Neutrophils 3.5 10^3/ul (1.5-7.7); Eosinophil % 1.5 %; Hematocrit 32 % (42-52); Hemoglobin 10.6 g/dL (14.0-18.0); Lymphocyte % 33.3 %; Mean Corpuscular HGB Conc 33 g/dL (31-36); Mean Corpuscular Hemoglobin 30 pg (27-31); Mean Corpuscular Volume 90 fL (80-94); Mean Platelet Volume 9.6 fL (7.4-10.4); Nucleated Red Blood Cells % 0.1; Platelet Count 158 10^3/uL (150-450); Red Blood Count 3.55 10^6 /uL (4.18-5.48); Red Cell Distribution Width 14 % (10-15); White Blood Count 6.3 10^3/uL (3.5-10.8)
[2019-07-29] MEDS ORDERED: Magnesium Hydroxide LIQ* 30 ML UDC PO PRN (07:51)
[2019-07-29] MEDS: Insulin LISPRO* 1 UNITS UNIT SUBCUT SCH ×2 (08:27→12:14)
[2019-07-29] MEDS: Atorvastatin* 40 MG TAB PO SCH (08:28)
[2019-07-29] MEDS: Pregabalin 50 mg CAP (*) PO SCH (08:28)
[2019-07-29] MEDS: Finasteride TAB* 5 MG PO SCH (08:28)
[2019-07-29] MEDS: Aspirin EC TAB* 81 MG TAB.EC PO SCH (08:28)
[2019-07-29] MEDS: glipiZIDE TAB.XL* 5 MG PO SCH (08:28)
[2019-07-29] MEDS: Docusate CAP* 100 MG PO SCH (08:29)
[2019-07-29] MEDS: Clotrimazole 1% CREAM* 30 GM TOPICAL SCH (08:30)
[2019-07-29] MEDS: Lurasidone(*) 80 MG TAB PO SCH (08:39)
[2019-07-29] MEDS: CMCS:SitaGLIPtin (NF) 100 MG TAB PO SCH (08:39)
[2019-07-29] MEDS ORDERED: Influenza VAC *QUAD* 2019-20* 0.5 ML SYRINGE IM ONE (09:00)
[2019-07-29] MEDS ORDERED: Pneumococcal *Vac Polyvalent 0.5 ML VIAL IM ONE (09:00)
[2019-07-29] MEDS ORDERED: Polyethylene Glycol 3350* 17 GM PACKET PO SCH (09:00)
--- NOTE | 2019-07-29 11:06 | DS ---
CC: Dr. Dayo Harkins * DATE OF ADMISSION: 07/25/2019. DATE OF DISCHARGE: 07/29/2019. PRIMARY CARE PHYSICIAN: Dr. Dayo Harkins. ATTENDING PHYSICIAN: Dr. Mane Mahoney * (dictated by Aracely Canseco NP). PRIMARY DIAGNOSIS: Inability to care for self. SECONDARY DIAGNOSES: 1. Diabetes mellitus type 2. 2. Schizoaffective disorder. 3. Hypertension. 4. Chronic kidney disease, stage 3. 5. BPH. 6. Hyperlipidemia. STUDIES WHILE IN THE HOSPITAL: 1. Chest x-ray on 07/25/2019, reads as: No acute cardiopulmonary process by radiograph. 2. Abdomen/pelvis CT on , reads as: There is mild gastric distention with food material and gas which may reflect recent ingestion. Gastric atony or relative outlet obstruction are not excluded. Moderate stool throughout much of the colon. Otherwise negative CT abdomen/pelvis. HISTORY OF PRESENT ILLNESS/HOSPITAL COURSE: Ms. Isidro is a 68-year-old male to female transgender who prefers to be called Harriet and prefers female pronouns with a past medical history of diabetes, hypertension, psycho-affective disorders, CKD, and hyperlipidemia who presented to the emergency room on 2019 with complaints that she is unable to care for herself at home. Please see the history and physical by myself for a complete summary of the events leading to this hospital. In short, the patient has been gradually declining at home where she lives alone and had many falls in the last few months due to unsteady gait. She had started an application process to [employer], but that application process was pending and the patient decided that she was unable to care for herself any longer at home, so she presented to the emergency room. There were no acute findings at that time and she was admitted [facility] care. Social Work was consulted to assist with placement for the patient. Physical Therapy was consulted and at that point they recommended subacute rehab. The patient was agreeable to this. The patient did have an episode of hypotension the day after admission on 07/26/2019 at which point blood pressure got as low as 68/46. This resolved with a one liter fluid bolus. Antihypertensives were discontinued at that time and there has been no further hypotension. Overnight last night, the patient did complain of abdominal pain and had an abdomen/ pelvis CT as noted above. The patient has since had a bowel movement and the pain has resolved, although this pain appears to be simply due to constipation. The patient has been offered a subacute rehab bed at [facility] and has been accepted. PHYSICAL EXAMINATION: On exam, she is alert and oriented times four. Affect is flattened. She is slow to respond. There are no focal neurological deficits. The heart is a regular rate and rhythm with no murmurs, rubs, or gallops. Lungs are clear auscultation without rhonchi, wheezes, or rubs. There is no edema. Abdomen is soft and nontender to palpation. Bowel sounds are normoactive. Physical exam is otherwise benign. Ms. Isidro is stable for discharge. Most recent vitals are as follows: Temperature 97.8, heart rate 85, respiratory rate 18, oxygen saturation 99 percent on room air, blood pressure 108/68. DISCHARGE MEDICATIONS: New: 1. MiraLax 17 gm p.o. daily. 2. Senna two tabs p.o. at bedtime prn constipation. Continued: 1. Aspirin 81 mg p.o. daily. 2. Atorvastatin 40 mg p.o. daily. 3. Clonazepam 0.5 mg p.o. at bedtime. 4. Clotrimazole 1% one application topically b.i.d. 5. Docusate 100 mg p.o. b.i.d. 6. Finasteride 5 mg p.o. daily. 7. Glipizide 5 mg p.o. daily. 8. Latuda 80 mg p.o. daily. 9. Lyrica 50 mg p.o. b.i.d. 10. Januvia 100 mg p.o. daily. 11. Astepro 0.1% two sprays both nares b.i.d. 12. Hydrocortisone 2.5% one application topically b.i.d. prn rash. Discontinued: 1. Losartan. 2. Hydrochlorothiazide. DISCHARGE PLAN: Ms. Isidro will be discharged to subacute rehab. Medications are noted above. I have added a bowel regimen as the patient does appear to be prone to constipation. She can otherwise continue her usual medications, except for Losartan and Hydrochlorothiazide which again have been discontinued due to hypotension here in the hospital. At this point, blood pressure is normotensive without any medication, so I would continue to hold these unless she again becomes hypertensive. The patient will need to follow-up with a provider upon arrival to the rehab facility and can follow-up with her PCP after discharge, at which point she will likely move to [facility]. ACTIVITY: As tolerated. DIET: Consistent carb. She should return to the emergency room or nearest hospital for any worsening of symptoms, shortness of breath, lightheadedness, dizziness, chest discomfort, high fevers, chills, night sweats, loss of consciousness or any other worrisome signs or symptoms. CONDITION ON DISCHARGE: Stable. DISCHARGE DISPOSITION: [facility] facility, [facility]. This is a summarized report of a complex medical history and hospital stay. For further details, please see the entire medical record. TIME SPENT: Approximately 40 minutes were spent on this discharge. ARACELY CANSECO NP [id number]/CPS #: [id number] BULMARO
[2019-07-29 11:07] VITALS: BP 141/88
== END 2019-07-29 15:50 | DRG 639 ==
LOC: ED 16:14 → MED 17:52
PROVIDERS: ADMIT Internal Medicine; ATTEND Internal Medicine
DX: E11.9 Type 2 diabetes mellitus without complications (principal); F25.9 Schizoaffective disorder, unspecified; Z74.1 Need for assistance with personal care; E11.22 Type 2 diabetes mellitus with diabetic chronic kidney disease; Z75.1 Person awaiting admission to adequate facility elsewhere; I12.9 Hypertensive chronic kidney disease with stage 1 through stage 4 chronic kidney disease, or unspecified chronic kidney disease; N18.3 Chronic kidney disease, stage 3 (moderate); N40.0 Benign prostatic hyperplasia without lower urinary tract symptoms; E78.5 Hyperlipidemia, unspecified; K59.00 Constipation, unspecified; I95.9 Hypotension, unspecified
CPT/HCPCS: 36415; 71046; 74176; 80053; 81003; 82150; 83036; 83690; 85025; 90732; 99284; A9270-GY; J1650; J2405

== ENCOUNTER 2019-08-31 16:11 | Inpatient (IN) | payer MEDICARE, MEDICAID ==
--- NOTE | 2019-08-31 16:19 | ED ---
Neurological HPI - HPI Summary HPI Summary: Patient is a 68 y/o M presenting to [facility] via EMS from [facility] for evaluation of fall and reported new-onset seizure. EMS reports that another resident of the facility had observed the patient fall and start shaking on the ground. Staff was called, who observed the patient have a grand-mal seizure. The seizure lasted a minute from the time that staff arrived. A subsequent two minute post-ictal phase was observed. No Hx of seizures is reported. The patient had stated that he had felt dizzy and then fell. The next memory he has is awakening on the floor. EMS state that the patient was alert and oriented x3. Some delusions noted, but as the patient has Hx of schizophrenia, this is reported to be the patient's mental baseline. Patient is not on blood thinners. He states that he has a COHEN currently but notes Hx of migraines and states that his current presentation feels similar to previous migraines. Some neck pain noted. No nausea, fever noted. EMS note abrasions to the back of the patient's head. Systolic BP of 160 reported by EMS. EMS state patient was NSR. Home medications and allergies are reviewed. - History of Current Complaint Stated Complaint: FALL PER EMS Hx Obtained From: Patient, EMS Timing: Intermittent Episodes Lasting: Neurological Deficit Location: Generalized Pain Scale Used: 0-10 Numeric Character: Other: - seizure Frequency: Episodes x___ - 1 Seizure Character: Total-Clonic - grand mal Associated Signs and Symptoms: Positive: Headache, Dizziness - before fall, Seizure. Negative: Nausea/Vomiting, Fever - Allergy/Home Medications Allergies/Adverse Reactions: Allergies Allergy/AdvReac Type Severity Reaction Status Date / Time No Known Allergies Allergy Verified 07/25/19 16:27 Home Medications: Home Medications Aspirin EC TAB* [Ecotrin EC Low Dose 81 MG*] 81 mg PO QAM 11/30/12 [History Confirmed 08/31/19] glipiZIDE TAB* [Glucotrol TAB*] 5 mg PO DAILY 11/30/12 [History Confirmed ] Docusate CAP* [Colace Cap*] 100 mg PO BID 03/13/14 [History Confirmed 08/31/19] Lurasidone(*) [Latuda] 80 mg PO DAILY 03/13/14 [History Confirmed 08/31/19] Finasteride [Proscar] 5 mg PO QAM 11/04/16 [History Confirmed 08/31/19] Azelastine 0.1% Nasal (NF) [Astepro 0.1% Nasal (NF)] 2 spray BOTH NARES BID 05/23 [History Confirmed 08/31/19] Pregabalin 50 mg CAP (*) [Lyrica 50 mg CAP (*)] 50 mg PO BID 07/05/19 [History Confirmed 08/31/19] clonazePAM TAB(*) [Klonopin TAB(*)] 0.5 mg PO BEDTIME 07/05/19 [History Confirmed 08/31/19] Atorvastatin* [Lipitor 40 MG*] 40 mg PO DAILY 07/25/19 [History Confirmed ] Polyethylene Glycol 3350* [Miralax (17 GM DOSE JOSE)] 17 gm PO DAILY packet [Rx Confirmed 08/31/19] Senna TAB 8.6 mg* [Senokot 8.6 mg TAB*] 2 tab PO BEDTIME PRN tab 07/29/19 [Rx Confirmed 08/31/19] Acetaminophen TAB* [Tylenol TAB*] 650 mg PO Q6H PRN 08/31/19 [History Confirmed 08/31/19] metFORMIN* [Glucophage 500 MG TAB *] 500 mg PO BID 08/31/19 [History Confirmed 08/31/19] PMH/Surg Hx/FS Hx/Imm Hx Endocrine/Hematology History: Reports: Hx Anticoagulant Therapy - aspirin 81mg, Hx Diabetes - DX 1999 TYPE 2 Denies: Hx Thyroid Disease Cardiovascular History: Reports: Hx Hypotension - HX OF X 1, Hx Hypertension Denies: Hx Congestive Heart Failure, Hx Pacemaker/ICD Respiratory History: Reports: Hx Pulmonary Edema - RLL Denies: Hx Asthma, Hx Chronic Obstructive Pulmonary Disease (COPD) GI History: Denies: Hx Ulcer History: Reports: Hx Chronic Renal Failure Denies: Hx Dialysis, Hx Renal Disease Musculoskeletal History: Denies: Hx Back Problems, Other Musculoskeletal History Sensory History: Reports: Hx Cataracts, Hx Contacts or Glasses - GLASSES, Hx Glaucoma Denies: Hx Hearing Aid Opthamlomology History: Reports: Hx Cataracts, Hx Contacts or Glasses - GLASSES , Hx Glaucoma Neurological History: Reports: Other Neuro Impairments/Disorders - SCHIZO AFFECTIVE DISORDER Denies: Hx Dementia, Hx Seizures Psychiatric History: Reports: Hx Anxiety, Hx Depression, Hx Schizophrenia, Hx Bipolar Disorder, Other Psychiatric Issues/Disorders - HX EXTRAPYRADAL S/S AFTER TAKING GEODON Denies: Hx Substance Abuse - Surgical History Surgery Procedure, Year, and Place: LEFT EYE SURGERY- [facility] 1967 [facility] Hx Anesthesia Reactions: Yes - N/V - Immunization History Date of Influenza Vaccine: 2006 Infectious Disease History: Denies: Hx Clostridium Difficile, Hx Hepatitis, Hx Human Immunodeficiency Virus (HIV), Hx Shingles, Hx Tuberculosis - Family History Known Family History: Negative: Cardiac Disease, Hypertension - Social History Alcohol Use: None Hx Substance Use: No Substance Use Type: Reports: None Hx Tobacco Use: No Smoking Status (MU): Never Smoked Tobacco Have You Smoked in the Last Year: No Review of Systems Negative: Fever Negative: Nausea Musculoskeletal: Other - fall, neck pain, abrasions to back of head Neurological/Mental Status: Other - seizure Positive: Headache All Other Systems Reviewed And Are Negative: Yes Physical Exam - Summary Physical Exam Summary: VITAL SIGNS: Reviewed. GENERAL: Patient is a well-developed and nourished male who is lying comfortable in the stretcher. Patient is not in any acute respiratory distress. HEAD AND FACE: No signs of trauma. No ecchymosis, hematomas or skull depressions. No sinus tenderness. EYES: PERRLA, EOMI x 2, No injected conjunctiva, no nystagmus. EARS: Hearing grossly intact. Ear canals and tympanic membranes are within normal limits. MOUTH: Oropharynx within normal limits. NECK: Tenderness of the c-spine, small abrasion to the right side of the neck. Supple, trachea is midline, no adenopathy, no JVD, no carotid bruit, neck with full ROM. CHEST: Symmetric, no tenderness at palpation. LUNGS: Clear to auscultation bilaterally. No wheezing or crackles. CVS: Regular rate and rhythm, S1 and S2 present, no murmurs or gallops appreciated. ABDOMEN: Soft, non-tender. No signs of distention. No rebound, no guarding, and no masses palpated. Bowel sounds are normal. EXTREMITIES: FROM in all major joints, no edema, no cyanosis or clubbing. NEURO: Alert and oriented x 3. No acute neurological deficits. Speech is normal and follows commands. GCS 15. SKIN: Dry and warm. Triage Information Reviewed: Yes Vital Signs On Initial Exam: Initial Vital Signs Temp 97.2 F 08/31/19 16:14 Pulse 95 08/31/19 16:14 Resp 14 08/31/19 16:14 BP 146/92 08/31/19 16:14 Pulse Ox 97 08/31/19 16:14 Vital Signs Reviewed: Yes - Wolsey Coma Scale Best Eye Response: 4 - Spontaneous Best Motor Response: 6 - Obeys Commands Best Verbal Response: 5 - Oriented Coma Scale Total: 15 Procedures - Sedation Patient Received Moderate/Deep Sedation with Procedure: No Diagnostics - Laboratory Result Diagrams: 08/31/19 16:28 08/31/19 16:28 Lab Statement: Any lab studies that have been ordered have been reviewed, and results considered in the medical decision making process. - Radiology CXR Radiology Interpretation Completed By: ED Physician Summary of Radiographic Findings: No acute process, pending official report. - CT CERVICAL SPINE CT CT Interpretation Completed By: Radiologist Summary of CT Findings: CERVICAL SPINE CT IMPRESSION: No fracture of the cervical spine is noted. Degenerative disc disease at C3-C4, C4-C5, C5-C6 and C6-C7. THIS REPORT WAS REVIEWED BY ED PHYSICIAN. BRAIN CT CT Interpretation Completed By: Radiologist Summary of CT Findings: BRAIN CT IMPRESSION: No evidence of intracranial mass or hemorrhage is noted. THIS REPORT WAS REVIEWED BY ED PHYSICIAN. - EKG 1639 Cardiac Rate: NL - rate of 91 BPM EKG Rhythm: Sinus Rhythm Summary of EKG Findings: EKG showed sinus rhythm with rate of 91 BPM, Q-waves in leads II, III, and aVF noted. ED physician has reviewed and interpreted this EKG. 1834 Cardiac Rate: Tachycardia - rate of 101 BPM EKG Rhythm: Sinus Tachycardia Ectopy: PVCs Summary of EKG Findings: EKG showed sinus tachycardia 101 BPM, occasional PVCs, no ST elevations. ED physician has reviewed and interpreted this EKG. Re-Evaluation - Re-Evaluation First Eval Re-Evaluation Time: 18:23 Change: Worse Comment: Patient observed to have a tonic-clonic seizure for 45 seconds while in ED. 2 mg Ativan IV administered. Patient is DNI/DNR. Second Eval Re-Evaluation Time: 18:45 Comment: [facility] was reached, report given. Third Eval Re-Evaluation Time: 19:20 Comment: While administering Phenytoin, patient's systolic BP dropped below 90. Per hospital protocol, Phenytoin administeration was discontinued by nurse. Fluids to be administered. Course/Dx - Course Assessment/Plan: Patient is a 68 y/o M presenting to [facility] via EMS from [facility] for evaluation of fall and reported new-onset seizure. EMS reports that another resident of the facility had observed the patient fall and start shaking on the ground. Staff was called, who observed the patient have a grand- mal seizure. The seizure lasted a minute from the time that staff arrived. A subsequent two minute post-ictal phase was observed. No Hx of seizures is reported. The patient had stated that he had felt dizzy and then fell. The next memory he has is awakening on the floor. EMS state that the patient was alert and oriented x3. Some delusions noted, but as the patient has Hx of schizophrenia, this is reported to be the patient's mental baseline. Patient is not on blood thinners. He states that he has a COHEN currently but notes Hx of migraines and states that his current presentation feels similar to previous migraines. Some neck pain noted. No nausea, fever noted. EMS note abrasions to the back of the patient's head. Systolic BP of 160 reported by EMS. EMS state patient was NSR. Home medications and allergies are reviewed. Past medical history significant for diabetes, schizophrenia, constipation, dyslipidemia. In the ED course the patient was placed in a advertising sales associate, IV access was obtained, IV fluids started. Past medical records reviewed. Blood test w/o a significant abnormality except for slight anemia with a hemoglobin of 10.6, hematocrit 32, sodium is 126, chloride 91, BUN is 26, creatinine 1.3, glucose 171, lactic acid is 4.4, magnesium 1.6, for which the patient was given 2 g of magnesium IV. Urinalysis is negative for UTI. C-spine CT IMPRESSION: No fracture of the cervical spine is noted. Degenerative disc disease at C3-C4, C4 -C5, C5-C6 and C6-C7. Head CT IMPRESSION: No evidence of intracranial mass or hemorrhage is noted. Discussed the case with Dr. Kaur from neurology and he recommended to give Depakote 500 mg by mouth and discharge him back to the [facility] and the patient will be followed was an outpatient. However, the patient developed a tonic-clonic seizure in the ED which lasted for about 45 seconds, and the patient became hypoxic. Patient was given supplemental oxygen via facemask and now the O2 sat is 100%. Now the patient is a nasal cannula 2 L of oxygen. The patient now has normal vital signs. Repeat EKG shows the same as the first one normal symptoms rhythm with no ST elevation. I discussed again with Dr. Kaur from neurology and he recommends for the patient to be transferred to a higher level of care for continuous EEG monitoring. I discussed the case with Dr. Townsend neurologist from [facility] and she reports that at this time because of the COVID-19 emergency she is unable to accept this patient since there are no beds at her establishment. Therefore I discuss my physical exam and findings with and Dr. Kaur again and he recommends for the patient to be admitted to [facility] to the hospital services. He will consult for this patient. I discussed the case with Dr. Cevallos pending he accepted the patient for admission. Patient is hemodynamically stable. - Diagnoses Provider Diagnoses: Seizure, Hyponatremia, Hypomagnesemia - Physician Notifications Discussed Care Of Patient With: Gurjit Kaur Time Discussed With Above Provider: 18:12 Instructed by Provider To: Other - Patient's case was discussed with Dr. Kaur , Dr. Kaur recommends Depakote 500 mg and discharge to home with Depakote prescription. Patient to follow up with Dr. Kaur. 1831 - Seizure episode in ED was discussed with Dr. Kaur, he recommends transfer for continuous EEG and phenytoin administration. 1941 - Patient's case was discussed with Dr. Townsend from [facility]. Dr. Townsend declines transfer, notes that transferring this type of patient will be difficult at this time due to COVID- 19. 2003 - Patient's case was discussed with Dr. Kaur, Dr. Kaur advises talking to the hospitalist for admission. 2014 - Patient's case was discussed with Dr. Cevallos, Dr. Cevallos agrees to accept for admission. Discharge ED - Sign-Out/Discharge Documenting (check all that apply): Patient Departure - admit - Discharge Plan Condition: Stable Disposition: ADMITTED TO [facility] Referrals: Dayo Harkins MD [Primary Care Provider] - - Billing Disposition and Condition Condition: STABLE Disposition: Admitted to [facility] - Attestation Statements Document Initiated by Scribe: Yes Documenting Scribe: SAM VALERO Provider For Whom Tamieibmirna is Documenting (Include Credential): MIGUEL SU MD Scribe Attestation: SAM Fisher, scribed for MIGUEL SU MD on 08/31/19 at 2125. Scribe Documentation Reviewed: Yes Provider Attestation: The documentation as recorded by the SAM hess accurately reflects the service I personally performed and the decisions made by fl, MIGUEL SU MD Status of Scribe Document: Viewed
[2019-08-31 16:37] LABS: ABS Eosinophils 0.1 10^3/ul (0-0.6); ABS Monocytes 0.5 10^3/ul (0-0.8); ABS Neutrophils 4.5 10^3/ul (1.5-7.7); Eosinophil % 1.1 %; Hematocrit 32 % (42-52); Hemoglobin 10.6 g/dL (14.0-18.0); Lymphocyte % 16.5 %; Mean Corpuscular HGB Conc 34 g/dL (31-36); Mean Corpuscular Hemoglobin 30 pg (27-31); Mean Corpuscular Volume 88 fL (80-94); Mean Platelet Volume 7.9 fL (7.4-10.4); Platelet Count 231 10^3/uL (150-450); Red Blood Count 3.61 10^6 /uL (4.18-5.48); Red Cell Distribution Width 13 % (10-15); White Blood Count 6.2 10^3/uL (3.5-10.8)
[2019-08-31 16:49] LABS: INR 0.96 (0.82-1.09)
[2019-08-31 16:54] LABS: Albumin/Globulin Ratio 1.6 (1-3); BUN/Creatinine Ratio 18.7 (8-20); Calcium 9.6 mg/dL (8.6-10.3); EGFR African American 61.1 (>60); EGFR Non-African American 50.5 (>60); Globulin 2.5 g/dL (2-4); Magnesium 1.6 mg/dL (1.9-2.7); Potassium 4.2 mmol/L (3.5-5.0); Total Bilirubin 0.4 mg/dL (0.2-1.0); Total Protein 6.5 g/dL (6.4-8.9)
[2019-08-31] MEDS ORDERED: NS 0.9% 1000 ML** 1,000 ML IV ONE (17:05)
[2019-08-31 17:16] LABS: Urine Appearance Clear; Urine Bilirubin Negative (Negative); Urine Blood Negative (Negative); Urine Color Straw; Urine Glucose Negative (Negative); Urine Ketones Negative (Negative); Urine Nitrite Negative (Negative); Urine Protein Negative (Negative); Urine Specific Gravity 1.009 (1.010-1.030); Urine Urobilinogen Negative (Negative)
[2019-08-31 17:32] LABS: TSH (Thyroid Stimulating Horm) 4.41 mcIU/mL (0.34-5.60)
[2019-08-31] MEDS ORDERED: Magnesium Sulfate 1 GM IV* 1 GM/100 ML BAG IV ONE ×2 (18:14→23:55)
[2019-08-31] MEDS ORDERED: Divalproex ER TAB(*) 500 MG PO ONE (18:16)
[2019-08-31] MEDS ORDERED: Lorazepam PYXIS KEY ONE (18:24)
[2019-08-31] MEDS ORDERED: LORazepam INJ* 2 MG/ML 1 ML VIAL ONE (18:24)
[2019-08-31] MEDS ORDERED: LORazepam INJ* 2 MG/ML 1 ML VIAL IV PUSH ONE (18:28)
--- OUTSIDE RECORDS SUMMARY | 2019-08-31 18:29 | XMS REPORT ---
:1950 Author Organization [facility] Care Team Providers Name Role Phone Unavailable Unavailable Unavailable Problems Condition Condition Condition Status Onset Resolution Last Treating Comments Name Details Category Date Date Treatment Clinician Date Type 2 Type 2 Diagnosis Active 2018-06 Lesvia diabetes diabetes - Mal[place] mellitus mellitus RN without without complicatio complicatio ns ns Essential Essential Diagnosis Active 2018-06 Lesvia (primary) (primary) 07-24 [place] hypertensio hypertensio RN n n Schizoaffec Schizoaffec Diagnosis Active 2018-06 Lesvia tive tive 07-24 [place] disorder, disorder, RN unspecified unspecified Mixed Mixed Diagnosis Active 2018-06 Lesvia hyperlipide hyperlipide 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 Chronic Diagnosis Active 2018-06 Lesvia kidney kidney 07-24 [place] disease, disease, RN stage 3 stage 3 (moderate) (moderate) Pain frequent Pain Mgmt Resolve 2018-062019-07-08 [place] pain d 07-24 09:38:00 Haylee 09:05: [id number] 00 Respiratory dyspnea Respirator Resolve 2018-062019-07-08 [place] present y d 07-24 09:38:00 Haylee 09:05: [id number] 00 Endo/Philipp anti-coagul Endo/Philipp Resolve 2018-062019-06-24 [place] ation d 07-24 13:06:00 Haylee therapy 09:05: [id number] 00 Endo/Philipp diabetic Endo/Philipp Resolve 2018-062019-06-24 [place] foot care d 07-24 13:06:00 Haylee 09:05: [id number] 00 Sensory impaired Sensory Active 2018-06 [place] hearing 07-24 [place] 09:05: [id number] 00 Nutrition nutritional Nutrition Resolve 2018-062019-06-24 [place] restriction d 07-24 13:06:00 Haylee aoyub 09:05: [id number] 00 Elimination urinary Eliminatio Resolve 2018-062019-06-24 [place] incontinenc n d 07-24 13:06:00 Haylee e 09:05: [id number] 00 Neuro confusion Neuro/Emot Active 2018-06 [place] present ion 07-24 [place] 09:05: [id number] 00 Neuro anxiety Neuro/Emot Active 2018-06 [place] present ion 07-24 [place] 09:05: [id number] 00 Neuro impaired Neuro/Emot Active 2018-06 [place] decision-ma ion 07-24 [place] sophia 09:05: [id number] 00 Neuro psychiatric Neuro/Emot Active 2018-06 [place] problems ion 07-24 [place] 09:05: [id number] 00 Neuro memory Neuro/Emot Active 2018-06 [place] deficit ion 07-24 [place] needing 09:05: [id number] supervision 00 Activity ADL Activity Active 2018-06 [place] assistance 07-24 [place] required 09:05: [id number] 00 Activity self-care Activity Active 2018-06 [place] deficit 07-24 [place] 09:05: [id number] 00 Safety structural Safety Active 2018-06 [place] barriers 07-24 [place] present 09:05: [id number] 00 Safety knowledge/s Safety Active 2018-06 [place] kill 07-24 [place] deficit: pt 09:05: [id number] 00 Safety fall risk Safety Active 2018-06 [place] factor 07-24 [place] present 09:05: [id number] 00 Safety risk for Safety Active 2018-06 [place] hospitaliza 07-24 [place] tion 09:05: [id number] 00 Medication oral med Meds Active 2018-06 [place] assistance 07-24 [place] required 09:05: [id number] 00 Medication knowledge/s Meds Active 2018-06 [place] kill 07-24 [place] deficit: pt 09:05: [id number] 00 Medication potential Meds Active 2018-06 [place] clinically 07-24 [place] significant 09:05: [id number] medication 00 issue Musculoskel transfer Musculoske Active 2018-06 [place] etal assistance letal 07-24 [place] required 09:05: [id number] 00 Cardio edema Cardiovasc Resolve 2019-07-08 Lesvia ular d 06-24 09:38:00 [place] 13:06: RN 00 Elimination urinary Eliminatio Resolve 2019-2019-07-08 Hannah sommer n d 07-01 09:38:00 [place] e 08:30: [facility] 00 [id number] Safety can be left Safety Active 2019- Lesvia alone for 07-08 [place] only short 09:38: RN periods 00 Cardio edema Cardiovasc Active 2019- Lesvia ular 07-18 [place] 11:00: RN 00 Safety knowledge/s Safety Active 2019- Lesvia kill 07-18 [place] deficit: cg 11:00: RN 00 Safety cannot be Safety Active 2019- Lesvia left alone 07-26 [place] 10:12: RN 00 Allergies, Adverse Reactions, Alerts Allergy Allergy Status Severity Reaction(s) Onset Inactive Treating Comments Name Type Date Date Clinician Unknown None Active Unknown None Unknown No Known Allergies For This Patient Medications Ordered Filled Start Stop Current Ordering Indication Dosage Frequency Signature Comments Components Medication Medication Date Date Medication? Clinician (SIG) Name Name azelastine azelastine 2018-06 2020- Yes Fentress Unknown Unknown 0.15 % 0.15 % 07-24 Dayo HAIRSTON (205.5 mcg) (205.5 mcg) nasal spray nasal spray Lotrimin Lotrimin 2018-06 2020- Yes Fentress Unknown Unknown Ultra 1 % Ultra 1 % 07-24 Dayo HAIRSTON topical topical cream cream hydrocortis hydrocortis 2018-06 2020- Yes Fentress Unknown Unknown one 2.5 % one 2.5 % 07-24 Dayo HAIRSTON topical topical cream cream amLODIPine amLODIPine 2018-06 2020- Yes Fentress Unknown Unknown 10 mg 10 mg 07-24 Dayo HAIRSTON tablet tablet Aspirin Low Aspirin Low 2018-06- Yes Fentress Unknown Unknown Dose 81 mg Dose 81 mg 07-24 Dayo HAIRSTON tablet,venice tablet,venice yed release yed release Colace 100 Colace 100 2018-06 2020- Yes Fentress Unknown Unknown mg capsule mg capsule 07-24 Dayo HAIRSTON finasteride finasteride 2018-06- Yes Fentress Unknown Unknown 5 mg tablet 5 mg tablet 07-24 Dayo HAIRSTON glipiZIDE glipiZIDE 2018-06 2020- Yes Fentress Unknown Unknown ER 5 mg ER 5 mg 07-24 ,Dayo tablet, tablet, extended extended release 24 release 24 hr hr Januvia 50 Januvia 50 2020- No Fentress 1 tab Unknown mg tablet mg tablet 07-29 MD,Dayo Lyrica 50 Lyrica 50 2019- No Fentress 1 cap Unknown mg capsule mg capsule 07-29 ,Dayo simvastatin simvastatin 2018-06 2020- Yes Fentress Unknown Unknown 40 mg 40 mg 07-24 ,Dayo tablet tablet Depakote ER Depakote ER 2020- No Emani 3 tabs Unknown 500 mg 500 mg 07-29 MD,Maycol tablet,exte tablet,exte nded nded release release Latuda 80 Latuda 80 2018-06 2020- Yes Fentress Unknown Unknown mg tablet mg tablet 07-24 ,Dayo latanoprost latanoprost 2019- No Duran Unknown Unknown 0.005 % eye 0.005 % eye 07-29 O.D.,Alan drops drops w timolol 0.5 timolol 0.5 2020- No Fentress Unknown Unknown % eye drops % eye drops 07-29 ,Dayo Depakote Depakote 2018-06 2020- Yes Fentress Unknown Unknown 250 mg 250 mg 07-24 ,Dayo tablet,venice tablet,venice yed release yed release Januvia 100 Januvia 100 2018-06 2020- Yes Fentress Unknown Unknown mg tablet mg tablet 07-24 ,Dayo Acetaminoph Acetaminoph 2018-06 2020- Yes Fentress Unknown Unknown en Pain en Pain 07-24 ,Dayo Relief 500 Relief 500 mg tablet mg tablet clonazePAM clonazePAM 2018-06 2020- Yes Fentress Unknown Unknown 0.5 mg 0.5 mg 07-24 ,Dayo tablet tablet Lyrica 50 Lyrica 50 2018-06 2020- Yes Fentress Unknown Unknown mg capsule mg capsule 08-01 ,Dayo clonazePAM clonazePAM 2020- Yes Emani Unknown Unknown 0.5 mg 0.5 mg 06-17 ,Maycol tablet tablet losartan 50 losartan 50 2020- Yes Fentress Unknown Unknown mg tablet mg tablet 06-24 ,Dayo hydroCHLORO hydroCHLORO 2020- Yes Fentress Unknown Unknown thiazide 25 thiazide 25 06-24 ,Dayo mg tablet mg tablet Depakote Depakote 2019- Yes Fentress Unknown Unknown 250 mg 250 mg 06-24 MD,Dayo tablet,venice tablet,venice yed release yed release atorvastati atorvastati 2019- Yes Fentress Unknown Unknown n 20 mg n 20 mg 06-24 MD,Dayo tablet tablet glipiZIDE glipiZIDE 2019- Yes Fentress Unknown Unknown ER 2.5 mg ER 2.5 mg 07-18 MD,Dayo tablet, tablet, extended extended release 24 release 24 hr hr atorvastati atorvastati 2019- Yes Fentress Unknown Unknown n 20 mg n 20 mg 07-18 MD,Dayo tablet tablet Vital Signs Vital Name Observation Time Observation Value Comments SYSTOLIC mm[Hg] 2019-07-18 18:10:22 128 mm[Hg] mm[Hg] Method: Stand DIASTOLIC mm[Hg] 2019-07-18 18:10:22 74 mm[Hg] mm[Hg] Method: Stand RESP RATE 2019-07-29 18:10:33 16 /min /min Procedures This patient has no known procedures. Results This patient has no known results.
--- OUTSIDE RECORDS SUMMARY | 2019-08-31 18:29 | XMS REPORT ---
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 Chronic Diagnosis Active 2018-06 Lesvia kidney kidney 07-24 [place] disease, disease, RN stage 3 stage 3 (moderate) (moderate) Pain frequent Pain Mgmt Resolve 2018-062019-07-08 [place] pain d 07-24 09:38:00 Haylee 09:05: [id number] 00 Respiratory dyspnea Respirator Resolve 2018-062019-07-08 [place] present y d 07-24 09:38:00 Haylee 09:05: [id number] 00 Endo/Philipp anti-coagul Endo/Philipp Resolve 2018-062019-06-24 [place] ation d 07-24 13:06:00 Haylee therapy 09:05: [id number] 00 Endo/Philipp diabetic Endo/Philipp Resolve 2018-062019-06-24 [place] foot care d 07-24 13:06:00 Haylee 09:05: [id number] 00 Sensory impaired Sensory Active 2018-06 [place] hearing 07-24 [place] 09:05: [id number] 00 Nutrition nutritional Nutrition Resolve 2018-062019-06-24 [place] restriction d 07-24 13:06:00 Haylee ayoub 09:05: [id number] 00 Elimination urinary Eliminatio Resolve 2018-062019-06-24 [place] incontinenc n d 07-24 13:06:00 Haylee e 09:05: [id number] 00 Neuro confusion Neuro/Emot Active 2018-06 [place] present ion 07-24 [place] 09:05: [id number] 00 Neuro anxiety Neuro/Emot Active 2018-06 [place] present ion 07-24 [place] 09:05: [id number] 00 Neuro impaired Neuro/Emot Active 2018-06 [place] decision-ma ion 07-24 [place] sophia 09:05: [id number] 00 Neuro psychiatric Neuro/Emot Active 2018-06 [place] problems ion 07-24 [place] 09:05: [id number] 00 Neuro memory Neuro/Emot Active 2018-06 [place] deficit ion 07-24 [place] needing 09:05: [id number] supervision 00 Activity ADL Activity Active 2018-06 [place] assistance 07-24 [place] required 09:05: [id number] 00 Activity self-care Activity Active 2018-06 [place] deficit 07-24 [place] 09:05: [id number] 00 Safety structural Safety Active 2018-06 [place] barriers 07-24 [place] present 09:05: [id number] Safety knowledge/s Safety Active 2018-06 [place] kill 07-24 [place] deficit: pt 09:05: [id number] 00 Safety fall risk Safety Active 2018-06 [place] factor 07-24 [place] present 09:05: [id number] 00 Safety risk for Safety Active 2018-06 [place] hospitaliza 07-24 [place] tion 09:05: [id number] 00 Medication oral med Meds Active 2018-06 [place] assistance 07-24 [place] required 09:05: [id number] 00 Medication knowledge/s Meds Active 2018-06 [place] kill 07-24 [place] deficit: pt 09:05: [id number] 00 Medication potential Meds Active 2018-06 [place] clinically 07-24 [place] significant 09:05: [id number] medication 00 issue Musculoskel transfer Musculoske Active 2018-06 [place] etal assistance letal 07-24 [place] required 09:05: [id number] 00 Cardio edema Cardiovasc Resolve 2019-07-08 Lesvia ular d 06-24 09:38:00 [place] 13:06: RN 00 Elimination urinary Eliminatio Resolve 2019-2019-07-08 Hannah sommer n d 07-01 09:38:00 [place] e 08:30: [facility] 00 [id number] Safety can be left Safety Active 2019- [...] Name Name azelastine azelastine 2018-06 2020- Yes [place] Unknown Unknown 0.15 % 0.15 % 07-24 Dayo HAIRSTON (205.5 mcg) (205.5 mcg) nasal spray nasal spray Lotrimin Lotrimin 2018-06 2020- Yes [place] Unknown Unknown Ultra 1 % Ultra 1 % 07-24 Dayo HAIRSTON topical topical cream cream hydrocortis hydrocortis 2018-06 2020- Yes [place] Unknown Unknown one 2.5 % one 2.5 % 07-24 Dayo HAIRSTON topical topical cream cream amLODIPine amLODIPine 2018-06 2020- Yes [place] Unknown Unknown 10 mg 10 mg 07-24 Dayo HAIRSTON tablet tablet Aspirin Low Aspirin Low 2018-06- Yes [place] Unknown Unknown Dose 81 mg Dose 81 mg 07-24 Dayo HAIRSTON tablet,venice tablet,venice yed release yed release Colace 100 Colace 100 2018-06 2020- Yes [place] Unknown Unknown mg capsule mg capsule 07-24 Dayo HAIRSTON finasteride finasteride 2018-06- Yes [place] Unknown Unknown 5 mg tablet 5 mg tablet 07-24 Dayo HAIRSTON glipiZIDE glipiZIDE 2018-06 2020- Yes [place] Unknown Unknown ER 5 mg ER 5 mg 07-24 ,Dayo tablet, tablet, extended extended release 24 release 24 hr hr Januvia 50 Januvia 50 2020- No [place] 1 tab Unknown mg tablet mg tablet 07-29 MD,Dayo Lyrica 50 Lyrica 50 2019- No [place] 1 cap Unknown mg capsule mg capsule 07-29 ,Dayo simvastatin simvastatin 2018-06 2020- Yes [place] Unknown Unknown 40 mg 40 mg 07-24 ,Dayo tablet tablet Depakote ER Depakote ER 2020- No Emani 3 tabs Unknown 500 mg 500 mg 07-29 MD,Maycol tablet,exte tablet,exte nded nded release release Latuda 80 Latuda 80 2018-06 2020- Yes [place] Unknown Unknown mg tablet mg tablet 07-24 ,Dayo latanoprost latanoprost 2019- No Duran Unknown Unknown 0.005 % eye 0.005 % eye 07-29 O.D.,Alan drops drops w timolol 0.5 timolol 0.5 2020- No [place] Unknown Unknown % eye drops % eye drops 07-29 ,Dayo Depakote Depakote 2018-06 2020- Yes [place] Unknown Unknown 250 mg 250 mg 07-24 ,Dayo tablet,venice tablet,venice yed release yed release Januvia 100 Januvia 100 2018-06 2020- Yes [place] Unknown Unknown mg tablet mg tablet 07-24 ,Dayo Acetaminoph Acetaminoph 2018-06 2020- Yes [place] Unknown Unknown en Pain en Pain 07-24 ,Dayo Relief 500 Relief 500 mg tablet mg tablet clonazePAM clonazePAM 2018-06 2020- Yes [place] Unknown Unknown 0.5 mg 0.5 mg 07-24 ,Dayo tablet tablet Lyrica 50 Lyrica 50 2018-06 2020- Yes [place] Unknown Unknown mg capsule mg capsule 08-01 ,Dayo clonazePAM clonazePAM 2020- Yes Emani Unknown Unknown 0.5 mg 0.5 mg 06-17 ,Maycol tablet tablet losartan 50 losartan 50 2020- Yes [place] Unknown Unknown mg tablet mg tablet 06-24 ,Dayo hydroCHLORO hydroCHLORO 2020- Yes [place] Unknown Unknown thiazide 25 thiazide 25 06-24 ,Dayo mg tablet mg tablet Depakote Depakote 2019- Yes [place] Unknown Unknown 250 mg 250 mg 06-24 MD,Dayo tablet,venice tablet,venice yed release yed release atorvastati atorvastati 2019- Yes [place] Unknown Unknown n 20 mg n 20 mg 06-24 MD,Dayo tablet tablet glipiZIDE glipiZIDE 2019- Yes [place] Unknown Unknown ER 2.5 mg ER 2.5 mg 07-18 MD,Dayo tablet, tablet, extended extended release 24 release 24 hr hr atorvastati atorvastati 2019- Yes [place] Unknown Unknown n 20 mg n 20 [...]
--- OUTSIDE RECORDS SUMMARY | 2019-08-31 18:29 | XMS REPORT ---
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 Chronic Diagnosis Active 2018-06 Lesvia kidney kidney 07-24 [place] disease, disease, RN stage 3 stage 3 (moderate) (moderate) Pain frequent Pain Mgmt Resolve 2018-062019-07-08 [place] pain d 07-24 09:38:00 Haylee 09:05: [id number] 00 Respiratory dyspnea Respirator Resolve 2018-062019-07-08 [place] present y d 07-24 09:38:00 Haylee 09:05: [id number] 00 Endo/Philipp anti-coagul Endo/Philipp Resolve 2018-062019-06-24 [place] ation d 07-24 13:06:00 Haylee therapy 09:05: [id number] 00 Endo/Philipp diabetic Endo/Philipp Resolve 2018-062019-06-24 [place] foot care d 07-24 13:06:00 Haylee 09:05: [id number] 00 Sensory impaired Sensory Active 2018-06 [place] hearing 07-24 [place] 09:05: [id number] 00 Nutrition nutritional Nutrition Resolve 2018-062019-06-24 [place] restriction d 07-24 13:06:00 Haylee ayoub 09:05: [id number] 00 Elimination urinary Eliminatio Resolve 2018-062019-06-24 [place] incontinenc n d 07-24 13:06:00 Haylee e 09:05: [id number] 00 Neuro confusion Neuro/Emot Active 2018-06 [place] present ion 07-24 [place] 09:05: [id number] 00 Neuro anxiety Neuro/Emot Active 2018-06 [place] present ion 07-24 [place] 09:05: [id number] 00 Neuro impaired Neuro/Emot Active 2018-06 [place] decision-ma ion 07-24 [place] sophia 09:05: [id number] 00 Neuro psychiatric Neuro/Emot Active 2018-06 [place] problems ion 07-24 [place] 09:05: [id number] 00 Neuro memory Neuro/Emot Active 2018-06 [place] deficit ion 07-24 [place] needing 09:05: [id number] supervision 00 Activity ADL Activity Active 2018-06 [place] assistance 07-24 [place] required 09:05: [id number] 00 Activity self-care Activity Active 2018-06 [place] deficit 07-24 [place] 09:05: [id number] 00 Safety structural Safety Active 2018-06 [place] barriers 07-24 [place] present 09:05: [id number] 00 Safety knowledge/s Safety Active 2018-06 [place] kill 07-24 [place] deficit: pt 09:05: [id number] 00 Safety fall risk Safety Active 2018-06 [place] factor 07-24 [place] present 09:05: [id number] 00 Safety risk for Safety Active 2018-06 [place] hospitaliza 07-24 [place] tion 09:05: [id number] 00 Medication oral med Meds Active 2018-06 [place] assistance 07-24 [place] required 09:05: [id number] 00 Medication knowledge/s Meds Active 2018-06 [place] kill 07-24 [place] deficit: pt 09:05: [id number] 00 Medication potential Meds Active 2018-06 [place] clinically 07-24 [place] significant 09:05: [id number] medication 00 issue Musculoskel transfer Musculoske Active 2018-06 [place] etal assistance letal 07-24 [place] required 09:05: [id number] 00 Cardio edema Cardiovasc Resolve 2019-07-08 Lesvia ular d 06-24 09:38:00 [place] 13:06: RN 00 Elimination urinary Eliminatio Resolve 2019-2019-07-08 Hannah sommer n d 07-01 09:38:00 [place] e 08:30: [facility] 00 [id number] Safety can be left Safety Active 2019- [place] alone for 07-08 [place] only short 09:38: [...] Name Name azelastine azelastine 2018-06 2020- Yes [place] Unknown Unknown 0.15 % 0.15 % 07-24 Dayo HAIRSTON (205.5 mcg) (205.5 mcg) nasal spray nasal spray Lotrimin Lotrimin 2018-06 2020- Yes [place] Unknown Unknown Ultra 1 % Ultra 1 % 07-24 Dayo HAIRSTON topical topical cream cream hydrocortis hydrocortis 2018-06 2020- Yes [place] Unknown Unknown one 2.5 % one 2.5 % 07-24 Dayo HAIRSTON topical topical cream cream amLODIPine amLODIPine 2018-06 2020- Yes [place] Unknown Unknown 10 mg 10 mg 07-24 Dayo HAIRSTON tablet tablet Aspirin Low Aspirin Low 2018-06- Yes [place] Unknown Unknown Dose 81 mg Dose 81 mg 07-24 Dayo HAIRSTON tablet,venice tablet,venice yed release yed release Colace 100 Colace 100 2018-06 2020- Yes [place] Unknown Unknown mg capsule mg capsule 07-24 Dayo HAIRSTON finasteride finasteride 2018-06- Yes [place] Unknown Unknown 5 mg tablet 5 mg tablet 07-24 Dayo HAIRSTON glipiZIDE glipiZIDE 2018-06 2020- Yes [place] Unknown Unknown ER 5 mg ER 5 mg 07-24 ,Dayo tablet, tablet, extended extended release 24 release 24 hr hr Januvia 50 Januvia 50 2020- No [place] 1 tab Unknown mg tablet mg tablet 07-29 MD,Dayo Lyrica 50 Lyrica 50 2019- No [place] 1 cap Unknown mg capsule mg capsule 07-29 ,Dayo simvastatin simvastatin 2018-06 2020- Yes [place] Unknown Unknown 40 mg 40 mg 07-24 ,Dayo tablet tablet Depakote ER Depakote ER 2020- No Emani 3 tabs Unknown 500 mg 500 mg 07-29 MD,Maycol tablet,exte tablet,exte nded nded release release Latuda 80 Latuda 80 2018-06 2020- Yes [place] Unknown Unknown mg tablet mg tablet 07-24 ,Dayo latanoprost latanoprost 2019- No [place]an Unknown Unknown 0.005 % eye 0.005 % eye 07-29 O.D.,Alan drops drops w timolol 0.5 timolol 0.5 2020- No [place] Unknown Unknown % eye drops % eye drops 07-29 ,Dayo Depakote Depakote 2018-06 2020- Yes [place] Unknown Unknown 250 mg 250 mg 07-24 ,Dayo tablet,venice tablet,venice yed release yed release Januvia 100 Januvia 100 2018-06 2020- Yes [place] Unknown Unknown mg tablet mg tablet 07-24 ,Dayo Acetaminoph Acetaminoph 2018-06 2020- Yes [place] Unknown Unknown en Pain en Pain 07-24 ,Dayo Relief 500 Relief 500 mg tablet mg tablet clonazePAM clonazePAM 2018-06 2020- Yes [place] Unknown Unknown 0.5 mg 0.5 mg 07-24 ,Dayo tablet tablet Lyrica 50 Lyrica 50 2018-06 2020- Yes [place] Unknown Unknown mg capsule mg capsule 08-01 ,Dayo clonazePAM clonazePAM 2020- Yes Emani Unknown Unknown 0.5 mg 0.5 mg 06-17 ,Maycol tablet tablet losartan 50 losartan 50 2020- Yes [place] Unknown Unknown mg tablet mg tablet 06-24 ,Dayo hydroCHLORO hydroCHLORO 2020- Yes [place] Unknown Unknown thiazide 25 thiazide 25 06-24 ,Dayo mg tablet mg tablet Depakote Depakote 2019- Yes [place] Unknown Unknown 250 mg 250 mg 06-24 MD,Dayo tablet,venice tablet,venice yed release yed release atorvastati atorvastati 2019- Yes [place] Unknown Unknown n 20 mg n 20 mg 06-24 MD,Dayo tablet tablet glipiZIDE glipiZIDE 2019- Yes [place] Unknown Unknown ER 2.5 mg ER 2.5 mg 07-18 MD,Dayo tablet, tablet, extended extended release 24 release 24 hr hr atorvastati atorvastati 2019- Yes [place] Unknown Unknown n 20 mg n 20 [...]
--- OUTSIDE RECORDS SUMMARY | 2019-08-31 18:29 | XMS REPORT ---
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 Chronic Diagnosis Active 2018-06 Lesvia kidney kidney 07-24 [place] disease, disease, RN stage 3 stage 3 (moderate) (moderate) Pain frequent Pain Mgmt Resolve 2018-062019-07-08 [place] pain d 07-24 09:38:00 Haylee 09:05: [id number] Respiratory dyspnea Respirator Resolve 2018-062019-07-08 [place] present y d 07-24 09:38:00 Haylee 09:05: [id number] 00 Endo/Philipp anti-coagul Endo/Philipp Resolve 2018-062019-06-24 [place] ation d 07-24 13:06:00 Haylee therapy 09:05: [id number] 00 Endo/Philipp diabetic Endo/Philipp Resolve 2018-062019-06-24 [place] foot care d 07-24 13:06:00 [place]lee 09:05: [id number] Sensory impaired Sensory Active 2018-06 [place] hearing 07-24 [place] 09:05: [id number] 00 Nutrition nutritional Nutrition Resolve 2018-062019-06-24 [place] restriction d 07-24 13:06:00 Haylee ayoub 09:05: [id number] 00 Elimination urinary Eliminatio Resolve 2018-062019-06-24 [place] incontinenc n d 07-24 13:06:00 Haylee e 09:05: [id number] 00 Neuro confusion Neuro/Emot Active 2018-06 [place] present ion 07-24 [place] 09:05: [id number] 00 Neuro anxiety Neuro/Emot Active 2018-06 [place] present ion 07-24 [place] 09:05: [id number] 00 Neuro impaired Neuro/Emot Active 2018-06 [place] decision-ma ion 07-24 [place] sophia 09:05: [id number] 00 Neuro psychiatric Neuro/Emot Active 2018-06 [place] problems ion 07-24 [place] 09:05: [id number] 00 Neuro memory Neuro/Emot Active 2018-06 [place] deficit ion 07-24 [place] needing 09:05: [id number] supervision 00 Activity ADL Activity Active 2018-06 [place] assistance 07-24 [place] required 09:05: [id number] 00 Activity self-care Activity Active 2018-06 [place] deficit 07-24 [place] 09:05: [id number] 00 Safety structural Safety Active 2018-06 [place] barriers 07-24 [place] present 09:05: [id number] Safety knowledge/s Safety Active 2018-06 [place] kill 07-24 [place] deficit: pt 09:05: [id number] 00 Safety fall risk Safety Active 2018-06 [place] factor 07-24 [place] present 09:05: [id number] 00 Safety risk for Safety Active 2018-06 [place] hospitaliza 07-24 [place] tion 09:05: [id number] 00 Medication oral med Meds Active 2018-06 [place] assistance 07-24 [place] required 09:05: [id number] 00 Medication knowledge/s Meds Active 2018-06 [place] kill 07-24 [place] deficit: pt 09:05: [id number] 00 Medication potential Meds Active 2018-06 [place] clinically 07-24 [place] significant 09:05: [id number] medication 00 issue Musculoskel transfer Musculoske Active 2018-06 [place] etal assistance letal 07-24 [place] required 09:05: [id number] 00 Cardio edema Cardiovasc Resolve 2019-07-08 Lesvia ular d 06-24 09:38:00 [place] 13:06: RN 00 Elimination urinary Eliminatio Resolve 2019-2019-07-08 Hannah sommer n d 07-01 09:38:00 [place] e 08:30: [facility] 00 [id number] Safety can be left Safety Active 2019- [...] Name Name azelastine azelastine 2018-06 2020- Yes [place] Unknown Unknown 0.15 % 0.15 % 07-24 Dayo HAIRSTON (205.5 mcg) (205.5 mcg) nasal spray nasal spray Lotrimin Lotrimin 2018-06 2020- Yes [place] Unknown Unknown Ultra 1 % Ultra 1 % 07-24 Dayo HAIRSTON topical topical cream cream hydrocortis hydrocortis 2018-06 2020- Yes [place] Unknown Unknown one 2.5 % one 2.5 % 07-24 Dayo HAIRSTON topical topical cream cream amLODIPine amLODIPine 2018-06 2020- Yes [place] Unknown Unknown 10 mg 10 mg 07-24 Dayo HAIRSTON tablet tablet Aspirin Low Aspirin Low 2018-06- Yes [place] Unknown Unknown Dose 81 mg Dose 81 mg 07-24 Dayo HAIRSTON tablet,venice tablet,venice yed release yed release Colace 100 Colace 100 2018-06 2020- Yes [place] Unknown Unknown mg capsule mg capsule 07-24 Dayo HAIRSTON finasteride finasteride 2018-06- Yes [place] Unknown Unknown 5 mg tablet 5 mg tablet 07-24 Dayo HAIRSTON glipiZIDE glipiZIDE 2018-06 2020- Yes [place] Unknown Unknown ER 5 mg ER 5 mg 07-24 ,Dayo tablet, tablet, extended extended release 24 release 24 hr hr Januvia 50 Januvia 50 2020- No [place] 1 tab Unknown mg tablet mg tablet 07-29 MD,Dayo Lyrica 50 Lyrica 50 2019- No [place] 1 cap Unknown mg capsule mg capsule 07-29 ,Dayo simvastatin simvastatin 2018-06 2020- Yes [place] Unknown Unknown 40 mg 40 mg 07-24 ,Dayo tablet tablet Depakote ER Depakote ER 2020- No [place]man[place] 3 tabs Unknown 500 mg 500 mg 07-29 MD,Maycol tablet,exte tablet,exte nded nded release release Latuda 80 Latuda 80 2018-06 2020- Yes [place] Unknown Unknown mg tablet mg tablet 07-24 ,Dayo latanoprost latanoprost 2019- No [place] Unknown Unknown 0.005 % eye 0.005 % eye 07-29 O.D.,Alan drops drops w timolol 0.5 timolol 0.5 2020- No [place] Unknown Unknown % eye drops % eye drops 07-29 ,Dayo Depakote Depakote 2018-06 2020- Yes [place] Unknown Unknown 250 mg 250 mg 07-24 ,Dayo tablet,venice tablet,venice yed release yed release Januvia 100 Januvia 100 2018-06 2020- Yes [place] Unknown Unknown mg tablet mg tablet 07-24 ,Dayo Acetaminoph Acetaminoph 2018-06 2020- Yes [place] Unknown Unknown en Pain en Pain 07-24 ,Dayo Relief 500 Relief 500 mg tablet mg tablet clonazePAM clonazePAM 2018-06 2020- Yes [place] Unknown Unknown 0.5 mg 0.5 mg 07-24 ,Dayo tablet tablet Lyrica 50 Lyrica 50 2018-06 2020- Yes [place] Unknown Unknown mg capsule mg capsule 08-01 ,Dyao clonazePAM clonazePAM 2020- Yes [place] Unknown Unknown 0.5 mg 0.5 mg 06-17 ,Maycol tablet tablet losartan 50 losartan 50 2020- Yes [place] Unknown Unknown mg tablet mg tablet 06-24 ,Dayo hydroCHLORO hydroCHLORO 2020- Yes [place] Unknown Unknown thiazide 25 thiazide 25 06-24 ,Dayo mg tablet mg tablet Depakote Depakote 2019- Yes [place] Unknown Unknown 250 mg 250 mg 06-24 MD,Dayo tablet,venice tablet,venice yed release yed release atorvastati atorvastati 2019- Yes [place] Unknown Unknown n 20 mg n 20 mg 06-24 MD,Dayo tablet tablet glipiZIDE glipiZIDE 2019- Yes [place] Unknown Unknown ER 2.5 mg ER 2.5 mg 07-18 MD,Dayo tablet, tablet, extended extended release 24 release 24 hr hr atorvastati atorvastati 2019- Yes [place] Unknown Unknown n 20 mg n 20 [...]
--- OUTSIDE RECORDS SUMMARY | 2019-08-31 18:29 | XMS REPORT ---
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 model Chronic Diagnosis Active 2018-06 Lesvia kidney kidney 07-24 [place] disease, disease, RN stage 3 stage 3 (moderate) (moderate) Pain frequent Pain Mgmt Resolve 2018-062019-07-08 [place] pain d 07-24 09:38:00 Haylee 09:05: [id number] 00 Respiratory dyspnea Respirator Resolve 2018-062019-07-08 [place] present y d 07-24 09:38:00 Haylee 09:05: [id number] 00 Endo/Philipp anti-coagul Endo/Philipp Resolve 2018-062019-06-24 [place] ation d 07-24 13:06:00 Haylee therapy 09:05: [id number] 00 Endo/Philipp diabetic Endo/Philipp Resolve 2018-062019-06-24 [place] foot care d 07-24 13:06:00 [place]lee 09:05: [id number] 00 Sensory impaired Sensory Active 2018-06 [place] hearing 07-24 [place] 09:05: [id number] Nutrition nutritional Nutrition Resolve 2018-062019-06-24 [place] restriction d 07-24 13:06:00 Haylee ayoub 09:05: [id number] 00 Elimination urinary Eliminatio Resolve 2018-062019-06-24 [place] incontinenc n d 07-24 13:06:00 Haylee e 09:05: [id number] 00 Neuro confusion Neuro/Emot Active 2018-06 [place] present ion 07-24 [place] 09:05: [id number] 00 Neuro anxiety Neuro/Emot Active 2018-06 [place] present ion 07-24 [place] 09:05: [id number] 00 Neuro impaired Neuro/Emot Active 2018-06 [place] decision-ma ion 07-24 [place] sophia 09:05: [id number] 00 Neuro psychiatric Neuro/Emot Active 2018-06 [place] problems ion 07-24 [place] 09:05: [id number] 00 Neuro memory Neuro/Emot Active 2018-06 [place] deficit ion 07-24 [place] needing 09:05: [id number] supervision 00 Activity ADL Activity Active 2018-06 [place] assistance 07-24 [place] required 09:05: [id number] 00 Activity self-care Activity Active 2018-06 [place] deficit 07-24 [place] 09:05: [id number] 00 Safety structural Safety Active 2018-06 [place] barriers 07-24 [place] present 09:05: [id number] 00 Safety knowledge/s Safety Active 2018-06 [place] kill 07-24 [place] deficit: pt 09:05: [id number] 00 Safety fall risk Safety Active 2018-06 [place] factor 07-24 [place] present 09:05: [id number] 00 Safety risk for Safety Active 2018-06 [place] hospitaliza 07-24 [place] tion 09:05: [id number] 00 Medication oral med Meds Active 2018-06 [place] assistance 07-24 [place] required 09:05: [id number] 00 Medication knowledge/s Meds Active 2018-06 [place] kill 07-24 [place] deficit: pt 09:05: [id number] 00 Medication potential Meds Active 2018-06 [place] clinically 07-24 [place] significant 09:05: [id number] medication 00 issue Musculoskel transfer Musculoske Active 2018-06 [place] etal assistance letal 07-24 [place] required 09:05: [id number] 00 Cardio edema Cardiovasc Resolve 2019-07-08 Lesvia ular d 06-24 09:38:00 [place] 13:06: RN 00 Elimination urinary Eliminatio Resolve 2019-2019-07-08 Hannah sommer n d 07-01 09:38:00 [place] e 08:30: [facility] 00 [id number] Safety can be left Safety Active 2019- Lesvia alone for 07-08 [place] only short 09:38: RN periods 00 Cardio edema Cardiovasc Active Lesvia ular 07-18 [place] 11:00: RN 00 [...] (SIG) Name Name azelastine azelastine 2018-06 Yes [place] Unknown Unknown 0.15 % 0.15 % 07-24 Dayo HAIRSTON (205.5 mcg) (205.5 mcg) nasal spray nasal spray Lotrimin Lotrimin 2018-06 Yes [place] Unknown Unknown Ultra 1 % Ultra 1 % 07-24 Dayo HAIRSTON topical topical cream cream hydrocortis hydrocortis 2018-06- Yes [place] Unknown Unknown one 2.5 % one 2.5 % 07-24 Dayo HAIRSTON topical topical cream cream amLODIPine amLODIPine 2018-06- Yes [place] Unknown Unknown 10 mg 10 mg 07-24 Dayo HAIRSTON tablet tablet Aspirin Low Aspirin Low 2018-06- Yes [place] Unknown Unknown Dose 81 mg Dose 81 mg 07-24 Dayo HAIRSTON tablet,venice tablet,venice yed release yed release Colace 100 Colace 100 2018-06 Yes [place] Unknown Unknown mg capsule mg capsule 07-24 Dayo HAIRSTON finasteride finasteride 2018-06 Yes [place] Unknown Unknown 5 mg tablet 5 mg tablet 07-24 Dayo HAIRSTON glipiZIDE glipiZIDE 2018-06 2020- Yes [place] Unknown Unknown ER 5 mg ER 5 mg 07-24 Dayo HAIRSTON tablet, tablet, extended extended release 24 release 24 hr hr Januvia 50 Januvia 50 No [place] 1 tab Unknown mg tablet mg tablet Dayo HAIRSTON Lyrica 50 Lyrica 50 No [place] 1 cap Unknown mg capsule mg capsule Dayo HAIRSTON simvastatin simvastatin 2018-06- Yes [place] Unknown Unknown 40 mg 40 mg 07-24 Dayo HAIRSTON tablet tablet Depakote ER Depakote ER No [place] 3 tabs Unknown 500 mg 500 mg ,Maycol tablet,exte tablet,exte nded nded release release Latuda 80 Latuda 80 2018-06 Yes [place] Unknown Unknown mg tablet mg tablet 07-24 Dayo HAIRSTON latanoprost latanoprost No [place] Unknown Unknown 0.005 % eye 0.005 % eye O.D.,Alan drops drops w timolol 0.5 timolol 0.5 No [place] Unknown Unknown % eye drops % eye drops Dayo HAIRSTON Depakote Depakote 2018-06- Yes [place] Unknown Unknown 250 mg 250 mg 07-24 Dayo HAIRSTON tablet,venice tablet,venice yed release yed release Januvia 100 Januvia 100 2018-06 Yes [place] Unknown Unknown mg tablet mg tablet 07-24 Dayo HAIRSTON Acetaminoph Acetaminoph 2018-06 Yes [place] Unknown Unknown en Pain en Pain 07-24 Dayo HAIRSTON Relief 500 Relief 500 mg tablet mg tablet clonazePAM clonazePAM 2018-06- Yes [place] Unknown Unknown 0.5 mg 0.5 mg 07-24 Dayo HAIRSTON tablet tablet Lyrica 50 Lyrica 50 2018-06 Yes [place] Unknown Unknown mg capsule mg capsule 08-01 Dayo HAIRSTON clonazePAM clonazePAM Yes [place] Unknown Unknown 0.5 mg 0.5 mg 06-17 Maycol HAIRSTON tablet tablet losartan 50 losartan 50 Yes [place] Unknown Unknown mg tablet mg tablet 06-24 Dayo HAIRSTON hydroCHLORO hydroCHLORO Yes [place] Unknown Unknown thiazide 25 thiazide 25 06-24 Dayo HAIRSTON mg tablet mg tablet Depakote Depakote Yes [place] Unknown Unknown 250 mg 250 mg 06-24 Dayo HAIRSTON tablet,venice tablet,venice yed release yed release atorvastati atorvastati 2020- Yes [place] Unknown Unknown n 20 mg n 20 mg -20 07-18 ,Dayo tablet tablet glipiZIDE glipiZIDE Yes [place] Unknown Unknown ER 2.5 mg ER 2.5 mg 07-18 ,Dayo tablet, tablet, extended extended release 24 release 24 hr hr atorvastati atorvastati Yes [place] Unknown Unknown n 20 mg n 20 mg 07-18 ,Dayo tablet tablet Vital Signs Vital Name Observation Time Observation Value Comments SYSTOLIC mm[Hg] 2019-07-18 18:10:22 128 mm[Hg] mm[Hg] Method: Stand DIASTOLIC mm[Hg] 2019-07-18 18:10:22 74 mm[Hg] mm[Hg] Method: Stand RESP RATE 2019-07-18 18:10:22 16 /min /min Procedures This patient has no known procedures. Results This patient has no known results.
--- OUTSIDE RECORDS SUMMARY | 2019-08-31 18:29 | XMS REPORT | Continuity of Care Document ---
:1950 External Reference #:[id number] Author Name Aracely Canseco NP (transmitted by agent of provider Josy Kee) Address [address] [place] [address] Care Team Providers Name Role Phone Michael Ho MD - Neurology Care Team Information Monogram Technician [phone] Problems Description No Information Available Social History Type Date Description Comments Sex Unknown Allergies, Adverse Reactions, Alerts Description No Information Available Medications Description No Information Available Immunizations Description No Information Available Vital Signs Description No Information Available Results Description No Information Available Procedures Description No Information Available Medical Devices Description No Information Available Encounters Type Date Location Provider Dx Diagnosis Office Visit 07/29/2019 [facility] Aracely Harleen, E11.9 Type 2 diabetes 12:22p [facility]oc[facility] [employer] mellitus without Hospitalists complications F25.9 Schizoaffective disorder, unspecified I10 Essential (primary) hypertension Z74.1 Need for assistance with personal care Office Visit 07/25/2019 [facility] Aracely Harleen, E11.9 Type 2 diabetes 12:21p Assoc,pc [employer] mellitus without Hospitalists complications F25.9 Schizoaffective disorder, unspecified I10 Essential (primary) hypertension N18.3 Chronic kidney disease, stage 3 (moderate) N40.0 Benign prostatic hyperplasia without lower urinry tract symp E78.5 Hyperlipidemia, unspecified Z74.1 Need for assistance with personal care Office Visit 07/05/2019 [facility] Flower E11.9 Type 2 diabetes 10:02a Assoc,pc DAREN Mcdaniel mellitus without Hospitalists complications I10 Essential (primary) hypertension E78.5 Hyperlipidemia, unspecified M54.9 Dorsalgia, unspecified N40.0 Benign prostatic hyperplasia without lower urinry tract symp F99 Mental disorder, not otherwise specified W19.xxxA Unspecified fall, initial encounter Assessments Date Code Description Provider 07/29/2019 E11.9 Type 2 diabetes mellitus without Aracely Harleen, [employer] complications 07/29/2019 F25.9 Schizoaffective disorder, unspecified Aracely Harleen, [employer] 07/29/2019 I10 Essential (primary) hypertension Aracely Harleen, [employer] 07/29/2019 Z74.1 Need for assistance with personal care Arcaely Harleen, [employer] 07/25/2019 E11.9 Type 2 diabetes mellitus without Aracely Harleen, [employer] complications 07/25/2019 F25.9 Schizoaffective disorder, unspecified Aracely Harleen, [employer] 07/25/2019 I10 Essential (primary) hypertension Aracely Harleen, [employer] 07/25/2019 N18.3 Chronic kidney disease, stage 3 (moderate) Aracely Harleen, [employer] 07/25/2019 N40.0 Benign prostatic hyperplasia without lower Aracely Harleen, [employer] urinary tract symptoms 07/25/2019 E78.5 Hyperlipidemia, unspecified Aracely Harleen, [employer] 07/25/2019 Z74.1 Need for assistance with personal care Aracely Harleen, [employer] 07/05/2019 E11.9 Type 2 diabetes mellitus without Flower O'naty, PA-C complications 07/05/2019 I10 Essential (primary) hypertension Flower O'naty, PA-C 07/05/2019 E78.5 Hyperlipidemia, unspecified Flower O'naty, PA-C 07/05/2019 M54.9 Dorsalgia, unspecified Flower O'naty, PA-C 07/05/2019 N40.0 Benign prostatic hyperplasia without lower Flower O'naty , PA-C urinary tract symptoms 07/05/2019 F99 Mental disorder, not otherwise specified Flower O'naty, PA- C 07/05/2019 W19.xxxA Unspecified fall, initial encounter Flower O'naty, PA- C Plan of Treatment No Information Available Functional Status Description No Information Available Mental Status Description No Information Available Referrals Description No Information Available
--- OUTSIDE RECORDS SUMMARY | 2019-08-31 18:29 | XMS REPORT | Summary of Care ---
:1950 Author Organization [facility] Address [address] [facility] [place] [address] Care Team Providers Name Role Phone Dayo Harkins Primary Care Provider Reason for Visit Reason Comments Neck Pain DOS 07-10-2019, part Encounter Details Date Type Department Care Team Description 08/07/2019 Office Visit [facility] Cesar Aguilar, Cervical segment dysfunction (Primary Dx); [address] [facility] Cervical strain, initial encounter; [place] [address] [address] [facility] Nonallopathic lesion of lumbar region; [phone] [place] [address] Sprain of lumbar region, initial encounter [phone] Allergies No Known Allergiesdocumented as of this encounter (statuses as of 08/07/2019) Medications Medication Sig Dispensed Refills Start Date End Date Status Lancets Does not apply 1 Stick TWICE 100 Each 5 07/13/2011 Active Misc DAILY. 1. Brand: 2. Dx:250.02 3. non-Insulin dependentNO 4. 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 Correa for foot care. Seen 12/24/13 A1C 6.9% 11/16 Essential hypertension, benign 03/23/2006 documented as of this encounter (statuses as of 08/07/2019) Resolved Problems Problem Noted Date Resolved Date Acute right ankle pain 06/06/2017 03/26/2019 Resides in [facility] care facility 11/26/2015 07/19/2017 Back pain, lumbosacral 01/13/2015 06/13/2017 Chronic kidney disease, stage III (moderate) 01/27/2011 07/16/2019 Overview: Seeing Dr. Ritchie. Last seen 12/09/13. Next apt 03/18. 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 Neck Pain DOS 07-10-2019, part HISTORY OF PRESENT ILLNESS: Gurjit Isidro is a 68-y.o. male who presents for a follow-up visit. He reports neck pain and low back pain. Since last office visit symptoms have been improving. Response to previous treatment session: tolerated well Overall, the symptoms have been improving. Additional comments: Improved posture, not as far forward Estimated percentage improved: 70% Analog Pain Scale result: 210 NDI score: Oswestry score: Home exercise fulfillment: compliance with the home exercises was reported Current Outpatient Medications Medication Sig ? atorvastatin (LIPITOR) 40 MG Oral Tab Take 1 Tab by mouth DAILY. ? azelastine (ASTELIN) 0.1 % Nasal Solution [place] 2 Sprays in nose TWICE DAILY. ? [...] BMI. Regions of muscle spasm: bilateral cervical paraspinal, bilateral thoracolumbar paraspinal Regions of trigger points: none Regions of tenderness: Cervical paraspinal musculature, lumbar paraspinal musculature Intersegmental Motion Evaluation Spinal joint dysfunction/chiropractic subluxation Acute: Cervical: R-C4/5, L-C4/5, R-C5/6, L-C5/6 Lumbar: R-L4/5, L-L4/5, R-L5/S1, L-L5/S1 Posture Forward head carriage and rounded shoulder [...] reproduced the patient's complaints of thoracolumbar junction pain. IMPRESSION: ICD-9-CM ICD-10-CM 1. Cervical segment dysfunction 739.1 M99.01 2. Cervical strain, initial encounter 847.0 S16.1XXA 3. Nonallopathic lesion of lumbar region 739.3 M99.9 4. Sprain of lumbar region, initial encounter 847.2 S33.5XXA Response to care: Progressing as anticipated Plan: History, Exam, Report of Findings, Manipulate areas of inter-segmental dysfunction as noted inthe section titled intersegmental motion evaluation above , instruct in exercises for the purpose of neuromuscular reeducation to improve strength and range of motion. Manipulation: Spinal level(s): Spinal joint dysfunction/chiropractic subluxation Acute: Cervical: R-C4/5, L-C4/5, R-C5/6, L-C5/6 Lumbar: R-L4/5, L-L4/5, R-L5/S1, L-L5/S1 Follow up: Schedule follow-up here in 2 week(s). Author: Cesar Aguilar DC, 08/07/2019, 14:02 documented in this encounter Plan of Treatment Date Type Specialty Care Team Description 10/21/2019 Office Visit Endocrinology Monique Garcia, RICHARD [address] [place] [address] [phone] Health Maintenance Due Date Last Done Comments [...] No Dayo Harkins 2 diabetes mellitus AM ESTJeferson Haro MD with peripheral neuropathy Note: Diabetes [...] my blood sugar results (including dextrose sticks). [employer] is safe and secure way for you [...] not elsewhere classified Cervical strain, initial encounter Nonallopathic lesion of lumbar region Nonallopathic lesion of lumbar region, not elsewhere classified Sprain of lumbar region, initial encounter documented in this encounter Insurance Payer Benefit Plan / Subscriber ID Effective Dates Phone Address Type Group MEDICARE MEDICARE PART A [id number] Effective for all Medicare & B dates MEDICAID [place] [id number] 2019-Present Medicaid [place] MEDICAID (Home) [facility] [phone] 1 (Work) [place] [address] documented as of this encounter Advance Directives Type Date Recorded 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 Code Status Date Activated Date Inactivated Comments DNR/DNI 07/16/2019 1:57 PM Does the patient have decision making capacity? Yes Order was discussed with: Patient I discussed all options and patient/surrogate requested and agreed to: DNR/ DNI
--- OUTSIDE RECORDS SUMMARY | 2019-08-31 18:29 | XMS REPORT ---
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 Chronic Diagnosis Active 2018-06 Lesvia kidney kidney 07-24 [place] disease, disease, RN stage 3 stage 3 (moderate) (moderate) Pain frequent Pain Mgmt Resolve 2018-062019-07-08 [place] pain d 07-24 09:38:00 Haylee 09:05: [id number] Respiratory dyspnea Respirator Resolve 2018-062019-07-08 [place] present y d 07-24 09:38:00 Haylee 09:05: [id number] 00 Endo/Philipp anti-coagul Endo/Philipp Resolve 2018-062019-06-24 [place] ation d 07-24 13:06:00 Haylee therapy 09:05: [id number] Endo/Philipp diabetic Endo/Philipp Resolve 2018-062019-06-24 [place] foot care d 07-24 13:06:00 Haylee 09:05: [id number] 00 Sensory impaired Sensory Active 2018-06 [place] hearing 07-24 [place] 09:05: [id number] 00 Nutrition nutritional Nutrition Resolve 2018-062019-06-24 [place] restriction d 07-24 13:06:00 Haylee ayoub 09:05: [id number] 00 Elimination urinary Eliminatio Resolve 2018-062019-06-24 [place] incontinenc n d 07-24 13:06:00 Haylee e 09:05: [id number] 00 Neuro confusion Neuro/Emot Active 2018-06 [place] present ion 07-24 [place] 09:05: [id number] 00 Neuro anxiety Neuro/Emot Active 2018-06 [place] present ion 07-24 [place] 09:05: [id number] 00 Neuro impaired Neuro/Emot Active 2018-06 [place] decision-ma ion 07-24 [place] sophia 09:05: [id number] 00 Neuro psychiatric Neuro/Emot Active 2018-06 [place] problems ion 07-24 [place] 09:05: [id number] 00 Neuro memory Neuro/Emot Active 2018-06 [place] deficit ion 07-24 [place] needing 09:05: [id number] supervision 00 Activity ADL Activity Active 2018-06 [place] assistance 07-24 [place] required 09:05: [id number] Activity self-care Activity Active 2018-06 [place] deficit 07-24 [place] 09:05: [id number] 00 Safety structural Safety Active 2018-06 [place] barriers 07-24 [place] present 09:05: [id number] 00 Safety knowledge/s Safety Active 2018-06 [place] kill 07-24 [place] deficit: pt 09:05: [id number] 00 Safety fall risk Safety Active 2018-06 [place] factor 07-24 [place] present 09:05: [id number] 00 Safety risk for Safety Active 2018-06 [place] hospitaliza 07-24 [place] tion 09:05: [id number] 00 Medication oral med Meds Active 2018-06 [place] assistance 07-24 [place] required 09:05: [id number] 00 Medication knowledge/s Meds Active 2018-06 [place] kill 07-24 [place] deficit: pt 09:05: [id number] 00 Medication potential Meds Active 2018-06 [place] clinically 07-24 [place] significant 09:05: [id number] medication 00 issue Musculoskel transfer Musculoske Active 2018-06 [place] etal assistance letal 07-24 [place] required 09:05: [id number] 00 Cardio edema Cardiovasc Resolve 2019-07-08 Lesvia ular d 06-24 09:38:00 [place] 13:06: RN 00 Elimination urinary Eliminatio Resolve 2019-07-08 Hannah sommer n d 07-01 09:38:00 [place] e 08:30: [facility] 00 [id number] Safety can be left Safety Active Lesvia alone for - [place] only short 09:38: RN periods 00 Cardio edema Cardiovasc Active Lesvia ular - [place] 11:00: RN 00 Safety knowledge/s Safety Active 2019- Lesvia kill - [place] deficit: cg 11:00: RN 00 Allergies, Adverse Reactions, Alerts Allergy Allergy Status Severity Reaction(s) Onset Inactive Treating Comments Name Type Date Date Clinician Unknown None Active Unknown None Unknown No Known Allergies For This Patient Medications Ordered Filled Start Stop Current Ordering Indication Dosage Frequency Signature Comments Components Medication Medication Date Date Medication? Clinician (SIG) Name Name azelastine azelastine 2018-06 Yes [place] Unknown Unknown 0.15 % 0.15 % 07-24 Dayo HAIRSTON (205.5 mcg) (205.5 mcg) nasal spray nasal spray Lotrimin Lotrimin 2018-06 Yes [place] Unknown Unknown Ultra 1 % Ultra 1 % 07-24 Dayo HAIRSTON topical topical cream cream hydrocortis hydrocortis 2018-06- Yes [place] Unknown Unknown one 2.5 % one 2.5 % 07-24 Dayo HAIRSTON topical topical cream cream amLODIPine amLODIPine 2018-06- Yes [place] Unknown Unknown 10 mg 10 mg 07-24 Dayo HAIRSTON tablet tablet Aspirin Low Aspirin Low 2018-06- Yes [place] Unknown Unknown Dose 81 mg Dose 81 mg 07-24 Dayo HAIRSTON tablet,venice tablet,venice yed release yed release Colace 100 Colace 100 2018-06 Yes [place] Unknown Unknown mg capsule mg capsule 07-24 Dayo HAIRSTON finasteride finasteride 2018-06 Yes [place] Unknown Unknown 5 mg tablet 5 mg tablet 07-24 Dayo HAIRSTON glipiZIDE glipiZIDE 2018-06 2020- Yes [place] Unknown Unknown ER 5 mg ER 5 mg 07-24 Dayo HAIRSTON tablet, tablet, extended extended release 24 release 24 hr hr Januvia 50 Januvia 50 No [place] 1 tab Unknown mg tablet mg tablet Dayo HAIRSTON Lyrica 50 Lyrica 50 No [place] 1 cap Unknown mg capsule mg capsule Dayo HAIRSTON simvastatin simvastatin 2018-06- Yes [place] Unknown Unknown 40 mg 40 mg 07-24 Dayo HAIRSTON tablet tablet Depakote ER Depakote ER No [place]man[place] 3 tabs Unknown 500 mg 500 mg ,Maycol tablet,exte tablet,exte nded nded release release Latuda 80 Latuda 80 2018-06 Yes [place] Unknown Unknown mg tablet mg tablet 07-24 Dayo HAIRSTON latanoprost latanoprost No [place] Unknown Unknown 0.005 % eye 0.005 % eye O.D.,Alan drops drops w timolol 0.5 timolol 0.5 No [place] Unknown Unknown % eye drops % eye drops Dayo HAIRSTON Depakote Depakote 2018-06- Yes [place] Unknown Unknown 250 mg 250 mg 07-24 Dayo HAIRSTON tablet,venice tablet,venice yed release yed release Januvia 100 Januvia 100 2018-06 Yes [place] Unknown Unknown mg tablet mg tablet 07-24 Dayo HAIRSTON Acetaminoph Acetaminoph 2018-06 Yes [place] Unknown Unknown en Pain en Pain 07-24 Dayo HAIRSTON Relief 500 Relief 500 mg tablet mg tablet clonazePAM clonazePAM 2018-06- Yes [place] Unknown Unknown 0.5 mg 0.5 mg 07-24 Dayo HAIRSTON tablet tablet Lyrica 50 Lyrica 50 2018-06 Yes [place] Unknown Unknown mg capsule mg capsule 08-01 Dayo HAIRSTON clonazePAM clonazePAM Yes [place] Unknown Unknown 0.5 mg 0.5 mg 06-17 Maycol HAIRSTON tablet tablet losartan 50 losartan 50 Yes [place] Unknown Unknown mg tablet mg tablet 06-24 Dayo HAIRSTON hydroCHLORO hydroCHLORO Yes [place] Unknown Unknown thiazide 25 thiazide 25 06-24 Dayo HAIRSTON mg tablet mg tablet Depakote Depakote Yes [place] Unknown Unknown 250 mg 250 mg 06-24 Dayo HAIRSTON tablet,venice tablet,venice yed release yed release atorvastati atorvastati 2020- Yes [place] Unknown Unknown n 20 mg n 20 mg 06-24 Dayo HAIRSTON tablet tablet glipiZIDE glipiZIDE 2019- Yes [place] Unknown Unknown ER 2.5 mg ER 2.5 mg 07-18 ,Dayo tablet, tablet, extended extended release 24 release 24 hr hr atorvastati atorvastati 2019- Yes [place] Unknown Unknown n 20 mg n 20 [...]
[2019-08-31] MEDS ORDERED: Phenytoin IV(*) 50 MG/ML 5 ML VIAL (250 MG) IVPB ONE (18:31)
[2019-08-31] MEDS ORDERED: [UNRECOGNIZED DRUG - OTHER] IV ONE ×2 (19:00)
[2019-08-31] MEDS ORDERED: PHENYTOIN IV ONE ×2 (19:00)
[2019-08-31] MEDS: NS 0.9% 1000 ML** 1,000 ML IV ONE ×2 (19:22→21:06)
[2019-08-31] MEDS: Valproic Acid IV(*) 500 MG in NS 0.9% 100 ML* 100 ML IVPB SCH (23:54)
[2019-09-01] MEDS: Enoxaparin(*) 40 MG/0.4 ML SYR SUBCUT SCH ×2 (00:39→21:25)
[2019-09-01] MEDS: NS 0.9% 1000 ML** 1,000 ML IV SCH ×3 (00:49→20:19)
[2019-09-01] MEDS ORDERED: LORazepam INJ* 2 MG/ML 1 ML VIAL IV PUSH PRN ×2 (01:34→03:11)
[2019-09-01] MEDS ORDERED: Lorazepam PYXIS KEY PRN ×2 (01:34→03:11)
[2019-09-01] MEDS: Pregabalin 50 mg CAP (*) PO SCH ×2 (01:37→21:24)
--- NOTE | 2019-09-01 03:03 | HP ---
CC: Dr. Kaur; Dr. Harkins * HISTORY AND PHYSICAL: DATE OF ADMISSION: 08/31/19 PROVIDER: Adrienne Rollins NP PRIMARY CARE PROVIDER: Dr. Harkins, currently residing at [facility]. ATTENDING PHYSICIAN WHILE IN THE HOSPITAL: Dr. Cevallos * (dictated by Adrienne Rollins NP). CHIEF COMPLAINT: New onset of seizure. HISTORY OF PRESENT ILLNESS: Ms. Isidro is a 68-year-old [id number] transgender, who prefers to be called Harriet according to prior records, who has past medical history of diabetes, hypertension, schizoaffective disorder, chronic kidney disease stage 3, hyperlipidemia, and BPH, who presented to the emergency room via EMS from [facility] where the patient was observed to fall and started shaking on the ground. Staff was called, they observed the patient having a grand mal seizure. Seizure lasted approximately 1 minute according to the emergency room record, a subsequent 2-minute period of postictal phase was observed. She has no reported history of seizures. On initial arrival to the emergency room, he reported she felt dizzy and then fell and the next thing he remembered was waking on the floor. Per EMS, the patient was alert and oriented x3 with some delusions. The patient according to the emergency room record stated that she had a headache with a history of migraines, which felt consistent with his previous migraines. She also reported some neck pain. Approximately at 1823, the patient was observed to have a tonic-clonic seizure lasting 45 seconds while in the emergency room. He was given 2 mg of Ativan at that time. Dr. Kaur was contacted by the emergency room, who had recommended the patient receive phenytoin IV and continue his EEG monitoring and to transfer the patient. Attempt to transfer the patient was unsuccessful and the patient was declined acceptance at [facility]. Dr. Kaur again was contacted and will consult on this patient, and Hospital Medicine was asked to admit the patient to the hospital. While in the emergency room, the patient had routine lab work drawn. She was found to have a sodium of 126. He had a CT of the brain that showed no acute intracranial pathology. He had a CT of the neck that showed no evidence of acute fracture. She also was found to have a lactic acid of 4.4. She did receive 3 L of normal saline in the emergency room and repeat lab work is currently pending. Due to his new-onset seizures, Hospital Medicine was asked to see and evaluate him for admission. PAST MEDICAL HISTORY: Significant for: 1. Type 2 diabetes. 2. Schizoaffective disorder. 3. Hypertension. 4. Chronic kidney disease, stage 3. 5. Hyperlipidemia. 6. BPH. 7. 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 HOME MEDICATIONS: Include: 1. Aspirin 81 mg p.o. daily. 2. Atorvastatin 20 mg p.o. daily. 3. Klonopin 0.5 mg at bedtime. 4. Docusate 100 mg p.o. b.i.d. 5. Finasteride 5 mg p.o. daily. 6. Glipizide 5 mg p.o. daily. 7. Latuda 80 mg p.o. daily. 8. Lyrica 50 mg p.o. b.i.d. 9. Metformin 500 mg p.o. daily. 10. Senna 2 tabs at bedtime p.r.n. 11. MiraLAX 17 g p.o. daily. 12. Astepro 2 sprays both nares b.i.d. ALLERGIES: No known drug allergies. FAMILY HISTORY: According to old records, mother had a history of diabetes and coronary artery disease; father had a history of melanoma. SOCIAL HISTORY: According to old records, there is no reported use of tobacco, alcohol, or recreational drug use. She lives at [facility]. According to his admission on 07/25/19, his sister Rubi Pope is his surrogate decision maker in the event she is unable to make her own decisions. She wishes to be a DNR/DNI. MOLST form has been completed at [facility] and is available on the chart, has not been updated due to the patient's level of mentation. REVIEW OF SYSTEMS: Unable to obtain due to the patient's level of mentation. She has no grimacing with palpation of his abdomen. PHYSICAL EXAMINATION GENERAL: At this time, Ms. Isidro is a well-developed, well-nourished male-to- female, lying on the stretcher in the emergency room. She is in no acute distress. She is drowsy with garbled incomprehensible speech at times with an occasional period of comprehensible speech. VITAL SIGNS: Temperature was 97.2, heart rate 73, respirations are 13, O2 saturation 100%, blood pressure 121/75. HEENT: Head is atraumatic, normocephalic. He does have ecchymosis noted to his right frontal head. Eyes: EOMs are intact. Sclerae anicteric and not pale. Oral mucosa is moist. NECK: Supple. No nuchal rigidity. LUNGS: Clear to auscultation bilaterally. No wheezes, rales, or rhonchi. CARDIAC: S1, S2. Regular rate and rhythm. No murmurs, rubs, or gallops. ABDOMEN: Soft and nontender. Bowel sounds are present x4. EXTREMITIES: He is able to move all 4 extremities. He does have twitching noted to his lower extremities. He does frequently raise his right arm in the air. NEUROLOGIC: He is drowsy with incomprehensible speech with an occasional comprehensible word noted. SKIN: He does have ecchymosis to his right forehead. DIAGNOSTIC STUDIES/LAB DATA: WBCs were 6.2, RBCs 3.61, hemoglobin 10.6, hematocrit was 32, platelet count was 231. INR 0.96. Sodium was 126, repeat was 127; potassium 4.2; chloride 91; carbon dioxide was 22; anion gap was 13; BUN was 26; creatinine 1.39; glucose was 171. Lactic acid initially was 4.4, repeat was 1.0. Calcium 9.6, magnesium was 1.6. ASTs were 25, ALTs were 16, alkaline phosphatase was 53. TSH was 4.41. Urine was within normal limits with the exception specific gravity was 1.009. He had a CT of the brain, radiologist's impression: No evidence of intracranial mass or hemorrhage is noted. He had a CT of the cervical spine, degenerative disk disease at C3-C4, C4-C5, C5 -C6, and C6-C7. There is no fracture of the cervical spine noted. He had an electrocardiogram, which showed sinus rhythm at a rate of 91, mild ST elevation in lead II consistent with prior EKG. ASSESSMENT AND PLAN: Mr. Isidro is a 68-year-old [id number] transgender individual with a past medical history significant for hypertension, schizoaffective disorder, chronic kidney disease, hyperlipidemia, who presented to the emergency room after a witnessed grand mal seizure with second tonic- clonic seizure noted in the emergency room. He will be admitted inpatient on ICU for: 1. New onset of seizure. Unclear etiology at this time. No clear source of infection, afebrile, no nuchal rigidity. The patient did have two witnessed seizures today, new- onset for the patient with no underlying history of seizures. The patient currently is lethargic with incomprehensible speech. He has received 2 mg of Ativan in the emergency room as well as Dilantin 1250 IV loading dose. I have spoken to Dr. Kaur from Neurology, who will see the patient in consultation in the morning. We will start him on Depakote 500 mg IV q.12 hours as well as Dilantin 100 mg every 8 hours. She will have an EEG in the a.m. I will place her on seizure precautions. She will be monitored on telemetry in the ICU overnight. 2. Elevated lactic acid. I suspect his elevation in lactic acid is related to his seizures. Her repeat had normalized and the patient does not have any signs of sepsis. 3. Type [address] him on fingersticks a.c. to monitor his blood sugars. I will hold off on lispro sliding scale at this time as the patient is n.p.o. due to his level of mentation. 4. Schizoaffective disorder. We will resume his medications when his mentation improves. 5. Hypertension. The patient is not currently on any medications for hypertension. 6. Chronic kidney disease. This is at baseline. We will continue to monitor. 7. Hyperlipidemia. I am going to hold his atorvastatin at this time as the patient is n.p.o. 8. Hypomagnesia. The patient does have magnesium level of 1.6. He did receive 1 g of magnesium in the emergency room. I will give him 1 more gram of magnesium and we will continue to monitor. 9. Hyponatremia. The patient does have a sodium of 126. He did receive 3 L of normal saline in the emergency room. Repeat sodium was 127. We will continue to monitor. I will continue him on normal saline at 75 cc an hour overnight and repeat a BMP in the a.m. 10. FEN: He is n.p.o. 11. Code status. He is a DNR/DNI. TIME SPENT: Time spent on this admission was 60 minutes, greater than half that time was spent at the bedside reviewing events leading thus far to his hospitalization, performing physical exam, and reviewing my plan of care. I have discussed this with my attending, Dr. Cevallos, he is in agreement with my plan. ADRIENNE ROLLINS, RICHARD [id number]/[facility] #: [id number] [place]
[2019-09-01] MEDS ORDERED: Phenytoin IV(*) 100 MG in NS 0.9% 50 ML* 18 ML IV SCH (05:00)
[2019-09-01] MEDS ORDERED: FOSPHENYTOIN 100 MG IVPB SCH ×2 (05:00)
[2019-09-01] MEDS ORDERED: INFUSION IVPB SCH ×2 (05:00)
[2019-09-01 06:07] LABS: ABS Lymphocytes 1.5 10^3/ul (1.0-4.8); ABS Monocytes 0.6 10^3/ul (0-0.8); ABS Neutrophils 5.4 10^3/ul (1.5-7.7); Eosinophil % 0.1 %; Hematocrit 30 % (42-52); Hemoglobin 9.9 g/dL (14.0-18.0); Lymphocyte % 19.3 %; Mean Corpuscular HGB Conc 34 g/dL (31-36); Mean Corpuscular Hemoglobin 30 pg (27-31); Mean Corpuscular Volume 89 fL (80-94); Mean Platelet Volume 8.3 fL (7.4-10.4); Platelet Count 189 10^3/uL (150-450); Red Blood Count 3.32 10^6 /uL (4.18-5.48); Red Cell Distribution Width 13 % (10-15); White Blood Count 7.6 10^3/uL (3.5-10.8)
[2019-09-01 06:09] LABS: CO2 Carbon Dioxide 20 mmol/L (22-32); Calcium 8.3 mg/dL (8.6-10.3); Chloride 103 mmol/L (101-111); Sodium 131 mmol/L (135-145)
[2019-09-01] MEDS ORDERED: Dextrose 50% Syringe 50 ML* 25 GM/50 ML SYRINGE IV PUSH PRN (06:10)
[2019-09-01 06:14] LABS: BUN/Creatinine Ratio 17.5 (8-20); Blood Urea Nitrogen 18 mg/dL (6-24); EGFR African American 86.4 (>60); EGFR Non-African American 71.4 (>60); Glucose 124 mg/dL (70-100)
[2019-09-01 06:16] LABS: Anion Gap 8 mmol/L (2-11)
[2019-09-01] MEDS: Insulin LISPRO* 1 UNITS UNIT SUBCUT SCH ×4 (08:29→21:26)
[2019-09-01] MEDS ORDERED: Pregabalin 50 mg CAP (*) PO SCH (09:00)
[2019-09-01] MEDS: Valproic Acid IV(*) 500 MG in NS 0.9% 100 ML* 100 ML IVPB SCH ×2 (10:46→23:33)
--- NOTE | 2019-09-01 11:16 | PN ---
Date of Service: 09/01/19 Critical Care Services: Mr. Isidro denies complaint. He awakens easily to voice and converses, thoughts unclear at times. Oriented to self, confirms that he resides at [facility]. When asked why, he states, "because an alarm was going off." Vital Signs: Temp Pulse Resp BP SpO2 FiO2 98.3 F 80 11 133/82 100 09/01/19 07:29 09/01/19 10:00 09/01/19 10:00 09/01/19 10:09/01/19 10:00 Physical Exam: General: Alert, NAD HEENT: Normocephalic, atraumatic, non-icteric sclera, moist oral mucosa Neck: soft, supple, no JVD CV: Regular rate and rhythm, no murmurs or rubs Pulm/Chest: Good bilateral air entry, no rhonchi or rales, no wheeze Abdomen/GI: soft, nontender, nondistended, +BS noted MSK/Skin: warm, dry, intact, +2 pulses+, no edema or cyanosis Neuro: A&O to self, no gross focal deficits, lethargic Psych: lethargic, calm and interactive Fluid Balance (Past 24 Hours): I= O= Net Intake & Output 08/30/19 08/31/19 09/01/19 09/02/19 06:59 06:59 06:59 06:59 Intake Total 3947 Output Total 765 575 Balance 3182 -575 Weight 145 lb 15.136 oz Intake: IV Fluids 3741 Magnesium 391 IVPB 206 Magnesium 110 Valproic Acid 96 Output: Urine 515 350 Francois 225 Straight Cath 250 Other: Estimated Void Small # Voids 2 1 Labs: Laboratory Results - last 24 hr 08/31/19 08/31/19 08/31/19 16:28 16:28 16:28 WBC 6.2 RBC 3.61 L Hgb 10.6 L Hct 32 L MCV 88 MCH 30 MCHC 34 RDW 13 Plt Count 231 MPV 7.9 Neut % (Auto) 73.4 Lymph % (Auto) 16.5 [place] % (Auto) 8.7 Eos % (Auto) 1.1 Baso % (Auto) 0.3 Absolute Neuts (auto) 4.5 Absolute Lymphs (auto) 1.0 Absolute Monos (auto) 0.5 Absolute Eos (auto) 0.1 Absolute Basos (auto) 0.0 Absolute Nucleated RBC 0.0 Nucleated RBC % 0.0 INR (Anticoag Therapy) 0.96 Sodium 126 L Potassium 4.2 Chloride 91 L Carbon Dioxide 22 Anion Gap 13 H BUN 26 H Creatinine 1.39 H Est GFR ( Amer) 61.1 Est GFR (Non-Af Amer) 50.5 BUN/Creatinine Ratio 18.7 Glucose 171 H POC Glucose (mg/dL) Lactic Acid Calcium 9.6 Magnesium 1.6 L Total Bilirubin 0.40 AST 25 ALT 16 Alkaline Phosphatase 53 Total Protein 6.5 Albumin 4.0 Globulin 2.5 Albumin/Globulin Ratio 1.6 TSH 4.41 Urine Color Urine Appearance Urine pH Ur Specific [place] Urine Protein Urine Ketones Urine Blood Urine Nitrate Urine Bilirubin Urine Urobilinogen Ur Leukocyte Esterase Urine Glucose 08/31/19 08/31/19 08/31/19 16:28 17:00 22:56 WBC RBC Hgb Hct MCV MCH MCHC RDW Plt Count MPV Neut % (Auto) Lymph % (Auto) [place] % (Auto) Eos % (Auto) Baso % (Auto) Absolute Neuts (auto) Absolute Lymphs (auto) Absolute Monos (auto) Absolute Eos (auto) Absolute Basos (auto) Absolute Nucleated RBC Nucleated RBC % INR (Anticoag Therapy) Sodium Potassium Chloride Carbon Dioxide Anion Gap BUN Creatinine Est GFR ( Amer) Est GFR (Non-Af Amer) BUN/Creatinine Ratio Glucose POC Glucose (mg/dL) Lactic Acid 4.4 H* 1.0 Calcium Magnesium Total Bilirubin AST ALT Alkaline Phosphatase Total Protein Albumin Globulin Albumin/Globulin Ratio TSH Urine Color Straw Urine Appearance Clear Urine pH 6.0 Ur Specific [place] 1.009 L Urine Protein Negative Urine Ketones Negative Urine Blood Negative Urine Nitrate Negative Urine Bilirubin Negative Urine Urobilinogen Negative Ur Leukocyte Esterase Negative Urine Glucose Negative 08/31/19 09/01/19 09/01/19 22:56 05:15 05:15 WBC RBC Hgb Hct MCV MCH MCHC RDW Plt Count MPV Neut % (Auto) Lymph % (Auto) [place] % (Auto) Eos % (Auto) Baso % (Auto) Absolute Neuts (auto) Absolute Lymphs (auto) Absolute Monos (auto) Absolute Eos (auto) Absolute Basos (auto) Absolute Nucleated RBC Nucleated RBC % INR (Anticoag Therapy) Sodium 127 L 131 L Potassium TNP Chloride 103 Carbon Dioxide 20 L Anion Gap 8 BUN 18 Creatinine 1.03 Est GFR ( Amer) 86.4 Est GFR (Non-Af Amer) 71.4 BUN/Creatinine Ratio 17.5 Glucose 124 H POC Glucose (mg/dL) Lactic Acid Calcium 8.3 L Magnesium 2.1 Total Bilirubin AST ALT Alkaline Phosphatase Total Protein Albumin Globulin Albumin/Globulin Ratio TSH Urine Color Urine Appearance Urine pH Ur Specific [place] Urine Protein Urine Ketones Urine Blood Urine Nitrate Urine Bilirubin Urine Urobilinogen Ur Leukocyte Esterase Urine Glucose 09/01/19 09/01/19 05:15 07:21 WBC 7.6 RBC 3.32 L Hgb 9.9 L Hct 30 L MCV 89 MCH 30 MCHC 34 RDW 13 Plt Count 189 MPV 8.3 Neut % (Auto) 72.0 Lymph % (Auto) 19.3 [place] % (Auto) 8.4 Eos % (Auto) 0.1 Baso % (Auto) 0.2 Absolute Neuts (auto) 5.4 Absolute Lymphs (auto) 1.5 Absolute Monos (auto) 0.6 Absolute Eos (auto) 0.0 Absolute Basos (auto) 0.0 Absolute Nucleated RBC 0.0 Nucleated RBC % 0.0 INR (Anticoag Therapy) Sodium Potassium Chloride Carbon Dioxide Anion Gap BUN Creatinine Est GFR ( Amer) Est GFR (Non-Af Amer) BUN/Creatinine Ratio Glucose POC Glucose (mg/dL) 131 H Lactic Acid Calcium Magnesium Total Bilirubin AST ALT Alkaline Phosphatase Total Protein Albumin Globulin Albumin/Globulin Ratio TSH Urine Color Urine Appearance Urine pH Ur Specific [place] Urine Protein Urine Ketones Urine Blood Urine Nitrate Urine Bilirubin Urine Urobilinogen Ur Leukocyte Esterase Urine Glucose Studies: CT brain 08/31/19: IMPRESSION: No evidence of intracranial mass or hemorrhage is noted. Cervical spine CT 08/31/19: IMPRESSION: No fracture of the cervical spine is noted. Degenerative disc disease at C3-C4, C4-C5, C5-C6 and C6-C7. Chest xray 08/31/19: IMPRESSION: LIKELY SKIN FOLDS IN THE RIGHT UPPER LOBE. PA AND LATERAL VIEW OF THE CHEST SUGGESTED WHEN THE PATIENT IS ABLE TO DO SO. Impression: Patient is a 68 yo transgender M -> F (prefers Harriet) with a PMH of DM, HTN, CKD, HLD, Schizoaffective disorder who was admitted on 08/31/19 after a witnessed seizure. Diagnoses: * Seizure * Diabetes * Hypertension * CKD Plan: Neuro: - Alert, appears to be at baseline - Appreciate consultation from Dr Kaur - New onset seizures, antieptileptics added - EEG pending - CT brain negative, MRI brain ordered CVS: - Hemodynamically stable Resp: - No active issue ID: - No evidence of infection GI: - Nutrition: Consistent carb diet Renal: - Hx CKD - Creatinine normal - Hyponatremia on arrival, improving with hydration - Recheck in AM, add on urine sodium and creatinine, add on serum osmolality - Mag repleted Heme: - Chronic anemia, monitor Endo: - Maintain BG<200, continue lispro, hold home meds - Hx of noninsulin dependent diabetes Musculsk: - No active issues Wounds: - none DVT prophylaxis: SCDs, lovenox Disposition: Patient stabilized, no longer requires critical care services Patient clinical status: Stable Code Status: Full code Total Critical Care time is 40 minutes, excluding procedures/teaching
[2019-09-01 11:38] LABS: Creatine Kinase 937 U/L (10-223)
--- NOTE | 2019-09-01 13:13 | CONS ---
NEUROLOGY CONSULTATION: DATE OF CONSULT: 09/01/19 LOCATION: He is an inpatient ICU bed 6. REFERRING PROVIDER: Adrienne Rollins NP HISTORY OF PRESENT ILLNESS: Gurjit Isidro is a 68-year-old right-handed transgender male to female who was admitted yesterday after new onset seizure disorder. The history is from the medical records as well as conversations last evening from Adrienne Rollins and from the patient. The patient does not have a history of seizures in the past. She currently resides at [facility]. She had an observed convulsion at [facility] and evaluated in the emergency room and then had another observed convulsion in the emergency room. According to records, it was a tonic-clonic seizure lasting about 45 seconds. The patient was given 2 mg of lorazepam. The patient was described as unresponsive after that an attempt to transfer the patient to a facility with epilepsy monitoring was carried out, but was not successful. Subsequently, I spoke with Adrienne Rollins last night and at that point, the patient was conversing although confused. The patient denies ever having seizures before. The patient had a head injury as a child, but did not require hospitalization. She only recalls that she was knocked out from a fall, but cannot give any more details. The patient currently denies headaches. She was given fosphenytoin 1250 mg intravenously in the emergency room and also maintained at 100 mg q.8 hours. The patient was also started on Depakote 500 mg IV every 12 hours last night. She was found to have some hyponatremia, but looking back at historical values, it is not that different prior relatively mild low sodium levels. The patient had a low magnesium level as well, which was corrected. There has not been any fevers, other signs of infections since presentation to the hospital yesterday. PAST MEDICAL HISTORY: Notable for type 2 diabetes, schizoaffective disorder, hypertension, stage 3 kidney disease, hyperlipidemia, BPH. PAST SURGICAL HISTORY: Notable for strabismus surgery as a child. MEDICATIONS AT HOME: Consists of: 1. Atorvastatin 20 mg p.o. daily. 2. Clonazepam 0.5 mg q.h.s. 3. Aspirin 81 mg p.o. daily. 4. Finasteride 5 mg p.o. daily. 5. Latuda 80 mg p.o. daily. 6. Glipizide 5 mg p.o. daily. 7. Lyrica 50 mg p.o. daily. 8. Metformin 500 mg p.o. daily. 9. MiraLAX 17 g p.o. daily. ALLERGIES: According to computer records, there are no drug allergies. REVIEW OF SYSTEMS: Negative for headaches. The patient is still somewhat lethargic and confused and the rest of the review of systems is unreliable. PHYSICAL EXAMINATION: She is well nourished and well hydrated. She has bite jeffrey on the tip of her tongue little bit laterally. The patient has been afebrile throughout the hospital stay with a maximum temperature of 99.5 by temporal scan, heart rate is running in the 60s, blood pressure most recently is 115/65, respiratory rate is 13, and oxygen saturation is 99% on room air. Heart tones are normal. Carotid pulses are present and there no cervical bruits. Head is atraumatic. Neck is supple. Straight leg raising is negative bilaterally. On neurological exam, pupils react equally from 3 down to 2 mm. Eye movements are full. Facial musculature is symmetric. Facial sensation to nasal tickle is symmetric. Speech is dysarthric and sometimes mumbling and unintelligible, but often reasonably clear and understandable. Funduscopic exam is poorly seen , but a brief look at discs appeared normal. Motor exam is notable for increased muscle tone in the legs in particular. I cannot clearly differentiate spasticity from paratonia. The patient has good strength in the limbs without any drift of any limb. There is a fine high frequency sustention tremor in the outstretched hands. There is no asterixis or myoclonus. Reflexes are brisk in upper extremities and at the knees. Plantar responses are flexor bilaterally. The patient is oriented to person and place. She has poor attention and concentration. She tends to drift off to sleep if not stimulated. DIAGNOSTIC STUDIES/LAB DATA: Laboratory data is notable for a CT scan of the brain without contrast and interpreted as normal. I reviewed the images personally and I agree. CT scan of the cervical spine was interpreted as degenerative disk disease, but otherwise unremarkable. Chest x-ray was interpreted as a skin fold interfering with the view of the right upper lobe, but otherwise unremarkable. Other laboratory data is notable for a CBC with an anemia and with a hemoglobin this morning of 9.9 and hematocrit 30. CBC is otherwise within normal limits. Urinalysis yesterday is unremarkable. Chemistry profile from yesterday is notable for lactic acid of 4.4, which came down to 1.0 within hours. Sodium was 127 yesterday and is up to 131 today. There has been low sodium, it is going back as far as 2013 in the computer records. Calcium this morning is mildly low at 8.3 and was normal yesterday at presentation at 9.6, magnesium this morning is 2.1 and it was low at 1.6 yesterday. The rest of the electrolytes are unremarkable. Liver enzymes are normal. TSH at yesterday's presentation was normal at 4.41. Creatinine today is normal at 1.03 and was elevated yesterday at 1.39. IMPRESSION AND PLAN: Impression is that of new onset seizure disorder of unclear etiology. There is no current evidence of systemic infection or intracranial infection. The patient does not have meningismus, fever, or an elevated white blood cell count. We recommend discontinuing phenytoin and continuing Depakote at this point. Orders have been put in for an EEG and I have put in an order for a noncontrasted MRI scan of the brain given the patient's history of chronic kidney disease, I will avoid contrast. Although, the patient is still somewhat confused and lethargic, I think this is probably from the recent seizures and medications rather than a toxic metabolic process and so I do not think a lumbar puncture is needed at this point in time. We will continue to follow the patient along with you. [id number]/[facility] #: [id number] VIVIAND
[2019-09-02 01:51] LABS: Urine Creatinine Concentration 70.02 mg/dL
[2019-09-02 06:26] LABS: ABS Eosinophils 0.1 10^3/ul (0-0.6); ABS Lymphocytes 1.7 10^3/ul (1.0-4.8); ABS Monocytes 0.5 10^3/ul (0-0.8); ABS Neutrophils 3.9 10^3/ul (1.5-7.7); Eosinophil % 1.6 %; Hematocrit 33 % (42-52); Lymphocyte % 27.7 %; Mean Corpuscular HGB Conc 33 g/dL (31-36); Mean Corpuscular Hemoglobin 30 pg (27-31); Mean Corpuscular Volume 89 fL (80-94); Mean Platelet Volume 8.3 fL (7.4-10.4); Platelet Count 222 10^3/uL (150-450); Red Cell Distribution Width 14 % (10-15); White Blood Count 6.3 10^3/uL (3.5-10.8)
[2019-09-02 06:43] LABS: Calcium 8.4 mg/dL (8.6-10.3); EGFR African American 82.7 (>60); EGFR Non-African American 68.3 (>60); Potassium 3.8 mmol/L (3.5-5.0)
[2019-09-02] MEDS: Insulin LISPRO* 1 UNITS UNIT SUBCUT SCH ×4 (08:10→20:59)
[2019-09-02] MEDS: Pregabalin 50 mg CAP (*) PO SCH ×2 (09:02→21:19)
[2019-09-02] MEDS: Valproic Acid IV(*) 500 MG in NS 0.9% 100 ML* 100 ML IVPB SCH (11:13)
--- NOTE | 2019-09-02 11:37 | PN ---
Subjective Date of Service: 09/02/19 Length of Stay: 2 Days Neurology is following for seizures. Interval History: Preferred name: Halima. Halima has not had any seizures overnight. She has no history of seizures in the past. She does not recall the event that she had yesterday. According to the records, the patient was observed to fall and "started shaking on the ground." Staff observed the patient having a grand-mal seizure. The seizure lasted from 45 to 60 seconds. He had a post-ictal period of confusion for approximately two minutes. The patient stated that he had felt lightheaded and then fell. He does not recall shaking. The last thing he recalls was walking up on the floor. The reported headache and neck pain yesterday has resolved. Seizure risk factors: The patient reports multiple falls in the past. He also has history of meningitis 5 years ago. He has no family history of epilepsy. The patient denied any alcohol or tobacco abuse. He resides at [facility]. Labs, imaging, and other diagnostic testing: Calcium: 8.4 CK: 937 TSH: 4.41 Urinalysis: No pyuria. EEG 09/02/2019: normal awake EEG. CT head without contrast 08/31/2019: No acute intracranial abnormality. CT Cervical spine without contrast 08/31/2019: no fracture of the cervical spine. Degenerative disc disease at C3-4, C4-5, C5-6 and C6-7. Review of Systems: Denied CP, SOB, or palpitations. Objective Active Medications: Dextrose (D50w Syringe 50 Ml*) 12.5 gm IV PUSH .FOR FS < 60 - SS PRN PRN Reason: FS < 60 Enoxaparin Sodium (Lovenox(*)) 40 mg SUBCUT 2100 [facility] Last Admin: 09/01/19 21:25 Dose: 40 mg Sodium Chloride (Ns 0.9% 1000 Ml) 1,000 mls @ 75 mls/hr IV PER RATE [facility] Last Admin: 09/01/19 20:19 Dose: 75 mls/hr Valproic Acid 500 mg/ Sodium (Chloride) 105 mls @ 210 mls/hr IVPB Q12H [facility] Last Admin: 09/02/19 11:13 Dose: 210 mls/hr Insulin Human Lispro (Humalog*) 0 units SUBCUT FS ACHS ICU [facility]; Protocol Last Admin: 09/02/19 08:10 Dose: Not Given Miscellaneous (Ativan Pyxis Leyva) 1 ea N/A .ATIVAN IV LEYVA PRN PRN Reason: PYXIS LEYVA Pregabalin (Lyrica 50 Mg Cap (*)) 50 mg PO BID [facility] Last Admin: 09/02/19 09:02 Dose: 50 mg Vital Signs 09/02/19 09/02/19 07:56 09:02 Temperature 99.3 F Pulse Rate 84 Respiratory 20 16 Rate Blood Pressure 132/63 (mmHg) O2 Sat by Pulse 99 Oximetry Intake and Output Last 24 Hours 08/31/19 09/01/19 09/02/19 09/03/19 06:59 06:59 06:59 06:59 Intake Total 3947 704 1060 Output Total 765 1320 Balance 3182 -616 1060 Weight 145 lb 15.136 oz Intake: IV Fluids 3741 594 709 Magnesium 391 NS (0.9%) 594 709 IVPB 206 110 111 Magnesium 110 Valproic Acid 96 110 111 Oral 240 Output: Urine 515 795 Francois 525 Straight Cath 250 Other: Estimated Void Small Small # Voids 2 1 Oxygen Devices in Use Now: None Neurology Exam: General: Well nourished, well developed, and in no acute distress HEENT: Normocephelic/atraumatic, sclera anicteric, mucous membranes moist Neck: Supple Chest: Clear to auscultation bilaterally Cardiovascular: Regular rate and rhythm without murmurs, rubs, gallops Extremities: No clubbing, cyanosis, or edema Neurological Findings: Awake, alert, and oriented to person, place, and time. Speech: fluent without dysarthria, repetition intact Cranial Nerve: PERRL, EOM intact, VFF, no nystagmus, face symmetric bilaterally , facial sensation intact, hearing intact to finger rub bilaterally, palate elevates symmetrically, tongue midline, SCM and Trapezius s/s. Motor: s/s throughout, proximal and distal extremities x4 tone/bulk normal Sensation: intact to LT/PP bilaterally upper and lower extremities Deep Tendon Reflex: 2+ symmetric in the upper/lower extremities, Babinski - down going Finger to nose, rapid alternating movements intact without tremor, no dysdiadochokinesia Gait: deferred as he was having his EEG done. Result Diagrams: 09/02/19 05:57 09/02/19 05:57 Assessment/Plan Ms. Halima Isidro is a 68-year-old right-handed transgender male to female who presented to [facility] on 08/31/2019 with new onset seizure. She had two witnessed seizures before she was loaded with lorazepam, Depakote, and fosphenytoin. Fosphenytoin was discontinued and the patient was kept on Depakote 500 mg IV twice daily. Seizure risk factors include history of multiple falls with subsequent head injury and meningitis. Seizure semiology is unknown as the description of the episode is not specific. Since he is not aware of the events and given his age, he most likely had complex partial seizures with secondary generalization. The neurological examination is nonfocal. He has no evidence of structural or mass lesions on CT. He is pending a noncontrasted MRI of the brain. He cannot have contrast due to his history of CKD. EEG was normal. Overall, the patient had first time seizures of unclear etiology. He has no signs of severe electrolyte imbalance or WOUND NURSE infection. Low sodium and magnesium levels can contribute to lowering the seizure threshold, but he has had electrolyte imbalance in the past. Therefore, I don't think these are the main contributing factors. Recommendation: - Continue Depakote 500 mg twice daily. Please change to IV to PO dosing. - Have the patient follow-up with his PCP to check an ammonia and liver function panel in two weeks while he is on Depakote. - Pending brain MRI. If negative, I recommend discharging the patient back to the long-term. - Seizure precautions. - PT evaluation and treatment before discharge. Please contact me for any questions.
--- NOTE | 2019-09-02 13:10 | EEG ---
ELECTROENCEPHALOGRAPHY: DATE OF STUDY: 09/02/19 - ROOM #[id number] DATE READ: 09/02/19 ORDERED BY: Adrienne Rollins NP CLINICAL PROBLEM: Ms. Halima Isidro is a 68-year-old transgender who developed two episodes of seizures. This EEG was obtained to evaluate for epileptiform abnormality or electrographic seizures. MEDICATIONS: 1. Depakote. 2. Lyrica. 3. Humalog. 4. Lovenox. 5. Ativan. DURATION: [id number]. CLINICAL STATE: Awake. REPORT: The waking background showed appropriate organization with clearly defined anterior-posterior voltage and frequency gradients. There was a well- defined posterior dominant rhythm of 8.5 Hz, which was symmetrical and showed normal reactivity. Anteriorly, there was an expected pattern of lower voltage, irregular, mixed faster frequency. Photic stimulation and hyperventilation were not performed. EKG showed normal sinus rhythm. CLINICAL IMPRESSION: This is a normal awake EEG with no evidence of focal or epileptiform abnormalities. [id number]/[facility] #: [id number] [facility]
--- NOTE | 2019-09-02 13:29 | PN ---
Subjective Date of Service: 09/02/19 Interval History: Pt is transgender, prefers to be called Susanna. He has no complaints. Objective Active Medications: Dextrose (D50w Syringe 50 Ml*) 12.5 gm IV PUSH .FOR FS < 60 - SS PRN PRN Reason: FS < 60 Divalproex Sodium (Depakote Dr Tab(*)) 500 mg PO BID [facility] Enoxaparin Sodium (Lovenox(*)) 40 mg SUBCUT 2100 [facility] Last Admin: 09/01/19 21:25 Dose: 40 mg Insulin Human Lispro (Humalog*) 0 units SUBCUT FS ACHS ICU [facility]; Protocol Last Admin: 09/02/19 13:14 Dose: Not Given Miscellaneous (Ativan Pyxis Leyva) 1 ea N/A .ATIVAN IV LEYVA PRN PRN Reason: PYXIS LEYVA Pregabalin (Lyrica 50 Mg Cap (*)) 50 mg PO BID [facility] Last Admin: 09/02/19 09:02 Dose: 50 mg Vital Signs - 8 hr 09/02/19 09/02/19 09/02/19 07:13 07:56 09:02 Temperature 99.3 F Pulse Rate 84 Respiratory 14 20 16 Rate Blood Pressure 132/63 (mmHg) O2 Sat by Pulse 99 Oximetry 09/02/19 11:51 Temperature 97.6 F Pulse Rate 81 Respiratory 20 Rate Blood Pressure 164/87 (mmHg) O2 Sat by Pulse 100 Oximetry Oxygen Devices in Use Now: None Appearance: 68 yo M in nAD, aAOx3 Eyes: No Scleral Icterus, PERRLA Ears/Nose/Mouth/Throat: NL Teeth, Lips, Gums, Mucous Membranes Moist Neck: NL Appearance and Movements; NL JVP, Trachea Midline Respiratory: Symmetrical Chest Expansion and Respiratory Effort, Clear to Auscultation Cardiovascular: NL Sounds; No Murmurs; No JVD, RRR Abdominal: NL Sounds; No Tenderness; No Distention Lymphatic: No Cervical Adenopathy Extremities: No Edema Skin: No Rash or Ulcers Neurological: Alert and Oriented x 3, NL Muscle Strength and Tone Result Diagrams: 09/02/19 05:57 09/02/19 05:57 Assess/Plan/Problems-Billing Assessment: Patient is a 68 yo transgender M -> F (prefers Harriet) with a PMH of DM , HTN, CKD, HLD, Schizoaffective disorder who was admitted on 08/31/19 after a witnessed seizure. Diagnoses: * Seizure * Diabetes * Hypertension * CKD Plan: Seizure - Alert, appears to be at baseline - Appreciate consultation from Dr Kaur and Dr. Workman - New onset seizures,Depakote started - EEG WNL - CT brain negative, MRI brain pending CVS: - Hemodynamically stable Resp: - No active issue ID: - No evidence of infection GI: - Nutrition: Consistent carb diet Renal: - Hx CKD - Creatinine baseline - Hyponatremia on arrival, improved with hydration Heme: - Chronic anemia, monitor Endo: - Maintain BG<200, continue lispro, hold home meds - Hx of noninsulin dependent diabetes Musculsk: - No active issues Wounds: - none DVT prophylaxis: SCDs, lovenox Disposition: d/c back to [facility] once MRI completed, likely tomorrow AM
[2019-09-02] MEDS: Enoxaparin(*) 40 MG/0.4 ML SYR SUBCUT SCH (21:19)
[2019-09-02] MEDS: Divalproex DR TAB(*) 500 MG PO SCH (21:19)
[2019-09-03] MEDS: Insulin LISPRO* 1 UNITS UNIT SUBCUT SCH (07:56)
[2019-09-03] MEDS: Divalproex DR TAB(*) 500 MG PO SCH (07:59)
[2019-09-03] MEDS: Pregabalin 50 mg CAP (*) PO SCH (08:00)
--- NOTE | 2019-09-03 10:26 | DS ---
[facility]: [facility] * DATE OF ADMISSION: 08/31/2019. DATE OF DISCHARGE: 09/03/2019. PRIMARY CARE PHYSICIAN: Provider at [facility]. PRINCIPAL DIAGNOSIS: New onset seizure. SECONDARY DIAGNOSES: 1. Type 2 diabetes. 2. Schizoaffective disorder. 3. Hypertension. 4. Stage 3 chronic kidney disease. 5. Hyperlipidemia. 6. BPH. 7. 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 DISCHARGE MEDICATIONS: 1. Tylenol 650 mg p.o. q.6 hours prn pain. 2. Aspirin 81 mg p.o. daily. 3. Lipitor 20 mg p.o. daily. 4. Astepro two sprays to both nostrils twice daily. 5. Clonazepam 0.5 mg p.o. at bedtime. 6. Depakote DR 500 mg p.o. b.i.d. 7. Colace 100 mg p.o. b.i.d. 8. Finasteride 5 mg p.o. daily. 9. Glipizide 5 mg p.o. daily. 10. Latuda 80 mg p.o. daily. 11. Metformin 500 mg p.o. b.i.d. 12. MiraLax 17 gm p.o. daily. 13. Lyrica 50 mg p.o. b.i.d. 14. Senna two tabs p.o. at bedtime prn constipation. HOSPITAL COURSE: Mr. Isidro is a [id number] transgendered individual, who prefers to go by the name Halima, who was sent to the emergency room from [facility] after sustaining a fall with seizure activity. The patient had a subsequent second seizure in the emergency room. This lasted for approximately 45 seconds. The patient was seen in consultation by Neurology. It was recommended that the patient be started on Depakote DR 500 mg p.o. twice daily. She has had no further seizure activity. EEG obtained on 09/02/2019 revealed a normal awake EEG without evidence of focal or epileptiform abnormalities. MRI of the brain done on 09/02/2019 revealed no acute intracranial pathology, but did revealed hyperintensities of the periventricular and deep subcortical white matter, most likely secondary to chronic small vessel ischemic change. At this time, the patient is felt to be at baseline. Lab work throughout the hospitalization has been stable. She should resume all of her usual home medications and, in addition, continue on the Depakote DR 500 mg twice daily. She will need a CMP, Depakote level, and ammonia level on 09/16/2019. This will need to be followed by the physician at [facility]. The patient should be seen in follow-up with Neurology within the next one month. It is possible that this may take longer and as long as the patient is stable and his labs are followed, this would be sufficient. On the day of discharge, the patient is awake and alert, sitting up in a chair. She initially states that she has been in the hospital since 07/25/2019, however that was the date of her initial hospitalization. She has significant flight of ideas, but is calm and cooperative. Cardiac exam reveals normal S1, S2 with a regular rate and rhythm. Lungs are clear. Abdomen is soft and nontender. FOLLOW-UP CONCERNS: The patient is being discharged back to [facility] today , 09/03/2019. ACTIVITY LEVEL: As tolerated. DIET: Diabetic. CONDITION ON DISCHARGE: Stable. TIME SPENT: Thirty-five minutes were spent discharging this patient. [id number]/[facility] #: [id number] [facility] SYSTEMJose
[2019-09-03 12:04] VITALS: BP 154/98
--- NOTE | 2019-09-03 12:05 | PN ---
Subjective Date of Service: 09/03/19 Length of Stay: 3 Days Neurology is following seizures. Interval History: Harriet have not had any seizures overnight. She is tolerating the Depakote. Review of Systems: Denied CP, SOB, or palpitations. Objective Active Medications: Dextrose (D50w Syringe 50 Ml*) 12.5 gm IV PUSH .FOR FS < 60 - SS PRN PRN Reason: FS < 60 Divalproex Sodium (Depakote Dr Tab(*)) 500 mg PO BID [facility] Last Admin: 09/03/19 07:59 Dose: 500 mg Enoxaparin Sodium (Lovenox(*)) 40 mg SUBCUT 2100 [facility] Last Admin: 09/02/19 21:19 Dose: 40 mg Insulin Human Lispro (Humalog*) 0 units SUBCUT FS ACHS ICU [facility]; Protocol Last Admin: 09/03/19 07:56 Dose: Not Given Miscellaneous (Ativan Pyxis Leyva) 1 ea N/A .ATIVAN IV LEYVA PRN PRN Reason: PYXIS LEYVA Pregabalin (Lyrica 50 Mg Cap (*)) 50 mg PO BID [facility] Last Admin: 09/03/19 08:00 Dose: 50 mg Vital Signs 09/02/19 09/02/19 09/02/19 19:50 21:19 23:26 Temperature 98.4 F 97.4 F Pulse Rate 89 91 Respiratory 18 16 16 Rate Blood Pressure 156/89 140/72 (mmHg) O2 Sat by Pulse 100 98 Oximetry 09/03/19 09/03/19 09/03/19 00:54 03:37 08:00 Temperature 98.9 F 97.5 F Pulse Rate 79 86 Respiratory 16 16 16 Rate Blood Pressure 120/71 171/107 (mmHg) O2 Sat by Pulse 100 100 Oximetry 09/03/19 09/03/19 10:19 10:30 Temperature Pulse Rate Respiratory 16 Rate Blood Pressure 155/89 (mmHg) O2 Sat by Pulse Oximetry Intake and Output Last 24 Hours 09/01/19 09/02/19 09/03/19 09/04/19 06:59 06:59 06:59 06:59 Intake Total 3947 704 1660 720 Output Total 765 1320 1200 Balance 3182 -616 460 720 Weight 145 lb 15.136 oz Intake: IV Fluids 3741 594 709 Magnesium 391 NS (0.9%) 594 709 IVPB 206 110 111 Magnesium 110 Valproic Acid 96 110 111 Oral 840 720 Output: Urine 515 795 Francois 525 1200 Straight Cath 250 Other: Estimated Void Small Small # Voids 2 1 Oxygen Devices in Use Now: None Neurology Exam: General: Well nourished, well developed, and in no acute distress HEENT: Normocephelic/atraumatic, sclera anicteric, mucous membranes moist Extremities: No clubbing, cyanosis, or edema Neurological Findings: Awake, alert, and oriented to person, place, and time. Psychomotor slowing. He has baseline developmental delay. Speech: fluent without dysarthria, repetition intact Cranial Nerve: PERRL, EOM intact, VFF, no nystagmus, face symmetric bilaterally , facial sensation intact, hearing intact to finger rub bilaterally, palate elevates symmetrically, tongue midline, SCM and Trapezius s/s. Motor: s/s throughout, proximal and distal extremities x4 tone/bulk normal Sensation: intact to LT/PP bilaterally upper and lower extremities Deep Tendon Reflex: 2+ symmetric in the upper/lower extremities, Babinski - down going Finger to nose, rapid alternating movements intact without tremor, no dysdiadochokinesia Gait: able to ambulate without assistance. Result Diagrams: 09/02/19 05:57 09/02/19 05:57 Diagnostic Imaging: MRI brain without contrast: no acute intracranial abnormality. Assessment/Plan Ms. Halima Isidro is a 68-year-old right-handed transgender male to female who presented to [facility] on 08/31/2019 with new onset seizure. She had two witnessed seizures before she was loaded with lorazepam, Depakote, and fosphenytoin. Fosphenytoin was discontinued and the patient was kept on Depakote 500 mg IV twice daily. Seizure risk factors include history of multiple falls with subsequent head injury and meningitis. Seizure semiology is unknown as the description of the episode is not specific. Since he is not aware of the events and given his age, he most likely had complex partial seizures with secondary generalization. The neurological examination is nonfocal. He has no evidence of structural or mass lesions on CT. He is pending a noncontrasted MRI of the brain. He cannot have contrast due to his history of CKD. EEG was normal. Overall, the patient had first time seizures of unclear etiology. He has no signs of severe electrolyte imbalance or EXPERIENTIAL THERAPIST infection. Low sodium and magnesium levels can contribute to lowering the seizure threshold, but he has had electrolyte imbalance in the past without seizures. There is no evidence of any structural abnormalities on MRI. Recommendation: - Continue Depakote 500 mg twice daily. Please change to IV to PO dosing. - Have the patient follow-up with his PCP to check an ammonia and liver function panel in two weeks while he is on Depakote. - Seizure precautions. - PT evaluation and treatment before discharge. Please contact me for any questions.
== END 2019-09-03 12:20 | DRG 101 ==
LOC: ED 16:11 → ICU 22:26 → MEDTELE 09-01 12:14
PROVIDERS: ADMIT Family Medicine; ATTEND Hospitalist
DX: G40.409 Other generalized epilepsy and epileptic syndromes, not intractable, without status epilepticus (principal); E87.1 Hypo-osmolality and hyponatremia; E11.22 Type 2 diabetes mellitus with diabetic chronic kidney disease; I12.9 Hypertensive chronic kidney disease with stage 1 through stage 4 chronic kidney disease, or unspecified chronic kidney disease; F25.9 Schizoaffective disorder, unspecified; N18.3 Chronic kidney disease, stage 3 (moderate); E78.5 Hyperlipidemia, unspecified; N40.0 Benign prostatic hyperplasia without lower urinary tract symptoms; E83.42 Hypomagnesemia; D64.9 Anemia, unspecified; F64.9 Gender identity disorder, unspecified; Z66 Do not resuscitate; Z79.84 Long term (current) use of oral hypoglycemic drugs; Z79.82 Long term (current) use of aspirin; Z79.899 Other long term (current) drug therapy; Z83.3 Family history of diabetes mellitus; Z82.49 Family history of ischemic heart disease and other diseases of the circulatory system; Z80.8 Family history of malignant neoplasm of other organs or systems; Z91.81 History of falling
CPT/HCPCS: 36415; 70450; 70551; 71045; 72125; 80048; 80053; 81003; 82550; 82570; 83605; 83735; 83930; 84300; 84443; 85025; 85610; 93005; 95816; 96365; 96375; 99285; A9270-GY; J1165; J1650; J2060; J3475

== ENCOUNTER 2020-05-27 22:10 | Inpatient (IN) ==
[2020-05-27] MEDS ORDERED: NS 0.9% 1000 ml BAG 1,000 ML IV.FLUID IV ONE (22:22)
[2020-05-27 22:39] LABS: Hematocrit 35 % (42-52); Hemoglobin 11.5 g/dL (14.0-18.0); Mean Corpuscular HGB Conc 34 g/dL (31-36); Mean Corpuscular Hemoglobin 31 pg (27-31); Mean Corpuscular Volume 92 fL (80-94); Mean Platelet Volume 9.5 fL (7.4-10.4); Platelet Count 143 10^3/uL (150-450); Red Blood Count 3.74 10^6 /uL (4.18-5.48); Red Cell Distribution Width 15 % (10-15); White Blood Count 3.4 10^3/uL (3.5-10.8)
[2020-05-27 22:47] LABS: Activated Partial Thrombo Time 22.2 seconds (26.0-38.0); INR 1.07 (0.82-1.09)
[2020-05-27 22:56] LABS: ALT 61 U/L (7-52); AST 202 U/L (13-39); Albumin 3.2 g/dL (3.2-5.2); Albumin/Globulin Ratio 1.5 (1-3); Alkaline Phosphatase 35 U/L (34-104); Anion Gap 12 mmol/L (2-11); BUN/Creatinine Ratio 19.9 (8-20); Blood Urea Nitrogen 56 mg/dL (6-24); C Reactive Protein 176.03 mg/L (<8.01); CO2 Carbon Dioxide 25 mmol/L (22-32); Calcium 9.1 mg/dL (8.6-10.3); Chloride 92 mmol/L (101-111); EGFR African American 26.9 (>60); EGFR Non-African American 22.3 (>60); Globulin 2.1 g/dL (2-4); Glucose 243 mg/dL (70-100); Potassium 4.3 mmol/L (3.5-5.0); Sodium 129 mmol/L (135-145); Total Protein 5.3 g/dL (6.4-8.9)
[2020-05-27 22:59] LABS: Troponin I 0.05 ng/mL (<0.03)
[2020-05-27 23:03] LABS: Urine Appearance Cloudy; Urine Bilirubin Negative (Negative); Urine Blood 3+ (Negative); Urine Color Yellow; Urine Glucose 1+(50 mg/dL) (Negative); Urine Ketones Negative (Negative); Urine Nitrite Negative (Negative); Urine Protein 1+(30 mg/dL) (Negative); Urine Specific Gravity 1.021 (1.010-1.030); Urine Urobilinogen Negative (Negative)
[2020-05-27 23:09] LABS: Urine Bacteria Absent (Absent); Urine Red Blood Cell Trace(0-2/hpf) (Absent); Urine Renal Epithelial Cells Present (Absent); Urine White Blood Cell 1+(6-10/hpf) (Absent)
[2020-05-27 23:36] LABS: Influenza A Molecular Negative (Negative); Influenza B Molecular Negative (Negative)
[2020-05-28] MEDS ORDERED: Piperacillin/Tazobac ADVAN 3.375 GM in NS 0.9% 100 ml BAG 100 ML IVPB ONE (00:34)
[2020-05-28] MEDS ORDERED: NS 0.9% 1000 ml BAG 1,000 ML IV ONE (00:50)
[2020-05-28] MEDS ORDERED: Vancomycin 1,000 MG in NS 0.9% 250 ml 250 ML IVPB ONE ×2 (01:00)
[2020-05-28 01:47] LABS: ABS Lymphocytes 0.9 10^3/ul (1.0-4.8); ABS Monocytes 0.5 10^3/ul (0-0.8); Eosinophil % 0.1 %; Lymphocyte % 25.7 %; Nucleated Red Blood Cells % 0.2
[2020-05-28] MEDS ORDERED: Vancomycin per Pharmacy 1 EA NOTE FOLLOW UP SCH (04:00)
[2020-05-28] MEDS ORDERED: NS 0.9% 1000 ml BAG 1,000 ML IV SCH (04:15)
[2020-05-28] MEDS ORDERED: cefTRIAXone 2 GM ADDV.VIAL 2 GM in NS 0.9% 100 ml BAG 100 ML IV ONE (05:30)
[2020-05-28] MEDS ORDERED: Ampicillin ADVAN 2 GM in NS 0.9% 100 ML 100 ML IVPB ONE (06:00)
[2020-05-28 06:04] LABS: Vitamin B12 622 pg/mL (180-914)
[2020-05-28 06:14] LABS: HIV 4th Generation Nonreactive (Nonreactive)
[2020-05-28 06:20] LABS: Hematocrit 33 % (42-52); Mean Corpuscular HGB Conc 33 g/dL (31-36); Mean Corpuscular Hemoglobin 31 pg (27-31); Mean Corpuscular Volume 93 fL (80-94); Red Blood Count 3.57 10^6 /uL (4.18-5.48); Red Cell Distribution Width 16 % (10-15); White Blood Count 7.2 10^3/uL (3.5-10.8)
[2020-05-28 06:28] LABS: Urine Creatinine Concentration 112.6 mg/dL
[2020-05-28 06:29] LABS: Anion Gap 11 mmol/L (2-11); Blood Urea Nitrogen 48 mg/dL (6-24); CO2 Carbon Dioxide 21 mmol/L (22-32); Calcium 8.1 mg/dL (8.6-10.3); Chloride 103 mmol/L (101-111); EGFR African American 38.1 (>60); EGFR Non-African American 31.5 (>60); Glucose 187 mg/dL (70-100); Sodium 135 mmol/L (135-145)
[2020-05-28 06:50] LABS: Troponin I 0.05 ng/mL (<0.03)
[2020-05-28 06:54] LABS: Erythrocyte Sed Rate 15 mm/Hr (0-19)
[2020-05-28 06:59] LABS: TSH Ultra Thyroid Stim Horm 3.77 mcIU/mL (0.34-5.60)
[2020-05-28] MEDS ORDERED: Dextrose 50% Syringe 50 ml 25 GM/50 ML SYRINGE IV PUSH PRN (07:17)
[2020-05-28] MEDS ORDERED: Magnesium Hydroxide LIQ 30 ML UDC PO PRN (07:19)
[2020-05-28] MEDS ORDERED: Cefepime ADVAN 1 GM in NS 0.9% 50 ML 50 ML IVPB SCH (08:00)
[2020-05-28 08:03] LABS: ABS Lymphocytes 1.1 10^3/ul (1.0-4.8); ABS Monocytes 1.3 10^3/ul (0-0.8); ABS Neutrophils 4.8 10^3/ul (1.5-7.7); Mean Platelet Volume 9.6 fL (7.4-10.4); Platelet Count 95 10^3/uL (150-450)
[2020-05-28 08:55] LABS: Hepatitis B Surface Antigen Nonreactive (Nonreactive)
[2020-05-28 09:00] LABS: Hepatitis A Ab IgM Negative (Negative)
[2020-05-28] MEDS ORDERED: Piperacillin/Tazobac ADVAN 3.375 GM in NS 0.9% 100 ml BAG 100 ML IV ONE (09:00)
[2020-05-28 09:01] LABS: Hepatitis B Core IgM Nonreactive (Nonreactive)
[2020-05-28 09:12] LABS: Hepatitis C Antibody Negative (Negative)
[2020-05-28] MEDS: Triamcinolone 0.025% OINT 15 GM TUBE TOPICAL SCH ×2 (09:17→23:06)
[2020-05-28] MEDS: Acyclovir IV 500 MG in NS 0.9% 100 ml BAG 100 ML IVPB SCH (09:41)
[2020-05-28] MEDS ORDERED: Thiamine 100 MG/ML 2 ml VIAL 500 MG in NS 0.9% 250 ml 250 ML IV ONE (11:58)
[2020-05-28] MEDS ORDERED: Dextrose 50% Syringe 50 ml 25 GM/50 ML SYRINGE SCH (12:00)
[2020-05-28] MEDS: Ampicillin ADVAN 2 GM in NS 0.9% 100 ml BAG 100 ML IVPB SCH ×2 (13:46→23:00)
[2020-05-28] MEDS: Thiamine 100 MG/ML 2 ml VIAL 500 MG in NS 0.9% 250 ml 250 ML IV SCH (15:00)
[2020-05-28] MEDS ORDERED: Vancomycin 750 MG in NS 0.9% 250 ML IVPB SCH (16:00)
[2020-05-28] MEDS: cefTRIAXone 2 GM ADDV.VIAL 2 GM in NS 0.9% 100 ml BAG 100 ML IV SCH (17:37)
[2020-05-28 17:54] LABS: Hematocrit 31 % (42-52); Hemoglobin 10.3 g/dL (14.0-18.0); Mean Corpuscular HGB Conc 34 g/dL (31-36); Mean Corpuscular Hemoglobin 31 pg (27-31); Mean Corpuscular Volume 92 fL (80-94); Mean Platelet Volume 9.5 fL (7.4-10.4); Platelet Count 108 10^3/uL (150-450); Red Blood Count 3.34 10^6 /uL (4.18-5.48); Red Cell Distribution Width 16 % (10-15); White Blood Count 12.3 10^3/uL (3.5-10.8)
[2020-05-28 17:55] LABS: Urine Benzodiazepine Screen None Detected (None Detect); Urine Cannabinoids Screen None Detected (None Detect); Urine Opiates Screen None Detected (None Detect)
[2020-05-28 18:05] LABS: Alcohol, S < 10 mg/dL (<10)
[2020-05-28 18:06] LABS: INR 1.24 (0.82-1.09)
[2020-05-28 18:14] LABS: Troponin I 0.03 ng/mL (<0.03)
[2020-05-28] MEDS: NS 0.9% 1000 ml BAG 1,000 ML IV SCH ×2 (20:16→22:55)
[2020-05-28 20:28] LABS: ABS Lymphocytes 1.2 10^3/ul (1.0-4.8); ABS Monocytes 1.7 10^3/ul (0-0.8); ABS Neutrophils 9.3 10^3/ul (1.5-7.7)
[2020-05-29 04:28] LABS: Hematocrit 29 % (42-52); Hemoglobin 9.8 g/dL (14.0-18.0); Mean Corpuscular HGB Conc 33 g/dL (31-36); Mean Corpuscular Hemoglobin 31 pg (27-31); Mean Corpuscular Volume 92 fL (80-94); Mean Platelet Volume 9.9 fL (7.4-10.4); Platelet Count 108 10^3/uL (150-450); Red Blood Count 3.19 10^6 /uL (4.18-5.48); Red Cell Distribution Width 16 % (10-15); White Blood Count 12.7 10^3/uL (3.5-10.8)
[2020-05-29 04:38] LABS: Albumin 2.6 g/dL (3.2-5.2); Albumin/Globulin Ratio 1.1 (1-3); Calcium 8.1 mg/dL (8.6-10.3); EGFR African American 65.8 (>60); EGFR Non-African American 54.4 (>60); Globulin 2.4 g/dL (2-4); Potassium 3.5 mmol/L (3.5-5.0); Total Bilirubin 0.3 mg/dL (0.2-1.0)
[2020-05-29] MEDS: cefTRIAXone 2 GM ADDV.VIAL 2 GM in NS 0.9% 100 ml BAG 100 ML IV SCH ×2 (04:56→22:32)
[2020-05-29 05:36] LABS: ABS Lymphocytes 1.6 10^3/ul (1.0-4.8); ABS Monocytes 1.6 10^3/ul (0-0.8); ABS Neutrophils 9.5 10^3/ul (1.5-7.7); Lymphocyte % 12.3 %
[2020-05-29] MEDS: Ampicillin ADVAN 2 GM in NS 0.9% 100 ml BAG 100 ML IVPB SCH ×3 (06:11→23:40)
[2020-05-29] MEDS: Acyclovir IV 500 MG in NS 0.9% 100 ml BAG 100 ML IVPB SCH (09:36)
[2020-05-29] MEDS: Triamcinolone 0.025% OINT 15 GM TUBE TOPICAL SCH ×2 (09:44→22:02)
[2020-05-29 11:54] LABS: INR 1.28 (0.82-1.09)
[2020-05-29] MEDS ORDERED: Phytonadione IV (Adult) 10 MG in NS 0.9% 50 ML 50 ML IV ONE (16:55)
[2020-05-29 18:21] LABS: Hematocrit 29 % (42-52); Hemoglobin 9.7 g/dL (14.0-18.0)
[2020-05-29 18:56] LABS: Body Fluid Source Cerebral Spinal
[2020-05-29 19:09] LABS: CSF Glucose 91 mg/dL (40-70)
[2020-05-29 19:55] LABS: Body Fluid Mono 39 %
[2020-05-30 04:38] LABS: Hematocrit 28 % (42-52); Hemoglobin 9.5 g/dL (14.0-18.0); Mean Corpuscular HGB Conc 34 g/dL (31-36); Mean Corpuscular Hemoglobin 31 pg (27-31); Mean Corpuscular Volume 91 fL (80-94); Mean Platelet Volume 9.1 fL (7.4-10.4); Platelet Count 126 10^3/uL (150-450); Red Blood Count 3.08 10^6 /uL (4.18-5.48); Red Cell Distribution Width 16 % (10-15); White Blood Count 17.9 10^3/uL (3.5-10.8)
[2020-05-30 04:55] LABS: Albumin 2.7 g/dL (3.2-5.2); Calcium 8.8 mg/dL (8.6-10.3); EGFR African American 86.1 (>60); EGFR Non-African American 71.2 (>60); Globulin 2.8 g/dL (2-4); Potassium 3.7 mmol/L (3.5-5.0); Total Bilirubin 0.3 mg/dL (0.2-1.0); Total Protein 5.5 g/dL (6.4-8.9)
[2020-05-30] MEDS: Ampicillin ADVAN 2 GM in NS 0.9% 100 ml BAG 100 ML IVPB SCH ×3 (06:12→21:19)
[2020-05-30] MEDS: cefTRIAXone 2 GM ADDV.VIAL 2 GM in NS 0.9% 100 ml BAG 100 ML IV SCH ×2 (06:49→18:24)
[2020-05-30 08:38] LABS: Polychromasia 1+
[2020-05-30] MEDS: Triamcinolone 0.025% OINT 15 GM TUBE TOPICAL SCH ×2 (10:31→21:19)
[2020-05-30] MEDS: Acyclovir IV 500 MG in NS 0.9% 100 ml BAG 100 ML IVPB SCH (10:31)
[2020-05-30] MEDS ORDERED: Vancomycin Trough Check NOTE FOLLOW UP ONE (15:30)
[2020-05-30] MEDS: Enoxaparin 40 MG/0.4 ML SYR SUBCUT SCH (21:19)
[2020-05-31 07:25] LABS: Hematocrit 29 % (42-52); Hemoglobin 9.6 g/dL (14.0-18.0); Mean Corpuscular HGB Conc 34 g/dL (31-36); Mean Corpuscular Hemoglobin 31 pg (27-31); Mean Corpuscular Volume 91 fL (80-94); Mean Platelet Volume 8.9 fL (7.4-10.4); Platelet Count 151 10^3/uL (150-450); Red Blood Count 3.13 10^6 /uL (4.18-5.48); Red Cell Distribution Width 16 % (10-15); White Blood Count 15.6 10^3/uL (3.5-10.8)
[2020-05-31 07:41] LABS: BUN/Creatinine Ratio 31.6 (8-20); Calcium 8.7 mg/dL (8.6-10.3); EGFR African American 94.6 (>60); EGFR Non-African American 78.2 (>60); Potassium 3.2 mmol/L (3.5-5.0)
[2020-05-31] MEDS ORDERED: Potassium Chlor 20 meq TAB.ER PO ONE (07:44)
[2020-05-31] MEDS: cefTRIAXone 2 GM ADDV.VIAL 2 GM in NS 0.9% 100 ml BAG 100 ML IV SCH (07:50)
[2020-05-31] MEDS: Ampicillin ADVAN 2 GM in NS 0.9% 100 ml BAG 100 ML IVPB SCH (08:39)
[2020-05-31] MEDS: Triamcinolone 0.025% OINT 15 GM TUBE TOPICAL SCH ×2 (08:53→22:10)
[2020-05-31 09:38] LABS: ABS Lymphocytes 1.7 10^3/ul (1.0-4.8); ABS Monocytes 0.9 10^3/ul (0-0.8)
[2020-05-31] MEDS: Acyclovir IV 500 MG in NS 0.9% 100 ml BAG 100 ML IVPB SCH (10:18)
[2020-05-31] MEDS: Enoxaparin 40 MG/0.4 ML SYR SUBCUT SCH (22:08)
[2020-06-01 06:50] LABS: Hematocrit 26 % (42-52); Hemoglobin 8.8 g/dL (14.0-18.0); Mean Corpuscular HGB Conc 34 g/dL (31-36); Mean Corpuscular Hemoglobin 31 pg (27-31); Mean Corpuscular Volume 90 fL (80-94); Mean Platelet Volume 8.5 fL (7.4-10.4); Platelet Count 149 10^3/uL (150-450); Red Blood Count 2.87 10^6 /uL (4.18-5.48); Red Cell Distribution Width 16 % (10-15); White Blood Count 7.7 10^3/uL (3.5-10.8)
[2020-06-01 07:09] LABS: Albumin 2.3 g/dL (3.2-5.2); BUN/Creatinine Ratio 30.5 (8-20); Calcium 8.2 mg/dL (8.6-10.3); EGFR African American 112.1 (>60); EGFR Non-African American 92.6 (>60); Globulin 2.3 g/dL (2-4); Magnesium 1.4 mg/dL (1.9-2.7); Potassium 3.3 mmol/L (3.5-5.0); Total Bilirubin 0.4 mg/dL (0.2-1.0); Total Protein 4.6 g/dL (6.4-8.9)
[2020-06-01 07:31] LABS: ABS Lymphocytes 1.6 10^3/ul (1.0-4.8); ABS Monocytes 0.8 10^3/ul (0-0.8); ABS Neutrophils 5.3 10^3/ul (1.5-7.7); Eosinophil % 0.2 %; Lymphocyte % 20.8 %
[2020-06-01] MEDS ORDERED: Magnesium Sulfate IV 3 GM in NS 0.9% 100 ml BAG 100 ML IVPB ONE (08:34)
[2020-06-01] MEDS ORDERED: Potassium Chlor 20 meq TAB.ER PO ONE (08:34)
[2020-06-01] MEDS: Acyclovir IV 500 MG in NS 0.9% 100 ml BAG 100 ML IVPB SCH (08:39)
[2020-06-01] MEDS: Triamcinolone 0.025% OINT 15 GM TUBE TOPICAL SCH ×2 (08:39→20:41)
[2020-06-01] MEDS: Enoxaparin 40 MG/0.4 ML SYR SUBCUT SCH (20:38)
[2020-06-02 05:25] LABS: HSV 1 PCR, CSF Negative (Negative); HSV 2 PCR, CSF Negative (Negative)
[2020-06-02 06:56] LABS: Hematocrit 28 % (42-52); Hemoglobin 9.5 g/dL (14.0-18.0); Mean Corpuscular HGB Conc 34 g/dL (31-36); Mean Corpuscular Hemoglobin 31 pg (27-31); Mean Corpuscular Volume 91 fL (80-94); Mean Platelet Volume 8.1 fL (7.4-10.4); Platelet Count 170 10^3/uL (150-450); Red Blood Count 3.11 10^6 /uL (4.18-5.48); Red Cell Distribution Width 16 % (10-15); White Blood Count 9.3 10^3/uL (3.5-10.8)
[2020-06-02 07:18] LABS: BUN/Creatinine Ratio 29.3 (8-20); Calcium 8.2 mg/dL (8.6-10.3); EGFR African American 124.2 (>60); EGFR Non-African American 102.7 (>60); Potassium 3.9 mmol/L (3.5-5.0)
[2020-06-02] MEDS: Triamcinolone 0.025% OINT 15 GM TUBE TOPICAL SCH ×2 (09:20→22:13)
[2020-06-02 14:40] LABS: CSF VDRL Negative (Negative)
[2020-06-02 14:55] LABS: HSV 1 PCR, CSF Negative (Negative); HSV 2 PCR, CSF Negative (Negative)
[2020-06-02] MEDS: Enoxaparin 40 MG/0.4 ML SYR SUBCUT SCH (22:13)
[2020-06-02] MEDS ORDERED: NS 0.9% 500 ml BAG 500 ML IV ONE (23:59)
[2020-06-03] MEDS: Triamcinolone 0.025% OINT 15 GM TUBE TOPICAL SCH (10:28)
[2020-06-03 14:46] LABS: CSF West Nile Virus RNA (PCR) Negative (Negative); West Nile Virus Source CSF
[2020-06-03 16:46] VITALS: BP 117/64
[2020-06-03 17:31] LABS: CSF West Nile Virus IgG Ab Negative (Negative); CSF West Nile Virus IgM Ab Negative (Negative)
== END 2020-06-03 16:20 | DRG 871 ==
LOC: ED 22:10 → MED 05-28 04:38 → MEDTELE 05-30 05:43
PROVIDERS: ADMIT Internal Medicine; ATTEND Internal Medicine

== ENCOUNTER 2021-02-10 17:01 | Inpatient (IN) ==
[2021-02-10] MEDS ORDERED: NS 0.9% 1000 ml BAG 1,000 ML IV ONE (17:58)
[2021-02-10 20:28] LABS: ABS Lymphocytes 2.3 10^3/ul (1.0-4.8); ABS Monocytes 0.9 10^3/ul (0-0.8); ABS Neutrophils 15.3 10^3/ul (1.5-7.7); Hematocrit 30 % (42-52); Hemoglobin 10.1 g/dL (14.0-18.0); Lymphocyte % 12.4 %; Mean Corpuscular HGB Conc 33 g/dL (31-36); Mean Corpuscular Hemoglobin 29 pg (27-31); Mean Corpuscular Volume 86 fL (80-94); Mean Platelet Volume 7.1 fL (7.4-10.4); Platelet Count 289 10^3/uL (150-450); Red Blood Count 3.53 10^6 /uL (4.18-5.48); Red Cell Distribution Width 15 % (10-15); White Blood Count 18.5 10^3/uL (3.5-10.8)
[2021-02-10] MEDS ORDERED: cefTRIAXone 1 gm/50 mL NS BAG 1 GM/50 ML BAG IV ONE (20:36)
[2021-02-10] MEDS ORDERED: Azithromycin 500 mg/250 ml NS 500 MG/250 ML BAG ONE (20:41)
[2021-02-10 20:42] LABS: Rapid COVID-19 Molecular Undetected (Undetected)
[2021-02-10] MEDS ORDERED: NS 0.9% 1000 ml BAG 2,040 ML IV ONE (20:45)
[2021-02-10 20:48] LABS: Albumin 3.1 g/dL (3.2-5.2); Albumin/Globulin Ratio 0.9 (1-3); Calcium 9.6 mg/dL (8.6-10.3); EGFR African American 105.8 (>60); EGFR Non-African American 87.4 (>60); Globulin 3.3 g/dL (2-4); Magnesium 1.2 mg/dL (1.9-2.7); Potassium 4.3 mmol/L (3.5-5.0); Total Bilirubin 0.3 mg/dL (0.2-1.0); Total Protein 6.4 g/dL (6.4-8.9)
[2021-02-10] MEDS ORDERED: Azithromycin 500 mg/250 ml NS 500 MG/250 ML BAG IVPB SCH (21:00)
[2021-02-10 21:05] LABS: Troponin I 0.01 ng/mL (<0.03)
[2021-02-10 21:23] LABS: Urine Appearance Cloudy; Urine Bilirubin Negative (Negative); Urine Blood 3+ (Negative); Urine Color Yellow; Urine Glucose Negative (Negative); Urine Ketones Trace (Negative); Urine Nitrite Negative (Negative); Urine Protein 1+(30 mg/dL) (Negative); Urine Specific Gravity 1.014 (1.002-1.030); Urine Urobilinogen Negative (Negative)
[2021-02-10 21:29] LABS: Urine Bacteria 1+ (Absent); Urine Red Blood Cell 3+(>10/hpf) (Absent); Urine White Blood Cell 3+(>20/hpf) (Absent)
[2021-02-10] MEDS ORDERED: Magnesium Sulfate 2 gm BAG 2 GM/50 ML BAG IVPB ONE (22:14)
[2021-02-10] MEDS ORDERED: Piperacillin/Tazobac ADVAN 3.375 GM in NS 0.9% 100 ml BAG 100 ML IV ONE (23:20)
[2021-02-10] MEDS: Enoxaparin 40 MG/0.4 ML SYR SUBCUT SCH (23:43)
[2021-02-10] MEDS ORDERED: Zosyn per Pharmacy NOTE FOLLOW UP SCH (23:45)
[2021-02-11] MEDS ORDERED: Magnesium Hydroxide LIQ 30 ML UDC PO PRN (00:01)
[2021-02-11] MEDS ORDERED: Lactated Ringers 1000 ml BAG 1,000 ML IV ONE (00:06)
[2021-02-11] MEDS ORDERED: Senna TAB 8.6 mg TAB PO PRN (00:14)
[2021-02-11] MEDS ORDERED: Dextran 70/Hypromellose Tears Eye Drops 15 ml BTL (for Artificials Tears) BOTH EYES PRN (00:16)
[2021-02-11 01:19] LABS: Calcium 8.5 mg/dL (8.6-10.3); EGFR African American 148.7 (>60); EGFR Non-African American 122.9 (>60); Potassium 3.8 mmol/L (3.5-5.0)
[2021-02-11] MEDS: ZOSYN 3.375 GM Q8H per EXTENDED INFUSION IV SCH ×2 (04:41→12:28)
[2021-02-11] MEDS ORDERED: NFT: Mirabegron 25 mg ER TAB (NF) PO SCH (09:00)
[2021-02-11] MEDS ORDERED: NS 0.9% 500 ml BAG 500 ML IV ONE (15:06)
[2021-02-11] MEDS ORDERED: Mirabegron 25 mg ER TAB (NF) PO SCH (16:00)
[2021-02-11] MEDS ORDERED: Amoxicillin/Clavul 875/125 TAB (Augmentin 875 tab) PO SCH (21:00)
[2021-02-11] MEDS: Amoxicillin/Clavul ORALSYR 80 MG/ML (400 MG/5 ML) PO SCH (22:09)
[2021-02-11] MEDS: Enoxaparin 40 MG/0.4 ML SYR SUBCUT SCH (22:10)
[2021-02-12] MEDS ORDERED: Bismuth Subsalicylate (BTL) 525 MG/30 ML (BULK BTL) PO PRN (07:31)
[2021-02-12] MEDS ORDERED: Benzocaine/Menthol LOZ MT PRN (07:33)
[2021-02-12 07:34] LABS: Hematocrit 24 % (42-52); Hemoglobin 8.2 g/dL (14.0-18.0); Mean Corpuscular HGB Conc 34 g/dL (31-36); Mean Corpuscular Hemoglobin 29 pg (27-31); Mean Corpuscular Volume 86 fL (80-94); Mean Platelet Volume 6.9 fL (7.4-10.4); Platelet Count 235 10^3/uL (150-450); Red Cell Distribution Width 15 % (10-15); White Blood Count 8.9 10^3/uL (3.5-10.8)
[2021-02-12 07:44] LABS: Calcium 8.6 mg/dL (8.6-10.3); EGFR African American 223.3 (>60); EGFR Non-African American 184.6 (>60); Magnesium 1.1 mg/dL (1.9-2.7); Potassium 3.4 mmol/L (3.5-5.0)
[2021-02-12] MEDS: Amoxicillin/Clavul ORALSYR 80 MG/ML (400 MG/5 ML) PO SCH (09:08)
[2021-02-12] MEDS ORDERED: Magnesium Sulf 4 GM/100 ML IV 4,000 MG/100 ML BAG IVPB ONE (09:56)
[2021-02-12] MEDS: KCL 20 MEQ/100 ML IVPREMIX 20 MEQ/100 ML BAG IV SCH ×2 (15:00→17:25)
[2021-02-12] MEDS ORDERED: NS 0.9% 1000 ml BAG 1,000 ML IV ONE (19:42)
[2021-02-12] MEDS: Enoxaparin 40 MG/0.4 ML SYR SUBCUT SCH (22:33)
[2021-02-13 05:23] LABS: ABS Lymphocytes 2.3 10^3/ul (1.0-4.8); ABS Monocytes 0.6 10^3/ul (0-0.8); ABS Neutrophils 6.5 10^3/ul (1.5-7.7); Eosinophil % 0.2 %; Hematocrit 25 % (42-52); Hemoglobin 8.5 g/dL (14.0-18.0); Lymphocyte % 24.1 %; Mean Corpuscular HGB Conc 34 g/dL (31-36); Mean Corpuscular Hemoglobin 29 pg (27-31); Mean Corpuscular Volume 85 fL (80-94); Mean Platelet Volume 6.7 fL (7.4-10.4); Platelet Count 246 10^3/uL (150-450); Red Blood Count 2.89 10^6 /uL (4.18-5.48); Red Cell Distribution Width 15 % (10-15); White Blood Count 9.5 10^3/uL (3.5-10.8)
[2021-02-13 05:50] LABS: Calcium 8.7 mg/dL (8.6-10.3); EGFR African American 263.4 (>60); EGFR Non-African American 217.7 (>60); Magnesium 1.4 mg/dL (1.9-2.7); Potassium 4.3 mmol/L (3.5-5.0)
[2021-02-13] MEDS ORDERED: Magnesium Sulf 4 GM/100 ML IV 4,000 MG/100 ML BAG IVPB ONE (06:30)
[2021-02-13 08:58] VITALS: BP 94/58
== END 2021-02-13 14:40 | DRG 871 ==
LOC: ED 17:01 → MED 23:57
PROVIDERS: ADMIT Internal Medicine; ATTEND Internal Medicine

== ENCOUNTER 2021-03-21 04:47 | Inpatient (IN) ==
[2021-03-21] MEDS ORDERED: Pantoprazole VIAL 40 MG VIAL IV ONE (04:53)
[2021-03-21] MEDS ORDERED: Pantoprazole 80 mg in NS BAG 80 MG/250 ML BAG IV ONE (04:53)
[2021-03-21] MEDS ORDERED: Lactated Ringers 1000 ml BAG 1,000 ML IV ONE ×2 (04:54→06:45)
[2021-03-21 05:32] LABS: ABS Lymphocytes 0.8 10^3/ul (1.0-4.8); ABS Monocytes 0.2 10^3/ul (0-0.8); ABS Neutrophils 3.3 10^3/ul (1.5-7.7); Eosinophil % 0.2 %; Hematocrit 17 % (42-52); Hemoglobin 5.7 g/dL (14.0-18.0); Lymphocyte % 18.5 %; Mean Corpuscular HGB Conc 34 g/dL (31-36); Mean Corpuscular Hemoglobin 29 pg (27-31); Mean Corpuscular Volume 87 fL (80-94); Mean Platelet Volume 7.2 fL (7.4-10.4); Platelet Count 113 10^3/uL (150-450); Red Blood Count 1.96 10^6 /uL (4.18-5.48); Red Cell Distribution Width 18 % (10-15); White Blood Count 4.3 10^3/uL (3.5-10.8)
[2021-03-21 05:35] LABS: Activated Partial Thrombo Time 30.2 seconds (26.0-38.0); INR 1.12 (0.86-1.15)
[2021-03-21 05:43] LABS: Albumin 2.8 g/dL (3.2-5.2); Albumin/Globulin Ratio 1.2 (1-3); Calcium 7.8 mg/dL (8.6-10.3); Globulin 2.4 g/dL (2-4); Potassium 3.9 mmol/L (3.5-5.0); Total Bilirubin 0.3 mg/dL (0.2-1.0); Total Protein 5.2 g/dL (6.4-8.9)
[2021-03-21] MEDS ORDERED: Piperacillin/Tazobac ADVAN 3.375 GM in NS 0.9% 100 ml BAG 100 ML IV ONE (05:55)
[2021-03-21 11:01] LABS: Rapid COVID-19 Molecular Undetected (Undetected)
[2021-03-21] MEDS ORDERED: Furosemide 20 mg/2 ml IV VIAL IV SLOW PU ONE (11:27)
[2021-03-21 13:06] LABS: Hematocrit 36 % (42-52); Hemoglobin 12.4 g/dL (14.0-18.0); Mean Corpuscular HGB Conc 35 g/dL (31-36); Mean Corpuscular Hemoglobin 29 pg (27-31); Mean Corpuscular Volume 85 fL (80-94); Mean Platelet Volume 7.5 fL (7.4-10.4); Platelet Count 148 10^3/uL (150-450); Red Blood Count 4.21 10^6 /uL (4.18-5.48); Red Cell Distribution Width 17 % (10-15); White Blood Count 4.6 10^3/uL (3.5-10.8)
[2021-03-21] MEDS: Pantoprazole 80 mg IN NS 80 MG/250 ML BAG IV SCH (16:58)
[2021-03-21] MEDS ORDERED: CHLORPROMAZINE IV ONE (22:20)
[2021-03-21] MEDS ORDERED: NS 0.9% IV ONE (22:20)
[2021-03-22] MEDS: Pantoprazole 80 mg IN NS 80 MG/250 ML BAG IV SCH ×2 (03:05→14:00)
[2021-03-22 05:10] LABS: Hematocrit 34 % (42-52); Hemoglobin 11.6 g/dL (14.0-18.0); Mean Corpuscular HGB Conc 35 g/dL (31-36); Mean Corpuscular Hemoglobin 30 pg (27-31); Mean Corpuscular Volume 86 fL (80-94); Mean Platelet Volume 8.4 fL (7.4-10.4); Platelet Count 159 10^3/uL (150-450); Red Blood Count 3.93 10^6 /uL (4.18-5.48); Red Cell Distribution Width 17 % (10-15); White Blood Count 9.5 10^3/uL (3.5-10.8)
[2021-03-22 05:27] LABS: Calcium 9.2 mg/dL (8.6-10.3); Magnesium 1.1 mg/dL (1.9-2.7); Phosphorus 2.9 mg/dL (2.5-5.0); Potassium 3.3 mmol/L (3.5-5.0)
[2021-03-22] MEDS ORDERED: Magnesium Sulf 4 GM/100 ML IV 4,000 MG/100 ML BAG IVPB ONE ×2 (05:52→09:00)
[2021-03-22] MEDS: KCL 20 MEQ/100 ML IVPREMIX 20 MEQ/100 ML BAG IV SCH ×2 (06:59→10:13)
[2021-03-22 20:06] LABS: Calcium 9.3 mg/dL (8.6-10.3); Potassium 3.4 mmol/L (3.5-5.0)
[2021-03-23] MEDS: Pantoprazole 80 mg IN NS 80 MG/250 ML BAG IV SCH (01:07)
[2021-03-23 06:59] LABS: Magnesium 1.4 mg/dL (1.9-2.7); Potassium 3.3 mmol/L (3.5-5.0)
[2021-03-23] MEDS ORDERED: Magnesium Sulf 4 GM/100 ML IV 4,000 MG/100 ML BAG IVPB ONE (07:23)
[2021-03-23] MEDS ORDERED: Potassium Chlor 20 meq TAB.ER PO ONE (07:24)
[2021-03-23 07:25] LABS: ABS Lymphocytes 1.6 10^3/ul (1.0-4.8); ABS Monocytes 0.5 10^3/ul (0-0.8); ABS Neutrophils 6.4 10^3/ul (1.5-7.7); Eosinophil % 0.4 %; Hematocrit 32 % (42-52); Hemoglobin 11.1 g/dL (14.0-18.0); Lymphocyte % 19.1 %; Mean Corpuscular HGB Conc 34 g/dL (31-36); Mean Corpuscular Hemoglobin 30 pg (27-31); Mean Corpuscular Volume 87 fL (80-94); Mean Platelet Volume 7.6 fL (7.4-10.4); Nucleated Red Blood Cells % 0.1; Platelet Count 168 10^3/uL (150-450); Red Blood Count 3.72 10^6 /uL (4.18-5.48); Red Cell Distribution Width 17 % (10-15); White Blood Count 8.5 10^3/uL (3.5-10.8)
[2021-03-23] MEDS: KCL 10 MEQ/50 ML IVPREMIX 10 MEQ/50 ML BAG IV SCH ×4 (08:39→14:15)
[2021-03-23] MEDS: Pantoprazole VIAL 40 MG VIAL IV SCH ×2 (08:42→21:06)
[2021-03-23] MEDS: NF:Mirabegron 25 mg ER TAB (NF) PO SCH (08:47)
[2021-03-23 17:37] LABS: Calcium 9.3 mg/dL (8.6-10.3); Magnesium 2.3 mg/dL (1.9-2.7); Potassium 3.9 mmol/L (3.5-5.0)
[2021-03-24 06:45] LABS: Magnesium 1.5 mg/dL (1.9-2.7); Potassium 3.7 mmol/L (3.5-5.0)
[2021-03-24 07:27] LABS: ABS Lymphocytes 2.1 10^3/ul (1.0-4.8); ABS Monocytes 0.7 10^3/ul (0-0.8); ABS Neutrophils 6.4 10^3/ul (1.5-7.7); Eosinophil % 0.5 %; Hematocrit 32 % (42-52); Hemoglobin 10.7 g/dL (14.0-18.0); Lymphocyte % 22.5 %; Mean Corpuscular HGB Conc 34 g/dL (31-36); Mean Corpuscular Hemoglobin 30 pg (27-31); Mean Corpuscular Volume 87 fL (80-94); Mean Platelet Volume 7.7 fL (7.4-10.4); Nucleated Red Blood Cells % 0.1; Platelet Count 185 10^3/uL (150-450); Red Blood Count 3.62 10^6 /uL (4.18-5.48); Red Cell Distribution Width 17 % (10-15); White Blood Count 9.2 10^3/uL (3.5-10.8)
[2021-03-24] MEDS: Pantoprazole VIAL 40 MG VIAL IV SCH (07:53)
[2021-03-24] MEDS: NF:Mirabegron 25 mg ER TAB (NF) PO SCH (07:54)
[2021-03-24] MEDS ORDERED: Magnesium Sulfate IV 3 GM in NS 0.9% 100 ml BAG 100 ML IVPB ONE (08:00)
[2021-03-24 08:58] VITALS: BP 130/79
== END 2021-03-24 10:00 | DRG 177 ==
LOC: ED 04:47 → ICU 08:43 → MED 03-23 23:09
PROVIDERS: ADMIT Internal Medicine; ATTEND Internal Medicine